=== PATIENT | male | born 1980 | race Two or more races ===

== ENCOUNTER 2019-07-25 20:32 | Inpatient (IN) | payer MEDICAID ==
[~2019-07-25] VITALS: Ht 177.8 cm; Wt 78.1 kg
[2019-07-25 20:35] VITALS: BP 104/56
--- NOTE | 2019-07-25 20:35 | NUR ---
ED Nurse Note: pt bekaha CO sz while at friends' house, witnessed by friend but untimed. No known hx of sz or other previous medical conditions. Pt BS in rig 125; BS 126 upon arrival. RA states they gave Versed 2mg and 1L of NS en route; pt vomited once en route. HR elevated 132 but other VSS. Blood and urine sent to lab. Pt placed on monitor. Awaiting ERMD.
--- NOTE | 2019-07-25 20:37 | NUR ---
ED Nurse Note: pt arousable, aao x 1; wakes to name and/or shaking.
--- NOTE | 2019-07-25 20:38 | Emergency Room Report ---
History of Present Illness General Chief Complaint: Seizure Source: EMS Present Illness HPI Disclaimer: Please note that this report is being documented using DRAGON technology. This can lead to erroneous entry secondary to incorrect interpretation by the dictating instrument. HPI: 39-year male presents for evaluation of seizure-like activity. Per EMS, they were called to the house by patient's roommate who found him behaving bizarrely with his right arm twitching. Per EMS they found him somewhat confused though making good eye contact, tracking and following commands. En route he had a generalized tonic-clonic seizure with persistent tremors in his right upper extremity. He was given 5 mg Versed which aborted the seizure. He is somnolent with sonorous respirations on arrival. He cannot provide any history. Per EMS, no seizure history is known but he is reportedly a heavy drinker according to the roommates. Supposedly he did not drink today. Unknown history of DT or withdrawal seizures. No prior visits at our facility PMH: Unknown PSH: Unknown Allergies: Unknown Social Hx: Unknown but alcohol abuse reported by EMS Allergies: Coded Allergies: No Known Allergies (Unverified , 07/25/19) Review of Systems All Other Systems: limited - Unable to obtain from patient Physical Exam General: Sleeping, sonorous respirations, no acute distress HEENT: NC/AT. EOMI. pupils are 2 mm and reactive bilaterally. Anicteric sclera. Neck: Supple, trachea midline Chest Wall: No tenderness, no deformity Cardiovascular: RRR. S1 and S2 normal. No murmur appreciated Resp: Sonorous respirations. Normal work of breathing. No cough, wheezing or crackles appreciated Abdomen: Abdomen is soft, nondistended. Nontender Skin: Intact. No abrasions, laceration or rash over the exposed skin MSK: Normal tone and bulk. Moving all extremities. No obvious deformity. Neuro: GCS 7. E1, V2, M4. Some rhythmic motion in the right upper extremity, intermittent. No rigidity Procedures Critical Care Time Critical Care Time Total critical care time: Approximately 45 minutes Due to a high probability of clinically significant, life threatening deterioration, the patient required the highest level of preparedness to intervene emergently and I personally spent this critical care time directly and personally managing the patient. This critical care time included obtaining a history, examining the patient, pulse oximetry, ordering and reviewing studies , ordering treatments, evaluating response to treatment and updating management plan as needed, frequent reassessment and discussion with other providers as well as arranging for ultimate disposition. This critical to care time was performed to assess and manage the high probability of life-threatening deterioration that could result in multiorgan failure. This critical care time is separate from the separately billable procedures and treating other patients. Medical Decision Making Diagnostic Impression: Primary Impression: Seizure Additional Impression: JULIAN (acute kidney injury) ER Course 39-year-old male with a reported history of alcohol abuse presents for evaluation of seizure-like activity and altered mental status. He reportedly had a generalized tonic-clonic seizure en route which was aborted by 5 mg Versed given by EMS just prior to arrival. He is somnolent but withdrawing to pain and GCS is 7. Protecting his airway at present. Differential includes was not limited to seizure disorder, medication noncompliance, alcohol withdrawal seizure, delirium tremens, intercranial mass, new cranial injury, focal seizure, toxicologic, encephalopathy, electrolyte abnormality. Blood sugar per EMS was 180. Start a broad metabolic infectious work-up. Will send patient for CT scan of the head. Will load with Keppra. Additional benzodiazepines as needed. Laboratory Tests Test 07/25/19 20:40 07/25/19 21:00 White Blood Count 10.6 K/UL (4.8-10.8) Red Blood Count 3.95 M/UL (4.70-6.10) L Hemoglobin 13.2 G/DL (14.2-18.0) L Hematocrit 38.2 % (42.0-52.0) L Mean Corpuscular Volume 97 FL (80-99) Mean Corpuscular Hemoglobin 33.5 PG (27.0-31.0) H Mean Corpuscular Hemoglobin Concent 34.6 G/DL (32.0-36.0) Red Cell Distribution Width 11.1 % (11.6-14.8) L Platelet Count 164 K/UL (150-450) Mean Platelet Volume 6.5 FL (6.5-10.1) Neutrophils (%) (Auto) 49.2 % (45.0-75.0) Lymphocytes (%) (Auto) 36.0 % (20.0-45.0) Monocytes (%) (Auto) 10.2 % (1.0-10.0) H Eosinophils (%) (Auto) 3.3 % (0.0-3.0) H Basophils (%) (Auto) 1.4 % (0.0-2.0) Sodium Level 139 MMOL/L (136-145) Potassium Level 3.1 MMOL/L (3.5-5.1) L Chloride Level 101 MMOL/L (98-107) Carbon Dioxide Level 11 MMOL/L (21-32) L Anion Gap 27 mmol/L (5-15) H Blood Urea Nitrogen 15 mg/dL (7-18) Creatinine 1.4 MG/DL (0.55-1.30) H Estimate Glomerular Filtration Rate 56.1 mL/min (>60) Glucose Level 128 MG/DL (74-106) H Calcium Level 8.9 MG/DL (8.5-10.1) Total Bilirubin 0.9 MG/DL (0.2-1.0) Aspartate Amino Transferase (AST) 82 U/L (15-37) H Alanine Aminotransferase (ALT) 81 U/L (12-78) H Alkaline Phosphatase 178 U/L (46-116) H Total Creatine Kinase 171 U/L (26-308) Troponin I 0.000 ng/mL (0.000-0.056) Total Protein 9.4 G/DL (6.4-8.2) H Albumin 3.1 G/DL (3.4-5.0) L Globulin 6.3 g/dL Albumin/Globulin Ratio 0.5 (1.0-2.7) L Salicylates Level < 0.2 ug/mL (2.8-20) L Acetaminophen Level < 2 MCG/ML (10-30) L Serum Alcohol < 3 mg/dL Urine Opiates Screen Negative (NEGATIVE) Urine Barbiturates Screen Negative (NEGATIVE) Phencyclidine (PCP) Screen Negative (NEGATIVE) Urine Amphetamines Screen Negative (NEGATIVE) Urine Benzodiazepines Screen Positive (NEGATIVE) H Urine Cocaine Screen Negative (NEGATIVE) Urine Marijuana (THC) Screen Negative (NEGATIVE) EKG Diagnostic Results EKG Time: 20:03 Rate: tachycardiac Other Impression Sinus tachycardia, normal axis, normal intervals, no obvious ST changes Rhythm Strip Diag. Results Rhythm Strip Time: 20:03 EP Interpretation: yes Rate: 120s Rhythm: no PVC's, no ectopy CT/MRI/US Diagnostic Results CT/MRI/US Diagnostic Results : Impression Preliminary Findings Only See Final Report For Complete Findings CT HEAD Without Contrast: Impression: No acute intracranial pathology is detected. If there is concern for etiology such as early acute lacunar infarct or if there is concern for subtle abnormalities, magnetic resonance imaging of the brain should be performed for follow-up. Incidental findings: The ventricular system is unremarkable. No midline shift or mass-effect. No abnormal extra-axial collection. Physiologic calcis occasions within the basal ganglia are noted. Calvarium is unremarkable. Mastoid air cells are well pneumatized. Mild chronic ethmoid sinusitis. Radiologist: Sukhdeep Up MD Study ready at 20:56 and initial results transmitted at 20:59 Reevaluation Time: 21:14 Reevaluation Impression No mass or bleed identified on CT scan of the head. Labs show a slight elevation in creatinine as well as the LFTs. Patient remains somnolent and tachycardic. Alcohol level undetectable. Patient mentation is improving. He is tremulous and cannot recall today's events. He seems somewhat altered and confused by my questioning but is improved from initial presentation. Concern for acute alcohol withdrawal. He will require admission. We will continue benzodiazepines and IV fluids. Disposition: ADMITTED INPATIENT Condition: Serious Scripts No Active Prescriptions or Reported Meds Roberto Lucio MD Jul 25, 2019 20:38
--- NOTE | 2019-07-25 20:42 | NUR ---
ED Nurse Note: Pt taken to CT
[2019-07-25] MEDS ORDERED: levETIRAcetam 1,000mg/NS100ml 100 ML IVPB ONE (20:45)
--- NOTE | 2019-07-25 20:50 | NUR ---
ED Nurse Note: Pt returned from CT. technical sales manager states pt vomited once during procedure, approximately 100ml. Pt VS elevated, ERMD aware.
--- NOTE | 2019-07-25 20:51 | NUR ---
ED Nurse Note: ERMD at bedside
--- NOTE | 2019-07-25 21:00 | NUR ---
ED Nurse Note: Pt at bedside, states that pt and her are and pt drinks alcohol everyday. Pt states that she does not know where the pt was when he was picked up by ambulance and has not seen him for a few days. ERMD at bedside.
--- NOTE | 2019-07-25 21:00 | Diagnostic Imaging Report ---
Indication: Headache Technique: Contiguous 5 mm thick transaxial imaging of the head obtained in a Siemens Sensation [address] scanner. Soft tissue and bone windows generated. Automatic Exposure Control was utilized. Total Dose length Product (DLP): 1018.8mGycm CT Dose Index Volume (CTDIvol): 53.4 mGy Comparison: none Findings: The size and configuration of the cortical sulci, basal cisterns, and ventricles are within normal limits for age. There is no mass effect, midline shift, or edema identified. There is no evidence of acute hemorrhage or abnormal intra-axial or extra-axial fluid collections. The bones and soft tissues are unremarkable. Impression: No mass effect, edema or acute bleed. [facility] has communicated the preliminary results to the Emergency Department. Their findings are largely concordant with this report. The CT scanner at [facility] is accredited by the [employer] [place] [employer] and the scans are performed using dose optimization techniques as appropriate to a performed exam including Automatic Exposure control.
[2019-07-25 21:01] LABS: ANION GAP 27 mmol/L (5-15); BLOOD UREA NITROGEN 15 mg/dL (7-18); CALCIUM 8.9 MG/DL (8.5-10.1); CARBON DIOXIDE 11 MMOL/L (21-32); CHLORIDE 101 MMOL/L (98-107); CREATININE 1.4 MG/DL (0.55-1.30); POTASSIUM 3.1 MMOL/L (3.5-5.1); SODIUM 139 MMOL/L (136-145)
[2019-07-25 21:02] LABS: BASOPHILS % (AUTO) 1.4 % (0.0-2.0); EOSINOPHILS % (AUTO) 3.3 % (0.0-3.0); HEMATOCRIT 38.2 % (42.0-52.0); HEMOGLOBIN 13.2 G/DL (14.2-18.0); MEAN CORPUSCULAR VOLUME 97 FL (80-99); MONOCYTES % (AUTO) 10.2 % (1.0-10.0); NEUTROPHILS % (AUTO) 49.2 % (45.0-75.0); PLATELET COUNT 164 K/UL (150-450); RED BLOOD COUNT 3.95 M/UL (4.70-6.10); RED CELL DISTRIBUTION WIDTH 11.1 % (11.6-14.8); WHITE BLOOD COUNT 10.6 K/UL (4.8-10.8)
[2019-07-25 21:05] LABS: ALANINE AMINOTRANSFERASE 81 U/L (12-78); ALBUMIN 3.1 G/DL (3.4-5.0); ALBUMIN/GLOBULIN RATIO 0.5 (1.0-2.7); ALKALINE PHOSPHATASE 178 U/L (46-116); ASPARTATE AMINO TRANSFERASE 82 U/L (15-37); BILIRUBIN,TOTAL 0.9 MG/DL (0.2-1.0)
[2019-07-25] MEDS ORDERED: LORazepam Inj 2mg/ml 1ml IV ONE ×3 (21:30→23:15)
[2019-07-25 21:43] LABS: CREATINE KINASE 171 U/L (26-308)
[2019-07-25 22:41] VITALS: BP 150/91
[2019-07-25 23:07] LABS: APPEARANCE,URINE CLEAR; BILIRUBIN, URINE NEGATIVE (NEGATIVE); COLOR,URINE YELLOW; GLUCOSE, URINE (UA) NEGATIVE (NEGATIVE); KETONES,URINE NEGATIVE (NEGATIVE); LEUKOCYTE ESTERASE ,URINE NEGATIVE (NEGATIVE); NITRITE,URINE NEGATIVE (NEGATIVE); PH,URINE 6 (4.5-8.0); PROTEIN,URINE 2+ (NEGATIVE); UROBILINOGEN,URINE 1 MG/DL (0.0-1.0)
[2019-07-25 23:32] VITALS: BP 158/90
[2019-07-26] VITALS (9 sets, daily range): BP systolic 125–160; BP diastolic 80–103
--- NOTE | 2019-07-26 00:45 | NUR ---
ED Nurse Note: pt pulled out IV on left forearm; IV line discontinued. New IV line right forearm 20g
--- NOTE | 2019-07-26 02:10 | NUR ---
ED Nurse Note: Pt resting in bed, no change in condition.
--- NOTE | 2019-07-26 04:22 | NUR ---
ED Nurse Note: Pt resting in bed; no change in condition
[2019-07-26] MEDS ORDERED: chlordiazePOXIDE 25mg Cap ORAL ONE (05:30)
[2019-07-26] MEDS ORDERED: LORazepam Inj 2mg/ml 1ml IV ONE (05:30)
--- NOTE | 2019-07-26 06:29 | NUR ---
ED Nurse Note: belongings list completed, placed in pts cubby.
--- NOTE | 2019-07-26 06:43 | NUR ---
ED Nurse Note: Pt resting in bed, no change in condition
--- NOTE | 2019-07-26 07:03 | NUR ---
ED Nurse Note: Report given to NIDHI Cabral
--- NOTE | 2019-07-26 07:50 | NUR ---
ED Nurse Note:called report to tele-given to RN, pt. taken up stairs
--- NOTE | 2019-07-26 08:56 | NUR ---
NURSE NOTES: Received pt from [facility],all admission assessments and instructions done, Pt is very confused and has tremor, pt is in RA, Pt is on continues heart monitoring, Dr BASS is aware about admission and HR 120. t 101.7, K 3.1, and tremor and other lab results and V/S, all orders noted and carried out. pt has intact iv access RFA 20G SL. Pt is on seizure precaution, pads is around the bed and suction is on bed side. pt's is on bed side and RN asked her about past medical history and others, no past medical history per . all needs attended, bed is locked and is in the lowest position, call light within easy reach. will continue to monitor.
[2019-07-26] MEDS: Acetaminophen 650 MG SUPP RECTAL PRN ×2 (09:49→20:59)
[2019-07-26] MEDS: LORazepam Inj 2mg/ml 1ml IV PRN ×2 (09:51→13:31)
[2019-07-26] MEDS ORDERED: Sodium Chloride for KCL Premix X 4hrs IV SCH (10:00)
[2019-07-26 10:50] LABS: BASOPHILS % (AUTO) 0.9 % (0.0-2.0); EOSINOPHILS % (AUTO) 0.2 % (0.0-3.0); HEMATOCRIT 36.5 % (42.0-52.0); HEMOGLOBIN 13.2 G/DL (14.2-18.0); LYMPHOCYTES % (AUTO) 20.1 % (20.0-45.0); MEAN CORPUSCULAR VOLUME 94 FL (80-99); MONOCYTES % (AUTO) 10.4 % (1.0-10.0); NEUTROPHILS % (AUTO) 68.4 % (45.0-75.0); PLATELET COUNT 159 K/UL (150-450); RED BLOOD COUNT 3.86 M/UL (4.70-6.10); RED CELL DISTRIBUTION WIDTH 10.7 % (11.6-14.8); WHITE BLOOD COUNT 7.4 K/UL (4.8-10.8)
--- NOTE | 2019-07-26 11:00 | NUR ---
NURSE NOTES: Dr QUILES visited pt and he is aware about tachycardia ordered stat echo, noted and carried out. per pt's no home meds for pt.
[2019-07-26 11:12] LABS: ANION GAP 11 mmol/L (5-15); BLOOD UREA NITROGEN 6 mg/dL (7-18); CALCIUM 8.4 MG/DL (8.5-10.1); CARBON DIOXIDE 24 MMOL/L (21-32); CHLORIDE 101 MMOL/L (98-107); CREATININE 0.7 MG/DL (0.55-1.30); POTASSIUM 3.3 MMOL/L (3.5-5.1); SODIUM 136 MMOL/L (136-145)
[2019-07-26 11:34] LABS: ALANINE AMINOTRANSFERASE 69 U/L (12-78); ALBUMIN 3.1 G/DL (3.4-5.0); ALBUMIN/GLOBULIN RATIO 0.5 (1.0-2.7); ALKALINE PHOSPHATASE 101 U/L (46-116); ASPARTATE AMINO TRANSFERASE 94 U/L (15-37); BILIRUBIN,TOTAL 0.9 MG/DL (0.2-1.0); CHOLESTEROL 129 MG/DL (< 200); GAMMA GLUTAMYL TRANSPEPTIDASE 395 U/L (5-85); HDL CHOLESTEROL 39 MG/DL (40-60); PHOSPHORUS 2.4 MG/DL (2.5-4.9); TRIGLYCERIDES 73 MG/DL (30-150)
--- NOTE | 2019-07-26 11:52 | Cardiac Electrophysiology PN ---
Subjective Subjective [id number] Objective Last 24 Hour Vital Signs Date Time Temp Pulse Resp B/P (MAP) Pulse Ox O2 Delivery O2 Flow Rate FiO2 07/26/19 10:35 102 07/26/19 10:19 100.6 07/26/19 09:00 Room Air 07/26/19 08:30 101.7 120 20 125/103 (110) 100 07/26/19 07:40 98.4 97 20 139/98 100 Room Air 105 07/26/19 07:13 105 20 139/98 100 Room Air 07/26/19 05:51 98.4 110 20 154/98 95 Room Air 07/26/19 05:10 98.4 97 20 155/90 92 Room Air 07/26/19 03:12 98.4 97 20 140/85 92 Room Air 07/26/19 01:45 98.4 104 18 160/95 92 Room Air 07/25/19 23:32 98.4 104 18 158/90 92 Room Air 07/25/19 22:41 98.4 100 18 150/91 92 Room Air 07/25/19 20:35 114 18 Room Air 07/25/19 20:35 98.4 126 18 104/56 92 Room Air 07/25/19 20:30 98.4 114 18 104/56 (72) 92 Room Air Intake and Output 07/25/19 07/26/19 19:00 07:00 Intake Total 3000 ml Output Total 1500 ml Balance 1500 ml Intake Oral 3000 ml Output Urine Total 1500 ml # Voids 5 Laboratory Tests Test 07/25/19 20:40 07/25/19 21:00 07/26/19 10:20 White Blood Count 10.6 K/UL (4.8-10.8) 7.4 K/UL (4.8-10.8) Red Blood Count 3.95 M/UL (4.70-6.10) L 3.86 M/UL (4.70-6.10) L Hemoglobin 13.2 G/DL (14.2-18.0) L 13.2 G/DL (14.2-18.0) L Hematocrit 38.2 % (42.0-52.0) L 36.5 % (42.0-52.0) L Mean Corpuscular Volume 97 FL (80-99) 94 FL (80-99) Mean Corpuscular Hemoglobin 33.5 PG (27.0-31.0) H 34.2 PG (27.0-31.0) H Mean Corpuscular Hemoglobin Concent 34.6 G/DL (32.0-36.0) 36.2 G/DL (32.0-36.0) H Red Cell Distribution Width 11.1 % (11.6-14.8) L 10.7 % (11.6-14.8) L Platelet Count 164 K/UL (150-450) 159 K/UL (150-450) Mean Platelet Volume 6.5 FL (6.5-10.1) 7.1 FL (6.5-10.1) Neutrophils (%) (Auto) 49.2 % (45.0-75.0) 68.4 % (45.0-75.0) Lymphocytes (%) (Auto) 36.0 % (20.0-45.0) 20.1 % (20.0-45.0) Monocytes (%) (Auto) 10.2 % (1.0-10.0) H 10.4 % (1.0-10.0) H Eosinophils (%) (Auto) 3.3 % (0.0-3.0) H 0.2 % (0.0-3.0) Basophils (%) (Auto) 1.4 % (0.0-2.0) 0.9 % (0.0-2.0) Sodium Level 139 MMOL/L (136-145) 136 MMOL/L (136-145) Potassium Level 3.1 MMOL/L (3.5-5.1) L 3.3 MMOL/L (3.5-5.1) L Chloride Level 101 MMOL/L (98-107) 101 MMOL/L (98-107) Carbon Dioxide Level 11 MMOL/L (21-32) L 24 MMOL/L (21-32) Anion Gap 27 mmol/L (5-15) H 11 mmol/L (5-15) Blood Urea Nitrogen 15 mg/dL (7-18) 6 mg/dL (7-18) L Creatinine 1.4 MG/DL (0.55-1.30) H 0.7 MG/DL (0.55-1.30) Estimat Glomerular Filtration Rate 56.1 mL/min (>60) > 60 mL/min (>60) Glucose Level 128 MG/DL (74-106) H 95 MG/DL (74-106) Calcium Level 8.9 MG/DL (8.5-10.1) 8.4 MG/DL (8.5-10.1) L Total Bilirubin 0.9 MG/DL (0.2-1.0) 0.9 MG/DL (0.2-1.0) Aspartate Amino Transf (AST/SGOT) 82 U/L (15-37) H 94 U/L (15-37) H Alanine Aminotransferase (ALT/SGPT) 81 U/L (12-78) H 69 U/L (12-78) Alkaline Phosphatase 178 U/L (46-116) H 101 U/L (46-116) Total Creatine Kinase 171 U/L (26-308) Troponin I 0.000 ng/mL (0.000-0.056) Total Protein 9.4 G/DL (6.4-8.2) H 9.0 G/DL (6.4-8.2) H Albumin 3.1 G/DL (3.4-5.0) L 3.1 G/DL (3.4-5.0) L Globulin 6.3 g/dL 5.9 g/dL Albumin/Globulin Ratio 0.5 (1.0-2.7) L 0.5 (1.0-2.7) L Salicylates Level < 0.2 ug/mL (2.8-20) L Acetaminophen Level < 2 MCG/ML (10-30) L Serum Alcohol < 3 mg/dL Urine Color Yellow Urine Appearance Clear Urine pH 6 (4.5-8.0) Urine Specific [place] 1.020 (1.005-1.035) Urine Protein 2+ (NEGATIVE) H Urine Glucose (UA) Negative (NEGATIVE) Urine Ketones Negative (NEGATIVE) Urine Blood Negative (NEGATIVE) Urine Nitrite Negative (NEGATIVE) Urine Bilirubin Negative (NEGATIVE) Urine Urobilinogen 1 MG/DL (0.0-1.0) H Urine Leukocyte Esterase Negative (NEGATIVE) Urine RBC 0-2 /HPF (0 - 0) H Urine WBC 0-2 /HPF (0 - 0) Urine Squamous Epithelial Cells None /LPF (NONE/OCC) Urine Bacteria Few /HPF (NONE) Urine Opiates Screen Negative (NEGATIVE) Urine Barbiturates Screen Negative (NEGATIVE) Phencyclidine (PCP) Screen Negative (NEGATIVE) Urine Amphetamines Screen Negative (NEGATIVE) Urine Benzodiazepines Screen Positive (NEGATIVE) H Urine Cocaine Screen Negative (NEGATIVE) Urine Marijuana (THC) Screen Negative (NEGATIVE) Hemoglobin A1c 5.4 % (4.3-6.0) Uric Acid 4.8 MG/DL (2.6-7.2) Phosphorus Level 2.4 MG/DL (2.5-4.9) L Magnesium Level 1.7 MG/DL (1.8-2.4) L Gamma Glutamyl Transpeptidase 395 U/L (5-85) H C-Reactive Protein, Quantitative 2.9 mg/dL (0.00-0.90) H Pro-B-Type Natriuretic Peptide 482 pg/mL (0-125) H Triglycerides Level 73 MG/DL (30-150) Cholesterol Level 129 MG/DL (< 200) LDL Cholesterol 80 mg/dL (<100) HDL Cholesterol 39 MG/DL (40-60) L Cholesterol/HDL Ratio 3.3 (3.3-4.4) Lipase 172 U/L (73-393) Ric Mckeon MD Jul 26, 2019 11:52
--- NOTE | 2019-07-26 12:43 | NUR ---
NURSE NOTES: Dr CHAUDHARI is aware about the result of echo, no new order to RN. Will continue to monitor.
[2019-07-26] MEDS ORDERED: LORazepam Inj 2mg/ml 1ml IM PRN (14:30)
--- NOTE | 2019-07-26 14:34 | Diagnostic Imaging Report ---
Indication: . Alcohol withdrawal seizure TECHNIQUE: Duplex extracranial carotid and vertebral artery sonography performed with color flow imaging and waveform analysis. COMPARISON: None FINDINGS: Right carotid: Grayscale and color-flow imaging demonstrating no hemodynamically significant stenosis within the common carotid artery, extracranial internal carotid artery. Peak systolic and end-diastolic velocities are within normal limits. ICA/CCA ratios are within normal limits. Mild heterogeneous plaques are demonstrated consistent with atherosclerotic disease. Left carotid: Grayscale and color-flow imaging demonstrating no hemodynamically significant stenosis within the common carotid artery, extracranial internal carotid artery. Peak systolic and end-diastolic velocities are within normal limits. ICA/CCA ratios are within normal limits. Mild heterogeneous plaques are demonstrated consistent with atherosclerotic disease. Vertebral arteries: Antegrade flow demonstrated within both vertebral arteries. IMPRESSION: No hemodynamically significant extracranial carotid artery stenosis identified. Antegrade flow within both vertebral arteries. This report utilizes carotid stenosis grading criteria based on the meeting of Society of radiologists in ultrasound consensus conference, February 2002.
--- NOTE | 2019-07-26 14:37 | NUR ---
CASE MANAGEMENT:REVIEW 39 YR OLD MALE BIBA FROM HOME CC: ALTERED, HAND TWITCHING AND SEIZURE SI: ALCOHOL WITHDRAWAL SEIZURE 98.4 114 18 104/56 92% ON RA H/H-13.2/38.2 K-3.3 CA-8.4 PHOS-2.4 MAG-1.7 IS: 1L NS BOLUS X2 IV KEPPRA IV ATIVAN X2 VALIUM PO CT HEAD : TO TELEMETRY
[2019-07-26] MEDS: cefTRIAXone 2 GM in D5W 55 ML IVPB SCH (15:05)
[2019-07-26] MEDS: chlordiazePOXIDE 25mg Cap ORAL SCH ×2 (15:06→22:11)
--- NOTE | 2019-07-26 15:26 | Diagnostic Imaging Report ---
Indication: Abdominal pain Technique: Grayscale and duplex Doppler imaging of the abdomen performed. Comparison: None Findings: Patient was uncooperative. The study was significantly limited due to patient movement. The liver is unremarkable. Doppler interrogation of the main portal vein shows patency with hepatopedal, monophasic flow. There is no biliary ductal dilatation identified. Gallbladder is unremarkable. The spleen measures 15 cm. There demonstrated part of the pancreas, aorta and IVC show no definite abnormalities. Both kidneys appear unremarkable. There is no hydronephrosis. IMPRESSION: Splenomegaly. Exam is limited
--- NOTE | 2019-07-26 15:44 | Consultation ---
History of Present Illness General Date patient seen: Jul 26, 2019 Chief Complaint: Present Illness Allergies: Coded Allergies: No Known Allergies (Unverified , 07/25/19) Medication History No Active Prescriptions or Reported Meds Patient History Healthcare decision maker Dr BASS Resuscitation status Full Code Advanced Directive on File Physical Exam Last 24 Hour Vital Signs Date Time Temp Pulse Resp B/P (MAP) Pulse Ox O2 Delivery O2 Flow Rate FiO2 07/26/19 12:00 99.9 102 20 139/80 (99) 98 07/26/19 11:44 127 07/26/19 10:35 102 07/26/19 10:19 100.6 07/26/19 09:00 Room Air 07/26/19 08:30 101.7 120 20 125/103 (110) 100 07/26/19 07:40 98.4 97 20 139/98 100 Room Air 105 07/26/19 07:13 105 20 139/98 100 Room Air 07/26/19 05:51 98.4 110 20 154/98 95 Room Air 07/26/19 05:10 98.4 97 20 155/90 92 Room Air 07/26/19 03:12 98.4 97 20 140/85 92 Room Air 07/26/19 01:45 98.4 104 18 160/95 92 Room Air 07/25/19 23:32 98.4 104 18 158/90 92 Room Air 07/25/19 22:41 98.4 100 18 150/91 92 Room Air 07/25/19 20:35 114 18 Room Air 07/25/19 20:35 98.4 126 18 104/56 92 Room Air 07/25/19 20:30 98.4 114 18 104/56 (72) 92 Room Air Intake and Output 07/25/19 07/26/19 19:00 07:00 Intake Total 3000 ml Output Total 1500 ml Balance 1500 ml Intake Oral 3000 ml Output Urine Total 1500 ml # Voids 5 Laboratory Tests Test 07/25/19 20:40 07/25/19 21:00 07/26/19 10:20 White Blood Count 10.6 K/UL (4.8-10.8) 7.4 K/UL (4.8-10.8) Red Blood Count 3.95 M/UL (4.70-6.10) L 3.86 M/UL (4.70-6.10) L Hemoglobin 13.2 G/DL (14.2-18.0) L 13.2 G/DL (14.2-18.0) L Hematocrit 38.2 % (42.0-52.0) L 36.5 % (42.0-52.0) L Mean Corpuscular Volume 97 FL (80-99) 94 FL (80-99) Mean Corpuscular Hemoglobin 33.5 PG (27.0-31.0) H 34.2 PG (27.0-31.0) H Mean Corpuscular Hemoglobin Concent 34.6 G/DL (32.0-36.0) 36.2 G/DL (32.0-36.0) H Red Cell Distribution Width 11.1 % (11.6-14.8) L 10.7 % (11.6-14.8) L Platelet Count 164 K/UL (150-450) 159 K/UL (150-450) Mean Platelet Volume 6.5 FL (6.5-10.1) 7.1 FL (6.5-10.1) Neutrophils (%) (Auto) 49.2 % (45.0-75.0) 68.4 % (45.0-75.0) Lymphocytes (%) (Auto) 36.0 % (20.0-45.0) 20.1 % (20.0-45.0) Monocytes (%) (Auto) 10.2 % (1.0-10.0) H 10.4 % (1.0-10.0) H Eosinophils (%) (Auto) 3.3 % (0.0-3.0) H 0.2 % (0.0-3.0) Basophils (%) (Auto) 1.4 % (0.0-2.0) 0.9 % (0.0-2.0) Sodium Level 139 MMOL/L (136-145) 136 MMOL/L (136-145) Potassium Level 3.1 MMOL/L (3.5-5.1) L 3.3 MMOL/L (3.5-5.1) L Chloride Level 101 MMOL/L (98-107) 101 MMOL/L (98-107) Carbon Dioxide Level 11 MMOL/L (21-32) L 24 MMOL/L (21-32) Anion Gap 27 mmol/L (5-15) H 11 mmol/L (5-15) Blood Urea Nitrogen 15 mg/dL (7-18) 6 mg/dL (7-18) L Creatinine 1.4 MG/DL (0.55-1.30) H 0.7 MG/DL (0.55-1.30) Estimat Glomerular Filtration Rate 56.1 mL/min (>60) > 60 mL/min (>60) Glucose Level 128 MG/DL (74-106) H 95 MG/DL (74-106) Calcium Level 8.9 MG/DL (8.5-10.1) 8.4 MG/DL (8.5-10.1) L Total Bilirubin 0.9 MG/DL (0.2-1.0) 0.9 MG/DL (0.2-1.0) Aspartate Amino Transf (AST/SGOT) 82 U/L (15-37) H 94 U/L (15-37) H Alanine Aminotransferase (ALT/SGPT) 81 U/L (12-78) H 69 U/L (12-78) Alkaline Phosphatase 178 U/L (46-116) H 101 U/L (46-116) Total Creatine Kinase 171 U/L (26-308) Troponin I 0.000 ng/mL (0.000-0.056) Total Protein 9.4 G/DL (6.4-8.2) H 9.0 G/DL (6.4-8.2) H Albumin 3.1 G/DL (3.4-5.0) L 3.1 G/DL (3.4-5.0) L Globulin 6.3 g/dL 5.9 g/dL Albumin/Globulin Ratio 0.5 (1.0-2.7) L 0.5 (1.0-2.7) L Salicylates Level < 0.2 ug/mL (2.8-20) L Acetaminophen Level < 2 MCG/ML (10-30) L Serum Alcohol < 3 mg/dL Urine Color Yellow Urine Appearance Clear Urine pH 6 (4.5-8.0) Urine Specific [place] 1.020 (1.005-1.035) Urine Protein 2+ (NEGATIVE) H Urine Glucose (UA) Negative (NEGATIVE) Urine Ketones Negative (NEGATIVE) Urine Blood Negative (NEGATIVE) Urine Nitrite Negative (NEGATIVE) Urine Bilirubin Negative (NEGATIVE) Urine Urobilinogen 1 MG/DL (0.0-1.0) H Urine Leukocyte Esterase Negative (NEGATIVE) Urine RBC 0-2 /HPF (0 - 0) H Urine WBC 0-2 /HPF (0 - 0) Urine Squamous Epithelial Cells None /LPF (NONE/OCC) Urine Bacteria Few /HPF (NONE) Urine Opiates Screen Negative (NEGATIVE) Urine Barbiturates Screen Negative (NEGATIVE) Phencyclidine (PCP) Screen Negative (NEGATIVE) Urine Amphetamines Screen Negative (NEGATIVE) Urine Benzodiazepines Screen Positive (NEGATIVE) H Urine Cocaine Screen Negative (NEGATIVE) Urine Marijuana (THC) Screen Negative (NEGATIVE) Hemoglobin A1c 5.4 % (4.3-6.0) Uric Acid 4.8 MG/DL (2.6-7.2) Phosphorus Level 2.4 MG/DL (2.5-4.9) L Magnesium Level 1.7 MG/DL (1.8-2.4) L Gamma Glutamyl Transpeptidase 395 U/L (5-85) H C-Reactive Protein, Quantitative 2.9 mg/dL (0.00-0.90) H Pro-B-Type Natriuretic Peptide 482 pg/mL (0-125) H Triglycerides Level 73 MG/DL (30-150) Cholesterol Level 129 MG/DL (< 200) LDL Cholesterol 80 mg/dL (<100) HDL Cholesterol 39 MG/DL (40-60) L Cholesterol/HDL Ratio 3.3 (3.3-4.4) Lipase 172 U/L (73-393) Height (Feet): 5 Height (Inches): 10.00 Weight (Pounds): 200 Medications Current Medications Medications (Trade) Dose Ordered Sig/Gabrielle Route PRN Reason Start Time Stop Time Status Last Admin Dose Admin Acetaminophen (Tylenol) 650 mg Q6H PRN RECTAL fever 07/26/19 08:45 08/25/19 08:44 07/26/19 09:49 Ceftriaxone Sodium 2 gm/ Dextrose 55 ml @ 110 mls/hr Q24H IVPB 07/26/19 15:00 08/02/19 14:59 07/26/19 15:05 Chlordiazepoxide (Librium) 50 mg EVERY 8 HOURS ORAL 07/26/19 14:30 08/02/19 14:29 07/26/19 15:06 Lorazepam (Ativan 2mg/ml 1ml) 2 mg Q2H PRN IM For Anxiety 07/26/19 14:30 08/02/19 14:29 Assessment/Plan Assessment/Plan: (1) Alcohol abuse (2) Alcohol withdrawals (3) R/O Delirium Tremens seen dictated Archie Magaña Jul 26, 2019 15:44
--- NOTE | 2019-07-26 15:52 | Diagnostic Imaging Report ---
Indication: Dyspnea Comparison: None A single view chest radiograph was obtained. Findings: Cardiomediastinal appearance is within normal limits for age. The lungs are clear. Pulmonary vascularity is appropriate. The diaphragmatic contour is smooth and costophrenic angles are sharp. No pleural effusions are identified. The bones are unremarkable. Impression: No acute findings
--- NOTE | 2019-07-26 16:00 | History and Physical Report ---
DATE OF ADMISSION: 07/25/2019 HISTORY OF PRESENT ILLNESS: The patient comes here for acute alcohol withdrawal, rule out seizure, rule out delirium tremens. The patient does have some tremors, altered, confused. Cannot get a reliable history. The patient also does not speak [place]. Apparently, EMS saw him having seizures on route to the hospital. Versed was given. The patient was also tachycardic. Admitted for delirium tremens/AMS and tachycardia. Again, the patient is confused, cannot get any history from the patient. Has tremors. PAST MEDICAL HISTORY: Significant for alcohol dependence and history of seizure, most likely related to alcohol withdrawal. PAST SURGICAL HISTORY: Apparently none. ALLERGIES: No known allergies. MEDICATIONS: Apparently none. FAMILY HISTORY: Unable to obtain. SOCIAL HISTORY: The patient has history of smoking. Apparently has no history of drinking. REVIEW OF SYSTEMS: Unable to obtain. The patient is confused and lethargic. PHYSICAL EXAMINATION: VITAL SIGNS: Temperature 98.4, pulse is 97, blood pressure 140/85. HEENT: PERRLA. NECK: Supple. CHEST: Clear to auscultation. CARDIOVASCULAR: Tachycardic. GASTROINTESTINAL: Soft. Positive bowel sounds. No organomegaly. Abdomen is soft. EXTREMITIES: No edema. Reflexes equal on both sides. He is able to move all extremities. The patient is agitated, lethargic, does respond to noxious stimuli, non oriented, and does have upper extremity tremors. LABORATORY DATA: WBC of 10.6, hemoglobin of 13.2, platelets 164. Sodium 139, potassium 3.1, BUN of 15, creatinine 1.4, glucose of 128. AST of 82, ALT of 81, alkaline phosphatase of 178. ASSESSMENT AND PLAN: Rule out delirium tremens, rule out alcohol withdrawal seizures, hypokalemia, elevated LFTs, most likely due to alcohol. The patient also had a fever, so I have consulted Dr. Po Bryant and Dr. Wilson for pain management, Dr. Hickey and Dr. Razo for DT and seizure prophylaxis as well as Dr. Canales for the tachycardia. Tachycardia is most likely due to fever as well as delirium tremens. We will monitor the patient closely in the monitored bed. Isa Blanchard M.D. DR: WALTER JOB#: [id number] CC:
--- NOTE | 2019-07-26 17:39 | Consultation ---
Consult Note Consult Note I am asked to evaluate the patient at the request of Dr. lBanchard for fluid and electrolyte management Patient non-historian confused HPI: 39-year male presents for evaluation of seizure-like activity. Per EMS, they were called to the house by patient's roommate who found him behaving bizarrely with his right arm twitching. Per EMS they found him somewhat confused though making good eye contact, tracking and following commands. En route he had a generalized tonic-clonic seizure with persistent tremors in his right upper extremity. He was given 5 mg Versed which aborted the seizure. He is somnolent with sonorous respirations on arrival. He cannot provide any history. Per EMS, no seizure history is known but he is reportedly a heavy drinker according to the roommates. Supposedly he did not drink today. Unknown history of DT or withdrawal seizures. No prior visits at our facility No Known Allergies (Unverified , 07/25/19) Patient examined Data reviewed Patient confused, even used button spindler Agitated at times Swinging blood pressure Tachycardic Restless Assessment/Plan Electrolyte imbalance Hypokalemia and hypomagnesemia Elevated creatinine to 1.4 on admission Seizure disorder Hydrate IV magnesium IV potassium phosphate IV thiamine IV Protonix Continue management per other consultants Monitor electrolytes Per orders Brian Alexandra MD Jul 26, 2019 17:39
[2019-07-26] MEDS ORDERED: Thiamine 100mg in D5W 55ml IVPB SCH (18:00)
[2019-07-26] MEDS ORDERED: Folic Acid 1 MG, Magnesium Sulfate 2,000 MG, Multivitamin - 12 Injection 10 ML in Sodiu... IV SCH (18:00)
--- NOTE | 2019-07-26 18:00 | Consultation ---
DATE OF CONSULTATION: 07/26/2019 INFECTIOUS DISEASE CONSULTATION CONSULTING PHYSICIAN: Po Bryant M.D. PRIMARY ATTENDING PHYSICIAN: Isa Blanchard M.D. REASON FOR CONSULT: Sepsis. HISTORY OF PRESENT ILLNESS: This is a 39-year-old male admitted yesterday for seizure-like activity seen by the roommate. He was behaving bizarre with his right arm twitching. The patient is totally confused and not a source of history. He developed fever in the hospital with temperature of 101.7 this morning. Also, he is tachycardic with heart rate up to 127. The patient has history of alcohol abuse and has history of heavy drinking, but he did not drink on the day of admission. PAST MEDICAL HISTORY: Unknown. ALLERGIES: No known drug allergies. MEDICATIONS: Getting potassium chloride, sodium chloride, lorazepam. SOCIAL HISTORY: According to the chart, he is . No other history obtainable. PHYSICAL EXAMINATION: VITAL SIGNS: Temperature 99.9, pulse 102, and blood pressure 139/80. GENERAL APPEARANCE: Seems to have normal body weight. Disoriented, agitated. HEAD AND NECK: Slight conjunctival erythema bilaterally. He has dry mouth. HEART: Tachycardic. LUNGS: Clear. ABDOMEN: Soft. EXTREMITIES: No edema. LABORATORY AND DIAGNOSTIC DATA: WBC 7.4, hemoglobin 13.2, hematocrit 36.5, and platelets 159,000. Sodium 136, potassium , chloride 101, bicarb 24, BUN 6, and creatinine 0.7. Creatinine at the time of admission was 1.4. AST 94, ALT 69, and alkaline phosphatase is 109. Albumin is 3.1. Urine toxicology was positive for benzodiazepines. UA was negative. CT scan of the head was negative. IMPRESSION: Sepsis with fever and tachycardia. He has new-onset seizure disorder, likely alcohol withdrawal and acute renal failure, encephalopathy. RECOMMENDATION: We will ask for blood culture x2. We will obtain a chest x-ray. We will start the patient empirically on Rocephin. We will order abdominal ultrasound to rule out infection and cirrhosis. We will try to obtain more information about past medical history from the patient's family. At the end of my exam, I thank Dr. Blanchard for involving me in the care of this patient. Po Bryant M.D. DR: DEV JOB#: [id number] CC:
--- NOTE | 2019-07-26 19:12 | NUR ---
HAND-OFF: Report given to KYA TERRELL. Pt is sleeping .
--- NOTE | 2019-07-26 19:13 | NUR ---
NURSE NOTES: Received pt from NIDHI Vigil. Pt is sleeping in bed in no acute distress. Iv site intact. Bed locked in lowest position, bed alarm on, call light within reach. Will continue with plan of care.
[2019-07-26] MEDS: Pantoprazole Inj IVP SCH (21:00)
[2019-07-26] MEDS: Potassium Phosphate 15mm/250ml 250 ML IVPB SCH (21:16)
[2019-07-27] VITALS: BP 120/73
[2019-07-27] MEDS: Potassium Phosphate 15mm/250ml 250 ML IVPB SCH (00:30)
[2019-07-27 04:00] VITALS: BP 133/90
[2019-07-27] MEDS: Acetaminophen 650 MG SUPP RECTAL PRN ×2 (04:57→16:42)
[2019-07-27] MEDS: chlordiazePOXIDE 25mg Cap ORAL SCH ×3 (06:00→21:54)
--- NOTE | 2019-07-27 06:45 | Consultation ---
DATE OF CONSULTATION: 07/25/2019 CONSULTING PHYSICIAN: Lelo Hickey M.D. HISTORY OF PRESENT ILLNESS: This is a 39-year-old male with a history of alcohol dependence, who has been admitted to the hospital due to poor medical condition. The patient was lethargic when I saw him. He has been given Ativan IV. He was difficult to arouse per nurse. The patient has episodes of agitation and tachycardic. He was calm and he woke up after half an hour. He is confused and unable to provide any history. PAST PSYCHIATRIC HISTORY: Unknown. PAST MEDICAL HISTORY: Nonsignificant. ALLERGIES: No known drug allergies. SUBSTANCE ABUSE HISTORY: Alcohol. MENTAL STATUS EXAMINATION: The patient is having waxing and waning consciousness and confusion. Mood is neutral. Affect is flat. Thought process is disorganized. Thought content, no suicidal or homicidal ideation. Cognition is impaired. Insight and judgment is impaired. ASSESSMENT: [place] I Alcohol dependence, alcohol withdrawal. [place] II Deferred. [place] III As above. [place] IV Low. PLAN: 1. The patient will be started on p.o. Ativan. 2. Librium. 3. Folate and thiamine. 4. Discussed with the nurse. Lelo Hickey M.D. DR: MUMTAZ JOB#: [id number] CC:
[2019-07-27 07:20] LABS: BASOPHILS % (AUTO) 1.2 % (0.0-2.0); EOSINOPHILS % (AUTO) 0.5 % (0.0-3.0); HEMATOCRIT 35.6 % (42.0-52.0); HEMOGLOBIN 12.7 G/DL (14.2-18.0); LYMPHOCYTES % (AUTO) 11.8 % (20.0-45.0); MEAN CORPUSCULAR VOLUME 94 FL (80-99); MONOCYTES % (AUTO) 12.9 % (1.0-10.0); NEUTROPHILS % (AUTO) 73.6 % (45.0-75.0); PLATELET COUNT 131 K/UL (150-450); RED BLOOD COUNT 3.78 M/UL (4.70-6.10); RED CELL DISTRIBUTION WIDTH 10.8 % (11.6-14.8); WHITE BLOOD COUNT 5.1 K/UL (4.8-10.8)
--- NOTE | 2019-07-27 07:30 | Consultation ---
DATE OF CONSULTATION: 07/26/2019 CARDIOLOGY CONSULTATION CONSULTING PHYSICIAN: Ric Mckeon M.D. REFERRING PHYSICIAN: Isa Blanchard M.D. REASON FOR CONSULTATION: Tachycardia. HISTORY OF PRESENT ILLNESS: The patient is a 39-year-old gentleman who presented to the emergency room for seizure-like activity. Paramedics were called 00:24 the patient's roommate found him having twitching of the right arm. He also was confused even though he has some good eye contact. The patient had general tonic-clonic seizure en route, 5 mg of IV Versed aborted the seizure. The patient also has been heavy drinker according to the roommate. Reportedly, he has not drank yesterday. The patient was also tachycardic and a Cardiology consultation was requested for further evaluation. REVIEW OF SYSTEMS: Cannot be obtained as he is still very confused. PAST MEDICAL HISTORY: Not clear. FAMILY HISTORY: Noncontributory. SOCIAL HISTORY: As mentioned above. Apparently, he is a heavy drinker. PHYSICAL EXAMINATION: VITAL SIGNS: Show blood pressure 125/103, pulse is 120, respiratory rate 18, afebrile. HEAD AND NECK: Shows no JVD. LUNGS: Clear. CARDIOVASCULAR: Tachycardic. S1 and S2 with no gallop. ABDOMEN: Soft. EXTREMITIES: A 1+ pitting edema. LABORATORY DATA: Labs show white count of 7.5, hemoglobin 13.2, hematocrit 36.5, platelet count of 159. Sodium 136, potassium 3.3, BUN of 6, creatinine 0.7, and glucose of 95. First troponin is negative. Urine toxicology is positive for benzodiazepine. His alcohol was low. ASSESSMENT AND PLAN: 1. Tachycardia likely due to seizure, etiology is not clear, could be due to alcohol withdrawal. Further evaluation by Neurology. In the meantime, we will get an echocardiogram to evaluate for ejection fraction and wall motion abnormality. Of note, EKG shows sinus tachycardia with no acute ST-T wave abnormality. 2. Status post seizure, etiology is not clear. 3. History of heavy alcohol use, possible alcohol withdrawal. Thank you very much for allowing me to participate in the care of this patient. Please do not hesitate to contact me for any questions regarding my evaluation. Ric Mckeon M.D. DR: Pebbles JOB#: [id number] CC:
--- NOTE | 2019-07-27 07:30 | Consultation ---
DATE OF CONSULTATION: 07/26/2019 PAIN MANAGEMENT CONSULTATION CONSULTING PHYSICIAN: Paolo Wilson M.D. REFERRING PHYSICIAN: Isa Blanchard M.D. PHYSICIAN [employer]ACHUTE MANUFACTURING SUPERVISOR: MARYAM Tinoco CHIEF COMPLAINT: Seizure disorder. HISTORY OF PRESENT ILLNESS: This is a 39-year-old male, who is being seen on the telemetry floor of [facility] [place] for initial pain management consultation. The patient was admitted under the care of Dr. Blanchard due to seizures possibly due to alcohol withdrawals. As per the ER note, the patient was found to have seizure like activity. EMS found the patient in his home by a roommate. He is confused and had generalized tonic-clonic seizures, was given 5 mg of Versed and is in the bed at this time. Friends had told the EMS that he was a heavy drinker, however, he did not drink today and may be going through withdrawals at this time. Urine alcohol was less than 3. He has been seen by a inside sales director as well as a psychiatrist who started the patient on Librium 50 mg every 8 hours around the clock as well as Ativan 2 mg IM every two hours as needed for agitation and anxiety. The patient will be seen by neurologist as well. We were consulted at this time. The patient has no signs of pain. PAST MEDICAL HISTORY: Unknown. PAST SURGICAL HISTORY: Unknown. ALLERGIES: Unknown. SOCIAL HISTORY: As per EMS, alcohol abuse. MEDICATIONS: None noted at this time. REVIEW OF SYSTEMS: Unable to obtain due to the patient's mental status. PHYSICAL EXAMINATION: VITAL SIGNS: Blood pressure 139/80, heart rate 100, oxygen saturation 98%, respiratory rate 17, temperature 99.9 degrees Fahrenheit. LUNGS: Decreased breath sounds bilaterally. HEART: S1 and S2 regular. ABDOMEN: Benign. EXTREMITIES: No cyanosis, no clubbing, no edema. ASSESSMENT AND PLAN: This is a 39-year-old male with alcohol abuse, alcohol withdrawals, rule out DT. The patient will be continued on Ativan and Librium as per psychiatrist. The patient was discussed with Dr. Wilson and he concurred. We will follow the patient. Thank you very much for the courtesy of this consultation. Paolo Wilson M.D. MARYAM Tinoco DR: Ailin JOB#: [id number] CC: NADER
--- NOTE | 2019-07-27 07:45 | NUR ---
HAND-OFF: Report given to NIDHI Roca. Endorsed plan of care.
--- NOTE | 2019-07-27 07:46 | NUR ---
NURSE NOTES: Received report from Sergio/RN, Patient is asleep, Lying semi-holcomb's, resting comfortably. On room air, No acute distress/SOB noted. Breathing unlabored and even. Able to make needs known. IV on right FA G-20, no bleeding or infiltration noted. Seizure precaution in place. Bed in low position and locked, bed alarm engaged, Side rails up x3. call light within reach. Will continue plan of care.
[2019-07-27 07:58] LABS: ALANINE AMINOTRANSFERASE 90 U/L (12-78); ALBUMIN 2.9 G/DL (3.4-5.0); ALBUMIN/GLOBULIN RATIO 0.5 (1.0-2.7); ALKALINE PHOSPHATASE 82 U/L (46-116); ANION GAP 11 mmol/L (5-15); ASPARTATE AMINO TRANSFERASE 144 U/L (15-37); BLOOD UREA NITROGEN 11 mg/dL (7-18); CALCIUM 7.9 MG/DL (8.5-10.1); CARBON DIOXIDE 22 MMOL/L (21-32); CHLORIDE 98 MMOL/L (98-107); CREATININE 0.7 MG/DL (0.55-1.30); POTASSIUM 4.2 MMOL/L (3.5-5.1); SODIUM 131 MMOL/L (136-145)
[2019-07-27 08:00] VITALS: BP 124/66
[2019-07-27 08:08] LABS: PHOSPHORUS 3.5 MG/DL (2.5-4.9)
[2019-07-27] MEDS: Pantoprazole Inj IVP SCH ×2 (09:45→21:55)
--- NOTE | 2019-07-27 11:00 | Cardiac Electrophysiology PN ---
Assessment/Plan Assessment/Plan 1. Tachycardia likely due to seizure, etiology is not clear, could be due to alcohol withdrawal. Further evaluation by Neurology. Echocardiogram EF 60%. EKG shows sinus tachycardia with no acute ST-T wave abnormality. 2. Status post seizure, etiology is not clear. 3. History of heavy alcohol use, possible alcohol withdrawal. Subjective Subjective Still poorly responsive. RN at bedside. In SR Objective Last 24 Hour Vital Signs Date Time Temp Pulse Resp B/P (MAP) Pulse Ox O2 Delivery O2 Flow Rate FiO2 07/27/19 09:00 Room Air 07/27/19 08:00 86 07/27/19 08:00 101.8 82 20 124/66 (85) 93 07/27/19 05:27 98.1 07/27/19 04:40 94 07/27/19 04:00 102.0 94 16 133/90 (104) 97 07/27/19 00:00 100.1 102 24 120/73 (89) 97 07/27/19 00:00 102 07/26/19 22:00 100.5 07/26/19 21:00 Room Air 07/26/19 20:00 112 07/26/19 20:00 101.4 112 24 141/98 (112) 97 07/26/19 15:54 97.7 96 20 151/97 (115) 96 07/26/19 15:15 105 07/26/19 12:00 99.9 102 20 139/80 (99) 98 07/26/19 11:44 127 Intake and Output 07/26/19 07/27/19 19:00 07:00 Intake Total 1036 ml 100 ml Output Total 300 ml Balance 736 ml 100 ml IV Total 1036 ml 100 ml Output Urine Total 300 ml # Voids 3 2 Laboratory Tests Test 07/27/19 05:50 White Blood Count 5.1 K/UL (4.8-10.8) Red Blood Count 3.78 M/UL (4.70-6.10) L Hemoglobin 12.7 G/DL (14.2-18.0) L Hematocrit 35.6 % (42.0-52.0) L Mean Corpuscular Volume 94 FL (80-99) Mean Corpuscular Hemoglobin 33.5 PG (27.0-31.0) H Mean Corpuscular Hemoglobin Concent 35.5 G/DL (32.0-36.0) Red Cell Distribution Width 10.8 % (11.6-14.8) L Platelet Count 131 K/UL (150-450) L Mean Platelet Volume 6.8 FL (6.5-10.1) Neutrophils (%) (Auto) 73.6 % (45.0-75.0) Lymphocytes (%) (Auto) 11.8 % (20.0-45.0) L Monocytes (%) (Auto) 12.9 % (1.0-10.0) H Eosinophils (%) (Auto) 0.5 % (0.0-3.0) Basophils (%) (Auto) 1.2 % (0.0-2.0) Sodium Level 131 MMOL/L (136-145) L Potassium Level 4.2 MMOL/L (3.5-5.1) Chloride Level 98 MMOL/L (98-107) Carbon Dioxide Level 22 MMOL/L (21-32) Anion Gap 11 mmol/L (5-15) Blood Urea Nitrogen 11 mg/dL (7-18) Creatinine 0.7 MG/DL (0.55-1.30) Estimat Glomerular Filtration Rate > 60 mL/min (>60) Glucose Level 80 MG/DL (74-106) Uric Acid 3.0 MG/DL (2.6-7.2) Calcium Level 7.9 MG/DL (8.5-10.1) L Phosphorus Level 3.5 MG/DL (2.5-4.9) Magnesium Level 2.4 MG/DL (1.8-2.4) Total Bilirubin 1.0 MG/DL (0.2-1.0) Gamma Glutamyl Transpeptidase 370 U/L (5-85) H Aspartate Amino Transf (AST/SGOT) 144 U/L (15-37) H Alanine Aminotransferase (ALT/SGPT) 90 U/L (12-78) H Alkaline Phosphatase 82 U/L (46-116) Ammonia 73 umol/L (11-32) H Troponin I 0.003 ng/mL (0.000-0.056) C-Reactive Protein, Quantitative 4.5 mg/dL (0.00-0.90) H Pro-B-Type Natriuretic Peptide 379 pg/mL (0-125) H Total Protein 8.5 G/DL (6.4-8.2) H Albumin 2.9 G/DL (3.4-5.0) L Globulin 5.6 g/dL Albumin/Globulin Ratio 0.5 (1.0-2.7) L Thyroid Stimulating Hormone (TSH) 0.493 uiU/mL (0.358-3.740) Free Thyroxine 1.02 NG/DL (0.76-1.46) Objective HEAD AND NECK: No JVD. LUNGS: Clear. CARDIOVASCULAR: Tachycardic. S1 and S2 with no gallop. ABDOMEN: Soft. EXTREMITIES: A 1+ pitting edema. Ric Mckeon MD Jul 27, 2019 11:00
[2019-07-27 12:00] VITALS: BP 138/80
[2019-07-27] MEDS ORDERED: NaCl 3% 500ml 250 ML IV ONE (12:00)
--- NOTE | 2019-07-27 13:07 | Nephrology Progress Note ---
Assessment/Plan Problem List: (1) JULIAN (acute kidney injury) (2) Seizure (3) ALCOHOL DEPENDENCE WITH WITHDRAWAL, UNSPECIFIED (4) Tachycardia (5) Hypokalemia Assessment Electrolyte imbalance Hypokalemia and hypomagnesemia Elevated creatinine to 1.4 on admission now corrected Seizure disorder Plan Hydrate Following as needed while n.p.o.: IV magnesium IV potassium phosphate IV thiamine IV Protonix Continue management per other consultants Monitor electrolytes Per orders Subjective ROS Limited/Unobtainable: No Constitutional: Reports: malaise, weakness Objective Objective Last 24 Hour Vital Signs Date Time Temp Pulse Resp B/P (MAP) Pulse Ox O2 Delivery O2 Flow Rate FiO2 07/27/19 12:00 99.7 87 20 138/80 (99) 98 07/27/19 09:00 Room Air 07/27/19 08:00 86 07/27/19 08:00 101.8 82 20 124/66 (85) 93 07/27/19 05:27 98.1 07/27/19 04:40 94 07/27/19 04:00 102.0 94 16 133/90 (104) 97 07/27/19 00:00 100.1 102 24 120/73 (89) 97 07/27/19 00:00 102 07/26/19 22:00 100.5 07/26/19 21:00 Room Air 07/26/19 20:00 112 07/26/19 20:00 101.4 112 24 141/98 (112) 97 07/26/19 15:54 97.7 96 20 151/97 (115) 96 07/26/19 15:15 105 Intake and Output 07/26/19 07/27/19 19:00 07:00 Intake Total 1036 ml 100 ml Output Total 300 ml Balance 736 ml 100 ml IV Total 1036 ml 100 ml Output Urine Total 300 ml # Voids 3 2 Laboratory Tests 07/27/19 05:50: White Blood Count 5.1, Red Blood Count 3.78L, Hemoglobin 12.7L, Hematocrit 35.6L , Mean Corpuscular Volume 94, Mean Corpuscular Hemoglobin 33.5H, Mean Corpuscular Hemoglobin Concent 35.5, Red Cell Distribution Width 10.8L, Platelet Count 131L, Mean Platelet Volume 6.8, Neutrophils (%) (Auto) 73.6, Lymphocytes (%) (Auto) 11.8L, Monocytes (%) (Auto) 12.9H, Eosinophils (%) (Auto ) 0.5, Basophils (%) (Auto) 1.2, Sodium Level 131L, Potassium Level 4.2, Chloride Level 98, Carbon Dioxide Level 22, Anion Gap 11, Blood Urea Nitrogen 11 , Creatinine 0.7, Estimat Glomerular Filtration Rate > 60, Glucose Level 80, Uric Acid 3.0, Calcium Level 7.9L, Phosphorus Level 3.5, Magnesium Level 2.4, Total Bilirubin 1.0, Gamma Glutamyl Transpeptidase 370H, Aspartate Amino Transf (AST/SGOT) 144H, Alanine Aminotransferase (ALT/SGPT) 90H, Alkaline Phosphatase 82, Ammonia 73H, Troponin I 0.003, C-Reactive Protein, Quantitative 4.5H, Pro-B- Type Natriuretic Peptide 379H, Total Protein 8.5H, Albumin 2.9L, Globulin 5.6, Albumin/Globulin Ratio 0.5L, Thyroid Stimulating Hormone (TSH) 0.493, Free Thyroxine 1.02 Height (Feet): 5 Height (Inches): 10.00 Weight (Pounds): 200 General Appearance: no apparent distress, lethargic, confused Cardiovascular: tachycardia Respiratory/Chest: decreased breath sounds Abdomen: distended Brian Alexandra MD Jul 27, 2019 13:07
[2019-07-27] MEDS: cefTRIAXone 2 GM in D5W 55 ML IVPB SCH (14:20)
[2019-07-27 16:00] VITALS: BP 136/89
--- NOTE | 2019-07-27 16:05 | NUR ---
CASE MANAGEMENT:REVIEW 07/27/19 SI: ALCOHOL WITHDRAWAL. SEIZURE 101.8 82 20 124/66 93% ON RA NA-131 GGT+370 AMMONIA+73 IS: IV BANANA BAG @ 125/HR IV ROCEPHIN Q24 IV LASIX X1 IV PROTONIX Q12 LIBRIUM PO Q8HRS ATIVAN IM Q2HRS PRN ANXIETY : TELEMETRY STATUS
--- NOTE | 2019-07-27 16:11 | Infectious Diseases Prog Note ---
Assessment/Plan Assessment/Plan IMPRESSION: Sepsis with fever Tachycardia resolved. New-onset seizure Alcohol withdrawal Acute renal failure, Encephalopathy. RECOMMENDATION: We will follow blood cultures Continue Rocephin. HIV test Subjective ROS Limited/Unobtainable: Yes Constitutional: Reports: fever HEENT: Reports: other - headache Respiratory: Reports: no symptoms Gastrointestinal/Abdominal: Reports: no symptoms Genitourinary: Reports: no symptoms Neurologic: Reports: other - more alert Allergies: Coded Allergies: No Known Allergies (Unverified , 07/25/19) Objective Vital Signs Last 24 Hour Vital Signs Date Time Temp Pulse Resp B/P (MAP) Pulse Ox O2 Delivery O2 Flow Rate FiO2 07/27/19 12:00 99.7 87 20 138/80 (99) 98 07/27/19 12:00 86 07/27/19 09:00 Room Air 07/27/19 08:00 86 07/27/19 08:00 101.8 82 20 124/66 (85) 93 07/27/19 05:27 98.1 07/27/19 04:40 94 07/27/19 04:00 102.0 94 16 133/90 (104) 97 07/27/19 00:00 100.1 102 24 120/73 (89) 97 07/27/19 00:00 102 07/26/19 22:00 100.5 07/26/19 21:00 Room Air 07/26/19 20:00 112 07/26/19 20:00 101.4 112 24 141/98 (112) 97 Height (Feet): 5 Height (Inches): 10.00 Weight (Pounds): 200 HEENT: mucous membranes moist Respiratory/Chest: lungs clear Cardiovascular: normal rate Abdomen: soft, non tender Extremities: no edema Neurologic/Psychiatric: alert, responsive, other - tremor Laboratory Tests Test 07/27/19 05:50 White Blood Count 5.1 K/UL (4.8-10.8) Red Blood Count 3.78 M/UL (4.70-6.10) L Hemoglobin 12.7 G/DL (14.2-18.0) L Hematocrit 35.6 % (42.0-52.0) L Mean Corpuscular Volume 94 FL (80-99) Mean Corpuscular Hemoglobin 33.5 PG (27.0-31.0) H Mean Corpuscular Hemoglobin Concent 35.5 G/DL (32.0-36.0) Red Cell Distribution Width 10.8 % (11.6-14.8) L Platelet Count 131 K/UL (150-450) L Mean Platelet Volume 6.8 FL (6.5-10.1) Neutrophils (%) (Auto) 73.6 % (45.0-75.0) Lymphocytes (%) (Auto) 11.8 % (20.0-45.0) L Monocytes (%) (Auto) 12.9 % (1.0-10.0) H Eosinophils (%) (Auto) 0.5 % (0.0-3.0) Basophils (%) (Auto) 1.2 % (0.0-2.0) Sodium Level 131 MMOL/L (136-145) L Potassium Level 4.2 MMOL/L (3.5-5.1) Chloride Level 98 MMOL/L (98-107) Carbon Dioxide Level 22 MMOL/L (21-32) Anion Gap 11 mmol/L (5-15) Blood Urea Nitrogen 11 mg/dL (7-18) Creatinine 0.7 MG/DL (0.55-1.30) Estimat Glomerular Filtration Rate > 60 mL/min (>60) Glucose Level 80 MG/DL (74-106) Uric Acid 3.0 MG/DL (2.6-7.2) Calcium Level 7.9 MG/DL (8.5-10.1) L Phosphorus Level 3.5 MG/DL (2.5-4.9) Magnesium Level 2.4 MG/DL (1.8-2.4) Total Bilirubin 1.0 MG/DL (0.2-1.0) Gamma Glutamyl Transpeptidase 370 U/L (5-85) H Aspartate Amino Transf (AST/SGOT) 144 U/L (15-37) H Alanine Aminotransferase (ALT/SGPT) 90 U/L (12-78) H Alkaline Phosphatase 82 U/L (46-116) Ammonia 73 umol/L (11-32) H Troponin I 0.003 ng/mL (0.000-0.056) C-Reactive Protein, Quantitative 4.5 mg/dL (0.00-0.90) H Pro-B-Type Natriuretic Peptide 379 pg/mL (0-125) H Total Protein 8.5 G/DL (6.4-8.2) H Albumin 2.9 G/DL (3.4-5.0) L Globulin 5.6 g/dL Albumin/Globulin Ratio 0.5 (1.0-2.7) L Thyroid Stimulating Hormone (TSH) 0.493 uiU/mL (0.358-3.740) Free Thyroxine 1.02 NG/DL (0.76-1.46) Current Medications Medications (Trade) Dose Ordered Sig/Gabrielle Route PRN Reason Start Time Stop Time Status Last Admin Dose Admin Acetaminophen (Tylenol) 650 mg Q6H PRN RECTAL fever 07/26/19 08:45 08/25/19 08:44 07/27/19 04:57 Ceftriaxone Sodium 2 gm/ Dextrose 55 ml @ 110 mls/hr Q24H IVPB 07/26/19 15:00 08/02/19 14:59 07/27/19 14:20 Chlordiazepoxide (Librium) 50 mg EVERY 8 HOURS ORAL 07/26/19 14:30 08/02/19 14:29 07/27/19 13:41 Dextrose/Sodium Chloride 1,000 ml @ 75 mls/hr [id number] IV 07/27/19 20:00 08/26/19 19:59 Folic Acid (Folate) 1 mg DAILY ORAL 07/28/19 09:00 08/27/19 08:59 Lorazepam (Ativan 2mg/ml 1ml) 2 mg Q2H PRN IM For Anxiety 07/26/19 14:30 08/02/19 14:29 Pantoprazole (Protonix) 40 mg EVERY 12 HOURS IVP 07/26/19 21:00 08/25/19 20:59 07/27/19 09:45 Sodium Chloride 250 ml @ 30 mls/hr ONCE ONCE IV 07/27/19 12:00 07/27/19 20:19 07/27/19 12:22 Po Bryant MD Jul 27, 2019 16:11
--- NOTE | 2019-07-27 19:05 | NUR ---
NURSE NOTES: Received report form NIDHI Roca. Initial rounding completed w/ Chanelle. Pt resting in bed, sleeping but easily arousable. Pt is confused but appears calm at this time, responds to voices stimuli. IVF infusing well to RFA intact, patent. side rails padded, bed alarm on. continue to monitor.
--- NOTE | 2019-07-27 19:06 | NUR ---
HAND-OFF: Report given to Moises/RN, Patient lying semi-fowlers, resting comfortably. Endorsed plan of care.
[2019-07-27 20:00] VITALS: BP 125/76
--- NOTE | 2019-07-27 20:33 | Psych Consult Progress Note ---
Psychiatry Progress Note Psychiatry Progress Note Medications Current Medications Medications (Trade) Dose Ordered Sig/Gabrielle Route PRN Reason Start Time Stop Time Status Last Admin Dose Admin Acetaminophen (Tylenol) 650 mg Q6H PRN RECTAL fever 07/26/19 08:45 08/25/19 08:44 07/27/19 16:42 Ceftriaxone Sodium 2 gm/ Dextrose 55 ml @ 110 mls/hr Q24H IVPB 07/26/19 15:00 08/02/19 14:59 07/27/19 14:20 Chlordiazepoxide (Librium) 50 mg EVERY 8 HOURS ORAL 07/26/19 14:30 08/02/19 14:29 07/27/19 13:41 Dextrose/Sodium Chloride 1,000 ml @ 75 mls/hr [id number] IV 07/27/19 20:00 08/26/19 19:59 Folic Acid (Folate) 1 mg DAILY ORAL 07/28/19 09:00 08/27/19 08:59 Lorazepam (Ativan 2mg/ml 1ml) 2 mg Q2H PRN IM For Anxiety 07/26/19 14:30 08/02/19 14:29 Pantoprazole (Protonix) 40 mg EVERY 12 HOURS IVP 07/26/19 21:00 08/25/19 20:59 07/27/19 09:45 Neurological/Psychiatric: Reports: anxiety, depressed, emotional problems, weakness Allergies: Coded Allergies: No Known Allergies (Unverified , 07/25/19) Objective Data Height (Feet): 5 Height (Inches): 10.00 Weight (Pounds): 200 General Appearance: alert, confused, moderate distress, agitated, thin Behavior Mannerisms: poor eye contact Additional Comments: waxing and waning consciousness and confusion. Mood is neutral. Affect is flat. Thought process is disorganized. Thought content, no suicidal or homicidal ideation. Cognition is impaired. Insight and judgment is impaired. ASSESSMENT: Amelia I Alcohol dependence, alcohol withdrawal. Amelia II Deferred. Amelia III As above. Amelia IV Low. PLAN: 1. The patient will be started on p.o. Ativan. 2. Librium. 3. Folate and thiamine. 4. Discussed with the nurse. Lelo Hickey MD Jul 27, 2019 20:33
--- NOTE | 2019-07-27 20:40 | Consultation ---
History of Present Illness General Chief Complaint: Seizure Present Illness Allergies: Coded Allergies: No Known Allergies (Unverified , 07/25/19) Medication History No Active Prescriptions or Reported Meds Patient History Healthcare decision maker Dr BSAS Resuscitation status Full Code Advanced Directive on File Physical Exam Last 24 Hour Vital Signs Date Time Temp Pulse Resp B/P (MAP) Pulse Ox O2 Delivery O2 Flow Rate FiO2 07/27/19 17:12 99.9 07/27/19 16:00 100.9 89 20 136/89 (105) 97 07/27/19 16:00 104 07/27/19 12:00 99.7 87 20 138/80 (99) 98 07/27/19 12:00 86 07/27/19 09:00 Room Air 07/27/19 08:00 86 07/27/19 08:00 101.8 82 20 124/66 (85) 93 07/27/19 04:40 94 07/27/19 04:00 102.0 94 16 133/90 (104) 97 07/27/19 00:00 100.1 102 24 120/73 (89) 97 07/27/19 00:00 102 07/26/19 22:00 100.5 07/26/19 21:00 Room Air Intake and Output 07/26/19 07/27/19 19:00 07:00 Intake Total 1036 ml 100 ml Output Total 300 ml Balance 736 ml 100 ml IV Total 1036 ml 100 ml Output Urine Total 300 ml # Voids 3 2 Laboratory Tests Test 07/27/19 05:50 White Blood Count 5.1 K/UL (4.8-10.8) Red Blood Count 3.78 M/UL (4.70-6.10) L Hemoglobin 12.7 G/DL (14.2-18.0) L Hematocrit 35.6 % (42.0-52.0) L Mean Corpuscular Volume 94 FL (80-99) Mean Corpuscular Hemoglobin 33.5 PG (27.0-31.0) H Mean Corpuscular Hemoglobin Concent 35.5 G/DL (32.0-36.0) Red Cell Distribution Width 10.8 % (11.6-14.8) L Platelet Count 131 K/UL (150-450) L Mean Platelet Volume 6.8 FL (6.5-10.1) Neutrophils (%) (Auto) 73.6 % (45.0-75.0) Lymphocytes (%) (Auto) 11.8 % (20.0-45.0) L Monocytes (%) (Auto) 12.9 % (1.0-10.0) H Eosinophils (%) (Auto) 0.5 % (0.0-3.0) Basophils (%) (Auto) 1.2 % (0.0-2.0) Sodium Level 131 MMOL/L (136-145) L Potassium Level 4.2 MMOL/L (3.5-5.1) Chloride Level 98 MMOL/L (98-107) Carbon Dioxide Level 22 MMOL/L (21-32) Anion Gap 11 mmol/L (5-15) Blood Urea Nitrogen 11 mg/dL (7-18) Creatinine 0.7 MG/DL (0.55-1.30) Estimat Glomerular Filtration Rate > 60 mL/min (>60) Glucose Level 80 MG/DL (74-106) Uric Acid 3.0 MG/DL (2.6-7.2) Calcium Level 7.9 MG/DL (8.5-10.1) L Phosphorus Level 3.5 MG/DL (2.5-4.9) Magnesium Level 2.4 MG/DL (1.8-2.4) Total Bilirubin 1.0 MG/DL (0.2-1.0) Gamma Glutamyl Transpeptidase 370 U/L (5-85) H Aspartate Amino Transf (AST/SGOT) 144 U/L (15-37) H Alanine Aminotransferase (ALT/SGPT) 90 U/L (12-78) H Alkaline Phosphatase 82 U/L (46-116) Ammonia 73 umol/L (11-32) H Troponin I 0.003 ng/mL (0.000-0.056) C-Reactive Protein, Quantitative 4.5 mg/dL (0.00-0.90) H Pro-B-Type Natriuretic Peptide 379 pg/mL (0-125) H Total Protein 8.5 G/DL (6.4-8.2) H Albumin 2.9 G/DL (3.4-5.0) L Globulin 5.6 g/dL Albumin/Globulin Ratio 0.5 (1.0-2.7) L Thyroid Stimulating Hormone (TSH) 0.493 uiU/mL (0.358-3.740) Free Thyroxine 1.02 NG/DL (0.76-1.46) Height (Feet): 5 Height (Inches): 10.00 Weight (Pounds): 200 Medications Current Medications Medications (Trade) Dose Ordered Sig/Gabrielle Route PRN Reason Start Time Stop Time Status Last Admin Dose Admin Acetaminophen (Tylenol) 650 mg Q6H PRN RECTAL fever 07/26/19 08:45 08/25/19 08:44 07/27/19 16:42 Ceftriaxone Sodium 2 gm/ Dextrose 55 ml @ 110 mls/hr Q24H IVPB 07/26/19 15:00 08/02/19 14:59 07/27/19 14:20 Chlordiazepoxide (Librium) 50 mg EVERY 8 HOURS ORAL 07/26/19 14:30 08/02/19 14:29 07/27/19 13:41 Dextrose/Sodium Chloride 1,000 ml @ 75 mls/hr [id number] IV 07/27/19 20:00 08/26/19 19:59 Folic Acid (Folate) 1 mg DAILY ORAL 07/28/19 09:00 08/27/19 08:59 Lorazepam (Ativan 2mg/ml 1ml) 2 mg Q2H PRN IM For Anxiety 07/26/19 14:30 08/02/19 14:29 Pantoprazole (Protonix) 40 mg EVERY 12 HOURS IVP 07/26/19 21:00 08/25/19 20:59 07/27/19 09:45 Assessment/Plan Assessment/Plan: Hematology Consultation RESylvia MD: Isa Angela RFC: Thrombocytopenia, Ftt DOS: 07/26/28 HPI: 39-year male presents for evaluation of seizure-like activity. Per EMS, they were called to the house by patient's roommate who found him behaving bizarrely with his right arm twitching. Per EMS they found him somewhat confused though making good eye contact, tracking and following commands. En route he had a generalized tonic-clonic seizure with persistent tremors in his right upper extremity. He was given 5 mg Versed which aborted the seizure. He is somnolent with sonorous respirations on arrival. He cannot provide any history. Per EMS, no seizure history is known but he is reportedly a heavy drinker according to the roommates. Supposedly he did not drink today. Unknown history of DT or withdrawal seizures. No prior visits at our facility At this time, remains poorly responsive, most of history obtained from chart, difficult to interview patient. PMH: Unknown PSH: Unknown Allergies: Unknown Social Hx: Unknown but alcohol abuse reported by EMS Allergies: Coded Allergies: No Known Allergies (Unverified , 07/25/19) ROS Constitutional: No fever, no chills, no night sweats, no fatigue Skin: No rashes, lumps, itchiness, dryness HEENT: No ZELAYA, ear ache, visual changes, double vision, nosebleeds Breasts: No lumps, pain, discharge Pulmonary: No cough, sputum, shortness of breath, coughing up blood Cardiovascular: No chest pain, tightness, palpitations, syncope, PND GI: No nausea, vomiting, diarrhea, melena, hematochezia, change in appetite, : No dysuria, frequency, urgency, urinary incontinence, foamy urine Musculoskeletal: No joint swelling or muscle pain, trauma, back pain Neurologic: No dizziness, fainting, seizures, changes in smell or taste Psychiatric: No nervousness, stress, or depression, anxiety, hallucinations Endocrine: No weight change, heat or cold intolerance, tremor, insomnia Physical Exam: Vitals: reviewed General: NAD HEENT: nc, at Neck: supple Chest: clear breath sounds bilaterally Cardiovascular: RRR, no s3, s4 Abdomen: soft, nontender, nd Extremities: no cce, normal range of motion Neuro: alert and oriented labs: noted Imaging: reviewed Assessment and Recs: # Thrombocytopenia - potential causes multifactorial, evaluate liver and viral etiologies to begin, in this case due to ETOH ABUSE/WITHDRAWAL --> Hep panel and HIV ordered --> US abd to evaluate for cirrhosis and hsm ordered --> Peripheral smear ordered to evaluate for blasts /schistocytes --> abx and other meds have been reviewed --> ok for ppx if plt >50k w/ either heparin or lovenox --> Transfuse if Plt < 20k and fever, or if Plt < 10k without fever # ETOH withdrawal --> r/o seizure --> ativan, librium, folate # Seizure --> R/o seizure d/o onset -> meds reviewed --> as per neuro # JULIAN (acute kidney injury) --> per renal recs # Tachycardia --> per Dr. Mckeon The timing of this note does not necessarily reflect the time of the patient was seen. Greatly appreciate consultation. Arya Nelson MD Jul 27, 2019 20:40
--- NOTE | 2019-07-27 20:42 | General Progress Note ---
Assessment/Plan Problem List: (1) Seizure disorder ICD Codes: G40.909 - Epilepsy, unspecified, not intractable, without status epilepticus SNOMED: 708794702 (2) Hypokalemia ICD Codes: E87.6 - Hypokalemia SNOMED: 19983049 (3) Seizure ICD Codes: R56.9 - Unspecified convulsions SNOMED: 01950842 (4) Tachycardia ICD Codes: R00.0 - Tachycardia, unspecified SNOMED: 5014622 (5) ALCOHOL DEPENDENCE WITH WITHDRAWAL, UNSPECIFIED ICD Codes: F10.239 - ALCOHOL DEPENDENCE WITH WITHDRAWAL, UNSPECIFIED Assessment/Plan: r/o dt seiuzure alcohol withdrawal lyte abnormality afebrile Subjective ROS Limited/Unobtainable: Yes Allergies: Coded Allergies: No Known Allergies (Unverified , 07/25/19) Objective Last 24 Hour Vital Signs Date Time Temp Pulse Resp B/P (MAP) Pulse Ox O2 Delivery O2 Flow Rate FiO2 07/27/19 17:12 99.9 07/27/19 16:00 100.9 89 20 136/89 (105) 97 07/27/19 16:00 104 07/27/19 12:00 99.7 87 20 138/80 (99) 98 07/27/19 12:00 86 07/27/19 09:00 Room Air 07/27/19 08:00 86 07/27/19 08:00 101.8 82 20 124/66 (85) 93 07/27/19 04:40 94 07/27/19 04:00 102.0 94 16 133/90 (104) 97 07/27/19 00:00 100.1 102 24 120/73 (89) 97 07/27/19 00:00 102 07/26/19 22:00 100.5 07/26/19 21:00 Room Air Intake and Output 07/26/19 07/27/19 19:00 07:00 Intake Total 1036 ml 100 ml Output Total 300 ml Balance 736 ml 100 ml IV Total 1036 ml 100 ml Output Urine Total 300 ml # Voids 3 2 Laboratory Tests 07/27/19 05:50: White Blood Count 5.1, Red Blood Count 3.78L, Hemoglobin 12.7L, Hematocrit 35.6L , Mean Corpuscular Volume 94, Mean Corpuscular Hemoglobin 33.5H, Mean Corpuscular Hemoglobin Concent 35.5, Red Cell Distribution Width 10.8L, Platelet Count 131L, Mean Platelet Volume 6.8, Neutrophils (%) (Auto) 73.6, Lymphocytes (%) (Auto) 11.8L, Monocytes (%) (Auto) 12.9H, Eosinophils (%) (Auto ) 0.5, Basophils (%) (Auto) 1.2, Sodium Level 131L, Potassium Level 4.2, Chloride Level 98, Carbon Dioxide Level 22, Anion Gap 11, Blood Urea Nitrogen 11 , Creatinine 0.7, Estimat Glomerular Filtration Rate > 60, Glucose Level 80, Uric Acid 3.0, Calcium Level 7.9L, Phosphorus Level 3.5, Magnesium Level 2.4, Total Bilirubin 1.0, Gamma Glutamyl Transpeptidase 370H, Aspartate Amino Transf (AST/SGOT) 144H, Alanine Aminotransferase (ALT/SGPT) 90H, Alkaline Phosphatase 82, Ammonia 73H, Troponin I 0.003, C-Reactive Protein, Quantitative 4.5H, Pro-B- Type Natriuretic Peptide 379H, Total Protein 8.5H, Albumin 2.9L, Globulin 5.6, Albumin/Globulin Ratio 0.5L, Thyroid Stimulating Hormone (TSH) 0.493, Free Thyroxine 1.02 Height (Feet): 5 Height (Inches): 10.00 Weight (Pounds): 200 General Appearance: lethargic, confused Isa Blanchard MD Jul 27, 2019 20:42
[2019-07-27] MEDS: D5NS 1,000 ML IV SCH (20:45)
[2019-07-28] VITALS: BP 121/72
[2019-07-28] MEDS: Acetaminophen 650 MG SUPP RECTAL PRN ×2 (00:50→11:19)
--- NOTE | 2019-07-28 00:50 | NUR ---
NURSE NOTES: Given pt Tylenol suppository for fever, tolerated well. pt repositioned self w/out difficulty. Voided well to urinal. Follow simple commands, responds appropriately.
[2019-07-28 04:00] VITALS: BP 115/65
--- NOTE | 2019-07-28 05:20 | NUR ---
NURSE NOTES: Given report to NIDHI Reagan. Seen pt together and safety check implemented. side rails padding intact. Bed alarm on. IVF infusing well. Pt sleeping at this time, resp even.
[2019-07-28] MEDS: chlordiazePOXIDE 25mg Cap ORAL SCH ×3 (06:00→21:39)
--- NOTE | 2019-07-28 06:20 | Hematology/Onc Progress Note ---
Assessment/Plan Assessment/Plan Assessment and Recs: # Thrombocytopenia - potential causes multifactorial, evaluate liver and viral etiologies to begin, in this case due to ETOH ABUSE/WITHDRAWAL, bone marrow myelosuppression --> Hep panel and HIV ordered --> US abd to evaluate for cirrhosis and hsm ordered --> SHOWS spenomegaly, enlarged spleen --> Peripheral smear ordered to evaluate for blasts /schistocytes --> none noted --> abx and other meds have been reviewed --> ok for ppx if plt >50k w/ either heparin or lovenox --> Transfuse if Plt < 20k and fever, or if Plt < 10k without fever # ETOH withdrawal --> r/o seizure --> ativan, librium, folate # Seizure --> R/o seizure d/o onset -> meds reviewed --> as per neuro # JULIAN (acute kidney injury) --> per renal recs # Tachycardia --> per Dr. Mckeon The timing of this note does not necessarily reflect the time of the patient was seen. Greatly appreciate consultation. Subjective Constitutional: Denies: no symptoms, chills, fever, malaise, weakness, other HEENT: Denies: no symptoms, eye pain, blurred vision, tearing, double vision, ear pain, ear discharge, nose pain, nose congestion, throat pain, throat swelling, mouth pain, mouth swelling, other Cardiovascular: Denies: no symptoms, chest pain, edema, irregular heart rate, lightheadedness, palpitations, syncope, other Respiratory: Denies: no symptoms, cough, shortness of breath, SOB with excertion, SOB at rest, sputum, wheezing, other Genitourinary: Denies: no symptoms, burning, discharge, frequency, flank pain, hematuria, incontinence, pain, urgency, other Neurologic/Psychiatric: Denies: no symptoms, anxiety, depressed, emotional problems, headache, numbness, paresthesia, pre-existing deficit, seizure, tingling, tremors, weakness, other Endocrine: Denies: no symptoms, excessive sweating, flushing, intolerance to cold, intolerance to heat, increased hunger, increased thirst, increased urine, unexplained weight gain, unexplained weight loss, other Hematologic/Lymphatic: Denies: no symptoms, anemia, easy bleeding, easy bruising, adenopathy, other Allergies: Coded Allergies: No Known Allergies (Unverified , 07/25/19) Subjective 07/27: no events, no bleeding, cbc pending, remains altered Objective Objective Current Medications Medications (Trade) Dose Ordered Sig/Gabrielle Route PRN Reason Start Time Stop Time Status Last Admin Dose Admin Acetaminophen (Tylenol) 650 mg Q6H PRN RECTAL fever 07/26/19 08:45 08/25/19 08:44 07/28/19 00:50 Ceftriaxone Sodium 2 gm/ Dextrose 55 ml @ 110 mls/hr Q24H IVPB 07/26/19 15:00 08/02/19 14:59 07/27/19 14:20 Chlordiazepoxide (Librium) 50 mg EVERY 8 HOURS ORAL 07/26/19 14:30 08/02/19 14:29 07/27/19 21:54 Dextrose/Sodium Chloride 1,000 ml @ 75 mls/hr [id number] IV 07/27/19 20:00 08/26/19 19:59 07/27/19 20:45 Folic Acid (Folate) 1 mg DAILY ORAL 07/28/19 09:00 08/27/19 08:59 Lorazepam (Ativan 2mg/ml 1ml) 2 mg Q2H PRN IM For Anxiety 07/26/19 14:30 08/02/19 14:29 Pantoprazole (Protonix) 40 mg EVERY 12 HOURS IVP 07/26/19 21:00 08/25/19 20:59 07/27/19 21:55 Last 24 Hour Vital Signs Date Time Temp Pulse Resp B/P (MAP) Pulse Ox O2 Delivery O2 Flow Rate FiO2 07/28/19 04:00 98.8 78 16 115/65 (82) 98 07/28/19 04:00 74 07/28/19 01:20 99.4 07/28/19 00:00 87 07/28/19 00:00 100.2 91 16 121/72 (88) 98 07/27/19 21:00 Room Air 07/27/19 20:00 99.7 75 20 125/76 (92) 94 07/27/19 20:00 97 07/27/19 16:00 100.9 89 20 136/89 (105) 97 07/27/19 16:00 104 07/27/19 12:00 99.7 87 20 138/80 (99) 98 07/27/19 12:00 86 07/27/19 09:00 Room Air 07/27/19 08:00 86 07/27/19 08:00 101.8 82 20 124/66 (85) 93 07/27/19 04:40 94 07/27/19 04:00 102.0 94 16 133/90 (104) 97 07/27/19 00:00 100.1 102 24 120/73 (89) 97 07/27/19 00:00 102 07/26/19 22:00 100.5 07/26/19 21:00 Room Air 07/26/19 20:00 112 07/26/19 20:00 101.4 112 24 141/98 (112) 97 07/26/19 15:54 97.7 96 20 151/97 (115) 96 07/26/19 15:15 105 07/26/19 12:00 99.9 102 20 139/80 (99) 98 07/26/19 11:44 127 07/26/19 10:35 102 07/26/19 09:00 Room Air 07/26/19 08:30 101.7 120 20 125/103 (110) 100 07/26/19 07:40 98.4 97 20 139/98 100 Room Air 105 07/26/19 07:13 105 20 139/98 100 Room Air Intake and Output 07/27/19 07/28/19 19:00 07:00 Intake Total 600 ml Output Total 1400 ml 550 ml Balance -1400 ml 50 ml IV Total 600 ml Output Urine Total 1400 ml 550 ml Labs Test 07/25/19 20:40 07/25/19 21:00 07/26/19 10:20 07/27/19 05:50 White Blood Count 10.6 K/UL (4.8-10.8) 7.4 K/UL (4.8-10.8) 5.1 K/UL (4.8-10.8) Red Blood Count 3.95 M/UL (4.70-6.10) 3.86 M/UL (4.70-6.10) 3.78 M/UL (4.70-6.10) Hemoglobin 13.2 G/DL (14.2-18.0) 13.2 G/DL (14.2-18.0) 12.7 G/DL (14.2-18.0) Hematocrit 38.2 % (42.0-52.0) 36.5 % (42.0-52.0) 35.6 % (42.0-52.0) Mean Corpuscular Volume 97 FL (80-99) 94 FL (80-99) 94 FL (80-99) Mean Corpuscular Hemoglobin 33.5 PG (27.0-31.0) 34.2 PG (27.0-31.0) 33.5 PG (27.0-31.0) Mean Corpuscular Hemoglobin Concent 34.6 G/DL (32.0-36.0) 36.2 G/DL (32.0-36.0) 35.5 G/DL (32.0-36.0) Red Cell Distribution Width 11.1 % (11.6-14.8) 10.7 % (11.6-14.8) 10.8 % (11.6-14.8) Platelet Count 164 K/UL (150-450) 159 K/UL (150-450) 131 K/UL (150-450) Mean Platelet Volume 6.5 FL (6.5-10.1) 7.1 FL (6.5-10.1) 6.8 FL (6.5-10.1) Neutrophils (%) (Auto) 49.2 % (45.0-75.0) 68.4 % (45.0-75.0) 73.6 % (45.0-75.0) Lymphocytes (%) (Auto) 36.0 % (20.0-45.0) 20.1 % (20.0-45.0) 11.8 % (20.0-45.0) Monocytes (%) (Auto) 10.2 % (1.0-10.0) 10.4 % (1.0-10.0) 12.9 % (1.0-10.0) Eosinophils (%) (Auto) 3.3 % (0.0-3.0) 0.2 % (0.0-3.0) 0.5 % (0.0-3.0) Basophils (%) (Auto) 1.4 % (0.0-2.0) 0.9 % (0.0-2.0) 1.2 % (0.0-2.0) Sodium Level 139 MMOL/L (136-145) 136 MMOL/L (136-145) 131 MMOL/L (136-145) Potassium Level 3.1 MMOL/L (3.5-5.1) 3.3 MMOL/L (3.5-5.1) 4.2 MMOL/L (3.5-5.1) Chloride Level 101 MMOL/L (98-107) 101 MMOL/L (98-107) 98 MMOL/L (98-107) Carbon Dioxide Level 11 MMOL/L (21-32) 24 MMOL/L (21-32) 22 MMOL/L (21-32) Anion Gap 27 mmol/L (5-15) 11 mmol/L (5-15) 11 mmol/L (5-15) Blood Urea Nitrogen 15 mg/dL (7-18) 6 mg/dL (7-18) 11 mg/dL (7-18) Creatinine 1.4 MG/DL (0.55-1.30) 0.7 MG/DL (0.55-1.30) 0.7 MG/DL (0.55-1.30) Estimat Glomerular Filtration Rate 56.1 mL/min (>60) > 60 mL/min (>60) > 60 mL/min (>60) Glucose Level 128 MG/DL (74-106) 95 MG/DL (74-106) 80 MG/DL (74-106) Calcium Level 8.9 MG/DL (8.5-10.1) 8.4 MG/DL (8.5-10.1) 7.9 MG/DL (8.5-10.1) Total Bilirubin 0.9 MG/DL (0.2-1.0) 0.9 MG/DL (0.2-1.0) 1.0 MG/DL (0.2-1.0) Aspartate Amino Transf (AST/SGOT) 82 U/L (15-37) 94 U/L (15-37) 144 U/L (15-37) Alanine Aminotransferase (ALT/SGPT) 81 U/L (12-78) 69 U/L (12-78) 90 U/L (12-78) Alkaline Phosphatase 178 U/L (46-116) 101 U/L (46-116) 82 U/L (46-116) Total Creatine Kinase 171 U/L (26-308) Troponin I 0.000 ng/mL (0.000-0.056) 0.003 ng/mL (0.000-0.056) Total Protein 9.4 G/DL (6.4-8.2) 9.0 G/DL (6.4-8.2) 8.5 G/DL (6.4-8.2) Albumin 3.1 G/DL (3.4-5.0) 3.1 G/DL (3.4-5.0) 2.9 G/DL (3.4-5.0) Globulin 6.3 g/dL 5.9 g/dL 5.6 g/dL Albumin/Globulin Ratio 0.5 (1.0-2.7) 0.5 (1.0-2.7) 0.5 (1.0-2.7) Salicylates Level < 0.2 ug/mL (2.8-20) Acetaminophen Level < 2 MCG/ML (10-30) Serum Alcohol < 3 mg/dL Urine Color Yellow Urine Appearance Clear Urine pH 6 (4.5-8.0) Urine Specific [place] 1.020 (1.005-1.035) Urine Protein 2+ (NEGATIVE) Urine Glucose (UA) Negative (NEGATIVE) Urine Ketones Negative (NEGATIVE) Urine Blood Negative (NEGATIVE) Urine Nitrite Negative (NEGATIVE) Urine Bilirubin Negative (NEGATIVE) Urine Urobilinogen 1 MG/DL (0.0-1.0) Urine Leukocyte Esterase Negative (NEGATIVE) Urine RBC 0-2 /HPF (0 - 0) Urine WBC 0-2 /HPF (0 - 0) Urine Squamous Epithelial Cells None /LPF (NONE/OCC) Urine Bacteria Few /HPF (NONE) Urine Opiates Screen Negative (NEGATIVE) Urine Barbiturates Screen Negative (NEGATIVE) Phencyclidine (PCP) Screen Negative (NEGATIVE) Urine Amphetamines Screen Negative (NEGATIVE) Urine Benzodiazepines Screen Positive (NEGATIVE) Urine Cocaine Screen Negative (NEGATIVE) Urine Marijuana (THC) Screen Negative (NEGATIVE) Hemoglobin A1c 5.4 % (4.3-6.0) Uric Acid 4.8 MG/DL (2.6-7.2) 3.0 MG/DL (2.6-7.2) Phosphorus Level 2.4 MG/DL (2.5-4.9) 3.5 MG/DL (2.5-4.9) Magnesium Level 1.7 MG/DL (1.8-2.4) 2.4 MG/DL (1.8-2.4) Gamma Glutamyl Transpeptidase 395 U/L (5-85) 370 U/L (5-85) C-Reactive Protein, Quantitative 2.9 mg/dL (0.00-0.90) 4.5 mg/dL (0.00-0.90) Pro-B-Type Natriuretic Peptide 482 pg/mL (0-125) 379 pg/mL (0-125) Triglycerides Level 73 MG/DL (30-150) Cholesterol Level 129 MG/DL (< 200) LDL Cholesterol 80 mg/dL (<100) HDL Cholesterol 39 MG/DL (40-60) Cholesterol/HDL Ratio 3.3 (3.3-4.4) Lipase 172 U/L (73-393) Ammonia 73 umol/L (11-32) Thyroid Stimulating Hormone (TSH) 0.493 uiU/mL (0.358-3.740) Free Thyroxine 1.02 NG/DL (0.76-1.46) Height (Feet): 5 Height (Inches): 10.00 Weight (Pounds): 200 Objective Physical Exam: Vitals: reviewed General: Nad, altered mental status HEENT: nc, at Neck: supple Chest: clear breath sounds bilaterally Cardiovascular: RRR, no s3, s4 Abdomen: soft, nontender, nd Extremities: no cce, normal range of motion Neuro: alert and oriented Arya Nelson MD Jul 28, 2019 06:20
--- NOTE | 2019-07-28 07:17 | Cardiac Electrophysiology PN ---
Assessment/Plan Assessment/Plan 1. Tachycardia likely due to seizure, etiology is not clear, could be due to alcohol withdrawal. Further evaluation by Neurology. EF 60%. EKG shows sinus tachycardia with no acute ST-T wave abnormality. 2. Status post seizure, etiology is not clear. 3. History of heavy alcohol use, possible alcohol withdrawal. 4. Fever,on Rocephin 5. Thrombocytopenia FU Dr Omar GASCA RN Subjective Subjective Still confused and had Fever last night 101.8. RN at bedside. In SR Objective Last 24 Hour Vital Signs Date Time Temp Pulse Resp B/P (MAP) Pulse Ox O2 Delivery O2 Flow Rate FiO2 07/28/19 04:00 98.8 78 16 115/65 (82) 98 07/28/19 04:00 74 07/28/19 01:20 99.4 07/28/19 00:00 87 07/28/19 00:00 100.2 91 16 121/72 (88) 98 07/27/19 21:00 Room Air 07/27/19 20:00 99.7 75 20 125/76 (92) 94 07/27/19 20:00 97 07/27/19 16:00 100.9 89 20 136/89 (105) 97 07/27/19 16:00 104 07/27/19 12:00 99.7 87 20 138/80 (99) 98 07/27/19 12:00 86 07/27/19 09:00 Room Air 07/27/19 08:00 86 07/27/19 08:00 101.8 82 20 124/66 (85) 93 Intake and Output 07/27/19 07/28/19 19:00 07:00 Intake Total 600 ml Output Total 1400 ml 850 ml Balance -1400 ml -250 ml IV Total 600 ml Output Urine Total 1400 ml 850 ml Laboratory Tests Test 07/28/19 05:50 White Blood Count Pending Red Blood Count Pending Hemoglobin Pending Hematocrit Pending Mean Corpuscular Volume Pending Mean Corpuscular Hemoglobin Pending Mean Corpuscular Hemoglobin Concent Pending Red Cell Distribution Width Pending Platelet Count Pending Mean Platelet Volume Pending Neutrophils (%) (Auto) Pending Lymphocytes (%) (Auto) Pending Monocytes (%) (Auto) Pending Eosinophils (%) (Auto) Pending Basophils (%) (Auto) Pending Sodium Level Pending Potassium Level Pending Chloride Level Pending Carbon Dioxide Level Pending Blood Urea Nitrogen Pending Creatinine Pending Estimat Glomerular Filtration Rate Pending Glucose Level Pending Osmolality Pending Uric Acid Pending Calcium Level Pending Phosphorus Level Pending Magnesium Level Pending Total Bilirubin Pending Aspartate Amino Transf (AST/SGOT) Pending Alanine Aminotransferase (ALT/SGPT) Pending Alkaline Phosphatase Pending Ammonia Pending C-Reactive Protein, Quantitative Pending Pro-B-Type Natriuretic Peptide Pending Total Protein Pending Albumin Pending Globulin Pending HIV (1&2) Antibody Rapid Pending Microbiology Date/Time Source Procedure Growth Status 07/26/19 16:22 Blood Blood Culture - Preliminary NO GROWTH AFTER 24 HOURS Resulted 07/26/19 16:15 Blood Blood Culture - Preliminary NO GROWTH AFTER 24 HOURS Resulted Objective HEAD AND NECK: No JVD. LUNGS: Clear. CARDIOVASCULAR: Tachycardic S1 and S2 with no gallop. ABDOMEN: Soft. EXTREMITIES: 1+ pitting edema. Ric Mckeon MD Jul 28, 2019 07:17
[2019-07-28 07:21] LABS: HEMATOCRIT 36.7 % (42.0-52.0); MEAN CORPUSCULAR VOLUME 95 FL (80-99); PLATELET COUNT 127 K/UL (150-450); RED BLOOD COUNT 3.85 M/UL (4.70-6.10); RED CELL DISTRIBUTION WIDTH 10.9 % (11.6-14.8)
--- NOTE | 2019-07-28 07:24 | NUR ---
HAND-OFF: Report given to Chanelle TERRELL.
--- NOTE | 2019-07-28 07:25 | NUR ---
NURSE NOTES: Received report from Tavo/RN, Patient is asleep, Lying semi-holcomb's, resting comfortably. On room air, No acute distress/SOB noted. Breathing unlabored and even. IV on right FA G-20, no bleeding or infiltration noted. Seizure precaution in place. Bed in low position and locked, bed alarm engaged, Side rails up x3. call light within reach. Encouraged to use call light when needed. Will continue plan of care.
[2019-07-28 07:40] LABS: AMMONIA 48 umol/L (11-32)
[2019-07-28 07:50] LABS: ALANINE AMINOTRANSFERASE 81 U/L (12-78); ALBUMIN 2.6 G/DL (3.4-5.0); ALBUMIN/GLOBULIN RATIO 0.4 (1.0-2.7); ALKALINE PHOSPHATASE 72 U/L (46-116); ANION GAP 9 mmol/L (5-15); ASPARTATE AMINO TRANSFERASE 151 U/L (15-37); BILIRUBIN,TOTAL 0.7 MG/DL (0.2-1.0); BLOOD UREA NITROGEN 12 mg/dL (7-18); CALCIUM 8.4 MG/DL (8.5-10.1); CARBON DIOXIDE 25 MMOL/L (21-32); CHLORIDE 99 MMOL/L (98-107); CREATININE 0.8 MG/DL (0.55-1.30); PHOSPHORUS 3.7 MG/DL (2.5-4.9); POTASSIUM 3.8 MMOL/L (3.5-5.1); SODIUM 133 MMOL/L (136-145)
[2019-07-28 08:00] VITALS: BP 123/85
[2019-07-28] MEDS: Pantoprazole Inj IVP SCH ×2 (08:39→20:49)
[2019-07-28] MEDS: D5NS 1,000 ML IV SCH ×2 (08:40→22:40)
--- NOTE | 2019-07-28 09:01 | General Progress Note ---
Assessment/Plan Assessment/Plan: (1) Alcohol abuse (2) Alcohol withdrawals (3) R/O Delirium [place]remens Patient to be continued on Ativan and Librium as per psychiatrist D/w Dr. Wilson and he concurred. Subjective Date patient seen: Jul 28, 2019 Time patient seen: 08:45 - am ROS Limited/Unobtainable: Yes Allergies: Coded Allergies: No Known Allergies (Unverified , 07/25/19) Subjective Patient is in bed and showing no signs of pain or distress. Objective Last 24 Hour Vital Signs Date Time Temp Pulse Resp B/P (MAP) Pulse Ox O2 Delivery O2 Flow Rate FiO2 07/28/19 08:00 97.1 78 21 123/85 (98) 97 07/28/19 04:00 98.8 78 16 115/65 (82) 98 07/28/19 04:00 74 07/28/19 01:20 99.4 07/28/19 00:00 87 07/28/19 00:00 100.2 91 16 121/72 (88) 98 07/27/19 21:00 Room Air 07/27/19 20:00 99.7 75 20 125/76 (92) 94 07/27/19 20:00 97 07/27/19 16:00 100.9 89 20 136/89 (105) 97 07/27/19 16:00 104 07/27/19 12:00 99.7 87 20 138/80 (99) 98 07/27/19 12:00 86 07/27/19 09:00 Room Air Intake and Output 07/27/19 07/28/19 19:00 07:00 Intake Total 600 ml Output Total 1400 ml 850 ml Balance -1400 ml -250 ml IV Total 600 ml Output Urine Total 1400 ml 850 ml Laboratory Tests 07/28/19 00:00: HIV-1 Antibody [Pending], HIV-2 Antibody [Pending] 07/28/19 05:50: White Blood Count 3.0L, Red Blood Count 3.85L, Hemoglobin 13.0L, Hematocrit 36.7L, Mean Corpuscular Volume 95, Mean Corpuscular Hemoglobin 33.7H, Mean Corpuscular Hemoglobin Concent 35.4, Red Cell Distribution Width 10.9L, Platelet Count 127L, Mean Platelet Volume 6.6, Neutrophils (%) (Auto) , Lymphocytes (%) (Auto) , Monocytes (%) (Auto) , Eosinophils (%) (Auto) , Basophils (%) (Auto) , Neutrophils % (Manual) [Pending], Lymphocytes % (Manual) [Pending], Platelet Estimate [Pending], Platelet Morphology [Pending], Sodium Level 133L, Potassium Level 3.8, Chloride Level 99, Carbon Dioxide Level 25, Anion Gap 9, Blood Urea Nitrogen 12, Creatinine 0.8, Estimat Glomerular Filtration Rate > 60, Glucose Level 83, Osmolality 277L, Uric Acid 3.9, Calcium Level 8.4L, Phosphorus Level 3.7, Magnesium Level 2.3, Total Bilirubin 0.7, Aspartate Amino Transf (AST/SGOT) 151H, Alanine Aminotransferase (ALT/SGPT) 81H , Alkaline Phosphatase 72, Ammonia 48H, C-Reactive Protein, Quantitative 3.7H, Pro-B-Type Natriuretic Peptide [Pending], Total Protein 8.6H, Albumin 2.6L, Globulin 6.0, Albumin/Globulin Ratio 0.4L, HIV (1&2) Antibody Rapid Preliminary positiveH Height (Feet): 5 Height (Inches): 10.00 Weight (Pounds): 200 General Appearance: no apparent distress EENT: PERRL/EOMI, normal ENT inspection Neck: non-tender, supple Cardiovascular: normal rate, regular rhythm Respiratory/Chest: decreased breath sounds Abdomen: non tender, soft Extremities: non-tender Edema: trace edema Neurologic: alert, oriented x 3 Archie Magaña Jul 28, 2019 09:01
--- NOTE | 2019-07-28 09:07 | General Progress Note ---
Assessment/Plan Problem List: (1) Seizure disorder ICD Codes: G40.909 - Epilepsy, unspecified, not intractable, without status epilepticus SNOMED: 514299422 (2) Hypokalemia ICD Codes: E87.6 - Hypokalemia SNOMED: 50205541 (3) Seizure ICD Codes: R56.9 - Unspecified convulsions SNOMED: 78553732 (4) Tachycardia ICD Codes: R00.0 - Tachycardia, unspecified SNOMED: 9097329 (5) ALCOHOL DEPENDENCE WITH WITHDRAWAL, UNSPECIFIED ICD Codes: F10.239 - ALCOHOL DEPENDENCE WITH WITHDRAWAL, UNSPECIFIED Assessment/Plan: persistent elevated lft so consulted dr adan.due to etoh abuse seiuzure alcohol withdrawal lyte abnormality afebrile Subjective ROS Limited/Unobtainable: Yes Allergies: Coded Allergies: No Known Allergies (Unverified , 07/25/19) Objective Last 24 Hour Vital Signs Date Time Temp Pulse Resp B/P (MAP) Pulse Ox O2 Delivery O2 Flow Rate FiO2 07/28/19 08:00 97.1 78 21 123/85 (98) 97 07/28/19 04:00 98.8 78 16 115/65 (82) 98 07/28/19 04:00 74 07/28/19 01:20 99.4 07/28/19 00:00 87 07/28/19 00:00 100.2 91 16 121/72 (88) 98 07/27/19 21:00 Room Air 07/27/19 20:00 99.7 75 20 125/76 (92) 94 07/27/19 20:00 97 07/27/19 16:00 100.9 89 20 136/89 (105) 97 07/27/19 16:00 104 07/27/19 12:00 99.7 87 20 138/80 (99) 98 07/27/19 12:00 86 Intake and Output 07/27/19 07/28/19 19:00 07:00 Intake Total 600 ml Output Total 1400 ml 850 ml Balance -1400 ml -250 ml IV Total 600 ml Output Urine Total 1400 ml 850 ml Laboratory Tests 07/28/19 00:00: HIV-1 Antibody [Pending], HIV-2 Antibody [Pending] 07/28/19 05:50: White Blood Count 3.0L, Red Blood Count 3.85L, Hemoglobin 13.0L, Hematocrit 36.7L, Mean Corpuscular Volume 95, Mean Corpuscular Hemoglobin 33.7H, Mean Corpuscular Hemoglobin Concent 35.4, Red Cell Distribution Width 10.9L, Platelet Count 127L, Mean Platelet Volume 6.6, Neutrophils (%) (Auto) , Lymphocytes (%) (Auto) , Monocytes (%) (Auto) , Eosinophils (%) (Auto) , Basophils (%) (Auto) , Neutrophils % (Manual) [Pending], Lymphocytes % (Manual) [Pending], Platelet Estimate [Pending], Platelet Morphology [Pending], Sodium Level 133L, Potassium Level 3.8, Chloride Level 99, Carbon Dioxide Level 25, Anion Gap 9, Blood Urea Nitrogen 12, Creatinine 0.8, Estimat Glomerular Filtration Rate > 60, Glucose Level 83, Osmolality 277L, Uric Acid 3.9, Calcium Level 8.4L, Phosphorus Level 3.7, Magnesium Level 2.3, Total Bilirubin 0.7, Aspartate Amino Transf (AST/SGOT) 151H, Alanine Aminotransferase (ALT/SGPT) 81H , Alkaline Phosphatase 72, Ammonia 48H, C-Reactive Protein, Quantitative 3.7H, Pro-B-Type Natriuretic Peptide [Pending], Total Protein 8.6H, Albumin 2.6L, Globulin 6.0, Albumin/Globulin Ratio 0.4L, HIV (1&2) Antibody Rapid Preliminary positiveH Height (Feet): 5 Height (Inches): 10.00 Weight (Pounds): 200 General Appearance: confused Respiratory/Chest: normal breath sounds Abdomen: soft Isa Blanchard MD Jul 28, 2019 09:07
[2019-07-28 12:00] VITALS: BP 129/84
--- NOTE | 2019-07-28 12:25 | Infectious Diseases Prog Note ---
Assessment/Plan Assessment/Plan IMPRESSION: Sepsis with fever Tachycardia resolved. HIV R/O meningitis New-onset seizure Alcohol withdrawal Acute renal failure, Encephalopathy. RECOMMENDATION: Continue Rocephin, Add Vancomycin & high dose Fluconazole LP ,CSF culture, cell count, Glucose & protein Advil for fever Case was D/W RN & primary MD Subjective ROS Limited/Unobtainable: Yes Constitutional: Reports: fever, other - decreased HEENT: Reports: other - headache Allergies: Coded Allergies: No Known Allergies (Unverified , 07/25/19) Objective Vital Signs Last 24 Hour Vital Signs Date Time Temp Pulse Resp B/P (MAP) Pulse Ox O2 Delivery O2 Flow Rate FiO2 07/28/19 09:00 Room Air 07/28/19 08:00 77 07/28/19 08:00 97.1 78 21 123/85 (98) 97 07/28/19 04:00 98.8 78 16 115/65 (82) 98 07/28/19 04:00 74 07/28/19 01:20 99.4 07/28/19 00:00 87 07/28/19 00:00 100.2 91 16 121/72 (88) 98 07/27/19 21:00 Room Air 07/27/19 20:00 99.7 75 20 125/76 (92) 94 07/27/19 20:00 97 07/27/19 16:00 100.9 89 20 136/89 (105) 97 07/27/19 16:00 104 Height (Feet): 5 Height (Inches): 10.00 Weight (Pounds): 200 General Appearance: no acute distress HEENT: mucous membranes moist, thrush Respiratory/Chest: lungs clear Cardiovascular: normal rate Abdomen: soft, non tender Extremities: no edema Neurologic/Psychiatric: other - drowsy Microbiology Date/Time Source Procedure Growth Status 07/26/19 16:22 Blood Blood Culture - Preliminary NO GROWTH AFTER 24 HOURS Resulted 07/26/19 16:15 Blood Blood Culture - Preliminary NO GROWTH AFTER 24 HOURS Resulted Laboratory Tests Test 07/28/19 00:00 07/28/19 05:50 HIV-1 Antibody Pending HIV-2 Antibody Pending White Blood Count 3.0 K/UL (4.8-10.8) L Red Blood Count 3.85 M/UL (4.70-6.10) L Hemoglobin 13.0 G/DL (14.2-18.0) L Hematocrit 36.7 % (42.0-52.0) L Mean Corpuscular Volume 95 FL (80-99) Mean Corpuscular Hemoglobin 33.7 PG (27.0-31.0) H Mean Corpuscular Hemoglobin Concent 35.4 G/DL (32.0-36.0) Red Cell Distribution Width 10.9 % (11.6-14.8) L Platelet Count 127 K/UL (150-450) L Mean Platelet Volume 6.6 FL (6.5-10.1) Neutrophils (%) (Auto) % (45.0-75.0) Lymphocytes (%) (Auto) % (20.0-45.0) Monocytes (%) (Auto) % (1.0-10.0) Eosinophils (%) (Auto) % (0.0-3.0) Basophils (%) (Auto) % (0.0-2.0) Differential Total Cells Counted 100 Neutrophils % (Manual) 55 % (45-75) Lymphocytes % (Manual) 32 % (20-45) Monocytes % (Manual) 12 % (1-10) H Eosinophils % (Manual) 1 % (0-3) Basophils % (Manual) 0 % (0-2) Band Neutrophils 0 % (0-8) Platelet Estimate Decreased L Platelet Morphology Normal Red Blood Cell Morphology Normal Sodium Level 133 MMOL/L (136-145) L Potassium Level 3.8 MMOL/L (3.5-5.1) Chloride Level 99 MMOL/L (98-107) Carbon Dioxide Level 25 MMOL/L (21-32) Anion Gap 9 mmol/L (5-15) Blood Urea Nitrogen 12 mg/dL (7-18) Creatinine 0.8 MG/DL (0.55-1.30) Estimat Glomerular Filtration Rate > 60 mL/min (>60) Glucose Level 83 MG/DL (74-106) Osmolality 277 mOsm/kg (297-317) L Uric Acid 3.9 MG/DL (2.6-7.2) Calcium Level 8.4 MG/DL (8.5-10.1) L Phosphorus Level 3.7 MG/DL (2.5-4.9) Magnesium Level 2.3 MG/DL (1.8-2.4) Total Bilirubin 0.7 MG/DL (0.2-1.0) Aspartate Amino Transf (AST/SGOT) 151 U/L (15-37) H Alanine Aminotransferase (ALT/SGPT) 81 U/L (12-78) H Alkaline Phosphatase 72 U/L (46-116) Ammonia 48 umol/L (11-32) H C-Reactive Protein, Quantitative 3.7 mg/dL (0.00-0.90) H Pro-B-Type Natriuretic Peptide Pending Total Protein 8.6 G/DL (6.4-8.2) H Albumin 2.6 G/DL (3.4-5.0) L Globulin 6.0 g/dL Albumin/Globulin Ratio 0.4 (1.0-2.7) L HIV (1&2) Antibody Rapid Preliminary positive Current Medications Medications (Trade) Dose Ordered Sig/Gabrielle Route PRN Reason Start Time Stop Time Status Last Admin Dose Admin Acetaminophen (Tylenol) 650 mg Q6H PRN RECTAL fever 07/26/19 08:45 08/25/19 08:44 07/28/19 11:19 Ceftriaxone Sodium 2 gm/ Dextrose 55 ml @ 110 mls/hr Q24H IVPB 07/26/19 15:00 08/02/19 14:59 07/27/19 14:20 Chlordiazepoxide (Librium) 50 mg EVERY 8 HOURS ORAL 07/26/19 14:30 08/02/19 14:29 07/28/19 06:00 Dextrose/Sodium Chloride 1,000 ml @ 75 mls/hr [id number] IV 07/27/19 20:00 08/26/19 19:59 07/28/19 08:40 Folic Acid (Folate) 1 mg DAILY ORAL 07/28/19 09:00 08/27/19 08:59 07/28/19 08:39 Ibuprofen (Motrin) 600 mg Q4H PRN ORAL for pain/headache 07/28/19 12:15 08/27/19 12:14 Lorazepam (Ativan 2mg/ml 1ml) 2 mg Q2H PRN IM For Anxiety 07/26/19 14:30 08/02/19 14:29 Pantoprazole (Protonix) 40 mg EVERY 12 HOURS IVP 07/26/19 21:00 08/25/19 20:59 07/28/19 08:39 Po Bryant MD Jul 28, 2019 12:25
[2019-07-28] MEDS: Fluconazole 100mg tab ORAL SCH (12:39)
--- NOTE | 2019-07-28 13:02 | Nephrology Progress Note ---
Assessment/Plan Problem List: (1) JULIAN (acute kidney injury) (2) Seizure (3) ALCOHOL DEPENDENCE WITH WITHDRAWAL, UNSPECIFIED (4) Tachycardia (5) Hypokalemia Assessment Electrolyte imbalance Hypokalemia and hypomagnesemia Elevated creatinine to 1.4 on admission now corrected Seizure disorder Plan Hydrate Following measures as needed while patient n.p.o.: IV magnesium IV potassium phosphate IV thiamine IV Protonix Continue management per other consultants Monitor electrolytes Per orders Subjective ROS Limited/Unobtainable: No Constitutional: Reports: malaise, weakness, other - Slightly more responsive Objective Objective Last 24 Hour Vital Signs Date Time Temp Pulse Resp B/P (MAP) Pulse Ox O2 Delivery O2 Flow Rate FiO2 07/28/19 12:00 99.3 61 20 129/84 (99) 97 07/28/19 12:00 66 07/28/19 11:49 99.3 07/28/19 09:00 Room Air 07/28/19 08:00 77 07/28/19 08:00 97.1 78 21 123/85 (98) 97 07/28/19 04:00 98.8 78 16 115/65 (82) 98 07/28/19 04:00 74 07/28/19 00:00 87 07/28/19 00:00 100.2 91 16 121/72 (88) 98 07/27/19 21:00 Room Air 07/27/19 20:00 99.7 75 20 125/76 (92) 94 07/27/19 20:00 97 07/27/19 16:00 100.9 89 20 136/89 (105) 97 07/27/19 16:00 104 Intake and Output 07/27/19 07/28/19 19:00 07:00 Intake Total 600 ml Output Total 1400 ml 850 ml Balance -1400 ml -250 ml IV Total 600 ml Output Urine Total 1400 ml 850 ml Laboratory Tests 07/28/19 00:00: HIV-1 Antibody [Pending], HIV-2 Antibody [Pending] 07/28/19 05:50: White Blood Count 3.0L, Red Blood Count 3.85L, Hemoglobin 13.0L, Hematocrit 36.7L, Mean Corpuscular Volume 95, Mean Corpuscular Hemoglobin 33.7H, Mean Corpuscular Hemoglobin Concent 35.4, Red Cell Distribution Width 10.9L, Platelet Count 127L, Mean Platelet Volume 6.6, Neutrophils (%) (Auto) , Lymphocytes (%) (Auto) , Monocytes (%) (Auto) , Eosinophils (%) (Auto) , Basophils (%) (Auto) , Differential Total Cells Counted 100, Neutrophils % ( Manual) 55, Lymphocytes % (Manual) 32, Monocytes % (Manual) 12H, Eosinophils % ( Manual) 1, Basophils % (Manual) 0, Band Neutrophils 0, Platelet Estimate DecreasedL, Platelet Morphology Normal, Red Blood Cell Morphology Normal, Sodium Level 133L, Potassium Level 3.8, Chloride Level 99, Carbon Dioxide Level 25, Anion Gap 9, Blood Urea Nitrogen 12, Creatinine 0.8, Estimat Glomerular Filtration Rate > 60, Glucose Level 83, Osmolality 277L, Uric Acid 3.9, Calcium Level 8.4L, Phosphorus Level 3.7, Magnesium Level 2.3, Total Bilirubin 0.7, Aspartate Amino Transf (AST/SGOT) 151H, Alanine Aminotransferase (ALT/SGPT) 81H , Alkaline Phosphatase 72, Ammonia 48H, C-Reactive Protein, Quantitative 3.7H, Pro-B-Type Natriuretic Peptide [Pending], Total Protein 8.6H, Albumin 2.6L, Globulin 6.0, Albumin/Globulin Ratio 0.4L, HIV (1&2) Antibody Rapid Preliminary positiveH Height (Feet): 5 Height (Inches): 10.00 Weight (Pounds): 200 General Appearance: lethargic, confused Neck: limited range of motion Cardiovascular: tachycardia Abdomen: distended Brian Alexandra MD Jul 28, 2019 13:02
[2019-07-28] MEDS: Vancomycin 1gm in Dextrose 275ml IVPB SCH ×2 (13:52→21:07)
[2019-07-28] MEDS ORDERED: D5NS 1000ml IV ONE (15:04)
--- NOTE | 2019-07-28 15:32 | Pre-Procedure Note/Attestation ---
Pre-Procedure Note/Attestation Complete Prior to Procedure Planned Procedure: not applicable Procedure Narrative: lumbar puncture Indications for Procedure Pre-Operative Diagnosis: meningitis Attestation I attest that I discussed the nature of the procedure; its benefits; risks and complications; and alternatives (and the risks and benefits of such alternatives ), prior to the procedure, with the patient (or the patient's legal commissary representative). I attest that, if there was a reasonable possibility of needing a blood transfusion, the patient (or the patient's legal commissary representative) was given the [facility] standardized written summary, pursuant to the Vinod Augustin Blood Safety Act ([place] Health and Safety Code # 1645, as amended). I attest that I re-evaluated the patient just prior to the surgery and that there has been no change in the patient's H&P, except as documented below: Alfonzo Oliveira MD Jul 28, 2019 15:32
[2019-07-28 16:00] VITALS: BP 129/84
[2019-07-28] MEDS: cefTRIAXone 2 GM in D5W 55 ML IVPB SCH (16:13)
--- NOTE | 2019-07-28 16:45 | NUR ---
NURSE NOTES: Called Dr.Rahban Adams office and left message regarding Protein CSF 61.
--- NOTE | 2019-07-28 17:19 | Brief Operative Note ---
Immediate Post Operative Note Operative Note Pre-op Diagnosis: meningitis Procedure: LP Post-op Diagnosis: same as pre-op Findings: consistent w/pre-op dx studies - 18 cm opening pressure Surgeon: Nuris Bowie Anesthesia: local Specimen: yes - 8 ml clear fluid, sent to lab Complications: none Fluids: none Implant(s) used?: No Alfonzo Bowie MD Jul 28, 2019 17:19
--- NOTE | 2019-07-28 17:29 | Diagnostic Imaging Report ---
INDICATION: Pain altered mental status, suspected meningitis TECHNIQUE: Intraoperative imaging Fluoroscopy time: 28.7 seconds Total dose: 0.78438 mGym2 Total number of images: One COMPARISON: None Technique: Informed consent obtained prior to consider the procedure. Prior imaging studies reviewed. Procedural timeout performed. Fluoroscopy used to localize optimal puncture site. Skin sterilely prepped and draped. Local anesthesia with 1% lidocaine. Under real-time fluoroscopy guidance, using a left of midline sublaminar approach, a 22-gauge spinal needle was directed into the spinal canal at the L3-4 level. Spontaneous return of CSF was observed. Opening pressure obtained, found to be 18 cm of H2O. Total 8 mL of clear fluid then obtained, divided into 4 vials. The needle was removed and a bandage applied. The patient tolerated the procedure well, without immediate complication. FINDINGS: Interstitial images document satisfactory needle placement. Opening pressure 18 IMPRESSION: Successful fluoroscopy guided lumbar puncture, as described
--- NOTE | 2019-07-28 18:55 | General Progress Note ---
Assessment/Plan Assessment/Plan: Assessment - HIV (+) per prelim report - elevated and rising LFT - h/o EtOH use x years, although stated he has not consumed for 1 mo - seizure - fever Recommendations - check hepatitis serologies - ID f/u - po as tolerated - thiamine Subjective Allergies: Coded Allergies: No Known Allergies (Unverified , 07/25/19) Objective Last 24 Hour Vital Signs Date Time Temp Pulse Resp B/P (MAP) Pulse Ox O2 Delivery O2 Flow Rate FiO2 07/28/19 16:00 98.4 68 19 129/84 (99) 95 07/28/19 16:00 82 07/28/19 12:00 99.3 61 20 129/84 (99) 97 07/28/19 12:00 66 07/28/19 11:49 99.3 07/28/19 09:00 Room Air 07/28/19 08:00 77 07/28/19 08:00 97.1 78 21 123/85 (98) 97 07/28/19 04:00 98.8 78 16 115/65 (82) 98 07/28/19 04:00 74 07/28/19 00:00 87 07/28/19 00:00 100.2 91 16 121/72 (88) 98 07/27/19 21:00 Room Air 07/27/19 20:00 99.7 75 20 125/76 (92) 94 07/27/19 20:00 97 Intake and Output 07/27/19 07/28/19 19:00 07:00 Intake Total 600 ml Output Total 1400 ml 850 ml Balance -1400 ml -250 ml IV Total 600 ml Output Urine Total 1400 ml 850 ml Laboratory Tests 07/28/19 00:00: HIV-1 Antibody [Pending], HIV-2 Antibody [Pending] 07/28/19 05:50: White Blood Count 3.0L, Red Blood Count 3.85L, Hemoglobin 13.0L, Hematocrit 36.7L, Mean Corpuscular Volume 95, Mean Corpuscular Hemoglobin 33.7H, Mean Corpuscular Hemoglobin Concent 35.4, Red Cell Distribution Width 10.9L, Platelet Count 127L, Mean Platelet Volume 6.6, Neutrophils (%) (Auto) , Lymphocytes (%) (Auto) , Monocytes (%) (Auto) , Eosinophils (%) (Auto) , Basophils (%) (Auto) , Differential Total Cells Counted 100, Neutrophils % ( Manual) 55, Lymphocytes % (Manual) 32, Monocytes % (Manual) 12H, Eosinophils % ( Manual) 1, Basophils % (Manual) 0, Band Neutrophils 0, Platelet Estimate DecreasedL, Platelet Morphology Normal, Red Blood Cell Morphology Normal, Sodium Level 133L, Potassium Level 3.8, Chloride Level 99, Carbon Dioxide Level 25, Anion Gap 9, Blood Urea Nitrogen 12, Creatinine 0.8, Estimat Glomerular Filtration Rate > 60, Glucose Level 83, Osmolality 277L, Uric Acid 3.9, Calcium Level 8.4L, Phosphorus Level 3.7, Magnesium Level 2.3, Total Bilirubin 0.7, Aspartate Amino Transf (AST/SGOT) 151H, Alanine Aminotransferase (ALT/SGPT) 81H , Alkaline Phosphatase 72, Ammonia 48H, C-Reactive Protein, Quantitative 3.7H, Pro-B-Type Natriuretic Peptide [Pending], Total Protein 8.6H, Albumin 2.6L, Globulin 6.0, Albumin/Globulin Ratio 0.4L, HIV (1&2) Antibody Rapid Preliminary positiveH 07/28/19 15:45: CSF Appearance Clear, CSF Color Colorless, CSF WBC 13*H, CSF RBC 7, CSF Neutrophils % 4, CSF Lymphocytes % 90, CSF Monocytes % 6, CSF Crenated Cells 0, CSF Glucose 32L, CSF Total Protein 61H, CSF Coccidioides Antibody [Pending], CSF Herpes Simplex II DNA (PCR) [Pending], Herpes Simplex Virus I DNA (PCR) [ Pending] Height (Feet): 5 Height (Inches): 10.00 Weight (Pounds): 200 Jai Ness MD Jul 28, 2019 18:55
--- NOTE | 2019-07-28 19:32 | NUR ---
HAND-OFF: Report given to Addie/RN, Patient is in stable condition, Endorsed plan of care.
--- NOTE | 2019-07-28 19:32 | NUR ---
NURSE NOTES: Received patient in stable condition, AOx4, denies pain, feeling weak but able to make needs known, IV site on right forearm, asymptomatic, intact, bed low and locked , side rails up x3, will continue to monitor and reassess
[2019-07-28 20:00] VITALS: BP 100/61
[2019-07-28] MEDS: Thiamine 100mg tab ORAL SCH (20:49)
--- NOTE | 2019-07-28 23:58 | Psych Consult Progress Note ---
Psychiatry Progress Note Psychiatry Progress Note Medications Current Medications Medications (Trade) Dose Ordered Sig/Gabrielle Route PRN Reason Start Time Stop Time Status Last Admin Dose Admin Acetaminophen (Tylenol) 650 mg Q6H PRN RECTAL fever 07/26/19 08:45 08/25/19 08:44 07/28/19 11:19 Ceftriaxone Sodium 2 gm/ Dextrose 55 ml @ 110 mls/hr Q24H IVPB 07/26/19 15:00 08/02/19 14:59 07/28/19 16:13 Chlordiazepoxide (Librium) 50 mg EVERY 8 HOURS ORAL 07/26/19 14:30 08/02/19 14:29 07/28/19 21:39 Dextrose/Sodium Chloride 1,000 ml @ 75 mls/hr [id number] IV 07/27/19 20:00 08/26/19 19:59 07/28/19 08:40 Fluconazole (Diflucan) 800 mg DAILY ORAL 07/28/19 12:23 08/04/19 12:22 07/28/19 12:39 Folic Acid (Folate) 1 mg DAILY ORAL 07/28/19 09:00 08/27/19 08:59 07/28/19 08:39 Ibuprofen (Motrin) 600 mg Q6H PRN ORAL pain 07/28/19 12:27 08/27/19 12:26 07/28/19 16:23 Lorazepam (Ativan 2mg/ml 1ml) 2 mg Q2H PRN IM For Anxiety 07/26/19 14:30 08/02/19 14:29 Pantoprazole (Protonix) 40 mg EVERY 12 HOURS IVP 07/26/19 21:00 08/25/19 20:59 07/28/19 20:49 Thiamine HCl (Vitamin B1) 100 mg DAILY ORAL 07/28/19 20:00 08/27/19 19:59 07/28/19 20:49 Vancomycin HCl (Vanco rx to dose) 1 ea DAILY PRN MISC Per rx protocol 07/28/19 12:15 08/27/19 12:14 Vancomycin HCl 1 gm/Dextrose 275 ml @ 183.708 mls/hr Q8HR IVPB 07/28/19 14:00 08/02/19 13:59 07/28/19 21:07 Neurological/Psychiatric: Reports: anxiety, depressed, emotional problems Allergies: Coded Allergies: No Known Allergies (Unverified , 07/25/19) Objective Data Height (Feet): 5 Height (Inches): 10.00 Weight (Pounds): 200 General Appearance: no apparent distress, alert, alert oriented x3 Additional Comments: Mood is neutral. Affect is flat. Thought process is disorganized. Thought content, no suicidal or homicidal ideation. Cognition is impaired. Insight and judgment is impaired. ASSESSMENT: [place] I Alcohol dependence, alcohol withdrawal. [place] II Deferred. [place] III As above. [place] IV Low. PLAN: 1. The patient will be started on p.o. Ativan. 2. Librium. 3. Folate and thiamine. 4. Discussed with the nurse. Lelo Hickey MD Jul 28, 2019 23:58
[2019-07-29] VITALS: BP 112/71
[2019-07-29] MEDS: D5NS 1,000 ML IV SCH (01:32)
[2019-07-29 04:00] VITALS: BP 119/84
[2019-07-29] MEDS: Vancomycin 1gm in Dextrose 275ml IVPB SCH ×2 (06:14→09:16)
[2019-07-29] MEDS: chlordiazePOXIDE 25mg Cap ORAL SCH ×3 (06:14→21:05)
[2019-07-29 06:39] LABS: HEMATOCRIT 37.4 % (42.0-52.0); HEMOGLOBIN 13.2 G/DL (14.2-18.0); MEAN CORPUSCULAR VOLUME 97 FL (80-99); PLATELET COUNT 122 K/UL (150-450); RED BLOOD COUNT 3.87 M/UL (4.70-6.10)
[2019-07-29 07:10] LABS: CREATINE KINASE 3577 U/L (26-308); INR 1.1 (0.9-1.1)
--- NOTE | 2019-07-29 07:46 | NUR ---
HAND-OFF: Report given to NIDHI Diego, patient in stable condition, plan of care endorsed.
[2019-07-29 08:00] VITALS: BP 131/76
--- NOTE | 2019-07-29 09:11 | Hematology/Onc Progress Note ---
Assessment/Plan Assessment/Plan Assessment and Recs: # Pancytopenia - potential causes multifactorial, evaluate liver and viral etiologies to begin, in this case due to ETOH ABUSE/WITHDRAWAL, bone marrow myelosuppression --> Hep panel and HIV +++ --> US abd to evaluate for cirrhosis and hsm ordered --> SHOWS spenomegaly, enlarged spleen --> Peripheral smear ordered to evaluate for blasts /schistocytes --> none noted --> abx and other meds have been reviewed --> ok for ppx if plt >50k w/ either heparin or lovenox --> Transfuse if Plt < 20k and fever, or if Plt < 10k without fever --> plt trend 164-->122k --> wbc trend 5-->3-->2 # ETOH withdrawal --> r/o seizure --> ativan, librium, folate --> imaging reviewed --> smear noted # Seizure --> R/o seizure d/o onset -> meds reviewed --> as per neuro # JULIAN (acute kidney injury) --> per renal recs # HIV --> as per id, consider eval # Tachycardia --> per Dr. Mckeon # AMS --> per psych The timing of this note does not necessarily reflect the time of the patient was seen. Greatly appreciate consultation. Subjective Constitutional: Denies: no symptoms, chills, fever, malaise, weakness, other HEENT: Denies: no symptoms, eye pain, blurred vision, tearing, double vision, ear pain, ear discharge, nose pain, nose congestion, throat pain, throat swelling, mouth pain, mouth swelling, other Cardiovascular: Denies: no symptoms, chest pain, edema, irregular heart rate, lightheadedness, palpitations, syncope, other Respiratory: Denies: no symptoms, cough, shortness of breath, SOB with excertion, SOB at rest, sputum, wheezing, other Gastrointestinal/Abdominal: Denies: no symptoms, abdomen distended, abdominal pain, black stools, tarry stools, blood in stool, constipated, diarrhea, difficulty swallowing, nausea, poor appetite, poor fluid intake, rectal bleeding , vomiting, other Genitourinary: Denies: no symptoms, burning, discharge, frequency, flank pain, hematuria, incontinence, pain, urgency, other Neurologic/Psychiatric: Denies: no symptoms, anxiety, depressed, emotional problems, headache, numbness, paresthesia, pre-existing deficit, seizure, tingling, tremors, weakness, other Endocrine: Denies: no symptoms, excessive sweating, flushing, intolerance to cold, intolerance to heat, increased hunger, increased thirst, increased urine, unexplained weight gain, unexplained weight loss, other Allergies: Coded Allergies: No Known Allergies (Unverified , 07/25/19) Subjective 07/27: no events, no bleeding, cbc pending, remains altered 07/28: no events, labs reviewed, viral studies noted, no bleeding Objective Objective Current Medications Medications (Trade) Dose Ordered Sig/Gabrielle Route PRN Reason Start Time Stop Time Status Last Admin Dose Admin Acetaminophen (Tylenol) 650 mg Q6H PRN RECTAL fever 07/26/19 08:45 08/25/19 08:44 07/28/19 11:19 Ceftriaxone Sodium 2 gm/ Dextrose 55 ml @ 110 mls/hr Q24H IVPB 07/26/19 15:00 08/02/19 14:59 07/28/19 16:13 Chlordiazepoxide (Librium) 50 mg EVERY 8 HOURS ORAL 07/26/19 14:30 08/02/19 14:29 07/29/19 06:14 Dextrose/Sodium Chloride 1,000 ml @ 75 mls/hr [id number] IV 07/27/19 20:00 08/26/19 19:59 07/29/19 01:32 Fluconazole (Diflucan) 800 mg DAILY ORAL 07/28/19 12:23 08/04/19 12:22 07/28/19 12:39 Folic Acid (Folate) 1 mg DAILY ORAL 07/28/19 09:00 08/27/19 08:59 07/28/19 08:39 Ibuprofen (Motrin) 600 mg Q6H PRN ORAL pain 07/28/19 12:27 08/27/19 12:26 07/29/19 06:19 Lorazepam (Ativan 2mg/ml 1ml) 2 mg Q2H PRN IM For Anxiety 07/26/19 14:30 08/02/19 14:29 Pantoprazole (Protonix) 40 mg EVERY 12 HOURS IVP 07/26/19 21:00 08/25/19 20:59 07/28/19 20:49 Thiamine HCl (Vitamin B1) 100 mg DAILY ORAL 07/28/19 20:00 08/27/19 19:59 07/28/19 20:49 Vancomycin HCl (Vanco rx to dose) 1 ea DAILY PRN MISC Per rx protocol 07/28/19 12:15 08/27/19 12:14 Vancomycin HCl 1 gm/Dextrose 275 ml @ 183.708 mls/hr Q8HR IVPB 07/28/19 14:00 08/02/19 13:59 07/29/19 06:14 Last 24 Hour Vital Signs Date Time Temp Pulse Resp B/P (MAP) Pulse Ox O2 Delivery O2 Flow Rate FiO2 07/29/19 08:00 98.2 70 20 131/76 (94) 99 07/29/19 04:00 97.9 68 16 119/84 (96) 100 07/29/19 04:00 61 07/29/19 00:00 97.3 62 16 112/71 (85) 99 07/29/19 00:00 64 07/28/19 21:00 Room Air 07/28/19 20:00 74 07/28/19 20:00 97.9 71 16 100/61 (74) 99 07/28/19 16:00 98.4 68 19 129/84 (99) 95 07/28/19 16:00 82 07/28/19 12:00 99.3 61 20 129/84 (99) 97 07/28/19 12:00 66 07/28/19 11:49 99.3 07/28/19 09:00 Room Air 07/28/19 08:00 77 07/28/19 08:00 97.1 78 21 123/85 (98) 97 07/28/19 04:00 98.8 78 16 115/65 (82) 98 07/28/19 04:00 74 07/28/19 00:00 87 07/28/19 00:00 100.2 91 16 121/72 (88) 98 07/27/19 21:00 Room Air 07/27/19 20:00 99.7 75 20 125/76 (92) 94 07/27/19 20:00 97 07/27/19 16:00 100.9 89 20 136/89 (105) 97 07/27/19 16:00 104 07/27/19 12:00 99.7 87 20 138/80 (99) 98 07/27/19 12:00 86 Intake and Output 07/28/19 07/29/19 19:00 07:00 Intake Total 480 ml 830 ml Output Total 300 ml 500 ml Balance 180 ml 330 ml Intake Oral 480 ml 480 ml Other 350 ml Output Urine Total 300 ml 500 ml # Voids 1 2 # Bowel Movements 1 Labs Test 07/26/19 10:20 07/27/19 05:50 07/28/19 00:00 07/28/19 05:50 White Blood Count 7.4 K/UL (4.8-10.8) 5.1 K/UL (4.8-10.8) 3.0 K/UL (4.8-10.8) Red Blood Count 3.86 M/UL (4.70-6.10) 3.78 M/UL (4.70-6.10) 3.85 M/UL (4.70-6.10) Hemoglobin 13.2 G/DL (14.2-18.0) 12.7 G/DL (14.2-18.0) 13.0 G/DL (14.2-18.0) Hematocrit 36.5 % (42.0-52.0) 35.6 % (42.0-52.0) 36.7 % (42.0-52.0) Mean Corpuscular Volume 94 FL (80-99) 94 FL (80-99) 95 FL (80-99) Mean Corpuscular Hemoglobin 34.2 PG (27.0-31.0) 33.5 PG (27.0-31.0) 33.7 PG (27.0-31.0) Mean Corpuscular Hemoglobin Concent 36.2 G/DL (32.0-36.0) 35.5 G/DL (32.0-36.0) 35.4 G/DL (32.0-36.0) Red Cell Distribution Width 10.7 % (11.6-14.8) 10.8 % (11.6-14.8) 10.9 % (11.6-14.8) Platelet Count 159 K/UL (150-450) 131 K/UL (150-450) 127 K/UL (150-450) Mean Platelet Volume 7.1 FL (6.5-10.1) 6.8 FL (6.5-10.1) 6.6 FL (6.5-10.1) Neutrophils (%) (Auto) 68.4 % (45.0-75.0) 73.6 % (45.0-75.0) % (45.0-75.0) Lymphocytes (%) (Auto) 20.1 % (20.0-45.0) 11.8 % (20.0-45.0) % (20.0-45.0) Monocytes (%) (Auto) 10.4 % (1.0-10.0) 12.9 % (1.0-10.0) % (1.0-10.0) Eosinophils (%) (Auto) 0.2 % (0.0-3.0) 0.5 % (0.0-3.0) % (0.0-3.0) Basophils (%) (Auto) 0.9 % (0.0-2.0) 1.2 % (0.0-2.0) % (0.0-2.0) Sodium Level 136 MMOL/L (136-145) 131 MMOL/L (136-145) 133 MMOL/L (136-145) Potassium Level 3.3 MMOL/L (3.5-5.1) 4.2 MMOL/L (3.5-5.1) 3.8 MMOL/L (3.5-5.1) Chloride Level 101 MMOL/L (98-107) 98 MMOL/L (98-107) 99 MMOL/L (98-107) Carbon Dioxide Level 24 MMOL/L (21-32) 22 MMOL/L (21-32) 25 MMOL/L (21-32) Anion Gap 11 mmol/L (5-15) 11 mmol/L (5-15) 9 mmol/L (5-15) Blood Urea Nitrogen 6 mg/dL (7-18) 11 mg/dL (7-18) 12 mg/dL (7-18) Creatinine 0.7 MG/DL (0.55-1.30) 0.7 MG/DL (0.55-1.30) 0.8 MG/DL (0.55-1.30) Estimat Glomerular Filtration Rate > 60 mL/min (>60) > 60 mL/min (>60) > 60 mL/min (>60) Glucose Level 95 MG/DL (74-106) 80 MG/DL (74-106) 83 MG/DL (74-106) Hemoglobin A1c 5.4 % (4.3-6.0) Uric Acid 4.8 MG/DL (2.6-7.2) 3.0 MG/DL (2.6-7.2) 3.9 MG/DL (2.6-7.2) Calcium Level 8.4 MG/DL (8.5-10.1) 7.9 MG/DL (8.5-10.1) 8.4 MG/DL (8.5-10.1) Phosphorus Level 2.4 MG/DL (2.5-4.9) 3.5 MG/DL (2.5-4.9) 3.7 MG/DL (2.5-4.9) Magnesium Level 1.7 MG/DL (1.8-2.4) 2.4 MG/DL (1.8-2.4) 2.3 MG/DL (1.8-2.4) Total Bilirubin 0.9 MG/DL (0.2-1.0) 1.0 MG/DL (0.2-1.0) 0.7 MG/DL (0.2-1.0) Gamma Glutamyl Transpeptidase 395 U/L (5-85) 370 U/L (5-85) Aspartate Amino Transf (AST/SGOT) 94 U/L (15-37) 144 U/L (15-37) 151 U/L (15-37) Alanine Aminotransferase (ALT/SGPT) 69 U/L (12-78) 90 U/L (12-78) 81 U/L (12-78) Alkaline Phosphatase 101 U/L (46-116) 82 U/L (46-116) 72 U/L (46-116) C-Reactive Protein, Quantitative 2.9 mg/dL (0.00-0.90) 4.5 mg/dL (0.00-0.90) 3.7 mg/dL (0.00-0.90) Pro-B-Type Natriuretic Peptide 482 pg/mL (0-125) 379 pg/mL (0-125) Total Protein 9.0 G/DL (6.4-8.2) 8.5 G/DL (6.4-8.2) 8.6 G/DL (6.4-8.2) Albumin 3.1 G/DL (3.4-5.0) 2.9 G/DL (3.4-5.0) 2.6 G/DL (3.4-5.0) Globulin 5.9 g/dL 5.6 g/dL 6.0 g/dL Albumin/Globulin Ratio 0.5 (1.0-2.7) 0.5 (1.0-2.7) 0.4 (1.0-2.7) Triglycerides Level 73 MG/DL (30-150) Cholesterol Level 129 MG/DL (< 200) LDL Cholesterol 80 mg/dL (<100) HDL Cholesterol 39 MG/DL (40-60) Cholesterol/HDL Ratio 3.3 (3.3-4.4) Lipase 172 U/L (73-393) Ammonia 73 umol/L (11-32) 48 umol/L (11-32) Troponin I 0.003 ng/mL (0.000-0.056) Thyroid Stimulating Hormone (TSH) 0.493 uiU/mL (0.358-3.740) Free Thyroxine 1.02 NG/DL (0.76-1.46) Differential Total Cells Counted 100 Neutrophils % (Manual) 55 % (45-75) Lymphocytes % (Manual) 32 % (20-45) Monocytes % (Manual) 12 % (1-10) Eosinophils % (Manual) 1 % (0-3) Basophils % (Manual) 0 % (0-2) Band Neutrophils 0 % (0-8) Platelet Estimate Decreased Platelet Morphology Normal Red Blood Cell Morphology Normal Osmolality 277 mOsm/kg (297-317) HIV (1&2) Antibody Rapid Preliminary positive Test 07/28/19 15:45 07/29/19 05:38 CSF Appearance Clear (Clear) CSF Color Colorless (Colorless) CSF WBC 13 /CU MM (0-5) CSF RBC 7 /CU MM CSF Neutrophils % 4 % CSF Lymphocytes % 90 % CSF Monocytes % 6 % CSF Crenated Cells 0 % CSF Glucose 32 mg/dL (40-70) CSF Total Protein 61 MG/DL (15-45) White Blood Count 2.0 K/UL (4.8-10.8) Red Blood Count 3.87 M/UL (4.70-6.10) Hemoglobin 13.2 G/DL (14.2-18.0) Hematocrit 37.4 % (42.0-52.0) Mean Corpuscular Volume 97 FL (80-99) Mean Corpuscular Hemoglobin 34.1 PG (27.0-31.0) Mean Corpuscular Hemoglobin Concent 35.3 G/DL (32.0-36.0) Red Cell Distribution Width 11.0 % (11.6-14.8) Platelet Count 122 K/UL (150-450) Mean Platelet Volume 8.3 FL (6.5-10.1) Neutrophils (%) (Auto) % (45.0-75.0) Lymphocytes (%) (Auto) % (20.0-45.0) Monocytes (%) (Auto) % (1.0-10.0) Eosinophils (%) (Auto) % (0.0-3.0) Basophils (%) (Auto) % (0.0-2.0) Prothrombin Time 11.4 SEC (9.30-11.50) Prothromb Time International Ratio 1.1 (0.9-1.1) Total Creatine Kinase 3577 U/L (26-308) Micro Microbiology Date/Time Source Procedure Growth Status 07/28/19 15:45 Cerebral Spinal Fluid Gram Stain - Final Resulted 07/28/19 15:45 Cerebral Spinal Fluid CSF Culture Pending Resulted Height (Feet): 5 Height (Inches): 10.00 Weight (Pounds): 200 Objective Physical Exam: Vitals: reviewed General: Nad, altered mental status HEENT: nc, at Neck: supple Chest: clear breath sounds bilaterally Cardiovascular: RRR, no s3, s4 Abdomen: soft, nontender, nd Extremities: no cce, normal range of motion Neuro: alert and oriented Arya Nelson MD Jul 29, 2019 09:11
[2019-07-29] MEDS: Thiamine 100mg tab ORAL SCH (09:15)
[2019-07-29] MEDS: Fluconazole 100mg tab ORAL SCH (09:15)
[2019-07-29] MEDS: Pantoprazole Inj IVP SCH ×2 (09:15→20:40)
--- NOTE | 2019-07-29 09:22 | General Progress Note ---
Assessment/Plan Assessment/Plan: (1) Alcohol abuse (2) Alcohol withdrawals (3) R/O Delirium Tremens Patient to be continued on Ativan and Librium as per psychiatrist D/w Dr. Wilson and he concurred. Subjective Date patient seen: Jul 29, 2019 Time patient seen: 09:15 - am Constitutional: Reports: weakness HEENT: Reports: no symptoms Cardiovascular: Reports: no symptoms Respiratory: Reports: no symptoms Gastrointestinal/Abdominal: Reports: no symptoms Genitourinary: Reports: no symptoms Neurologic/Psychiatric: Reports: no symptoms Endocrine: Reports: no symptoms Hematologic/Lymphatic: Reports: no symptoms Allergies: Coded Allergies: No Known Allergies (Unverified , 07/25/19) Subjective Patient walking and standing going to bathroom. He has no signs of pain or distress. Objective Last 24 Hour Vital Signs Date Time Temp Pulse Resp B/P (MAP) Pulse Ox O2 Delivery O2 Flow Rate FiO2 07/29/19 08:00 98.2 70 20 131/76 (94) 99 07/29/19 04:00 97.9 68 16 119/84 (96) 100 07/29/19 04:00 61 07/29/19 00:00 97.3 62 16 112/71 (85) 99 07/29/19 00:00 64 07/28/19 21:00 Room Air 07/28/19 20:00 74 07/28/19 20:00 97.9 71 16 100/61 (74) 99 07/28/19 16:00 98.4 68 19 129/84 (99) 95 07/28/19 16:00 82 07/28/19 12:00 99.3 61 20 129/84 (99) 97 07/28/19 12:00 66 07/28/19 11:49 99.3 Intake and Output 07/28/19 07/29/19 19:00 07:00 Intake Total 480 ml 830 ml Output Total 300 ml 500 ml Balance 180 ml 330 ml Intake Oral 480 ml 480 ml Other 350 ml Output Urine Total 300 ml 500 ml # Voids 1 2 # Bowel Movements 1 Laboratory Tests 07/28/19 15:45: CSF Appearance Clear, CSF Color Colorless, CSF WBC 13*H, CSF RBC 7, CSF Neutrophils % 4, CSF Lymphocytes % 90, CSF Monocytes % 6, CSF Crenated Cells 0, CSF Glucose 32L, CSF Total Protein 61H, CSF Coccidioides Antibody [Pending], CSF Herpes Simplex II DNA (PCR) [Pending], Herpes Simplex Virus I DNA (PCR) [ Pending] 07/29/19 05:38: White Blood Count 2.0*L, Red Blood Count 3.87L, Hemoglobin 13.2L, Hematocrit 37.4L, Mean Corpuscular Volume 97, Mean Corpuscular Hemoglobin 34.1H, Mean Corpuscular Hemoglobin Concent 35.3, Red Cell Distribution Width 11.0L, Platelet Count 122L, Mean Platelet Volume 8.3, Neutrophils (%) (Auto) , Lymphocytes (%) (Auto) , Monocytes (%) (Auto) , Eosinophils (%) (Auto) , Basophils (%) (Auto) , Neutrophils % (Manual) [Pending], Lymphocytes % (Manual) [Pending], Platelet Estimate [Pending], Platelet Morphology [Pending], Prothrombin Time 11.4, Prothromb Time International Ratio 1.1, Total Creatine Kinase 3577H, Rapid Plasma Reagin [Pending], Hepatitis A IgM Antibody [Pending] , Hepatitis B Surface Antigen [Pending], Hepatitis B Core IgM Antibody [Pending] , Hepatitis C Antibody [Pending] Height (Feet): 5 Height (Inches): 10.00 Weight (Pounds): 200 General Appearance: no apparent distress, alert EENT: PERRL/EOMI, normal ENT inspection Neck: non-tender, normal alignment Cardiovascular: normal rate, regular rhythm Respiratory/Chest: decreased breath sounds Abdomen: non tender, soft Extremities: non-tender Edema: trace edema Neurologic: alert, responsive Skin: normal pigmentation Archie Magaña Jul 29, 2019 09:22
--- NOTE | 2019-07-29 09:45 | NUR ---
CASE MANAGEMENT:REVIEW 07/29/19 SI: ETOH WITHDRAWAL. SEIZURE SEPSIS. PANCYTOPENIA. HIV 98.2 70 20 131/76 99% ON RA WBC-2.0 PLT-122 ASTALT+151/81 IS: IV VANCOMYCIN Q8HRS IV ROCEPHIN Q24 DIFLUCAN PO QD IVF@75/HR : TELEMETRY STATUS DCP: FROM HOME
--- NOTE | 2019-07-29 10:03 | General Progress Note ---
Assessment/Plan Assessment/Plan: Assessment - HIV (+) per prelim report - pancytopenia - elevated LFT - h/o EtOH use x years, although stated he has not consumed for 1 mo - seizure - fever Recommendations - check hepatitis serologies - ID f/u - po as tolerated - thiamine Subjective Allergies: Coded Allergies: No Known Allergies (Unverified , 07/25/19) Subjective Above noted tolerating PO no abdominal complaints some H/A Objective Last 24 Hour Vital Signs Date Time Temp Pulse Resp B/P (MAP) Pulse Ox O2 Delivery O2 Flow Rate FiO2 07/29/19 09:00 Room Air 07/29/19 08:00 88 07/29/19 08:00 98.2 70 20 131/76 (94) 99 07/29/19 04:00 97.9 68 16 119/84 (96) 100 07/29/19 04:00 61 07/29/19 00:00 97.3 62 16 112/71 (85) 99 07/29/19 00:00 64 07/28/19 21:00 Room Air 07/28/19 20:00 74 07/28/19 20:00 97.9 71 16 100/61 (74) 99 07/28/19 16:00 98.4 68 19 129/84 (99) 95 07/28/19 16:00 82 07/28/19 12:00 99.3 61 20 129/84 (99) 97 07/28/19 12:00 66 07/28/19 11:49 99.3 Intake and Output 07/28/19 07/29/19 19:00 07:00 Intake Total 480 ml 830 ml Output Total 300 ml 500 ml Balance 180 ml 330 ml Intake Oral 480 ml 480 ml Other 350 ml Output Urine Total 300 ml 500 ml # Voids 1 2 # Bowel Movements 1 Laboratory Tests 07/28/19 15:45: CSF Appearance Clear, CSF Color Colorless, CSF WBC 13*H, CSF RBC 7, CSF Neutrophils % 4, CSF Lymphocytes % 90, CSF Monocytes % 6, CSF Crenated Cells 0, CSF Glucose 32L, CSF Total Protein 61H, CSF Coccidioides Antibody [Pending], CSF Herpes Simplex II DNA (PCR) [Pending], Herpes Simplex Virus I DNA (PCR) [ Pending] 07/29/19 05:38: White Blood Count 2.0*L, Red Blood Count 3.87L, Hemoglobin 13.2L, Hematocrit 37.4L, Mean Corpuscular Volume 97, Mean Corpuscular Hemoglobin 34.1H, Mean Corpuscular Hemoglobin Concent 35.3, Red Cell Distribution Width 11.0L, Platelet Count 122L, Mean Platelet Volume 8.3, Neutrophils (%) (Auto) , Lymphocytes (%) (Auto) , Monocytes (%) (Auto) , Eosinophils (%) (Auto) , Basophils (%) (Auto) , Neutrophils % (Manual) [Pending], Lymphocytes % (Manual) [Pending], Platelet Estimate [Pending], Platelet Morphology [Pending], Prothrombin Time 11.4, Prothromb Time International Ratio 1.1, Total Creatine Kinase 3577H, Rapid Plasma Reagin [Pending], Hepatitis A IgM Antibody [Pending] , Hepatitis B Surface Antigen [Pending], Hepatitis B Core IgM Antibody [Pending] , Hepatitis C Antibody [Pending] Height (Feet): 5 Height (Inches): 10.00 Weight (Pounds): 200 Objective WDWN NCAT supple CTA RR abd soft ND no edema Jai Ness MD Jul 29, 2019 10:03
--- NOTE | 2019-07-29 10:21 | Infectious Diseases Prog Note ---
Assessment/Plan Assessment/Plan IMPRESSION: Sepsis with fever Tachycardia resolved. HIV R/O meningitis New-onset seizure Alcohol withdrawal Acute renal failure, Encephalopathy. RECOMMENDATION: Continue Rocephin& Vancomycin Discontinue Fluconazole Case was D/W RN & neurologist Subjective ROS Limited/Unobtainable: Yes Respiratory: Reports: no symptoms Gastrointestinal/Abdominal: Reports: no symptoms Genitourinary: Reports: no symptoms Neurologic: Reports: other - more alert Allergies: Coded Allergies: No Known Allergies (Unverified , 07/25/19) Objective Vital Signs Last 24 Hour Vital Signs Date Time Temp Pulse Resp B/P (MAP) Pulse Ox O2 Delivery O2 Flow Rate FiO2 07/29/19 09:00 Room Air 07/29/19 08:00 88 07/29/19 08:00 98.2 70 20 131/76 (94) 99 07/29/19 04:00 97.9 68 16 119/84 (96) 100 07/29/19 04:00 61 07/29/19 00:00 97.3 62 16 112/71 (85) 99 07/29/19 00:00 64 07/28/19 21:00 Room Air 07/28/19 20:00 74 07/28/19 20:00 97.9 71 16 100/61 (74) 99 07/28/19 16:00 98.4 68 19 129/84 (99) 95 07/28/19 16:00 82 07/28/19 12:00 99.3 61 20 129/84 (99) 97 07/28/19 12:00 66 07/28/19 11:49 99.3 Height (Feet): 5 Height (Inches): 10.00 Weight (Pounds): 200 General Appearance: no acute distress HEENT: mucous membranes moist Respiratory/Chest: lungs clear Cardiovascular: normal rate Abdomen: soft, non tender Extremities: no edema Neurologic/Psychiatric: alert, responsive Microbiology Date/Time Source Procedure Growth Status 07/26/19 16:22 Blood Blood Culture - Preliminary NO GROWTH AFTER 48 HOURS Resulted 07/26/19 16:15 Blood Blood Culture - Preliminary NO GROWTH AFTER 48 HOURS Resulted 07/29/19 09:15 Cerebral Spinal Fluid Lauren Ink - Final Complete 07/28/19 15:45 Cerebral Spinal Fluid Gram Stain - Final Resulted 07/28/19 15:45 Cerebral Spinal Fluid CSF Culture Pending Resulted Laboratory Tests Test 07/28/19 15:45 07/29/19 05:38 CSF Appearance Clear (Clear) CSF Color Colorless (Colorless) CSF WBC 13 /CU MM (0-5) *H CSF RBC 7 /CU MM CSF Neutrophils % 4 % CSF Lymphocytes % 90 % CSF Monocytes % 6 % CSF Crenated Cells 0 % CSF Glucose 32 mg/dL (40-70) L CSF Total Protein 61 MG/DL (15-45) H CSF Coccidioides Antibody Pending CSF Herpes Simplex II DNA (PCR) Pending Herpes Simplex Virus I DNA (PCR) Pending White Blood Count 2.0 K/UL (4.8-10.8) *L Red Blood Count 3.87 M/UL (4.70-6.10) L Hemoglobin 13.2 G/DL (14.2-18.0) L Hematocrit 37.4 % (42.0-52.0) L Mean Corpuscular Volume 97 FL (80-99) Mean Corpuscular Hemoglobin 34.1 PG (27.0-31.0) H Mean Corpuscular Hemoglobin Concent 35.3 G/DL (32.0-36.0) Red Cell Distribution Width 11.0 % (11.6-14.8) L Platelet Count 122 K/UL (150-450) L Mean Platelet Volume 8.3 FL (6.5-10.1) Neutrophils (%) (Auto) % (45.0-75.0) Lymphocytes (%) (Auto) % (20.0-45.0) Monocytes (%) (Auto) % (1.0-10.0) Eosinophils (%) (Auto) % (0.0-3.0) Basophils (%) (Auto) % (0.0-2.0) Differential Total Cells Counted 100 Neutrophils % (Manual) 48 % (45-75) Lymphocytes % (Manual) 28 % (20-45) Monocytes % (Manual) 18 % (1-10) H Eosinophils % (Manual) 5 % (0-3) H Basophils % (Manual) 1 % (0-2) Band Neutrophils 0 % (0-8) Platelet Estimate Decreased L Platelet Morphology Normal Anisocytosis 1+ Prothrombin Time 11.4 SEC (9.30-11.50) Prothromb Time International Ratio 1.1 (0.9-1.1) Total Creatine Kinase 3577 U/L (26-308) H Rapid Plasma Reagin Pending Hepatitis A IgM Antibody Pending Hepatitis B Surface Antigen Pending Hepatitis B Core IgM Antibody Pending Hepatitis C Antibody Pending Current Medications Medications (Trade) Dose Ordered Sig/Gabrielle Route PRN Reason Start Time Stop Time Status Last Admin Dose Admin Acetaminophen (Tylenol) 650 mg Q6H PRN RECTAL fever 07/26/19 08:45 08/25/19 08:44 07/28/19 11:19 Ceftriaxone Sodium 2 gm/ Dextrose 55 ml @ 110 mls/hr Q24H IVPB 07/26/19 15:00 08/02/19 14:59 07/28/19 16:13 Chlordiazepoxide (Librium) 50 mg EVERY 8 HOURS ORAL 07/26/19 14:30 08/02/19 14:29 07/29/19 06:14 Dextrose/Sodium Chloride 1,000 ml @ 75 mls/hr [id number] IV 07/27/19 20:00 08/26/19 19:59 07/29/19 01:32 Fluconazole (Diflucan) 800 mg DAILY ORAL 07/28/19 12:23 08/04/19 12:22 07/29/19 09:15 Folic Acid (Folate) 1 mg DAILY ORAL 07/28/19 09:00 08/27/19 08:59 07/29/19 09:15 Ibuprofen (Motrin) 600 mg Q6H PRN ORAL pain 07/28/19 12:27 08/27/19 12:26 07/29/19 06:19 Lorazepam (Ativan 2mg/ml 1ml) 2 mg Q2H PRN IM For Anxiety 07/26/19 14:30 08/02/19 14:29 Pantoprazole (Protonix) 40 mg EVERY 12 HOURS IVP 07/26/19 21:00 08/25/19 20:59 07/29/19 09:15 Thiamine HCl (Vitamin B1) 100 mg DAILY ORAL 07/28/19 20:00 08/27/19 19:59 07/29/19 09:15 Vancomycin HCl (Vanco rx to dose) 1 ea DAILY PRN MISC Per rx protocol 07/28/19 12:15 08/27/19 12:14 Vancomycin HCl 1 gm/Dextrose 275 ml @ 183.708 mls/hr Q8HR IVPB 07/28/19 14:00 08/02/19 13:59 07/29/19 09:16 Po Bryant MD Jul 29, 2019 10:21
[2019-07-29 11:26] LABS: ANION GAP 8 mmol/L (5-15); BLOOD UREA NITROGEN 9 mg/dL (7-18); CARBON DIOXIDE 24 MMOL/L (21-32); CHLORIDE 105 MMOL/L (98-107); CREATININE 0.8 MG/DL (0.55-1.30); POTASSIUM 3.7 MMOL/L (3.5-5.1); SODIUM 137 MMOL/L (136-145)
[2019-07-29 12:00] VITALS: BP 112/71
[2019-07-29] MEDS: cefTRIAXone 2 GM in D5W 55 ML IVPB SCH (14:48)
--- NOTE | 2019-07-29 15:27 | Cardiac Electrophysiology PN ---
Assessment/Plan Assessment/Plan 1. Tachycardia due to seizure and alcohol withdrawal. Further evaluation by Neurology. EF 60%. EKG shows sinus tachycardia with no acute ST-T wave abnormality. 2. Status post seizure, etiology is not clear. 3. History of heavy alcohol use, possible alcohol withdrawal. 4. Fever,on Rocephin 5. Thrombocytopenia FU Dr Omar GASCA RN Subjective Subjective More alert in NAD RN at bedside. In SR Objective Last 24 Hour Vital Signs Date Time Temp Pulse Resp B/P (MAP) Pulse Ox O2 Delivery O2 Flow Rate FiO2 07/29/19 12:00 66 07/29/19 12:00 97.3 62 20 112/71 (85) 99 07/29/19 09:00 Room Air 07/29/19 08:00 88 07/29/19 08:00 98.2 70 20 131/76 (94) 99 07/29/19 04:00 97.9 68 16 119/84 (96) 100 07/29/19 04:00 61 07/29/19 00:00 97.3 62 16 112/71 (85) 99 07/29/19 00:00 64 07/28/19 21:00 Room Air 07/28/19 20:00 74 07/28/19 20:00 97.9 71 16 100/61 (74) 99 07/28/19 16:00 98.4 68 19 129/84 (99) 95 07/28/19 16:00 82 Intake and Output 07/28/19 07/29/19 19:00 07:00 Intake Total 480 ml 830 ml Output Total 300 ml 500 ml Balance 180 ml 330 ml Intake Oral 480 ml 480 ml Other 350 ml Output Urine Total 300 ml 500 ml # Voids 1 2 # Bowel Movements 1 Laboratory Tests Test 07/28/19 15:45 07/29/19 05:38 07/29/19 10:55 CSF Appearance Clear (Clear) CSF Color Colorless (Colorless) CSF WBC 13 /CU MM (0-5) *H CSF RBC 7 /CU MM CSF Neutrophils % 4 % CSF Lymphocytes % 90 % CSF Monocytes % 6 % CSF Crenated Cells 0 % CSF Glucose 32 mg/dL (40-70) L CSF Total Protein 61 MG/DL (15-45) H CSF Coccidioides Antibody Pending CSF Herpes Simplex II DNA (PCR) Pending Herpes Simplex Virus I DNA (PCR) Pending White Blood Count 2.0 K/UL (4.8-10.8) *L Red Blood Count 3.87 M/UL (4.70-6.10) L Hemoglobin 13.2 G/DL (14.2-18.0) L Hematocrit 37.4 % (42.0-52.0) L Mean Corpuscular Volume 97 FL (80-99) Mean Corpuscular Hemoglobin 34.1 PG (27.0-31.0) H Mean Corpuscular Hemoglobin Concent 35.3 G/DL (32.0-36.0) Red Cell Distribution Width 11.0 % (11.6-14.8) L Platelet Count 122 K/UL (150-450) L Mean Platelet Volume 8.3 FL (6.5-10.1) Neutrophils (%) (Auto) % (45.0-75.0) Lymphocytes (%) (Auto) % (20.0-45.0) Monocytes (%) (Auto) % (1.0-10.0) Eosinophils (%) (Auto) % (0.0-3.0) Basophils (%) (Auto) % (0.0-2.0) Differential Total Cells Counted 100 Neutrophils % (Manual) 48 % (45-75) Lymphocytes % (Manual) 28 % (20-45) Monocytes % (Manual) 18 % (1-10) H Eosinophils % (Manual) 5 % (0-3) H Basophils % (Manual) 1 % (0-2) Band Neutrophils 0 % (0-8) Platelet Estimate Decreased L Platelet Morphology Normal Anisocytosis 1+ Prothrombin Time 11.4 SEC (9.30-11.50) Prothromb Time International Ratio 1.1 (0.9-1.1) Total Creatine Kinase 3577 U/L (26-308) H Rapid Plasma Reagin Pending Hepatitis A IgM Antibody Pending Hepatitis B Surface Antigen Pending Hepatitis B Core IgM Antibody Pending Hepatitis C Antibody Pending Sodium Level 137 MMOL/L (136-145) Potassium Level 3.7 MMOL/L (3.5-5.1) Chloride Level 105 MMOL/L (98-107) Carbon Dioxide Level 24 MMOL/L (21-32) Anion Gap 8 mmol/L (5-15) Blood Urea Nitrogen 9 mg/dL (7-18) Creatinine 0.8 MG/DL (0.55-1.30) Estimat Glomerular Filtration Rate > 60 mL/min (>60) Glucose Level 113 MG/DL (74-106) H Calcium Level 8.0 MG/DL (8.5-10.1) L Microbiology Date/Time Source Procedure Growth Status 07/26/19 16:22 Blood Blood Culture - Preliminary NO GROWTH AFTER 48 HOURS Resulted 07/26/19 16:15 Blood Blood Culture - Preliminary NO GROWTH AFTER 48 HOURS Resulted 07/29/19 09:15 Cerebral Spinal Fluid Lauren Ink - Final Complete 07/28/19 15:45 Cerebral Spinal Fluid Gram Stain - Final Resulted 07/28/19 15:45 Cerebral Spinal Fluid CSF Culture - Preliminary NO GROWTH Resulted Objective HEAD AND NECK: No JVD. LUNGS: Clear. CARDIOVASCULAR: Tachycardic S1 and S2 with no gallop. ABDOMEN: Soft. EXTREMITIES: 1+ pitting edema. Ric Mckeon MD Jul 29, 2019 15:27
--- NOTE | 2019-07-29 15:34 | Nephrology Progress Note ---
Assessment/Plan Problem List: (1) JULIAN (acute kidney injury) (2) Seizure (3) ALCOHOL DEPENDENCE WITH WITHDRAWAL, UNSPECIFIED (4) Tachycardia (5) Hypokalemia Assessment Electrolyte imbalance Hypokalemia and hypomagnesemia Elevated creatinine to 1.4 on admission now corrected Seizure disorder Plan Patient started p.o. and ate his lunch 100% Hydrate Following measures as needed IV magnesium IV potassium phosphate IV thiamine IV Protonix Continue management per other consultants Monitor electrolytes Per orders Subjective ROS Limited/Unobtainable: No Constitutional: Reports: malaise, weakness Objective Objective Last 24 Hour Vital Signs Date Time Temp Pulse Resp B/P (MAP) Pulse Ox O2 Delivery O2 Flow Rate FiO2 07/29/19 12:00 66 07/29/19 12:00 97.3 62 20 112/71 (85) 99 07/29/19 09:00 Room Air 07/29/19 08:00 88 07/29/19 08:00 98.2 70 20 131/76 (94) 99 07/29/19 04:00 97.9 68 16 119/84 (96) 100 07/29/19 04:00 61 07/29/19 00:00 97.3 62 16 112/71 (85) 99 07/29/19 00:00 64 07/28/19 21:00 Room Air 07/28/19 20:00 74 07/28/19 20:00 97.9 71 16 100/61 (74) 99 07/28/19 16:00 98.4 68 19 129/84 (99) 95 07/28/19 16:00 82 Intake and Output 07/28/19 07/29/19 19:00 07:00 Intake Total 480 ml 830 ml Output Total 300 ml 500 ml Balance 180 ml 330 ml Intake Oral 480 ml 480 ml Other 350 ml Output Urine Total 300 ml 500 ml # Voids 1 2 # Bowel Movements 1 Laboratory Tests 07/28/19 15:45: CSF Appearance Clear, CSF Color Colorless, CSF WBC 13*H, CSF RBC 7, CSF Neutrophils % 4, CSF Lymphocytes % 90, CSF Monocytes % 6, CSF Crenated Cells 0, CSF Glucose 32L, CSF Total Protein 61H, CSF Coccidioides Antibody [Pending], CSF Herpes Simplex II DNA (PCR) [Pending], Herpes Simplex Virus I DNA (PCR) [ Pending] 07/29/19 05:38: White Blood Count 2.0*L, Red Blood Count 3.87L, Hemoglobin 13.2L, Hematocrit 37.4L, Mean Corpuscular Volume 97, Mean Corpuscular Hemoglobin 34.1H, Mean Corpuscular Hemoglobin Concent 35.3, Red Cell Distribution Width 11.0L, Platelet Count 122L, Mean Platelet Volume 8.3, Neutrophils (%) (Auto) , Lymphocytes (%) (Auto) , Monocytes (%) (Auto) , Eosinophils (%) (Auto) , Basophils (%) (Auto) , Differential Total Cells Counted 100, Neutrophils % ( Manual) 48, Lymphocytes % (Manual) 28, Monocytes % (Manual) 18H, Eosinophils % ( Manual) 5H, Basophils % (Manual) 1, Band Neutrophils 0, Platelet Estimate DecreasedL, Platelet Morphology Normal, Anisocytosis 1+, Prothrombin Time 11.4, Prothromb Time International Ratio 1.1, Total Creatine Kinase 3577H, Rapid Plasma Reagin [Pending], Hepatitis A IgM Antibody [Pending], Hepatitis B Surface Antigen [Pending], Hepatitis B Core IgM Antibody [Pending], Hepatitis C Antibody [Pending] 07/29/19 10:55: Sodium Level 137, Potassium Level 3.7, Chloride Level 105, Carbon Dioxide Level 24, Anion Gap 8, Blood Urea Nitrogen 9, Creatinine 0.8, Estimat Glomerular Filtration Rate > 60, Glucose Level 113H, Calcium Level 8.0L Height (Feet): 5 Height (Inches): 10.00 Weight (Pounds): 200 Cardiovascular: normal rate Respiratory/Chest: lungs clear, decreased breath sounds Abdomen: soft, distended Brian Alexandra MD Jul 29, 2019 15:34
[2019-07-29 16:00] VITALS: BP 107/71
--- NOTE | 2019-07-29 16:45 | Consultation ---
DATE OF CONSULTATION: 07/29/2019 NEUROLOGICAL CONSULTATION CONSULTING PHYSICIAN: Velasquez Razo M.D. CHIEF COMPLAINT: This is the first [facility] admission for this 39-year-old man who was admitted with seizures and altered mental status. The patient apparently is an alcoholic, admitted with seizures and behaving strangely with twitching of his right arm. The EMS brought him to the hospital. En route, he had a generalized tonic-clonic seizure with persistent tremors in his right upper extremity. He was given 5 mg of Versed, which aborted the seizure. He could not provide a history. The patient had a negative CT scan of the brain and had a negative chest x-ray. Laboratory studies revealed that he was anemic initially with a normal platelet count and some low platelets. His white count is in the normal range, but then dropped and today it is 2000. The patient had a negative toxicology screen except for benzodiazepines. His urinalysis noted some increased protein, otherwise was pretty much normal. The ProTime was normal. The patient had a low sodium of 131. His liver function tests were elevated on admission with an ammonia, which was elevated at 73 on 07/27/2019 and still elevated. His CPK was 3577. His albumin was a little low. TSH was normal with a normal free T4. C-reactive protein was elevated. The calcium initially was normal, but on 07/26/2019 it was 8.4. Magnesium was low at 1.7. Lumbar puncture was done on 07/28/2019, which revealed 13 WBCs per high-power field, 7 RBCs, low glucose of 32, total protein was elevated at 61. Gram stain of the CSF was negative. A blood culture is negative. Other tests are pending. The patient was treated with thiamine given 200 mg, started on Rocephin and vancomycin and given Librium 50 mg orally every 8 hours, 9 doses given. Diflucan was also given 2 doses. I was asked to see the patient in neurologic consultation. The patient's ultrasound of the abdomen revealed unremarkable liver and gallbladder essentially negative. The duplex scan revealed normal flow in the vertebral arteries. There were some mild heterogeneous plaques noted. There is no family history of neurologic disease. PAST MEDICAL HISTORY/PAST MEDICAL ILLNESSES: Essentially none. ALLERGIES: Unknown. REVIEW OF SYSTEMS: Unable to obtain. MEDICATIONS: None. PHYSICAL EXAMINATION: GENERAL: He is a well-developed, overweight man, lying in bed, very lethargic. VITAL SIGNS: Blood pressure is 131/76 with a pulse 70 and regular, temperature is 98.2 degrees, respiration rate is 20. HEENT: Examination is head appears to be normal. NECK: Supple. There is no tenderness. Carotids are +2. No bruits. LUNGS: Clear to auscultation. CARDIOVASCULAR: PMI was not felt. JVP was flat. The patient has normal S1. The S2 is physiologically split. There is no S3, S4, murmurs, or rubs. ABDOMEN: Obese. Bowel sounds are increased. There is no tenderness, masses, or organomegaly. EXTREMITIES: Intact. NEUROLOGIC EXAMINATION: MENTAL STATUS: The patient is lethargic, will open his eyes to pain. Can follow some commands, partially stick out his tongue. He could do [id number]-[id number] testing and move his extremities. He knows his name. Could not answer any other questions. CRANIAL NERVE EXAMINATION: CRANIAL NERVES II: Visual solis could not be determined. CRANIAL NERVES III, IV, AND : He had roving eye movements and saccadic smooth pursuit. Horizontal extraocular motility seemed to be intact. Pupils are approximately 4 mm, round, light reactive. CRANIAL NERVE V: Corneals were probably intact bilaterally. CRANIAL NERVES VII: Face is symmetrical bilaterally. CRANIAL NERVES VIII THROUGH XII: Essentially could not be determined. MUSCLE EXAMINATION: Muscle tone was decreased. Bulk is normal. Strength, he can move all 4 extremities. Reflexes are +2 in the upper extremities, +2 right knee, +2.5 to 4 left knee with occasional what appears to be some myoclonus. Ankle reflexes are +1. Toes are downgoing on testing for Babinski response. COORDINATION: [id number] reveals some mild tremor bilaterally. Kujh-lf-wisk testing could not be done. SENSORY EXAMINATION: There is no strong reaction to deep pain. IMPRESSION: The patient has diffuse encephalopathy, probably multifactorial, now probably related mainly to Librium with hepatic insufficiency. He also has meningitis. He also has hyperammonemic encephalopathy. His sugars that he had were 83 . Cultures are pending. I would worry somewhat about tuberculosis, meningitis although spinal fluid is not that abnormal. Multiple seizures can cause increased WBCs in the spinal fluid, but not a low glucose. He is also apparently HIV positive. Therefore, cryptococcal meningitis is a possibility. The patient will be placed on Keppra 500 mg b.i.d. at least for the time being, although if he has truly alcohol withdrawal seizures, no treatment is usually effective. However, given the abnormalities in the spinal fluid and probably being bowles to do that. I would also cut back on his Librium. PLAN: 1. Decrease his Librium. 2. Keppra 500 mg IV or p.o. b.i.d. 3. EEG. Thank you for this interesting case. Velasquez Razo MD DR: ANTONY JOB#: [id number] CC: NADER
--- NOTE | 2019-07-29 19:30 | NUR ---
NURSE NOTES: Received report from NIDHI Diego, pt. in bed awake- appears to be A/O xs'3- able to make needs known- Bulgarian speaking no signs or symptoms of acute cardiac or respiratory distress noted, call light within easy reach, bed alarm on, side rails up x's3 and safety brakes engaged, pt. appears to be sating well on room air- no distress noted, urinal at bedside and within easy reach, pt. has RFA 20G IV intact and patent, safety measures continued, will continue with plan of care. Addendum: 07/29/19 at 2100 by EDI WHITE RN RN side rails padded for seizure precautions- no seizure activity noted upon assessment. Addendum: 07/29/19 at 2138 by EDI WHITE RN RN [id number] running at 75cc/hr- IV intact and patent RFA 20G.
[2019-07-29 20:00] VITALS: BP 129/85
--- NOTE | 2019-07-29 20:50 | General Progress Note ---
Assessment/Plan Problem List: (1) Seizure disorder ICD Codes: G40.909 - Epilepsy, unspecified, not intractable, without status epilepticus SNOMED: 298609918 (2) Hypokalemia ICD Codes: E87.6 - Hypokalemia SNOMED: 72689646 (3) Seizure ICD Codes: R56.9 - Unspecified convulsions SNOMED: 24533046 (4) Tachycardia ICD Codes: R00.0 - Tachycardia, unspecified SNOMED: 7489371 (5) ALCOHOL DEPENDENCE WITH WITHDRAWAL, UNSPECIFIED ICD Codes: F10.239 - ALCOHOL DEPENDENCE WITH WITHDRAWAL, UNSPECIFIED Assessment/Plan: intermittent fever r/o sepsis abx per id seiuzure alcohol withdrawal lyte abnormality afebrile Subjective ROS Limited/Unobtainable: Yes Allergies: Coded Allergies: No Known Allergies (Unverified , 07/25/19) Objective Last 24 Hour Vital Signs Date Time Temp Pulse Resp B/P (MAP) Pulse Ox O2 Delivery O2 Flow Rate FiO2 07/29/19 16:00 61 07/29/19 16:00 97.8 70 18 107/71 (83) 98 07/29/19 12:00 66 07/29/19 12:00 97.3 62 20 112/71 (85) 99 07/29/19 09:00 Room Air 07/29/19 08:00 88 07/29/19 08:00 98.2 70 20 131/76 (94) 99 07/29/19 04:00 97.9 68 16 119/84 (96) 100 07/29/19 04:00 61 07/29/19 00:00 97.3 62 16 112/71 (85) 99 07/29/19 00:00 64 07/28/19 21:00 Room Air Intake and Output 07/28/19 07/29/19 19:00 07:00 Intake Total 480 ml 830 ml Output Total 300 ml 500 ml Balance 180 ml 330 ml Intake Oral 480 ml 480 ml Other 350 ml Output Urine Total 300 ml 500 ml # Voids 1 2 # Bowel Movements 1 Laboratory Tests 07/29/19 05:38: White Blood Count 2.0*L, Red Blood Count 3.87L, Hemoglobin 13.2L, Hematocrit 37.4L, Mean Corpuscular Volume 97, Mean Corpuscular Hemoglobin 34.1H, Mean Corpuscular Hemoglobin Concent 35.3, Red Cell Distribution Width 11.0L, Platelet Count 122L, Mean Platelet Volume 8.3, Neutrophils (%) (Auto) , Lymphocytes (%) (Auto) , Monocytes (%) (Auto) , Eosinophils (%) (Auto) , Basophils (%) (Auto) , Differential Total Cells Counted 100, Neutrophils % ( Manual) 48, Lymphocytes % (Manual) 28, Monocytes % (Manual) 18H, Eosinophils % ( Manual) 5H, Basophils % (Manual) 1, Band Neutrophils 0, Platelet Estimate DecreasedL, Platelet Morphology Normal, Anisocytosis 1+, Prothrombin Time 11.4, Prothromb Time International Ratio 1.1, Total Creatine Kinase 3577H, Rapid Plasma Reagin [Pending], Hepatitis A IgM Antibody [Pending], Hepatitis B Surface Antigen [Pending], Hepatitis B Core IgM Antibody [Pending], Hepatitis C Antibody [Pending] 07/29/19 10:55: Sodium Level 137, Potassium Level 3.7, Chloride Level 105, Carbon Dioxide Level 24, Anion Gap 8, Blood Urea Nitrogen 9, Creatinine 0.8, Estimat Glomerular Filtration Rate > 60, Glucose Level 113H, Calcium Level 8.0L Height (Feet): 5 Height (Inches): 10.00 Weight (Pounds): 200 General Appearance: confused Isa Blanchard MD Jul 29, 2019 20:50
[2019-07-29] MEDS: Vancomycin 1.25gm/NS Premix 275 ML IVPB SCH (22:18)
[2019-07-30] VITALS: BP 138/81
[2019-07-30] MEDS: D5NS 1,000 ML IV SCH ×2 (00:13→12:56)
--- NOTE | 2019-07-30 00:16 | Psych Consult Progress Note ---
Psychiatry Progress Note Psychiatry Progress Note Medications Current Medications Medications (Trade) Dose Ordered Sig/Gabrielle Route PRN Reason Start Time Stop Time Status Last Admin Dose Admin Acetaminophen (Tylenol) 650 mg Q6H PRN RECTAL fever 07/26/19 08:45 08/25/19 08:44 07/28/19 11:19 Ceftriaxone Sodium 2 gm/ Dextrose 55 ml @ 110 mls/hr Q24H IVPB 07/26/19 15:00 08/02/19 14:59 07/29/19 14:48 Chlordiazepoxide (Librium) 50 mg EVERY 8 HOURS ORAL 07/26/19 14:30 08/02/19 14:29 07/29/19 21:05 Dextrose/Sodium Chloride 1,000 ml @ 75 mls/hr [id number] IV 07/27/19 20:00 08/26/19 19:59 07/30/19 00:13 Folic Acid (Folate) 1 mg DAILY ORAL 07/28/19 09:00 08/27/19 08:59 07/29/19 09:15 Ibuprofen (Motrin) 600 mg Q6H PRN ORAL pain 07/28/19 12:27 08/27/19 12:26 07/29/19 20:45 Lorazepam (Ativan 2mg/ml 1ml) 2 mg Q2H PRN IM For Anxiety 07/26/19 14:30 08/02/19 14:29 Pantoprazole (Protonix) 40 mg EVERY 12 HOURS IVP 07/26/19 21:00 08/25/19 20:59 07/29/19 20:40 Thiamine HCl (Vitamin B1) 100 mg DAILY ORAL 07/28/19 20:00 08/27/19 19:59 07/29/19 09:15 Vancomycin HCl (Vanco rx to dose) 1 ea DAILY PRN MISC Per rx protocol 07/28/19 12:15 08/27/19 12:14 Vancomycin/Sodium Chloride 275 ml @ 183.708 mls/hr Q8H IVPB 07/29/19 23:00 08/03/19 22:59 07/29/19 22:18 Neurological/Psychiatric: Reports: anxiety, depressed Allergies: Coded Allergies: No Known Allergies (Unverified , 07/25/19) Objective Data Height (Feet): 5 Height (Inches): 10.00 Weight (Pounds): 200 General Appearance: no apparent distress, alert, confused, agitated Additional Comments: waxing and waning consciousness and confusion. Mood is neutral. Affect is flat. Thought process is disorganized. Thought content, no suicidal or homicidal ideation. Cognition is impaired. Insight and judgment is impaired. ASSESSMENT: [place] I Alcohol dependence, alcohol withdrawal. [place] II Deferred. [place] III As above. [place] IV Low. PLAN: 1. The patient will be started on p.o. Ativan. 2. Librium. 3. Folate and thiamine. 4. Discussed with the nurse. Lelo Hickey MD Jul 30, 2019 00:16
[2019-07-30 04:00] VITALS: BP 138/86
[2019-07-30] MEDS: chlordiazePOXIDE 25mg Cap ORAL SCH ×3 (05:42→21:13)
[2019-07-30] MEDS: Vancomycin 1.25gm/NS Premix 275 ML IVPB SCH ×2 (06:00→14:25)
--- NOTE | 2019-07-30 06:58 | NUR ---
HAND-OFF: Report given to dorcas Savage, pt. remains stable and no signs of distress noted- nurse aware to f/u on any abnormal am labs.
[2019-07-30 07:24] LABS: BASOPHILS % (AUTO) 0.8 % (0.0-2.0); EOSINOPHILS % (AUTO) 1.9 % (0.0-3.0); HEMATOCRIT 37.6 % (42.0-52.0); HEMOGLOBIN 13.3 G/DL (14.2-18.0); LYMPHOCYTES % (AUTO) 32.4 % (20.0-45.0); MEAN CORPUSCULAR VOLUME 96 FL (80-99); MONOCYTES % (AUTO) 10.9 % (1.0-10.0); PLATELET COUNT 119 K/UL (150-450); RED BLOOD COUNT 3.91 M/UL (4.70-6.10); RED CELL DISTRIBUTION WIDTH 10.9 % (11.6-14.8); WHITE BLOOD COUNT 3.8 K/UL (4.8-10.8)
--- NOTE | 2019-07-30 07:28 | Hematology/Onc Progress Note ---
Assessment/Plan Assessment/Plan Assessment and Recs: # Pancytopenia - potential causes multifactorial, evaluate liver and viral etiologies to begin, in this case due to ETOH ABUSE/WITHDRAWAL, bone marrow myelosuppression --> Hep panel and HIV +++ --> US abd to evaluate for cirrhosis and hsm ordered --> SHOWS spenomegaly, enlarged spleen --> Peripheral smear ordered to evaluate for blasts /schistocytes --> none noted --> abx and other meds have been reviewed --> ok for ppx if plt >50k w/ either heparin or lovenox --> Transfuse if Plt < 20k and fever, or if Plt < 10k without fever --> plt trend 164-->122k --> wbc trend 5-->3-->2 --> abx: vanc/zosyn # ETOH withdrawal --> r/o seizure --> ativan, librium, folate --> imaging reviewed --> smear noted # Seizure --> R/o seizure d/o onset -> meds reviewed --> as per neuro # JULIAN (acute kidney injury) --> per renal recs # HIV --> as per id, consider eval # Tachycardia --> per Dr. Mckeon # AMS --> per psych The timing of this note does not necessarily reflect the time of the patient was seen. Greatly appreciate consultation. Subjective Allergies: Coded Allergies: No Known Allergies (Unverified , 07/25/19) Subjective 07/27: no events, no bleeding, cbc pending, remains altered 07/28: no events, labs reviewed, viral studies noted, no bleeding 07/29: asleep, cbc pending, on vanc/zosym, room air Objective Objective Current Medications Medications (Trade) Dose Ordered Sig/Gabrielle Route PRN Reason Start Time Stop Time Status Last Admin Dose Admin Acetaminophen (Tylenol) 650 mg Q6H PRN RECTAL fever 07/26/19 08:45 08/25/19 08:44 07/28/19 11:19 Ceftriaxone Sodium 2 gm/ Dextrose 55 ml @ 110 mls/hr Q24H IVPB 07/26/19 15:00 08/02/19 14:59 07/29/19 14:48 Chlordiazepoxide (Librium) 50 mg EVERY 8 HOURS ORAL 07/26/19 14:30 08/02/19 14:29 07/30/19 05:42 Dextrose/Sodium Chloride 1,000 ml @ 75 mls/hr [id number] IV 07/27/19 20:00 08/26/19 19:59 07/30/19 00:13 Folic Acid (Folate) 1 mg DAILY ORAL 07/28/19 09:00 08/27/19 08:59 07/29/19 09:15 Ibuprofen (Motrin) 600 mg Q6H PRN ORAL pain 07/28/19 12:27 08/27/19 12:26 07/29/19 20:45 Lorazepam (Ativan 2mg/ml 1ml) 2 mg Q2H PRN IM For Anxiety 07/26/19 14:30 08/02/19 14:29 Pantoprazole (Protonix) 40 mg EVERY 12 HOURS IVP 07/26/19 21:00 08/25/19 20:59 07/29/19 20:40 Thiamine HCl (Vitamin B1) 100 mg DAILY ORAL 07/28/19 20:00 08/27/19 19:59 07/29/19 09:15 Vancomycin HCl (Vanco rx to dose) 1 ea DAILY PRN MISC Per rx protocol 07/28/19 12:15 08/27/19 12:14 Vancomycin/Sodium Chloride 275 ml @ 183.708 mls/hr Q8H IVPB 07/29/19 23:00 08/03/19 22:59 07/30/19 06:00 Last 24 Hour Vital Signs Date Time Temp Pulse Resp B/P (MAP) Pulse Ox O2 Delivery O2 Flow Rate FiO2 07/30/19 04:00 97.5 75 16 138/86 (103) 98 07/30/19 03:45 78 07/30/19 00:00 97.0 75 18 138/81 (100) 98 07/29/19 23:37 84 07/29/19 21:15 97.8 07/29/19 21:00 Room Air 07/29/19 20:00 97.2 84 16 129/85 (100) 96 07/29/19 19:58 83 07/29/19 16:00 61 07/29/19 16:00 97.8 70 18 107/71 (83) 98 07/29/19 12:00 66 07/29/19 12:00 97.3 62 20 112/71 (85) 99 07/29/19 09:00 Room Air 07/29/19 08:00 88 07/29/19 08:00 98.2 70 20 131/76 (94) 99 07/29/19 04:00 97.9 68 16 119/84 (96) 100 07/29/19 04:00 61 07/29/19 00:00 97.3 62 16 112/71 (85) 99 07/29/19 00:00 64 07/28/19 21:00 Room Air 07/28/19 20:00 74 07/28/19 20:00 97.9 71 16 100/61 (74) 99 07/28/19 16:00 98.4 68 19 129/84 (99) 95 07/28/19 16:00 82 07/28/19 12:00 99.3 61 20 129/84 (99) 97 07/28/19 12:00 66 07/28/19 11:49 99.3 07/28/19 09:00 Room Air 07/28/19 08:00 77 07/28/19 08:00 97.1 78 21 123/85 (98) 97 Intake and Output 07/29/19 07/30/19 19:00 07:00 Intake Total 1225 ml 1023.416 ml Output Total 500 ml 350 ml Balance 725 ml 673.416 ml IV Total 825 ml 1023.416 ml Other 400 ml Output Urine Total 500 ml 350 ml Labs Test 07/28/19 00:00 07/28/19 05:50 07/28/19 15:45 07/29/19 05:38 White Blood Count 3.0 K/UL (4.8-10.8) 2.0 K/UL (4.8-10.8) Red Blood Count 3.85 M/UL (4.70-6.10) 3.87 M/UL (4.70-6.10) Hemoglobin 13.0 G/DL (14.2-18.0) 13.2 G/DL (14.2-18.0) Hematocrit 36.7 % (42.0-52.0) 37.4 % (42.0-52.0) Mean Corpuscular Volume 95 FL (80-99) 97 FL (80-99) Mean Corpuscular Hemoglobin 33.7 PG (27.0-31.0) 34.1 PG (27.0-31.0) Mean Corpuscular Hemoglobin Concent 35.4 G/DL (32.0-36.0) 35.3 G/DL (32.0-36.0) Red Cell Distribution Width 10.9 % (11.6-14.8) 11.0 % (11.6-14.8) Platelet Count 127 K/UL (150-450) 122 K/UL (150-450) Mean Platelet Volume 6.6 FL (6.5-10.1) 8.3 FL (6.5-10.1) Neutrophils (%) (Auto) % (45.0-75.0) % (45.0-75.0) Lymphocytes (%) (Auto) % (20.0-45.0) % (20.0-45.0) Monocytes (%) (Auto) % (1.0-10.0) % (1.0-10.0) Eosinophils (%) (Auto) % (0.0-3.0) % (0.0-3.0) Basophils (%) (Auto) % (0.0-2.0) % (0.0-2.0) Differential Total Cells Counted 100 100 Neutrophils % (Manual) 55 % (45-75) 48 % (45-75) Lymphocytes % (Manual) 32 % (20-45) 28 % (20-45) Monocytes % (Manual) 12 % (1-10) 18 % (1-10) Eosinophils % (Manual) 1 % (0-3) 5 % (0-3) Basophils % (Manual) 0 % (0-2) 1 % (0-2) Band Neutrophils 0 % (0-8) 0 % (0-8) Platelet Estimate Decreased Decreased Platelet Morphology Normal Normal Red Blood Cell Morphology Normal Sodium Level 133 MMOL/L (136-145) Potassium Level 3.8 MMOL/L (3.5-5.1) Chloride Level 99 MMOL/L (98-107) Carbon Dioxide Level 25 MMOL/L (21-32) Anion Gap 9 mmol/L (5-15) Blood Urea Nitrogen 12 mg/dL (7-18) Creatinine 0.8 MG/DL (0.55-1.30) Estimat Glomerular Filtration Rate > 60 mL/min (>60) Glucose Level 83 MG/DL (74-106) Osmolality 277 mOsm/kg (297-317) Uric Acid 3.9 MG/DL (2.6-7.2) Calcium Level 8.4 MG/DL (8.5-10.1) Phosphorus Level 3.7 MG/DL (2.5-4.9) Magnesium Level 2.3 MG/DL (1.8-2.4) Total Bilirubin 0.7 MG/DL (0.2-1.0) Aspartate Amino Transf (AST/SGOT) 151 U/L (15-37) Alanine Aminotransferase (ALT/SGPT) 81 U/L (12-78) Alkaline Phosphatase 72 U/L (46-116) Ammonia 48 umol/L (11-32) C-Reactive Protein, Quantitative 3.7 mg/dL (0.00-0.90) Total Protein 8.6 G/DL (6.4-8.2) Albumin 2.6 G/DL (3.4-5.0) Globulin 6.0 g/dL Albumin/Globulin Ratio 0.4 (1.0-2.7) HIV (1&2) Antibody Rapid Preliminary positive CSF Appearance Clear (Clear) CSF Color Colorless (Colorless) CSF WBC 13 /CU MM (0-5) CSF RBC 7 /CU MM CSF Neutrophils % 4 % CSF Lymphocytes % 90 % CSF Monocytes % 6 % CSF Crenated Cells 0 % CSF Glucose 32 mg/dL (40-70) CSF Total Protein 61 MG/DL (15-45) Anisocytosis 1+ Prothrombin Time 11.4 SEC (9.30-11.50) Prothromb Time International Ratio 1.1 (0.9-1.1) Total Creatine Kinase 3577 U/L (26-308) Rapid Plasma Reagin Non reactive (Non Reactive) Hepatitis A IgM Antibody Negative (Negative) Hepatitis B Surface Antigen Negative (Negative) Hepatitis B Core IgM Antibody Negative (Negative) Hepatitis C Antibody 0.1 s/co ratio (0.0-0.9) Test 07/29/19 10:55 07/29/19 20:45 07/30/19 06:13 Sodium Level 137 MMOL/L (136-145) Potassium Level 3.7 MMOL/L (3.5-5.1) Chloride Level 105 MMOL/L (98-107) Carbon Dioxide Level 24 MMOL/L (21-32) Anion Gap 8 mmol/L (5-15) Blood Urea Nitrogen 9 mg/dL (7-18) Creatinine 0.8 MG/DL (0.55-1.30) Estimat Glomerular Filtration Rate > 60 mL/min (>60) Glucose Level 113 MG/DL (74-106) Calcium Level 8.0 MG/DL (8.5-10.1) Vancomycin Level Trough 6.9 ug/mL (5.0-12.0) Micro Microbiology Date/Time Source Procedure Growth Status 07/29/19 09:15 Cerebral Spinal Fluid Lauren Ink - Final Complete Height (Feet): 5 Height (Inches): 10.00 Weight (Pounds): 200 Objective Physical Exam: Vitals: reviewed General: Nad, altered mental status HEENT: nc, at Neck: supple Chest: clear breath sounds bilaterally Cardiovascular: RRR, no s3, s4 Abdomen: soft, nontender, nd Extremities: no cce, normal range of motion Neuro: alert and oriented Arya Nelson MD Jul 30, 2019 07:28
[2019-07-30 07:52] LABS: ALANINE AMINOTRANSFERASE 89 U/L (12-78); ALBUMIN 2.8 G/DL (3.4-5.0); ALBUMIN/GLOBULIN RATIO 0.5 (1.0-2.7); ALKALINE PHOSPHATASE 85 U/L (46-116); ANION GAP 8 mmol/L (5-15); ASPARTATE AMINO TRANSFERASE 147 U/L (15-37); BILIRUBIN,TOTAL 0.4 MG/DL (0.2-1.0); BLOOD UREA NITROGEN 7 mg/dL (7-18); CALCIUM 8.3 MG/DL (8.5-10.1); CARBON DIOXIDE 26 MMOL/L (21-32); CHLORIDE 101 MMOL/L (98-107); CREATININE 0.9 MG/DL (0.55-1.30); POTASSIUM 3.8 MMOL/L (3.5-5.1); SODIUM 135 MMOL/L (136-145)
[2019-07-30 08:00] VITALS: BP 127/75
[2019-07-30] MEDS: Pantoprazole Inj IVP SCH (08:46)
[2019-07-30] MEDS: Thiamine 100mg tab ORAL SCH (08:47)
--- NOTE | 2019-07-30 09:02 | Nephrology Progress Note ---
Assessment/Plan Problem List: (1) JULIAN (acute kidney injury) (2) Seizure (3) ALCOHOL DEPENDENCE WITH WITHDRAWAL, UNSPECIFIED (4) Tachycardia (5) Hypokalemia Assessment Electrolyte imbalance Hypokalemia and hypomagnesemia Elevated creatinine to 1.4 on admission now corrected Seizure disorder Plan Patient started p.o. and ate his lunch 100% Hydrate Following measures as needed IV magnesium IV potassium phosphate IV thiamine IV Protonix Continue management per other consultants Monitor electrolytes Per orders Subjective ROS Limited/Unobtainable: No Constitutional: Reports: malaise Objective Objective Last 24 Hour Vital Signs Date Time Temp Pulse Resp B/P (MAP) Pulse Ox O2 Delivery O2 Flow Rate FiO2 07/30/19 08:00 98.7 82 20 127/75 (92) 98 07/30/19 04:00 97.5 75 16 138/86 (103) 98 07/30/19 03:45 78 07/30/19 00:00 97.0 75 18 138/81 (100) 98 07/29/19 23:37 84 07/29/19 21:15 97.8 07/29/19 21:00 Room Air 07/29/19 20:00 97.2 84 16 129/85 (100) 96 07/29/19 19:58 83 07/29/19 16:00 61 07/29/19 16:00 97.8 70 18 107/71 (83) 98 07/29/19 12:00 66 07/29/19 12:00 97.3 62 20 112/71 (85) 99 Intake and Output 07/29/19 07/30/19 19:00 07:00 Intake Total 1225 ml 1023.416 ml Output Total 500 ml 350 ml Balance 725 ml 673.416 ml IV Total 825 ml 1023.416 ml Other 400 ml Output Urine Total 500 ml 350 ml Current Medications Medications (Trade) Dose Ordered Sig/Gabrielle Route PRN Reason Start Time Stop Time Status Last Admin Dose Admin Acetaminophen (Tylenol) 650 mg Q6H PRN RECTAL fever 07/26/19 08:45 08/25/19 08:44 07/28/19 11:19 Ceftriaxone Sodium 2 gm/ Dextrose 55 ml @ 110 mls/hr Q24H IVPB 07/26/19 15:00 08/02/19 14:59 07/29/19 14:48 Chlordiazepoxide (Librium) 50 mg EVERY 8 HOURS ORAL 07/26/19 14:30 08/02/19 14:29 07/30/19 05:42 Dextrose/Sodium Chloride 1,000 ml @ 75 mls/hr [id number] IV 07/27/19 20:00 08/26/19 19:59 07/30/19 00:13 Folic Acid (Folate) 1 mg DAILY ORAL 07/28/19 09:00 08/27/19 08:59 07/30/19 08:47 Ibuprofen (Motrin) 600 mg Q6H PRN ORAL pain 07/28/19 12:27 08/27/19 12:26 07/29/19 20:45 Lorazepam (Ativan 2mg/ml 1ml) 2 mg Q2H PRN IM For Anxiety 07/26/19 14:30 08/02/19 14:29 Pantoprazole (Protonix) 40 mg EVERY 12 HOURS IVP 07/26/19 21:00 08/25/19 20:59 07/30/19 08:46 Thiamine HCl (Vitamin B1) 100 mg DAILY ORAL 07/28/19 20:00 08/27/19 19:59 07/30/19 08:47 Vancomycin HCl (Vanco rx to dose) 1 ea DAILY PRN MISC Per rx protocol 07/28/19 12:15 08/27/19 12:14 Vancomycin/Sodium Chloride 275 ml @ 183.708 mls/hr Q8H IVPB 07/29/19 23:00 08/03/19 22:59 07/30/19 06:00 Laboratory Tests 07/29/19 10:55: Sodium Level 137, Potassium Level 3.7, Chloride Level 105, Carbon Dioxide Level 24, Anion Gap 8, Blood Urea Nitrogen 9, Creatinine 0.8, Estimat Glomerular Filtration Rate > 60, Glucose Level 113H, Calcium Level 8.0L 07/29/19 20:45: Vancomycin Level Trough 6.9 07/30/19 06:13: Sodium Level 135L, Potassium Level 3.8, Chloride Level 101, Carbon Dioxide Level 26, Anion Gap 8, Blood Urea Nitrogen 7, Creatinine 0.9, Estimat Glomerular Filtration Rate > 60, Glucose Level 97, Calcium Level 8.3L, White Blood Count 3.8#L, Red Blood Count 3.91L, Hemoglobin 13.3L, Hematocrit 37.6L, Mean Corpuscular Volume 96, Mean Corpuscular Hemoglobin 34.0H, Mean Corpuscular Hemoglobin Concent 35.3, Red Cell Distribution Width 10.9L, Platelet Count 119L , Mean Platelet Volume 7.6, Neutrophils (%) (Auto) 54.0, Lymphocytes (%) (Auto) 32.4, Monocytes (%) (Auto) 10.9H, Eosinophils (%) (Auto) 1.9, Basophils (%) ( Auto) 0.8, Total Bilirubin 0.4, Aspartate Amino Transf (AST/SGOT) 147H, Alanine Aminotransferase (ALT/SGPT) 89H, Alkaline Phosphatase 85, Total Protein 8.6H, Albumin 2.8L, Globulin 5.8, Albumin/Globulin Ratio 0.5L Height (Feet): 5 Height (Inches): 10.00 Weight (Pounds): 200 General Appearance: no apparent distress Cardiovascular: normal rate Abdomen: soft Brian Alexandra MD Jul 30, 2019 09:02
--- NOTE | 2019-07-30 10:28 | Infectious Diseases Prog Note ---
Assessment/Plan Assessment/Plan IMPRESSION: Sepsis with fever Tachycardia resolved. Rapid HIV test positive, waiting for confirmation R/O meningitis , CSF culture: negative New-onset seizure Alcohol withdrawal Acute renal failure, Encephalopathy. RECOMMENDATION: Continue Rocephin & Vancomycin Case was D/W RN Subjective ROS Limited/Unobtainable: Yes Constitutional: Denies: fever Allergies: Coded Allergies: No Known Allergies (Unverified , 07/25/19) Objective Vital Signs Last 24 Hour Vital Signs Date Time Temp Pulse Resp B/P (MAP) Pulse Ox O2 Delivery O2 Flow Rate FiO2 07/30/19 09:00 Room Air 07/30/19 08:00 67 07/30/19 08:00 98.7 82 20 127/75 (92) 98 07/30/19 04:00 97.5 75 16 138/86 (103) 98 07/30/19 03:45 78 07/30/19 00:00 97.0 75 18 138/81 (100) 98 07/29/19 23:37 84 07/29/19 21:15 97.8 07/29/19 21:00 Room Air 07/29/19 20:00 97.2 84 16 129/85 (100) 96 07/29/19 19:58 83 07/29/19 16:00 61 07/29/19 16:00 97.8 70 18 107/71 (83) 98 07/29/19 12:00 66 07/29/19 12:00 97.3 62 20 112/71 (85) 99 Height (Feet): 5 Height (Inches): 10.00 Weight (Pounds): 200 General Appearance: no acute distress HEENT: mucous membranes moist Respiratory/Chest: lungs clear Cardiovascular: normal rate Abdomen: soft, non tender Extremities: no edema Neurologic/Psychiatric: other - sleeping Microbiology Date/Time Source Procedure Growth Status 07/29/19 09:15 Cerebral Spinal Fluid Lauren Ink - Final Complete 07/28/19 15:45 Cerebral Spinal Fluid Gram Stain - Final Resulted 07/28/19 15:45 Cerebral Spinal Fluid CSF Culture - Preliminary NO GROWTH AFTER 24 HOURS Resulted Laboratory Tests Test 07/29/19 10:55 07/29/19 20:45 07/30/19 06:13 Sodium Level 137 MMOL/L (136-145) 135 MMOL/L (136-145) L Potassium Level 3.7 MMOL/L (3.5-5.1) 3.8 MMOL/L (3.5-5.1) Chloride Level 105 MMOL/L (98-107) 101 MMOL/L (98-107) Carbon Dioxide Level 24 MMOL/L (21-32) 26 MMOL/L (21-32) Anion Gap 8 mmol/L (5-15) 8 mmol/L (5-15) Blood Urea Nitrogen 9 mg/dL (7-18) 7 mg/dL (7-18) Creatinine 0.8 MG/DL (0.55-1.30) 0.9 MG/DL (0.55-1.30) Estimat Glomerular Filtration Rate > 60 mL/min (>60) > 60 mL/min (>60) Glucose Level 113 MG/DL (74-106) H 97 MG/DL (74-106) Calcium Level 8.0 MG/DL (8.5-10.1) L 8.3 MG/DL (8.5-10.1) L Vancomycin Level Trough 6.9 ug/mL (5.0-12.0) White Blood Count 3.8 K/UL (4.8-10.8) #L Red Blood Count 3.91 M/UL (4.70-6.10) L Hemoglobin 13.3 G/DL (14.2-18.0) L Hematocrit 37.6 % (42.0-52.0) L Mean Corpuscular Volume 96 FL (80-99) Mean Corpuscular Hemoglobin 34.0 PG (27.0-31.0) H Mean Corpuscular Hemoglobin Concent 35.3 G/DL (32.0-36.0) Red Cell Distribution Width 10.9 % (11.6-14.8) L Platelet Count 119 K/UL (150-450) L Mean Platelet Volume 7.6 FL (6.5-10.1) Neutrophils (%) (Auto) 54.0 % (45.0-75.0) Lymphocytes (%) (Auto) 32.4 % (20.0-45.0) Monocytes (%) (Auto) 10.9 % (1.0-10.0) H Eosinophils (%) (Auto) 1.9 % (0.0-3.0) Basophils (%) (Auto) 0.8 % (0.0-2.0) Total Bilirubin 0.4 MG/DL (0.2-1.0) Aspartate Amino Transf (AST/SGOT) 147 U/L (15-37) H Alanine Aminotransferase (ALT/SGPT) 89 U/L (12-78) H Alkaline Phosphatase 85 U/L (46-116) Total Protein 8.6 G/DL (6.4-8.2) H Albumin 2.8 G/DL (3.4-5.0) L Globulin 5.8 g/dL Albumin/Globulin Ratio 0.5 (1.0-2.7) L Current Medications Medications (Trade) Dose Ordered Sig/Gabrielle Route PRN Reason Start Time Stop Time Status Last Admin Dose Admin Acetaminophen (Tylenol) 650 mg Q6H PRN RECTAL fever 07/26/19 08:45 08/25/19 08:44 07/28/19 11:19 Ceftriaxone Sodium 2 gm/ Dextrose 55 ml @ 110 mls/hr Q24H IVPB 07/26/19 15:00 08/02/19 14:59 07/29/19 14:48 Chlordiazepoxide (Librium) 50 mg EVERY 8 HOURS ORAL 07/26/19 14:30 08/02/19 14:29 07/30/19 05:42 Dextrose/Sodium Chloride 1,000 ml @ 75 mls/hr [id number] IV 07/27/19 20:00 08/26/19 19:59 07/30/19 00:13 Folic Acid (Folate) 1 mg DAILY ORAL 07/28/19 09:00 08/27/19 08:59 07/30/19 08:47 Ibuprofen (Motrin) 600 mg Q6H PRN ORAL pain 07/28/19 12:27 08/27/19 12:26 07/29/19 20:45 Lorazepam (Ativan 2mg/ml 1ml) 2 mg Q2H PRN IM For Anxiety 07/26/19 14:30 08/02/19 14:29 Pantoprazole (Protonix) 40 mg EVERY 12 HOURS ORAL 07/30/19 21:00 08/29/19 20:59 Thiamine HCl (Vitamin B1) 100 mg DAILY ORAL 07/28/19 20:00 08/27/19 19:59 07/30/19 08:47 Vancomycin HCl (Vanco rx to dose) 1 ea DAILY PRN MISC Per rx protocol 07/28/19 12:15 08/27/19 12:14 Vancomycin/Sodium Chloride 275 ml @ 183.708 mls/hr Q8H IVPB 07/29/19 23:00 08/03/19 22:59 07/30/19 06:00 Po Bryant MD Jul 30, 2019 10:28
--- NOTE | 2019-07-30 11:29 | NUR ---
CASE MANAGEMENT:REVIEW 07/30/19 SI: ETOH WITHDRAWAL. SEIZURE SEPSIS. PANCYTOPENIA. HIV 98.7 82 20 127/75 98% ON RA WBC-3.8 IS: IV VANCOMYCIN Q8HRS IV ROCEPHIN Q24 DIFLUCAN PO QD IVF@75/HR : TELEMETRY STATUS DCP: FROM HOME
[2019-07-30 12:00] VITALS: BP 118/70
--- NOTE | 2019-07-30 13:14 | General Progress Note ---
Assessment/Plan Assessment/Plan: (1) Alcohol abuse (2) Alcohol withdrawals (3) R/O Delirium Tremens Patient to be continued on Ativan and Librium as per psychiatrist D/w Dr. Wilson and he concurred. Subjective Date patient seen: Jul 30, 2019 Time patient seen: 12:30 - pm Constitutional: Reports: weakness HEENT: Reports: no symptoms Cardiovascular: Reports: no symptoms Respiratory: Reports: no symptoms Gastrointestinal/Abdominal: Reports: no symptoms Genitourinary: Reports: no symptoms Neurologic/Psychiatric: Reports: no symptoms Endocrine: Reports: no symptoms Hematologic/Lymphatic: Reports: no symptoms Allergies: Coded Allergies: No Known Allergies (Unverified , 07/25/19) Subjective He is awake and showing no signs of pain or distress. Objective Last 24 Hour Vital Signs Date Time Temp Pulse Resp B/P (MAP) Pulse Ox O2 Delivery O2 Flow Rate FiO2 07/30/19 09:00 Room Air 07/30/19 08:00 67 07/30/19 08:00 98.7 82 20 127/75 (92) 98 07/30/19 04:00 97.5 75 16 138/86 (103) 98 07/30/19 03:45 78 07/30/19 00:00 97.0 75 18 138/81 (100) 98 07/29/19 23:37 84 07/29/19 21:15 97.8 07/29/19 21:00 Room Air 07/29/19 20:00 97.2 84 16 129/85 (100) 96 07/29/19 19:58 83 07/29/19 16:00 61 07/29/19 16:00 97.8 70 18 107/71 (83) 98 Intake and Output 07/29/19 07/30/19 19:00 07:00 Intake Total 1225 ml 1023.416 ml Output Total 500 ml 350 ml Balance 725 ml 673.416 ml IV Total 825 ml 1023.416 ml Other 400 ml Output Urine Total 500 ml 350 ml Laboratory Tests 07/29/19 20:45: Vancomycin Level Trough 6.9 07/30/19 06:13: White Blood Count 3.8#L, Red Blood Count 3.91L, Hemoglobin 13.3L, Hematocrit 37.6L, Mean Corpuscular Volume 96, Mean Corpuscular Hemoglobin 34.0H, Mean Corpuscular Hemoglobin Concent 35.3, Red Cell Distribution Width 10.9L, Platelet Count 119L, Mean Platelet Volume 7.6, Neutrophils (%) (Auto) 54.0, Lymphocytes (%) (Auto) 32.4, Monocytes (%) (Auto) 10.9H, Eosinophils (%) (Auto) 1.9, Basophils (%) (Auto) 0.8, Sodium Level 135L, Potassium Level 3.8, Chloride Level 101, Carbon Dioxide Level 26, Anion Gap 8, Blood Urea Nitrogen 7, Creatinine 0.9, Estimat Glomerular Filtration Rate > 60, Glucose Level 97, Calcium Level 8.3L, Total Bilirubin 0.4, Aspartate Amino Transf (AST/SGOT) 147H , Alanine Aminotransferase (ALT/SGPT) 89H, Alkaline Phosphatase 85, Total Protein 8.6H, Albumin 2.8L, Globulin 5.8, Albumin/Globulin Ratio 0.5L Height (Feet): 5 Height (Inches): 10.00 Weight (Pounds): 200 General Appearance: no apparent distress, alert EENT: PERRL/EOMI, normal ENT inspection Neck: non-tender, normal alignment Cardiovascular: normal rate, regular rhythm Respiratory/Chest: lungs clear, normal breath sounds Abdomen: non tender, soft Extremities: non-tender Edema: no edema noted Generalized Neurologic: alert, responsive Skin: warm/dry Archie Magaña Jul 30, 2019 13:14
[2019-07-30] MEDS: cefTRIAXone 2 GM in D5W 55 ML IVPB SCH (15:00)
[2019-07-30 16:00] VITALS: BP 123/70
--- NOTE | 2019-07-30 18:03 | Cardiac Electrophysiology PN ---
Assessment/Plan Assessment/Plan 1. Tachycardia due to seizure and alcohol withdrawal. Fu by Neurology. EF 60%. EKG shows sinus tachycardia with no acute ST-T wave abnormality. 2. Status post seizure, etiology is not clear. 3. History of heavy alcohol use, possible alcohol withdrawal. 4. Fever 5. Thrombocytopenia FU Dr Omar GASCA RN Subjective Subjective More alert in NAD. In SR Objective Last 24 Hour Vital Signs Date Time Temp Pulse Resp B/P (MAP) Pulse Ox O2 Delivery O2 Flow Rate FiO2 07/30/19 16:00 75 07/30/19 16:00 98.5 67 18 123/70 (87) 98 07/30/19 12:00 98.7 87 19 118/70 (86) 98 07/30/19 11:31 77 07/30/19 09:00 Room Air 07/30/19 08:00 67 07/30/19 08:00 98.7 82 20 127/75 (92) 98 07/30/19 04:00 97.5 75 16 138/86 (103) 98 07/30/19 03:45 78 07/30/19 00:00 97.0 75 18 138/81 (100) 98 07/29/19 23:37 84 07/29/19 21:15 97.8 07/29/19 21:00 Room Air 07/29/19 20:00 97.2 84 16 129/85 (100) 96 07/29/19 19:58 83 Intake and Output 07/29/19 07/30/19 19:00 07:00 Intake Total 1225 ml 1023.416 ml Output Total 500 ml 350 ml Balance 725 ml 673.416 ml IV Total 825 ml 1023.416 ml Other 400 ml Output Urine Total 500 ml 350 ml Laboratory Tests Test 07/29/19 20:45 07/30/19 06:13 Vancomycin Level Trough 6.9 ug/mL (5.0-12.0) White Blood Count 3.8 K/UL (4.8-10.8) #L Red Blood Count 3.91 M/UL (4.70-6.10) L Hemoglobin 13.3 G/DL (14.2-18.0) L Hematocrit 37.6 % (42.0-52.0) L Mean Corpuscular Volume 96 FL (80-99) Mean Corpuscular Hemoglobin 34.0 PG (27.0-31.0) H Mean Corpuscular Hemoglobin Concent 35.3 G/DL (32.0-36.0) Red Cell Distribution Width 10.9 % (11.6-14.8) L Platelet Count 119 K/UL (150-450) L Mean Platelet Volume 7.6 FL (6.5-10.1) Neutrophils (%) (Auto) 54.0 % (45.0-75.0) Lymphocytes (%) (Auto) 32.4 % (20.0-45.0) Monocytes (%) (Auto) 10.9 % (1.0-10.0) H Eosinophils (%) (Auto) 1.9 % (0.0-3.0) Basophils (%) (Auto) 0.8 % (0.0-2.0) Sodium Level 135 MMOL/L (136-145) L Potassium Level 3.8 MMOL/L (3.5-5.1) Chloride Level 101 MMOL/L (98-107) Carbon Dioxide Level 26 MMOL/L (21-32) Anion Gap 8 mmol/L (5-15) Blood Urea Nitrogen 7 mg/dL (7-18) Creatinine 0.9 MG/DL (0.55-1.30) Estimat Glomerular Filtration Rate > 60 mL/min (>60) Glucose Level 97 MG/DL (74-106) Calcium Level 8.3 MG/DL (8.5-10.1) L Total Bilirubin 0.4 MG/DL (0.2-1.0) Aspartate Amino Transf (AST/SGOT) 147 U/L (15-37) H Alanine Aminotransferase (ALT/SGPT) 89 U/L (12-78) H Alkaline Phosphatase 85 U/L (46-116) Total Protein 8.6 G/DL (6.4-8.2) H Albumin 2.8 G/DL (3.4-5.0) L Globulin 5.8 g/dL Albumin/Globulin Ratio 0.5 (1.0-2.7) L Microbiology Date/Time Source Procedure Growth Status 07/29/19 09:15 Cerebral Spinal Fluid Lauren Ink - Final Complete 07/28/19 15:45 Cerebral Spinal Fluid Gram Stain - Final Resulted 07/28/19 15:45 Cerebral Spinal Fluid CSF Culture - Preliminary NO GROWTH AFTER 24 HOURS Resulted Objective HEAD AND NECK: No JVD. LUNGS: Clear. CARDIOVASCULAR: Tachycardic S1 and S2 with no gallop. ABDOMEN: Soft. EXTREMITIES: 1+ pitting edema. Ric Mckeon MD Jul 30, 2019 18:03
--- NOTE | 2019-07-30 19:31 | NUR ---
NURSE NOTES: Received patient from NIDHI Diego. Patient is asleep. but easily arousable. Bed in lowest position. Call light placed within reach. Will continue to monitor.
[2019-07-30 20:00] VITALS: BP 152/62
--- NOTE | 2019-07-30 20:33 | General Progress Note ---
Assessment/Plan Problem List: (1) Seizure disorder ICD Codes: G40.909 - Epilepsy, unspecified, not intractable, without status epilepticus SNOMED: 473641108 (2) Hypokalemia ICD Codes: E87.6 - Hypokalemia SNOMED: 53456879 (3) Seizure ICD Codes: R56.9 - Unspecified convulsions SNOMED: 02851379 (4) Tachycardia ICD Codes: R00.0 - Tachycardia, unspecified SNOMED: 8815158 (5) ALCOHOL DEPENDENCE WITH WITHDRAWAL, UNSPECIFIED ICD Codes: F10.239 - ALCOHOL DEPENDENCE WITH WITHDRAWAL, UNSPECIFIED Assessment/Plan: sepsis r/o cirhossis check k elevated lft still confused r/o immune deficiency disease alcohol withdrawal lyte abnormality afebrile Subjective ROS Limited/Unobtainable: Yes Allergies: Coded Allergies: No Known Allergies (Unverified , 07/25/19) Objective Last 24 Hour Vital Signs Date Time Temp Pulse Resp B/P (MAP) Pulse Ox O2 Delivery O2 Flow Rate FiO2 07/30/19 16:00 75 07/30/19 16:00 98.5 67 18 123/70 (87) 98 07/30/19 12:00 98.7 87 19 118/70 (86) 98 07/30/19 11:31 77 07/30/19 09:00 Room Air 07/30/19 08:00 67 07/30/19 08:00 98.7 82 20 127/75 (92) 98 07/30/19 04:00 97.5 75 16 138/86 (103) 98 07/30/19 03:45 78 07/30/19 00:00 97.0 75 18 138/81 (100) 98 07/29/19 23:37 84 07/29/19 21:15 97.8 07/29/19 21:00 Room Air Intake and Output 07/29/19 07/30/19 19:00 07:00 Intake Total 1225 ml 1023.416 ml Output Total 500 ml 350 ml Balance 725 ml 673.416 ml IV Total 825 ml 1023.416 ml Other 400 ml Output Urine Total 500 ml 350 ml Laboratory Tests 07/29/19 20:45: Vancomycin Level Trough 6.9 07/30/19 06:13: White Blood Count 3.8#L, Red Blood Count 3.91L, Hemoglobin 13.3L, Hematocrit 37.6L, Mean Corpuscular Volume 96, Mean Corpuscular Hemoglobin 34.0H, Mean Corpuscular Hemoglobin Concent 35.3, Red Cell Distribution Width 10.9L, Platelet Count 119L, Mean Platelet Volume 7.6, Neutrophils (%) (Auto) 54.0, Lymphocytes (%) (Auto) 32.4, Monocytes (%) (Auto) 10.9H, Eosinophils (%) (Auto) 1.9, Basophils (%) (Auto) 0.8, Sodium Level 135L, Potassium Level 3.8, Chloride Level 101, Carbon Dioxide Level 26, Anion Gap 8, Blood Urea Nitrogen 7, Creatinine 0.9, Estimat Glomerular Filtration Rate > 60, Glucose Level 97, Calcium Level 8.3L, Total Bilirubin 0.4, Aspartate Amino Transf (AST/SGOT) 147H , Alanine Aminotransferase (ALT/SGPT) 89H, Alkaline Phosphatase 85, Total Protein 8.6H, Albumin 2.8L, Globulin 5.8, Albumin/Globulin Ratio 0.5L Height (Feet): 5 Height (Inches): 10.00 Weight (Pounds): 200 General Appearance: confused Isa Blanchard MD Jul 30, 2019 20:33
--- NOTE | 2019-07-30 21:20 | General Progress Note ---
Assessment/Plan Assessment/Plan: Assessment - HIV (+) per prelim report - pancytopenia - elevated LFT - h/o EtOH use x years, although stated he has not consumed for 1 mo - seizure - fever Recommendations - check hepatitis serologies -all negative - ID f/u - po as tolerated - thiamine Subjective Allergies: Coded Allergies: No Known Allergies (Unverified , 07/25/19) Subjective Above noted tolerating PO no abdominal complaints Objective Last 24 Hour Vital Signs Date Time Temp Pulse Resp B/P (MAP) Pulse Ox O2 Delivery O2 Flow Rate FiO2 07/30/19 16:00 75 07/30/19 16:00 98.5 67 18 123/70 (87) 98 07/30/19 12:00 98.7 87 19 118/70 (86) 98 07/30/19 11:31 77 07/30/19 09:00 Room Air 07/30/19 08:00 67 07/30/19 08:00 98.7 82 20 127/75 (92) 98 07/30/19 04:00 97.5 75 16 138/86 (103) 98 07/30/19 03:45 78 07/30/19 00:00 97.0 75 18 138/81 (100) 98 07/29/19 23:37 84 Intake and Output 07/29/19 07/30/19 19:00 07:00 Intake Total 1225 ml 1023.416 ml Output Total 500 ml 350 ml Balance 725 ml 673.416 ml IV Total 825 ml 1023.416 ml Other 400 ml Output Urine Total 500 ml 350 ml Laboratory Tests 07/30/19 06:13: White Blood Count 3.8#L, Red Blood Count 3.91L, Hemoglobin 13.3L, Hematocrit 37.6L, Mean Corpuscular Volume 96, Mean Corpuscular Hemoglobin 34.0H, Mean Corpuscular Hemoglobin Concent 35.3, Red Cell Distribution Width 10.9L, Platelet Count 119L, Mean Platelet Volume 7.6, Neutrophils (%) (Auto) 54.0, Lymphocytes (%) (Auto) 32.4, Monocytes (%) (Auto) 10.9H, Eosinophils (%) (Auto) 1.9, Basophils (%) (Auto) 0.8, Sodium Level 135L, Potassium Level 3.8, Chloride Level 101, Carbon Dioxide Level 26, Anion Gap 8, Blood Urea Nitrogen 7, Creatinine 0.9, Estimat Glomerular Filtration Rate > 60, Glucose Level 97, Calcium Level 8.3L, Total Bilirubin 0.4, Aspartate Amino Transf (AST/SGOT) 147H , Alanine Aminotransferase (ALT/SGPT) 89H, Alkaline Phosphatase 85, Total Protein 8.6H, Albumin 2.8L, Globulin 5.8, Albumin/Globulin Ratio 0.5L Height (Feet): 5 Height (Inches): 10.00 Weight (Pounds): 200 Objective WDWN NCAT supple CTA RR abd soft ND no edema Jai Ness MD Jul 30, 2019 21:20
[2019-07-30] MEDS ORDERED: Vancomycin 1.5gm/NS Premix 275 ML IVPB SCH (23:00)
[2019-07-31] VITALS: BP 121/53
[2019-07-31] MEDS: D5NS 1,000 ML IV SCH (02:09)
--- NOTE | 2019-07-31 03:15 | Progress Note ---
DATE: 07/30/2019 SUBJECTIVE: The patient is doing well. More engaged. No behavior issues noted. Decreased agitation. The patient is awaiting placement. MENTAL STATUS EXAMINATION: Alert and oriented times self, place, and situation. Mood is neutral. Affect is flat. Thought process is concrete. Thought content, no suicidal or homicidal ideation. ASSESSMENT: Alcohol dependence, alcohol withdrawal, improving. PLAN: 1. Continue current psychotropic medications. 2. Provide the patient with reality orientation and supportive therapy. Lelo Hickey M.D. DR: ABEL JOB#: [id number] CC:
[2019-07-31 04:00] VITALS: BP 142/75
[2019-07-31] MEDS: chlordiazePOXIDE 25mg Cap ORAL SCH ×3 (07:08→21:35)
--- NOTE | 2019-07-31 07:39 | NUR ---
HAND-OFF: Report given to NIDHI Medina. Patient stable.
--- NOTE | 2019-07-31 07:39 | NUR ---
NURSE NOTES: Received report from Jes TERRELL. Pt in bed awake and orientedx4 and able to make needs known. IV site in RFA 22G TKO and patent and asymptomatic. Bed in lowest position and locked. Side railsx2 up for safety. Call light within easy reach. On room air and denied SOB. c/o pain in back 12/26, pain med will be given as ordered. Will continue to plan of care.
--- NOTE | 2019-07-31 07:41 | NUR ---
NURSE NOTES: Per sister of the patient, Pt denied pain at this time and he does not need any pain meds. Pt in bed awake and eating breakfast. English speaking and able to understand some lithuanian. IV site in RFA 20G running with D5 NS@75ml/hr patent and asymptomatic.
[2019-07-31 07:59] LABS: HEMATOCRIT 34.7 % (42.0-52.0); MEAN CORPUSCULAR VOLUME 94 FL (80-99); PLATELET COUNT 86 K/UL (150-450); RED CELL DISTRIBUTION WIDTH 10.7 % (11.6-14.8); WHITE BLOOD COUNT 2.2 K/UL (4.8-10.8)
[2019-07-31 08:00] VITALS: BP 154/100
--- NOTE | 2019-07-31 08:48 | Nephrology Progress Note ---
Assessment/Plan Problem List: (1) JULIAN (acute kidney injury) (2) Seizure (3) ALCOHOL DEPENDENCE WITH WITHDRAWAL, UNSPECIFIED (4) Tachycardia (5) Hypokalemia Assessment Electrolyte imbalance Hypokalemia and hypomagnesemia Elevated creatinine to 1.4 on admission now corrected Seizure disorder Plan Patient taking p.o. well Stop hydrate To nonmonitored bed if okay with consultants Previously Following measures as needed IV magnesium IV potassium phosphate IV thiamine IV Protonix Continue management per other consultants Monitor electrolytes Per orders Subjective ROS Limited/Unobtainable: No Objective Objective Last 24 Hour Vital Signs Date Time Temp Pulse Resp B/P (MAP) Pulse Ox O2 Delivery O2 Flow Rate FiO2 07/31/19 04:00 97.7 64 19 142/75 (97) 99 07/31/19 04:00 70 07/31/19 00:00 98.8 77 19 121/53 (75) 94 07/31/19 00:00 82 07/30/19 21:51 98.6 07/30/19 21:00 Room Air 07/30/19 20:00 101.7 89 19 152/62 (92) 97 07/30/19 20:00 85 07/30/19 16:00 75 07/30/19 16:00 98.5 67 18 123/70 (87) 98 07/30/19 12:00 98.7 87 19 118/70 (86) 98 07/30/19 11:31 77 07/30/19 09:00 Room Air Intake and Output 07/30/19 07/31/19 19:00 07:00 Output Total 700 ml 1500 ml Balance -700 ml -1500 ml Output Urine Total 700 ml 1500 ml Laboratory Tests 07/30/19 22:23: Vancomycin Level Trough 8.1 07/31/19 06:20: White Blood Count 2.2L, Red Blood Count 3.70L, Hemoglobin 13.0L, Hematocrit 34.7L, Mean Corpuscular Volume 94, Mean Corpuscular Hemoglobin 35.1H, Mean Corpuscular Hemoglobin Concent 37.4H, Red Cell Distribution Width 10.7L, Platelet Count 86L, Mean Platelet Volume 6.9, Neutrophils (%) (Auto) , Lymphocytes (%) (Auto) , Monocytes (%) (Auto) , Eosinophils (%) (Auto) , Basophils (%) (Auto) , Neutrophils % (Manual) [Pending], Lymphocytes % (Manual) [Pending], Platelet Estimate [Pending], Platelet Morphology [Pending] Height (Feet): 5 Height (Inches): 10.00 Weight (Pounds): 200 General Appearance: no apparent distress, other - More awake and responsive Cardiovascular: normal rate Respiratory/Chest: decreased breath sounds Abdomen: soft Brian Alexandra MD Jul 31, 2019 08:48
--- NOTE | 2019-07-31 09:03 | NUR ---
NURSE NOTES: Made Dr. Garcias aware of K+ : 3.3 today. Awaiting for reply
[2019-07-31] MEDS: Thiamine 100mg tab ORAL SCH (09:47)
--- NOTE | 2019-07-31 09:50 | NUR ---
NURSE NOTES: Dr. Sky called back for K+ 3.[address] Garcias. Keep the KCL 40mEq po BID ordered since the patient refused IV lasix today
[2019-07-31 11:42] VITALS: BP 143/99
--- NOTE | 2019-07-31 13:57 | Cardiac Electrophysiology PN ---
Assessment/Plan Assessment/Plan 1. Tachycardia due to seizure and alcohol withdrawal. Fu by Neurology. EF 60%. EKG shows sinus tachycardia with no acute ST-T wave abnormality. 2. Status post seizure, etiology is not clear. 3. History of heavy alcohol use, possible alcohol withdrawal. 4. Fever 5. Thrombocytopenia FU Dr Omar GASCA RN DC tele Subjective Subjective More alert in NAD. Remained in SR Objective Last 24 Hour Vital Signs Date Time Temp Pulse Resp B/P (MAP) Pulse Ox O2 Delivery O2 Flow Rate FiO2 07/31/19 12:00 80 07/31/19 11:42 98.0 84 20 143/99 (114) 96 07/31/19 09:00 Room Air 07/31/19 08:00 97.9 81 19 154/100 (118) 98 07/31/19 08:00 79 07/31/19 04:00 97.7 64 19 142/75 (97) 99 07/31/19 04:00 70 07/31/19 00:00 98.8 77 19 121/53 (75) 94 07/31/19 00:00 82 07/30/19 21:51 98.6 07/30/19 21:00 Room Air 07/30/19 20:00 101.7 89 19 152/62 (92) 97 07/30/19 20:00 85 07/30/19 16:00 75 07/30/19 16:00 98.5 67 18 123/70 (87) 98 Intake and Output 07/30/19 07/31/19 19:00 07:00 Output Total 700 ml 1500 ml Balance -700 ml -1500 ml Output Urine Total 700 ml 1500 ml Laboratory Tests Test 07/30/19 22:23 07/31/19 06:20 Vancomycin Level Trough 8.1 ug/mL (5.0-12.0) White Blood Count 2.2 K/UL (4.8-10.8) L Red Blood Count 3.70 M/UL (4.70-6.10) L Hemoglobin 13.0 G/DL (14.2-18.0) L Hematocrit 34.7 % (42.0-52.0) L Mean Corpuscular Volume 94 FL (80-99) Mean Corpuscular Hemoglobin 35.1 PG (27.0-31.0) H Mean Corpuscular Hemoglobin Concent 37.4 G/DL (32.0-36.0) H Red Cell Distribution Width 10.7 % (11.6-14.8) L Platelet Count 86 K/UL (150-450) L Mean Platelet Volume 6.9 FL (6.5-10.1) Neutrophils (%) (Auto) % (45.0-75.0) Lymphocytes (%) (Auto) % (20.0-45.0) Monocytes (%) (Auto) % (1.0-10.0) Eosinophils (%) (Auto) % (0.0-3.0) Basophils (%) (Auto) % (0.0-2.0) Differential Total Cells Counted 100 Neutrophils % (Manual) 58 % (45-75) Lymphocytes % (Manual) 28 % (20-45) Monocytes % (Manual) 13 % (1-10) H Eosinophils % (Manual) 1 % (0-3) Basophils % (Manual) 0 % (0-2) Band Neutrophils 0 % (0-8) Platelet Estimate Decreased L Platelet Morphology Normal Red Blood Cell Morphology Normal Microbiology Date/Time Source Procedure Growth Status 07/29/19 09:15 Cerebral Spinal Fluid Lauren Ink - Final Complete 07/28/19 15:45 Cerebral Spinal Fluid Gram Stain - Final Resulted 07/28/19 15:45 Cerebral Spinal Fluid CSF Culture - Preliminary NO GROWTH AFTER 24 HOURS Resulted Objective HEAD AND NECK: No JVD. LUNGS: Clear. CARDIOVASCULAR: Tachycardic S1 and S2 with no gallop. ABDOMEN: Soft. EXTREMITIES: 1+ pitting edema. Ric Mckeon MD Jul 31, 2019 13:57
[2019-07-31] MEDS: cefTRIAXone 2 GM in D5W 55 ML IVPB SCH (15:50)
[2019-07-31 16:00] VITALS: BP 115/50
--- NOTE | 2019-07-31 16:20 | NUR ---
NURSE NOTES: Cooling measures applied for fever
[2019-07-31] MEDS: Acetaminophen 650 MG SUPP RECTAL PRN (17:05)
--- NOTE | 2019-07-31 17:08 | General Progress Note ---
Assessment/Plan Assessment/Plan: Assessment - HIV (+) per prelim report - pancytopenia - elevated LFT - h/o EtOH use x years, although stated he has not consumed for 1 mo - seizure - fever Recommendations - check hepatitis serologies -all negative - ID f/u - po as tolerated - thiamine Subjective Allergies: Coded Allergies: No Known Allergies (Unverified , 07/25/19) Subjective Above noted tolerating PO no abdominal complaints Objective Last 24 Hour Vital Signs Date Time Temp Pulse Resp B/P (MAP) Pulse Ox O2 Delivery O2 Flow Rate FiO2 07/31/19 16:00 102.0 86 20 115/50 (71) 95 07/31/19 12:00 80 07/31/19 11:42 98.0 84 20 143/99 (114) 96 07/31/19 09:00 Room Air 07/31/19 08:00 97.9 81 19 154/100 (118) 98 07/31/19 08:00 79 07/31/19 04:00 97.7 64 19 142/75 (97) 99 07/31/19 04:00 70 07/31/19 00:00 98.8 77 19 121/53 (75) 94 07/31/19 00:00 82 07/30/19 21:51 98.6 07/30/19 21:00 Room Air 07/30/19 20:00 101.7 89 19 152/62 (92) 97 07/30/19 20:00 85 Intake and Output 07/30/19 07/31/19 19:00 07:00 Output Total 700 ml 1500 ml Balance -700 ml -1500 ml Output Urine Total 700 ml 1500 ml Laboratory Tests 07/30/19 22:23: Vancomycin Level Trough 8.1 07/31/19 06:20: White Blood Count 2.2L, Red Blood Count 3.70L, Hemoglobin 13.0L, Hematocrit 34.7L, Mean Corpuscular Volume 94, Mean Corpuscular Hemoglobin 35.1H, Mean Corpuscular Hemoglobin Concent 37.4H, Red Cell Distribution Width 10.7L, Platelet Count 86L, Mean Platelet Volume 6.9, Neutrophils (%) (Auto) , Lymphocytes (%) (Auto) , Monocytes (%) (Auto) , Eosinophils (%) (Auto) , Basophils (%) (Auto) , Differential Total Cells Counted 100, Neutrophils % ( Manual) 58, Lymphocytes % (Manual) 28, Monocytes % (Manual) 13H, Eosinophils % ( Manual) 1, Basophils % (Manual) 0, Band Neutrophils 0, Platelet Estimate DecreasedL, Platelet Morphology Normal, Red Blood Cell Morphology Normal Height (Feet): 5 Height (Inches): 10.00 Weight (Pounds): 200 Objective WDWN NCAT supple CTA RR abd soft ND no edema Jai Ness MD Jul 31, 2019 17:08
--- NOTE | 2019-07-31 18:38 | NUR ---
NURSE NOTES: Made Connie Lau aware of fever 102.9F. D/C ceftriaxone, change to IV Zosyn 3.375g Q8 IV, Blood culture x2 now, abd/pelvic CT w/contrast ordered and orders read back and carried out,
[2019-07-31] MEDS ORDERED: Omnipaque-300 100ml vial INJ PRN (18:45)
--- NOTE | 2019-07-31 19:40 | NUR ---
NURSE NOTES: Patient re Addendum: 07/31/19 at 1943 by Joss Jackman RN Patient received from NIDHI Medina. Kazakh speaking but able to understand a little panamanian. Bed in lowest position. Call light placed within reach. No complaints of pain or SOB. Will continue to monitor.
--- NOTE | 2019-07-31 19:41 | NUR ---
HAND-OFF: Report given to Jes TERRELL. Pt remains stable.
[2019-07-31 20:00] VITALS: BP 147/89
--- NOTE | 2019-07-31 20:39 | General Progress Note ---
Assessment/Plan Problem List: (1) Seizure disorder ICD Codes: G40.909 - Epilepsy, unspecified, not intractable, without status epilepticus SNOMED: 506139440 (2) Hypokalemia ICD Codes: E87.6 - Hypokalemia SNOMED: 45719462 (3) Seizure ICD Codes: R56.9 - Unspecified convulsions SNOMED: 46634374 (4) Tachycardia ICD Codes: R00.0 - Tachycardia, unspecified SNOMED: 8977794 (5) ALCOHOL DEPENDENCE WITH WITHDRAWAL, UNSPECIFIED ICD Codes: F10.239 - ALCOHOL DEPENDENCE WITH WITHDRAWAL, UNSPECIFIED Status: progressing Assessment/Plan: abx per id off and on fever confused r/o immune deficiency disease alcohol withdrawal resolved Subjective ROS Limited/Unobtainable: Yes Allergies: Coded Allergies: No Known Allergies (Unverified , 07/25/19) Objective Last 24 Hour Vital Signs Date Time Temp Pulse Resp B/P (MAP) Pulse Ox O2 Delivery O2 Flow Rate FiO2 07/31/19 18:34 99.9 07/31/19 18:00 102.9 07/31/19 17:35 101.2 07/31/19 16:00 102.0 86 20 115/50 (71) 95 07/31/19 16:00 87 07/31/19 12:00 80 07/31/19 11:42 98.0 84 20 143/99 (114) 96 07/31/19 09:00 Room Air 07/31/19 08:00 97.9 81 19 154/100 (118) 98 07/31/19 08:00 79 07/31/19 04:00 97.7 64 19 142/75 (97) 99 07/31/19 04:00 70 07/31/19 00:00 98.8 77 19 121/53 (75) 94 07/31/19 00:00 82 07/30/19 21:51 98.6 07/30/19 21:00 Room Air Intake and Output 07/30/19 07/31/19 19:00 07:00 Output Total 700 ml 1500 ml Balance -700 ml -1500 ml Output Urine Total 700 ml 1500 ml Laboratory Tests 07/30/19 22:23: Vancomycin Level Trough 8.1 07/31/19 06:20: White Blood Count 2.2L, Red Blood Count 3.70L, Hemoglobin 13.0L, Hematocrit 34.7L, Mean Corpuscular Volume 94, Mean Corpuscular Hemoglobin 35.1H, Mean Corpuscular Hemoglobin Concent 37.4H, Red Cell Distribution Width 10.7L, Platelet Count 86L, Mean Platelet Volume 6.9, Neutrophils (%) (Auto) , Lymphocytes (%) (Auto) , Monocytes (%) (Auto) , Eosinophils (%) (Auto) , Basophils (%) (Auto) , Differential Total Cells Counted 100, Neutrophils % ( Manual) 58, Lymphocytes % (Manual) 28, Monocytes % (Manual) 13H, Eosinophils % ( Manual) 1, Basophils % (Manual) 0, Band Neutrophils 0, Platelet Estimate DecreasedL, Platelet Morphology Normal, Red Blood Cell Morphology Normal Height (Feet): 5 Height (Inches): 10.00 Weight (Pounds): 200 Cardiovascular: normal rate Respiratory/Chest: lungs clear Isa Blanchard MD Jul 31, 2019 20:39
[2019-07-31] MEDS ORDERED: Piperacillin/Tazobactam 3.375 GM in NS 110 ML IVPB SCH (22:00)
--- NOTE | 2019-07-31 22:22 | NUR ---
HAND-OFF: Report given to NIDHI Vidal. Patient alert, awake, and oriented. Belongings transferred with the patient to [address] [place] [address]. Patient stable. Endorsements given regarding labs for tomorrow.
--- NOTE | 2019-07-31 22:27 | NUR ---
NURSE NOTES: Pt came to the unit at 2220 on stable condition. report received from NIDHI Andre. Pt is awake and alert, on room air, no respiratory distress noted. No c/o pain or discomfort at this time. Fall precaution, aspiration precaution and fall precaution in place. Bed alarm is on with high sensitive setting, sign at the door, bed in low and locked position. Call light within reach. Oriented pt to the room and call light with return demonstration. Side rails two up and padded for seizure precaution. HOB elevated. Will continue to monitor and do frequent rounds for safety.
[2019-07-31] MEDS ORDERED: Acetaminophen 650 MG SUPP RECTAL PRN (22:43)
[2019-07-31] MEDS ORDERED: LORazepam Inj 2mg/ml 1ml IM PRN (22:48)
--- NOTE | 2019-07-31 23:18 | Hematology/Onc Progress Note ---
Assessment/Plan Assessment/Plan Assessment and Recs: # Pancytopenia - potential causes multifactorial, evaluate liver and viral etiologies to begin, in this case due to ETOH ABUSE/WITHDRAWAL, bone marrow myelosuppression --> Hep panel and HIV +++ --> US abd to evaluate for cirrhosis and hsm ordered --> SHOWS spenomegaly, enlarged spleen --> Peripheral smear ordered to evaluate for blasts /schistocytes --> none noted --> abx and other meds have been reviewed --> ok for ppx if plt >50k w/ either heparin or lovenox --> Transfuse if Plt < 20k and fever, or if Plt < 10k without fever --> plt trend 164-->122k-->86k --> wbc trend 5-->3-->2->2.2 --> abx: vanc/zosyn # ETOH withdrawal --> r/o seizure --> ativan, librium, folate --> imaging reviewed --> smear noted # Seizure --> R/o seizure d/o onset -> meds reviewed --> as per neuro # JULIAN (acute kidney injury) --> per renal recs # HIV --> as per id, consider eval # Tachycardia --> per Dr. Mckeon # AMS --> per psych The timing of this note does not necessarily reflect the time of the patient was seen. Greatly appreciate consultation. Subjective Constitutional: Denies: no symptoms, chills, fever, malaise, weakness, other HEENT: Denies: no symptoms, eye pain, blurred vision, tearing, double vision, ear pain, ear discharge, nose pain, nose congestion, throat pain, throat swelling, mouth pain, mouth swelling, other Respiratory: Denies: no symptoms, cough, shortness of breath, SOB with excertion, SOB at rest, sputum, wheezing, other Gastrointestinal/Abdominal: Denies: no symptoms, abdomen distended, abdominal pain, black stools, tarry stools, blood in stool, constipated, diarrhea, difficulty swallowing, nausea, poor appetite, poor fluid intake, rectal bleeding , vomiting, other Genitourinary: Denies: no symptoms, burning, discharge, frequency, flank pain, hematuria, incontinence, pain, urgency, other Neurologic/Psychiatric: Denies: no symptoms, anxiety, depressed, emotional problems, headache, numbness, paresthesia, pre-existing deficit, seizure, tingling, tremors, weakness, other Endocrine: Denies: no symptoms, excessive sweating, flushing, intolerance to cold, intolerance to heat, increased hunger, increased thirst, increased urine, unexplained weight gain, unexplained weight loss, other Hematologic/Lymphatic: Denies: no symptoms, anemia, easy bleeding, easy bruising, adenopathy, other Allergies: Coded Allergies: No Known Allergies (Unverified , 07/25/19) Subjective 07/27: no events, no bleeding, cbc pending, remains altered 07/28: no events, labs reviewed, viral studies noted, no bleeding 07/29: asleep, cbc pending, on vanc/zosym, room air 07/30 no major events noted, no bleeding, labs reviewed Objective Objective Current Medications Medications (Trade) Dose Ordered Sig/Gabrielle Route PRN Reason Start Time Stop Time Status Last Admin Dose Admin Acetaminophen (Tylenol) 650 mg Q6H PRN RECTAL fever 07/31/19 22:43 08/30/19 22:42 Barium Sulfate (Readi-Cat 2) 450 ml NOW PRN ORAL Radiology Procedure 08/01/19 18:45 08/02/19 18:40 UNV Chlordiazepoxide (Librium) 50 mg EVERY 8 HOURS ORAL 08/01/19 06:00 08/02/19 14:29 Folic Acid (Folate) 1 mg DAILY ORAL 08/01/19 09:00 08/27/19 08:59 Ibuprofen (Motrin) 600 mg Q6H PRN ORAL Mild Pain/Temp > 100.5 07/31/19 22:44 08/30/19 22:43 Iohexol (OMNIPAQUE-300 100ml) 100 ml NOW PRN INJ Radiology Procedure 08/01/19 18:45 08/02/19 18:40 UNV Lorazepam (Ativan 2mg/ml 1ml) 2 mg Q2H PRN IM For Anxiety 07/31/19 22:48 08/07/19 22:47 Pantoprazole (Protonix) 40 mg EVERY 12 HOURS ORAL 08/01/19 09:00 08/29/19 20:59 Piperacillin Sod/ Tazobactam Sod 3.375 gm/Sodium Chloride 110 ml @ 27.5 mls/hr EVERY 8 HOURS IVPB 08/01/19 06:00 08/06/19 05:59 Thiamine HCl (Vitamin B1) 100 mg DAILY ORAL 08/01/19 09:00 08/27/19 19:59 Last 24 Hour Vital Signs Date Time Temp Pulse Resp B/P (MAP) Pulse Ox O2 Delivery O2 Flow Rate FiO2 07/31/19 21:00 Room Air 07/31/19 20:00 98.8 85 20 147/89 (108) 98 07/31/19 18:34 99.9 07/31/19 18:00 102.9 07/31/19 17:35 101.2 07/31/19 16:00 102.0 86 20 115/50 (71) 95 07/31/19 16:00 87 07/31/19 12:00 80 07/31/19 11:42 98.0 84 20 143/99 (114) 96 07/31/19 09:00 Room Air 07/31/19 08:00 97.9 81 19 154/100 (118) 98 07/31/19 08:00 79 07/31/19 04:00 97.7 64 19 142/75 (97) 99 07/31/19 04:00 70 07/31/19 00:00 98.8 77 19 121/53 (75) 94 07/31/19 00:00 82 07/30/19 21:51 98.6 07/30/19 21:00 Room Air 07/30/19 20:00 101.7 89 19 152/62 (92) 97 07/30/19 20:00 85 07/30/19 16:00 75 07/30/19 16:00 98.5 67 18 123/70 (87) 98 07/30/19 12:00 98.7 87 19 118/70 (86) 98 07/30/19 11:31 77 07/30/19 09:00 Room Air 07/30/19 08:00 67 07/30/19 08:00 98.7 82 20 127/75 (92) 98 07/30/19 04:00 97.5 75 16 138/86 (103) 98 07/30/19 03:45 78 07/30/19 00:00 97.0 75 18 138/81 (100) 98 07/29/19 23:37 84 Intake and Output 07/30/19 07/31/19 19:00 07:00 Output Total 700 ml 1500 ml Balance -700 ml -1500 ml Output Urine Total 700 ml 1500 ml Labs Test 07/29/19 05:38 07/29/19 10:55 07/29/19 20:45 07/30/19 06:13 White Blood Count 2.0 K/UL (4.8-10.8) 3.8 K/UL (4.8-10.8) Red Blood Count 3.87 M/UL (4.70-6.10) 3.91 M/UL (4.70-6.10) Hemoglobin 13.2 G/DL (14.2-18.0) 13.3 G/DL (14.2-18.0) Hematocrit 37.4 % (42.0-52.0) 37.6 % (42.0-52.0) Mean Corpuscular Volume 97 FL (80-99) 96 FL (80-99) Mean Corpuscular Hemoglobin 34.1 PG (27.0-31.0) 34.0 PG (27.0-31.0) Mean Corpuscular Hemoglobin Concent 35.3 G/DL (32.0-36.0) 35.3 G/DL (32.0-36.0) Red Cell Distribution Width 11.0 % (11.6-14.8) 10.9 % (11.6-14.8) Platelet Count 122 K/UL (150-450) 119 K/UL (150-450) Mean Platelet Volume 8.3 FL (6.5-10.1) 7.6 FL (6.5-10.1) Neutrophils (%) (Auto) % (45.0-75.0) 54.0 % (45.0-75.0) Lymphocytes (%) (Auto) % (20.0-45.0) 32.4 % (20.0-45.0) Monocytes (%) (Auto) % (1.0-10.0) 10.9 % (1.0-10.0) Eosinophils (%) (Auto) % (0.0-3.0) 1.9 % (0.0-3.0) Basophils (%) (Auto) % (0.0-2.0) 0.8 % (0.0-2.0) Differential Total Cells Counted 100 Neutrophils % (Manual) 48 % (45-75) Lymphocytes % (Manual) 28 % (20-45) Monocytes % (Manual) 18 % (1-10) Eosinophils % (Manual) 5 % (0-3) Basophils % (Manual) 1 % (0-2) Band Neutrophils 0 % (0-8) Platelet Estimate Decreased Platelet Morphology Normal Anisocytosis 1+ Prothrombin Time 11.4 SEC (9.30-11.50) Prothromb Time International Ratio 1.1 (0.9-1.1) Total Creatine Kinase 3577 U/L (26-308) Rapid Plasma Reagin Non reactive (Non Reactive) Hepatitis A IgM Antibody Negative (Negative) Hepatitis B Surface Antigen Negative (Negative) Hepatitis B Core IgM Antibody Negative (Negative) Hepatitis C Antibody 0.1 s/co ratio (0.0-0.9) Sodium Level 137 MMOL/L (136-145) 135 MMOL/L (136-145) Potassium Level 3.7 MMOL/L (3.5-5.1) 3.8 MMOL/L (3.5-5.1) Chloride Level 105 MMOL/L (98-107) 101 MMOL/L (98-107) Carbon Dioxide Level 24 MMOL/L (21-32) 26 MMOL/L (21-32) Anion Gap 8 mmol/L (5-15) 8 mmol/L (5-15) Blood Urea Nitrogen 9 mg/dL (7-18) 7 mg/dL (7-18) Creatinine 0.8 MG/DL (0.55-1.30) 0.9 MG/DL (0.55-1.30) Estimat Glomerular Filtration Rate > 60 mL/min (>60) > 60 mL/min (>60) Glucose Level 113 MG/DL (74-106) 97 MG/DL (74-106) Calcium Level 8.0 MG/DL (8.5-10.1) 8.3 MG/DL (8.5-10.1) Vancomycin Level Trough 6.9 ug/mL (5.0-12.0) Total Bilirubin 0.4 MG/DL (0.2-1.0) Aspartate Amino Transf (AST/SGOT) 147 U/L (15-37) Alanine Aminotransferase (ALT/SGPT) 89 U/L (12-78) Alkaline Phosphatase 85 U/L (46-116) Total Protein 8.6 G/DL (6.4-8.2) Albumin 2.8 G/DL (3.4-5.0) Globulin 5.8 g/dL Albumin/Globulin Ratio 0.5 (1.0-2.7) Test 07/30/19 22:23 07/31/19 06:20 Vancomycin Level Trough 8.1 ug/mL (5.0-12.0) White Blood Count 2.2 K/UL (4.8-10.8) Red Blood Count 3.70 M/UL (4.70-6.10) Hemoglobin 13.0 G/DL (14.2-18.0) Hematocrit 34.7 % (42.0-52.0) Mean Corpuscular Volume 94 FL (80-99) Mean Corpuscular Hemoglobin 35.1 PG (27.0-31.0) Mean Corpuscular Hemoglobin Concent 37.4 G/DL (32.0-36.0) Red Cell Distribution Width 10.7 % (11.6-14.8) Platelet Count 86 K/UL (150-450) Mean Platelet Volume 6.9 FL (6.5-10.1) Neutrophils (%) (Auto) % (45.0-75.0) Lymphocytes (%) (Auto) % (20.0-45.0) Monocytes (%) (Auto) % (1.0-10.0) Eosinophils (%) (Auto) % (0.0-3.0) Basophils (%) (Auto) % (0.0-2.0) Differential Total Cells Counted 100 Neutrophils % (Manual) 58 % (45-75) Lymphocytes % (Manual) 28 % (20-45) Monocytes % (Manual) 13 % (1-10) Eosinophils % (Manual) 1 % (0-3) Basophils % (Manual) 0 % (0-2) Band Neutrophils 0 % (0-8) Platelet Estimate Decreased Platelet Morphology Normal Red Blood Cell Morphology Normal Height (Feet): 5 Height (Inches): 10.00 Weight (Pounds): 200 Objective Physical Exam: Vitals: reviewed General: Nad, altered mental status HEENT: nc, at Neck: supple Chest: clear breath sounds bilaterally Cardiovascular: RRR, no s3, s4 Abdomen: soft, nontender, nd Extremities: no cce, normal range of motion Neuro: alert and oriented Arya Nelson MD Jul 31, 2019 23:18
[2019-08-01] VITALS: BP 118/82
[2019-08-01 04:00] VITALS: BP 128/84
[2019-08-01] MEDS: chlordiazePOXIDE 25mg Cap ORAL SCH ×3 (05:22→21:23)
[2019-08-01] MEDS ORDERED: Piperacillin/Tazobactam 3.375 GM in NS 110 ML IVPB SCH (06:00)
--- NOTE | 2019-08-01 07:32 | NUR ---
HAND-OFF: Report given to NIDHI Palma.Endorsed high fall risk status to oncoming shift. Seizure precaution and fall precaution is in place. Sign on the door, bed alarm is on, side rails two up and padded, call light within reach and bed in low and locked position.
[2019-08-01 08:00] VITALS: BP 131/81
--- NOTE | 2019-08-01 08:00 | NUR ---
NURSE NOTES: Received pt is asleep, on room air, no respiratory distress noted. Patient on fall precaution, aspiration precaution and seizure precaution with padded side rails. Bed alarm is on with high sensitive setting, sign at the door, bed in low and locked position. Call light within reach. On HOB elevated. RFA IV access, no sign of infiltration or leakage. Will continue to frequently monitor patient and follow up with the plan of care.
[2019-08-01] MEDS ORDERED: D5W IVPB SCH (09:30)
[2019-08-01] MEDS ORDERED: [UNRECOGNIZED DRUG - OTHER] IVPB SCH (09:30)
[2019-08-01] MEDS: Thiamine 100mg tab ORAL SCH (09:32)
--- NOTE | 2019-08-01 10:18 | Nephrology Progress Note ---
Assessment/Plan Problem List: (1) JULIAN (acute kidney injury) (2) Seizure (3) ALCOHOL DEPENDENCE WITH WITHDRAWAL, UNSPECIFIED (4) Tachycardia (5) Hypokalemia Assessment Electrolyte imbalance Hypokalemia and hypomagnesemia Elevated creatinine to 1.4 on admission now corrected Seizure disorder Plan Patient taking p.o. well Stop hydrate To nonmonitored bed if okay with consultants Previously Following measures as needed IV magnesium IV potassium phosphate IV thiamine IV Protonix Continue management per other consultants Monitor electrolytes Per orders Subjective ROS Limited/Unobtainable: No Constitutional: Reports: malaise, weakness Objective Objective Last 24 Hour Vital Signs Date Time Temp Pulse Resp B/P (MAP) Pulse Ox O2 Delivery O2 Flow Rate FiO2 08/01/19 08:00 98.8 82 18 131/81 (98) 99 08/01/19 04:00 98.7 78 18 128/84 (99) 98 08/01/19 00:00 99.4 81 18 118/82 (94) 98 07/31/19 21:00 Room Air 07/31/19 20:00 98.8 85 20 147/89 (108) 98 07/31/19 18:34 99.9 07/31/19 18:00 102.9 07/31/19 17:35 101.2 07/31/19 16:00 102.0 86 20 115/50 (71) 95 07/31/19 16:00 87 07/31/19 12:00 80 07/31/19 11:42 98.0 84 20 143/99 (114) 96 Intake and Output 07/31/19 08/01/19 19:00 07:00 Intake Total 610 ml Output Total 700 ml Balance -90 ml Intake Oral 610 ml Output Urine Total 700 ml # Voids 2 # Bowel Movements 2 Current Medications Medications (Trade) Dose Ordered Sig/Gabrielle Route PRN Reason Start Time Stop Time Status Last Admin Dose Admin Acetaminophen (Tylenol) 650 mg Q6H PRN RECTAL fever 07/31/19 22:43 08/30/19 22:42 Amphotericin B Liposome 360 mg/ Dextrose 250 ml @ 125 mls/hr Q24H IV 08/01/19 12:00 08/06/19 11:59 Barium Sulfate (Readi-Cat 2) 450 ml ONCE PRN ORAL Radiology Procedure 08/01/19 07:00 08/03/19 06:59 Chlordiazepoxide (Librium) 50 mg EVERY 8 HOURS ORAL 08/01/19 06:00 08/02/19 14:29 08/01/19 05:22 Fluconazole (Diflucan) 800 mg Q24H ORAL 08/01/19 12:00 08/08/19 11:59 Folic Acid (Folate) 1 mg DAILY ORAL 08/01/19 09:00 08/27/19 08:59 08/01/19 09:32 Ibuprofen (Motrin) 600 mg Q6H PRN ORAL Mild Pain/Temp > 100.5 07/31/19 22:44 08/30/19 22:43 Iohexol (OMNIPAQUE-300 100ml) 100 ml ONCE PRN INJ Radiology procedure 08/01/19 18:45 08/03/19 23:59 Lorazepam (Ativan 2mg/ml 1ml) 2 mg Q2H PRN IM For Anxiety 07/31/19 22:48 08/07/19 22:47 Pantoprazole (Protonix) 40 mg EVERY 12 HOURS ORAL 08/01/19 09:00 08/29/19 20:59 08/01/19 09:32 Piperacillin Sod/ Tazobactam Sod 3.375 gm/Sodium Chloride 110 ml @ 27.5 mls/hr EVERY 8 HOURS IVPB 08/01/19 06:00 08/06/19 05:59 08/01/19 05:21 Thiamine HCl (Vitamin B1) 100 mg DAILY ORAL 08/01/19 09:00 08/27/19 19:59 08/01/19 09:32 Height (Feet): 5 Height (Inches): 10.00 Weight (Pounds): 200 General Appearance: no apparent distress Cardiovascular: normal rate Respiratory/Chest: decreased breath sounds Abdomen: soft Brian Alexandra MD Aug 01, 2019 10:18
[2019-08-01] MEDS ORDERED: D5W IV SCH ×2 (11:00→12:00)
[2019-08-01] MEDS ORDERED: AMPHOTERICIN B LIPOSOME IV SCH ×2 (11:00→12:00)
--- NOTE | 2019-08-01 11:57 | Hematology/Onc Progress Note ---
Assessment/Plan Assessment/Plan Assessment and Recs: # Pancytopenia - potential causes multifactorial, evaluate liver and viral etiologies to begin, in this case due to ETOH ABUSE/WITHDRAWAL, bone marrow myelosuppression --> Hep panel and HIV +++ --> US abd to evaluate for cirrhosis and hsm ordered --> SHOWS spenomegaly, enlarged spleen --> Peripheral smear ordered to evaluate for blasts /schistocytes --> none noted --> abx and other meds have been reviewed --> ok for ppx if plt >50k w/ either heparin or lovenox --> Transfuse if Plt < 20k and fever, or if Plt < 10k without fever --> plt trend 164-->122k-->86k --> wbc trend 5-->3-->2->2.2 --> abx: vanc/zosyn # ETOH withdrawal --> r/o seizure --> ativan, librium, folate --> imaging reviewed --> smear noted # Seizure --> R/o seizure d/o onset -> meds reviewed --> as per neuro # JULIAN (acute kidney injury) --> per renal recs # HIV --> as per id, consider eval # Tachycardia --> per Dr. Mckeon # AMS --> per psych The timing of this note does not necessarily reflect the time of the patient was seen. Greatly appreciate consultation. Subjective Allergies: Coded Allergies: No Known Allergies (Unverified , 07/25/19) Subjective 07/27: no events, no bleeding, cbc pending, remains altered 07/28: no events, labs reviewed, viral studies noted, no bleeding 07/29: asleep, cbc pending, on vanc/zosym, room air 07/30 no major events noted, no bleeding, labs reviewed 07/31 no events, tolerating po, labs pending Objective Objective Current Medications Medications (Trade) Dose Ordered Sig/Gabrielle Route PRN Reason Start Time Stop Time Status Last Admin Dose Admin Acetaminophen (Tylenol) 650 mg Q6H PRN RECTAL fever 07/31/19 22:43 08/30/19 22:42 Amphotericin B Liposome 360 mg/ Dextrose 250 ml @ 125 mls/hr Q24H IV 08/01/19 12:00 08/06/19 11:59 Barium Sulfate (Readi-Cat 2) 450 ml ONCE PRN ORAL Radiology Procedure 08/01/19 07:00 08/03/19 06:59 Chlordiazepoxide (Librium) 50 mg EVERY 8 HOURS ORAL 08/01/19 06:00 08/02/19 14:29 08/01/19 05:22 Fluconazole/ Sodium Chloride 200 ml @ 100 mls/hr Q24H IV 08/01/19 14:00 08/08/19 13:59 Fluconazole/ Sodium Chloride 200 ml @ 100 mls/hr Q24H IV 08/01/19 16:00 08/08/19 15:59 Folic Acid (Folate) 1 mg DAILY ORAL 08/01/19 09:00 08/27/19 08:59 08/01/19 09:32 Ibuprofen (Motrin) 600 mg Q6H PRN ORAL Mild Pain/Temp > 100.5 07/31/19 22:44 08/30/19 22:43 Iohexol (OMNIPAQUE-300 100ml) 100 ml ONCE PRN INJ Radiology procedure 08/01/19 18:45 08/03/19 23:59 Lorazepam (Ativan 2mg/ml 1ml) 2 mg Q2H PRN IM For Anxiety 07/31/19 22:48 08/07/19 22:47 Pantoprazole (Protonix) 40 mg EVERY 12 HOURS ORAL 08/01/19 09:00 08/29/19 20:59 08/01/19 09:32 Piperacillin Sod/ Tazobactam Sod 3.375 gm/Sodium Chloride 110 ml @ 27.5 mls/hr EVERY 8 HOURS IVPB 08/01/19 06:00 08/06/19 05:59 08/01/19 05:21 Thiamine HCl (Vitamin B1) 100 mg DAILY ORAL 08/01/19 09:00 08/27/19 19:59 08/01/19 09:32 Last 24 Hour Vital Signs Date Time Temp Pulse Resp B/P (MAP) Pulse Ox O2 Delivery O2 Flow Rate FiO2 08/01/19 08:00 98.8 82 18 131/81 (98) 99 08/01/19 04:00 98.7 78 18 128/84 (99) 98 08/01/19 00:00 99.4 81 18 118/82 (94) 98 07/31/19 21:00 Room Air 07/31/19 20:00 98.8 85 20 147/89 (108) 98 07/31/19 18:34 99.9 07/31/19 18:00 102.9 07/31/19 17:35 101.2 07/31/19 16:00 102.0 86 20 115/50 (71) 95 07/31/19 16:00 87 07/31/19 12:00 80 07/31/19 11:42 98.0 84 20 143/99 (114) 96 07/31/19 09:00 Room Air 07/31/19 08:00 97.9 81 19 154/100 (118) 98 07/31/19 08:00 79 07/31/19 04:00 97.7 64 19 142/75 (97) 99 07/31/19 04:00 70 07/31/19 00:00 98.8 77 19 121/53 (75) 94 07/31/19 00:00 82 07/30/19 21:51 98.6 07/30/19 21:00 Room Air 07/30/19 20:00 101.7 89 19 152/62 (92) 97 07/30/19 20:00 85 07/30/19 16:00 75 07/30/19 16:00 98.5 67 18 123/70 (87) 98 07/30/19 12:00 98.7 87 19 118/70 (86) 98 Intake and Output 07/31/19 08/01/19 19:00 07:00 Intake Total 610 ml Output Total 700 ml Balance -90 ml Intake Oral 610 ml Output Urine Total 700 ml # Voids 2 # Bowel Movements 2 Labs Test 07/29/19 20:45 07/30/19 06:13 07/30/19 22:23 07/31/19 06:20 Vancomycin Level Trough 6.9 ug/mL (5.0-12.0) 8.1 ug/mL (5.0-12.0) White Blood Count 3.8 K/UL (4.8-10.8) 2.2 K/UL (4.8-10.8) Red Blood Count 3.91 M/UL (4.70-6.10) 3.70 M/UL (4.70-6.10) Hemoglobin 13.3 G/DL (14.2-18.0) 13.0 G/DL (14.2-18.0) Hematocrit 37.6 % (42.0-52.0) 34.7 % (42.0-52.0) Mean Corpuscular Volume 96 FL (80-99) 94 FL (80-99) Mean Corpuscular Hemoglobin 34.0 PG (27.0-31.0) 35.1 PG (27.0-31.0) Mean Corpuscular Hemoglobin Concent 35.3 G/DL (32.0-36.0) 37.4 G/DL (32.0-36.0) Red Cell Distribution Width 10.9 % (11.6-14.8) 10.7 % (11.6-14.8) Platelet Count 119 K/UL (150-450) 86 K/UL (150-450) Mean Platelet Volume 7.6 FL (6.5-10.1) 6.9 FL (6.5-10.1) Neutrophils (%) (Auto) 54.0 % (45.0-75.0) % (45.0-75.0) Lymphocytes (%) (Auto) 32.4 % (20.0-45.0) % (20.0-45.0) Monocytes (%) (Auto) 10.9 % (1.0-10.0) % (1.0-10.0) Eosinophils (%) (Auto) 1.9 % (0.0-3.0) % (0.0-3.0) Basophils (%) (Auto) 0.8 % (0.0-2.0) % (0.0-2.0) Sodium Level 135 MMOL/L (136-145) Potassium Level 3.8 MMOL/L (3.5-5.1) Chloride Level 101 MMOL/L (98-107) Carbon Dioxide Level 26 MMOL/L (21-32) Anion Gap 8 mmol/L (5-15) Blood Urea Nitrogen 7 mg/dL (7-18) Creatinine 0.9 MG/DL (0.55-1.30) Estimat Glomerular Filtration Rate > 60 mL/min (>60) Glucose Level 97 MG/DL (74-106) Calcium Level 8.3 MG/DL (8.5-10.1) Total Bilirubin 0.4 MG/DL (0.2-1.0) Aspartate Amino Transf (AST/SGOT) 147 U/L (15-37) Alanine Aminotransferase (ALT/SGPT) 89 U/L (12-78) Alkaline Phosphatase 85 U/L (46-116) Total Protein 8.6 G/DL (6.4-8.2) Albumin 2.8 G/DL (3.4-5.0) Globulin 5.8 g/dL Albumin/Globulin Ratio 0.5 (1.0-2.7) Differential Total Cells Counted 100 Neutrophils % (Manual) 58 % (45-75) Lymphocytes % (Manual) 28 % (20-45) Monocytes % (Manual) 13 % (1-10) Eosinophils % (Manual) 1 % (0-3) Basophils % (Manual) 0 % (0-2) Band Neutrophils 0 % (0-8) Platelet Estimate Decreased Platelet Morphology Normal Red Blood Cell Morphology Normal Test 08/01/19 10:07 Height (Feet): 5 Height (Inches): 10.00 Weight (Pounds): 200 Objective Physical Exam: Vitals: reviewed General: Nad, altered mental status HEENT: nc, at Neck: supple Chest: clear breath sounds bilaterally Cardiovascular: RRR, no s3, s4 Abdomen: soft, nontender, nd Extremities: no cce, normal range of motion Neuro: alert and oriented Arya Nelson MD Aug 01, 2019 11:57
[2019-08-01] MEDS ORDERED: Fluconazole 100mg tab ORAL SCH (12:00)
--- NOTE | 2019-08-01 12:07 | Diagnostic Imaging Report ---
EXAM: CT Abdomen and Pelvis With Intravenous Contrast CLINICAL HISTORY: INFECT TECHNIQUE: Axial computed tomography images of the abdomen and pelvis with intravenous contrast. CTDI is 5.5 mGy and DLP is 304.1 mGy-cm. One or more of the following dose reduction techniques were used: automated exposure control, adjustment of the mA and/or kV according to patient size, use of iterative reconstruction technique. COMPARISON: Ultrasound abdomen on 07/26/2019 FINDINGS: Lung bases: Dependent atelectasis bilaterally. ABDOMEN: Liver: Unremarkable. No mass. Gallbladder and bile ducts: Unremarkable. No calcified stones. No ductal dilation. Pancreas: Unremarkable. No mass. No ductal dilation. Spleen: Unremarkable. No splenomegaly. Adrenals: Unremarkable. No mass. Kidneys and ureters: No hydronephrosis or obstructing stone. Stomach and bowel: Large amount of stool in colon. No mucosal thickening. PELVIS: Appendix: Normal appendix. Bladder: Unremarkable. No mass. Reproductive: Unremarkable as visualized. ABDOMEN and PELVIS: Intraperitoneal space: Unremarkable. No free air. No significant fluid collection. Bones/joints: No acute fracture. No dislocation. Soft tissues: Unremarkable. Vasculature: Unremarkable. No abdominal aortic aneurysm. Lymph nodes: Unremarkable. No enlarged lymph nodes. IMPRESSION: No acute findings in the abdomen or pelvis.
--- NOTE | 2019-08-01 13:21 | General Progress Note ---
Assessment/Plan Assessment/Plan: (1) Alcohol abuse (2) Alcohol withdrawals (3) R/O Delirium Tremens Patient to be continued on Ativan and Librium as per psychiatrist D/w Dr. Wilson and he concurred. Subjective Date patient seen: Aug 01, 2019 Time patient seen: 01:00 - pm Constitutional: Reports: no symptoms HEENT: Reports: no symptoms Cardiovascular: Reports: no symptoms Respiratory: Reports: no symptoms Gastrointestinal/Abdominal: Reports: no symptoms Genitourinary: Reports: no symptoms Neurologic/Psychiatric: Reports: no symptoms Endocrine: Reports: no symptoms Hematologic/Lymphatic: Reports: no symptoms Allergies: Coded Allergies: No Known Allergies (Unverified , 07/25/19) Subjective Patient is in bed and denies pain. No new complaints at this time. Objective Last 24 Hour Vital Signs Date Time Temp Pulse Resp B/P (MAP) Pulse Ox O2 Delivery O2 Flow Rate FiO2 08/01/19 08:00 98.8 82 18 131/81 (98) 99 08/01/19 04:00 98.7 78 18 128/84 (99) 98 08/01/19 00:00 99.4 81 18 118/82 (94) 98 07/31/19 21:00 Room Air 07/31/19 20:00 98.8 85 20 147/89 (108) 98 07/31/19 18:34 99.9 07/31/19 18:00 102.9 07/31/19 17:35 101.2 07/31/19 16:00 102.0 86 20 115/50 (71) 95 07/31/19 16:00 87 Intake and Output 07/31/19 08/01/19 19:00 07:00 Intake Total 610 ml Output Total 700 ml Balance -90 ml Intake Oral 610 ml Output Urine Total 700 ml # Voids 2 # Bowel Movements 2 Laboratory Tests 08/01/19 10:07: White Blood Count [Pending], Lymphocytes [Pending], Percent CD3 Cells [Pending] , Absolute CD3 Count [Pending], Percent CD4 Cells [Pending], Absolute CD4 Count [Pending], T-Lymphocyte CD4/CD8 Ratio [Pending], Percent CD8 Cells [Pending], Absolute CD8 Count [Pending], HIV-1 RNA (PCR) log10 Value [Pending], HIV-1 RNA Ultraquantitative (PCR) [Pending] Height (Feet): 5 Height (Inches): 10.00 Weight (Pounds): 200 General Appearance: no apparent distress, alert EENT: PERRL/EOMI, normal ENT inspection Neck: non-tender, normal alignment Cardiovascular: normal rate, regular rhythm Respiratory/Chest: decreased breath sounds Abdomen: non tender, soft Extremities: non-tender Edema: no edema noted Generalized Neurologic: alert, responsive Skin: warm/dry Archie Magaña Aug 01, 2019 13:21
--- NOTE | 2019-08-01 13:39 | Infectious Diseases Prog Note ---
Assessment/Plan Assessment/Plan IMPRESSION: Sepsis with fever Tachycardia resolved. 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 RECOMMENDATION: Discontinue Zosyn Started on Liposomal Amphotericin B & Fluconazole Will f/u HIV viral loud & CD4 Subjective ROS Limited/Unobtainable: Yes Constitutional: Reports: fever, other - last evening HEENT: Reports: other - headache Respiratory: Reports: no symptoms Gastrointestinal/Abdominal: Reports: no symptoms Genitourinary: Reports: no symptoms Allergies: Coded Allergies: No Known Allergies (Unverified , 07/25/19) Objective Vital Signs Last 24 Hour Vital Signs Date Time Temp Pulse Resp B/P (MAP) Pulse Ox O2 Delivery O2 Flow Rate FiO2 08/01/19 08:00 98.8 82 18 131/81 (98) 99 08/01/19 04:00 98.7 78 18 128/84 (99) 98 08/01/19 00:00 99.4 81 18 118/82 (94) 98 07/31/19 21:00 Room Air 07/31/19 20:00 98.8 85 20 147/89 (108) 98 07/31/19 18:34 99.9 07/31/19 18:00 102.9 07/31/19 17:35 101.2 07/31/19 16:00 102.0 86 20 115/50 (71) 95 07/31/19 16:00 87 Height (Feet): 5 Height (Inches): 10.00 Weight (Pounds): 200 HEENT: thrush Respiratory/Chest: lungs clear Cardiovascular: normal rate Abdomen: soft, non tender Extremities: no edema Neurologic/Psychiatric: alert, responsive Laboratory Tests Test 08/01/19 10:07 White Blood Count Pending Lymphocytes Pending Percent CD3 Cells Pending Absolute CD3 Count Pending Percent CD4 Cells Pending Absolute CD4 Count Pending T-Lymphocyte CD4/CD8 Ratio Pending Percent CD8 Cells Pending Absolute CD8 Count Pending HIV-1 RNA (PCR) log10 Value Pending HIV-1 RNA Ultraquantitative (PCR) Pending Current Medications Medications (Trade) Dose Ordered Sig/Gabrielle Route PRN Reason Start Time Stop Time Status Last Admin Dose Admin Acetaminophen (Tylenol) 650 mg Q6H PRN RECTAL fever 07/31/19 22:43 08/30/19 22:42 Amphotericin B Liposome 360 mg/ Dextrose 250 ml @ 125 mls/hr Q24H IV 08/01/19 12:00 08/06/19 11:59 08/01/19 12:50 Barium Sulfate (Readi-Cat 2) 450 ml ONCE PRN ORAL Radiology Procedure 08/01/19 07:00 08/03/19 06:59 Chlordiazepoxide (Librium) 50 mg EVERY 8 HOURS ORAL 08/01/19 06:00 08/02/19 14:29 08/01/19 05:22 Fluconazole/ Sodium Chloride 200 ml @ 100 mls/hr Q24H IV 08/01/19 14:00 08/08/19 13:59 Fluconazole/ Sodium Chloride 200 ml @ 100 mls/hr Q24H IV 08/01/19 16:00 08/08/19 15:59 Folic Acid (Folate) 1 mg DAILY ORAL 08/01/19 09:00 08/27/19 08:59 08/01/19 09:32 Ibuprofen (Motrin) 600 mg Q6H PRN ORAL Mild Pain/Temp > 100.5 07/31/19 22:44 08/30/19 22:43 Iohexol (OMNIPAQUE-300 100ml) 100 ml ONCE PRN INJ Radiology procedure 08/01/19 18:45 08/03/19 23:59 Lorazepam (Ativan 2mg/ml 1ml) 2 mg Q2H PRN IM For Anxiety 07/31/19 22:48 08/07/19 22:47 Pantoprazole (Protonix) 40 mg EVERY 12 HOURS ORAL 08/01/19 09:00 08/29/19 20:59 08/01/19 09:32 Piperacillin Sod/ Tazobactam Sod 3.375 gm/Sodium Chloride 110 ml @ 27.5 mls/hr EVERY 8 HOURS IVPB 08/01/19 06:00 08/06/19 05:59 08/01/19 05:21 Thiamine HCl (Vitamin B1) 100 mg DAILY ORAL 08/01/19 09:00 08/27/19 19:59 08/01/19 09:32 Po Bryant MD Aug 01, 2019 13:39
[2019-08-01] MEDS ORDERED: D5NS 1000ml IV ONE (14:00)
[2019-08-01] MEDS ORDERED: Tubing IV Secondary IV ONE (14:00)
[2019-08-01 16:00] VITALS: BP 113/79
[2019-08-01] MEDS ORDERED: Omnipaque-300 100ml vial INJ PRN (18:45)
--- NOTE | 2019-08-01 18:50 | General Progress Note ---
Assessment/Plan Assessment/Plan: Assessment - HIV (+) - crypto meningitis - pancytopenia - elevated LFT - h/o EtOH use x years, although stated he has not consumed for 1 mo - seizure - fever Recommendations - check hepatitis serologies -all negative - ID f/u - po as tolerated - thiamine Subjective Allergies: Coded Allergies: No Known Allergies (Unverified , 07/25/19) Subjective Above noted tolerating PO no abdominal complaints Objective Last 24 Hour Vital Signs Date Time Temp Pulse Resp B/P (MAP) Pulse Ox O2 Delivery O2 Flow Rate FiO2 08/01/19 16:00 98.4 88 19 113/79 (90) 98 08/01/19 15:23 98.8 08/01/19 09:00 Room Air 08/01/19 08:00 98.8 82 18 131/81 (98) 99 08/01/19 04:00 98.7 78 18 128/84 (99) 98 08/01/19 00:00 99.4 81 18 118/82 (94) 98 07/31/19 21:00 Room Air 07/31/19 20:00 98.8 85 20 147/89 (108) 98 Intake and Output 07/31/19 08/01/19 19:00 07:00 Intake Total 610 ml Output Total 700 ml Balance -90 ml Intake Oral 610 ml Output Urine Total 700 ml # Voids 2 # Bowel Movements 2 Laboratory Tests 08/01/19 10:07: White Blood Count [Pending], Lymphocytes [Pending], Percent CD3 Cells [Pending] , Absolute CD3 Count [Pending], Percent CD4 Cells [Pending], Absolute CD4 Count [Pending], T-Lymphocyte CD4/CD8 Ratio [Pending], Percent CD8 Cells [Pending], Absolute CD8 Count [Pending], HIV-1 RNA (PCR) log10 Value [Pending], HIV-1 RNA Ultraquantitative (PCR) [Pending] Height (Feet): 5 Height (Inches): 10.00 Weight (Pounds): 200 Objective WDWN NCAT supple CTA RR abd soft ND no edema Jai Ness MD Aug 01, 2019 18:50
--- NOTE | 2019-08-01 19:04 | NUR ---
HAND-OFF: Report given to NIDHI Vivar
--- NOTE | 2019-08-01 19:42 | NUR ---
NURSE NOTES: Pt is awake and alert, on room air, no respiratory distress noted. No c/o pain or discomfort at this time. Fall precaution, aspiration precaution and fall precaution in place. Bed alarm is on with high sensitive setting, sign at the door, bed in low and locked position. Call light within reach. Side rails two up and padded for seizure precaution. HOB elevated. Will continue to monitor and do frequent rounds for safety.
[2019-08-01 20:00] VITALS: BP 96/60
--- NOTE | 2019-08-01 21:31 | General Progress Note ---
Assessment/Plan Problem List: (1) Seizure disorder ICD Codes: G40.909 - Epilepsy, unspecified, not intractable, without status epilepticus SNOMED: 586118016 (2) Hypokalemia ICD Codes: E87.6 - Hypokalemia SNOMED: 82822442 (3) Seizure ICD Codes: R56.9 - Unspecified convulsions SNOMED: 25387448 (4) Tachycardia ICD Codes: R00.0 - Tachycardia, unspecified SNOMED: 1392210 (5) ALCOHOL DEPENDENCE WITH WITHDRAWAL, UNSPECIFIED ICD Codes: F10.239 - ALCOHOL DEPENDENCE WITH WITHDRAWAL, UNSPECIFIED Assessment/Plan: crypticocal mingitis unsafe for dc abx per id alcohol withdrawal resolved Subjective ROS Limited/Unobtainable: Yes Allergies: Coded Allergies: No Known Allergies (Unverified , 07/25/19) Objective Last 24 Hour Vital Signs Date Time Temp Pulse Resp B/P (MAP) Pulse Ox O2 Delivery O2 Flow Rate FiO2 08/01/19 20:00 98.1 62 19 96/60 (72) 96 08/01/19 16:00 98.4 88 19 113/79 (90) 98 08/01/19 15:23 98.8 08/01/19 09:00 Room Air 08/01/19 08:00 98.8 82 18 131/81 (98) 99 08/01/19 04:00 98.7 78 18 128/84 (99) 98 08/01/19 00:00 99.4 81 18 118/82 (94) 98 Intake and Output 07/31/19 08/01/19 19:00 07:00 Intake Total 610 ml Output Total 700 ml Balance -90 ml Intake Oral 610 ml Output Urine Total 700 ml # Voids 2 # Bowel Movements 2 Laboratory Tests 08/01/19 10:07: White Blood Count [Pending], Lymphocytes [Pending], Percent CD3 Cells [Pending] , Absolute CD3 Count [Pending], Percent CD4 Cells [Pending], Absolute CD4 Count [Pending], T-Lymphocyte CD4/CD8 Ratio [Pending], Percent CD8 Cells [Pending], Absolute CD8 Count [Pending], HIV-1 RNA (PCR) log10 Value [Pending], HIV-1 RNA Ultraquantitative (PCR) [Pending] Height (Feet): 5 Height (Inches): 10.00 Weight (Pounds): 200 General Appearance: lethargic, confused Cardiovascular: normal rate Respiratory/Chest: lungs clear Isa Blanchard MD Aug 01, 2019 21:31
[2019-08-01 23:48] VITALS: BP 104/66
[2019-08-02 04:00] VITALS: BP 99/66
[2019-08-02] MEDS: chlordiazePOXIDE 25mg Cap ORAL SCH ×2 (05:07→16:21)
[2019-08-02 06:46] LABS: HEMATOCRIT 34.9 % (42.0-52.0); HEMOGLOBIN 12.5 G/DL (14.2-18.0); MEAN CORPUSCULAR VOLUME 94 FL (80-99); PLATELET COUNT 70 K/UL (150-450); RED CELL DISTRIBUTION WIDTH 10.6 % (11.6-14.8); WHITE BLOOD COUNT 2.2 K/UL (4.8-10.8)
[2019-08-02 06:48] LABS: ALANINE AMINOTRANSFERASE 82 U/L (12-78); ALBUMIN 2.5 G/DL (3.4-5.0); ALBUMIN/GLOBULIN RATIO 0.5 (1.0-2.7); ALKALINE PHOSPHATASE 101 U/L (46-116); ANION GAP 11 mmol/L (5-15); ASPARTATE AMINO TRANSFERASE 108 U/L (15-37); BILIRUBIN,TOTAL 0.3 MG/DL (0.2-1.0); BLOOD UREA NITROGEN 14 mg/dL (7-18); CALCIUM 8.3 MG/DL (8.5-10.1); CARBON DIOXIDE 23 MMOL/L (21-32); CHLORIDE 101 MMOL/L (98-107); CREATININE 1.7 MG/DL (0.55-1.30); POTASSIUM 3.3 MMOL/L (3.5-5.1); SODIUM 135 MMOL/L (136-145)
[2019-08-02 07:35] LABS: PHOSPHORUS 5.5 MG/DL (2.5-4.9)
--- NOTE | 2019-08-02 07:40 | NUR ---
HAND-OFF: Report given to NIDHI Palma.Endorsed high fall risk status to oncoming shift. Fall precaution and seizure precaution in place. Sign on the board, bed alarm is on, side rails two up padded, call light in reach and bed in low and locked position.
[2019-08-02 08:00] VITALS: BP 111/76
--- NOTE | 2019-08-02 08:02 | NUR ---
NURSE NOTES: Received pt in bed, asleep, no respiratory distress noted. Patient on Fall and aspiration precaution. Bed alarm is on with high sensitive setting, sign at the door, bed in low and locked position. Call light within reach. Side rails two up and padded for seizure precaution. HOB elevated. Will continue to monitor patient frequently and follow up with the plan of care.
--- NOTE | 2019-08-02 08:41 | General Progress Note ---
Assessment/Plan Assessment/Plan: (1) Alcohol abuse (2) Alcohol withdrawals (3) R/O Delirium Tremens Patient to be continued on Ativan as per psychiatrist D/w Dr. Wilson and he concurred. Subjective Date patient seen: Aug 02, 2019 Time patient seen: 08:15 - am Allergies: Coded Allergies: No Known Allergies (Unverified , 07/25/19) Subjective Constitutional: Reports: no symptoms HEENT: Reports: no symptoms Cardiovascular: Reports: no symptoms Respiratory: Reports: no symptoms Gastrointestinal/Abdominal: Reports: no symptoms Genitourinary: Reports: no symptoms Neurologic/Psychiatric: Reports: no symptoms Endocrine: Reports: no symptoms Hematologic/Lymphatic: Reports: no symptoms Subjective Patient showing no signs of pain or distress. Denies pain at this time. Objective Last 24 Hour Vital Signs Date Time Temp Pulse Resp B/P (MAP) Pulse Ox O2 Delivery O2 Flow Rate FiO2 08/02/19 08:00 97.4 74 20 111/76 (88) 98 08/02/19 04:00 98.2 63 18 99/66 (77) 97 08/01/19 23:48 98.8 74 19 104/66 (79) 96 08/01/19 21:00 Room Air 08/01/19 20:00 98.1 62 19 96/60 (72) 96 08/01/19 16:00 98.4 88 19 113/79 (90) 98 08/01/19 15:23 98.8 08/01/19 09:00 Room Air Intake and Output 08/01/19 08/02/19 19:00 07:00 Intake Total 1630 ml 480 ml Balance 1630 ml 480 ml Intake Oral 1180 ml 480 ml IV Total 450 ml # Voids 6 3 # Bowel Movements 2 1 Laboratory Tests 08/01/19 10:07: White Blood Count [Pending], Lymphocytes [Pending], Percent CD3 Cells [Pending] , Absolute CD3 Count [Pending], Percent CD4 Cells [Pending], Absolute CD4 Count [Pending], T-Lymphocyte CD4/CD8 Ratio [Pending], Percent CD8 Cells [Pending], Absolute CD8 Count [Pending], HIV-1 RNA (PCR) log10 Value [Pending], HIV-1 RNA Ultraquantitative (PCR) [Pending] 08/02/19 05:45: White Blood Count 2.2L, Red Blood Count 3.70L, Hemoglobin 12.5L, Hematocrit 34.9L, Mean Corpuscular Volume 94, Mean Corpuscular Hemoglobin 33.8H, Mean Corpuscular Hemoglobin Concent 35.7, Red Cell Distribution Width 10.6L, Platelet Count 70L, Mean Platelet Volume 8.2, Neutrophils (%) (Auto) , Lymphocytes (%) (Auto) , Monocytes (%) (Auto) , Eosinophils (%) (Auto) , Basophils (%) (Auto) , Differential Total Cells Counted 100, Neutrophils % ( Manual) 60, Lymphocytes % (Manual) 20, Monocytes % (Manual) 11H, Eosinophils % ( Manual) 9H, Basophils % (Manual) 0, Band Neutrophils 0, Platelet Estimate DecreasedL, Platelet Morphology Normal, Sodium Level 135L, Potassium Level 3.3L , Chloride Level 101, Carbon Dioxide Level 23, Anion Gap 11, Blood Urea Nitrogen 14, Creatinine 1.7H, Estimat Glomerular Filtration Rate 44.9, Glucose Level 95, Calcium Level 8.3L, Phosphorus Level 5.5H, Magnesium Level 1.8, Total Bilirubin 0.3, Aspartate Amino Transf (AST/SGOT) 108H, Alanine Aminotransferase (ALT/SGPT) 82H, Alkaline Phosphatase 101, C-Reactive Protein, Quantitative < 0.4 , Pro-B-Type Natriuretic Peptide 17, Total Protein 7.7, Albumin 2.5L, Globulin 5.2, Albumin/Globulin Ratio 0.5L Height (Feet): 5 Height (Inches): 10.00 Weight (Pounds): 200 Objective General Appearance: no apparent distress, alert EENT: PERRL/EOMI, normal ENT inspection Neck: non-tender, normal alignment Cardiovascular: normal rate, regular rhythm Respiratory/Chest: decreased breath sounds Abdomen: non tender, soft Extremities: non-tender Edema: no edema noted Generalized Neurologic: alert, responsive Skin: warm/dry Archie Magaña Aug 02, 2019 08:41
[2019-08-02] MEDS: Thiamine 100mg tab ORAL SCH (08:55)
--- NOTE | 2019-08-02 10:45 | NUR ---
RD ASSESSMENT & RECOMMENDATIONS SEE CARE ACTIVITY FOR COMPLETE ASSESSMENT DAILY ESTIMATED NEEDS: Needs based on HIV, liver dysfunction/ 77kg 25-30 kcals/kg 2397-0884 total kcals 1-1.5 g protein/kg 77-115 g total protein 25-30 mL/kg 2823-1574 total fluid mLs NUTRITION DIAGNOSIS: * Increased kcal/prot needs R/T catabolic dx, infection as evidenced by HIV+, dx of crypto meningitis. * Altered nutrition related lab values R/T liver dysfunction, h/o ETOH abuse as evidenced by elev LFTs CURRENT DIET:LOW FAT PO DIET RECOMMENDATIONS: LOW NA/ texture as tolerated ADDITIONAL RECOMMENDATIONS: * Calibrated bedscale wt * Snacks BID in b/w meals * Monitor lytes, replete as needed (low K) * MVI x 1 * Monitor PO tolerance, need to downgrade texture -> admitted w/ AMS dx, mental status improving
--- NOTE | 2019-08-02 10:58 | Cardiac Electrophysiology PN ---
Assessment/Plan Assessment/Plan 1. Tachycardia due to seizure and alcohol withdrawal. Fu by Neurology. EF 60%. EKG shows sinus tachycardia with no acute ST-T wave abnormality. 2. Status post seizure, due to meningitis. 3. Cryptococcal meningitis, S/ LP. on iv antifungal per Dr Bryant 4. History of heavy alcohol use 5. HIOV 6. Thrombocytopenia FU Dr Omar GASCA RN and Dr. Bryant Subjective Subjective More alert in NAD. LP was suggestive of Cryptococcal meningitis and now on IV Antifungal. HIV test also positive Objective Last 24 Hour Vital Signs Date Time Temp Pulse Resp B/P (MAP) Pulse Ox O2 Delivery O2 Flow Rate FiO2 08/02/19 08:00 97.4 74 20 111/76 (88) 98 08/02/19 04:00 98.2 63 18 99/66 (77) 97 08/01/19 23:48 98.8 74 19 104/66 (79) 96 08/01/19 21:00 Room Air 08/01/19 20:00 98.1 62 19 96/60 (72) 96 08/01/19 16:00 98.4 88 19 113/79 (90) 98 08/01/19 15:23 98.8 Intake and Output 08/01/19 08/02/19 19:00 07:00 Intake Total 1630 ml 480 ml Balance 1630 ml 480 ml Intake Oral 1180 ml 480 ml IV Total 450 ml # Voids 6 3 # Bowel Movements 2 1 Laboratory Tests Test 08/02/19 05:45 White Blood Count 2.2 K/UL (4.8-10.8) L Red Blood Count 3.70 M/UL (4.70-6.10) L Hemoglobin 12.5 G/DL (14.2-18.0) L Hematocrit 34.9 % (42.0-52.0) L Mean Corpuscular Volume 94 FL (80-99) Mean Corpuscular Hemoglobin 33.8 PG (27.0-31.0) H Mean Corpuscular Hemoglobin Concent 35.7 G/DL (32.0-36.0) Red Cell Distribution Width 10.6 % (11.6-14.8) L Platelet Count 70 K/UL (150-450) L Mean Platelet Volume 8.2 FL (6.5-10.1) Neutrophils (%) (Auto) % (45.0-75.0) Lymphocytes (%) (Auto) % (20.0-45.0) Monocytes (%) (Auto) % (1.0-10.0) Eosinophils (%) (Auto) % (0.0-3.0) Basophils (%) (Auto) % (0.0-2.0) Differential Total Cells Counted 100 Neutrophils % (Manual) 60 % (45-75) Lymphocytes % (Manual) 20 % (20-45) Monocytes % (Manual) 11 % (1-10) H Eosinophils % (Manual) 9 % (0-3) H Basophils % (Manual) 0 % (0-2) Band Neutrophils 0 % (0-8) Platelet Estimate Decreased L Platelet Morphology Normal Sodium Level 135 MMOL/L (136-145) L Potassium Level 3.3 MMOL/L (3.5-5.1) L Chloride Level 101 MMOL/L (98-107) Carbon Dioxide Level 23 MMOL/L (21-32) Anion Gap 11 mmol/L (5-15) Blood Urea Nitrogen 14 mg/dL (7-18) Creatinine 1.7 MG/DL (0.55-1.30) H Estimat Glomerular Filtration Rate 44.9 mL/min (>60) Glucose Level 95 MG/DL (74-106) Calcium Level 8.3 MG/DL (8.5-10.1) L Phosphorus Level 5.5 MG/DL (2.5-4.9) H Magnesium Level 1.8 MG/DL (1.8-2.4) Total Bilirubin 0.3 MG/DL (0.2-1.0) Aspartate Amino Transf (AST/SGOT) 108 U/L (15-37) H Alanine Aminotransferase (ALT/SGPT) 82 U/L (12-78) H Alkaline Phosphatase 101 U/L (46-116) C-Reactive Protein, Quantitative < 0.4 mg/dL (0.00-0.90) Pro-B-Type Natriuretic Peptide 17 pg/mL (0-125) Total Protein 7.7 G/DL (6.4-8.2) Albumin 2.5 G/DL (3.4-5.0) L Globulin 5.2 g/dL Albumin/Globulin Ratio 0.5 (1.0-2.7) L Microbiology Date/Time Source Procedure Growth Status 3/14/20 19:14 Blood Blood Culture - Preliminary NO GROWTH AFTER 24 HOURS Resulted 07/31/19 19:10 Blood Blood Culture - Preliminary NO GROWTH AFTER 24 HOURS Resulted Objective HEAD AND NECK: No JVD. LUNGS: Clear. CARDIOVASCULAR: Nl S1 and S2 with no gallop. ABDOMEN: Soft. EXTREMITIES: 1+ pitting edema. Ric Mckeon MD Aug 02, 2019 10:58
[2019-08-02 12:00] VITALS: BP 115/72
[2019-08-02] MEDS ORDERED: Fluconazole 150mg tab ORAL SCH ×2 (12:00→17:00)
[2019-08-02] MEDS ORDERED: Fluconazole 100mg tab ORAL SCH ×2 (12:00→17:00)
--- NOTE | 2019-08-02 12:35 | Infectious Diseases Prog Note ---
Assessment/Plan Assessment/Plan IMPRESSION: Sepsis with fever Tachycardia resolved. HIV ,AIDS Cryptococcal meningitis New-onset seizure Alcohol withdrawal Acute renal failure, Encephalopathy. RECOMMENDATION: Patient has HIV since 2003 goes to [facility], noncompliant with medication Should be on Dapsone, Zithromax, Descovy & Tivicay Continue Liposomal Amphotericin B & Fluconazole Case was D/W RN, inpatient & outpatient pharmacy Will f/u HIV viral loud & CD4 Subjective ROS Limited/Unobtainable: No Constitutional: Denies: fever HEENT: Reports: other - heache Respiratory: Reports: no symptoms Gastrointestinal/Abdominal: Reports: no symptoms Genitourinary: Reports: no symptoms Allergies: Coded Allergies: No Known Allergies (Unverified , 07/25/19) Objective Vital Signs Last 24 Hour Vital Signs Date Time Temp Pulse Resp B/P (MAP) Pulse Ox O2 Delivery O2 Flow Rate FiO2 08/02/19 09:00 Room Air 08/02/19 08:00 97.4 74 20 111/76 (88) 98 08/02/19 04:00 98.2 63 18 99/66 (77) 97 08/01/19 23:48 98.8 74 19 104/66 (79) 96 08/01/19 21:00 Room Air 08/01/19 20:00 98.1 62 19 96/60 (72) 96 08/01/19 16:00 98.4 88 19 113/79 (90) 98 08/01/19 15:23 98.8 Height (Feet): 5 Height (Inches): 10.00 Weight (Pounds): 200 General Appearance: no acute distress HEENT: mucous membranes moist Respiratory/Chest: lungs clear Cardiovascular: normal rate Abdomen: soft, non tender Extremities: no edema Neurologic/Psychiatric: alert, oriented x 3, responsive Microbiology Date/Time Source Procedure Growth Status 07/31/19 19:14 Blood Blood Culture - Preliminary NO GROWTH AFTER 24 HOURS Resulted 07/31/19 19:10 Blood Blood Culture - Preliminary NO GROWTH AFTER 24 HOURS Resulted Laboratory Tests Test 08/02/19 05:45 White Blood Count 2.2 K/UL (4.8-10.8) L Red Blood Count 3.70 M/UL (4.70-6.10) L Hemoglobin 12.5 G/DL (14.2-18.0) L Hematocrit 34.9 % (42.0-52.0) L Mean Corpuscular Volume 94 FL (80-99) Mean Corpuscular Hemoglobin 33.8 PG (27.0-31.0) H Mean Corpuscular Hemoglobin Concent 35.7 G/DL (32.0-36.0) Red Cell Distribution Width 10.6 % (11.6-14.8) L Platelet Count 70 K/UL (150-450) L Mean Platelet Volume 8.2 FL (6.5-10.1) Neutrophils (%) (Auto) % (45.0-75.0) Lymphocytes (%) (Auto) % (20.0-45.0) Monocytes (%) (Auto) % (1.0-10.0) Eosinophils (%) (Auto) % (0.0-3.0) Basophils (%) (Auto) % (0.0-2.0) Differential Total Cells Counted 100 Neutrophils % (Manual) 60 % (45-75) Lymphocytes % (Manual) 20 % (20-45) Monocytes % (Manual) 11 % (1-10) H Eosinophils % (Manual) 9 % (0-3) H Basophils % (Manual) 0 % (0-2) Band Neutrophils 0 % (0-8) Platelet Estimate Decreased L Platelet Morphology Normal Sodium Level 135 MMOL/L (136-145) L Potassium Level 3.3 MMOL/L (3.5-5.1) L Chloride Level 101 MMOL/L (98-107) Carbon Dioxide Level 23 MMOL/L (21-32) Anion Gap 11 mmol/L (5-15) Blood Urea Nitrogen 14 mg/dL (7-18) Creatinine 1.7 MG/DL (0.55-1.30) H Estimat Glomerular Filtration Rate 44.9 mL/min (>60) Glucose Level 95 MG/DL (74-106) Calcium Level 8.3 MG/DL (8.5-10.1) L Phosphorus Level 5.5 MG/DL (2.5-4.9) H Magnesium Level 1.8 MG/DL (1.8-2.4) Total Bilirubin 0.3 MG/DL (0.2-1.0) Aspartate Amino Transf (AST/SGOT) 108 U/L (15-37) H Alanine Aminotransferase (ALT/SGPT) 82 U/L (12-78) H Alkaline Phosphatase 101 U/L (46-116) C-Reactive Protein, Quantitative < 0.4 mg/dL (0.00-0.90) Pro-B-Type Natriuretic Peptide 17 pg/mL (0-125) Total Protein 7.7 G/DL (6.4-8.2) Albumin 2.5 G/DL (3.4-5.0) L Globulin 5.2 g/dL Albumin/Globulin Ratio 0.5 (1.0-2.7) L Current Medications Medications (Trade) Dose Ordered Sig/Gabrielle Route PRN Reason Start Time Stop Time Status Last Admin Dose Admin Acetaminophen (Tylenol) 650 mg Q6H PRN RECTAL fever 07/31/19 22:43 08/30/19 22:42 Amphotericin B Liposome 350 mg/ Dextrose 250 ml @ 125 mls/hr Q24H IV 08/02/19 14:00 08/07/19 13:59 Azithromycin (Zithromax) 1,200 mg ONCE A WEEK ORAL 08/02/19 12:30 08/09/19 12:29 UNV Barium Sulfate (Readi-Cat 2) 450 ml ONCE PRN ORAL Radiology Procedure 08/01/19 07:00 08/03/19 06:59 Chlordiazepoxide (Librium) 50 mg EVERY 8 HOURS ORAL 08/01/19 06:00 08/02/19 14:29 08/02/19 05:07 Dapsone (Dapsone) 100 mg DAILY ORAL 08/02/19 12:30 08/09/19 12:29 UNV Fluconazole (Diflucan) 200 mg DAILY ORAL 08/02/19 12:00 08/09/19 11:59 Fluconazole (Diflucan) 600 mg DAILY ORAL 08/02/19 12:00 08/09/19 11:59 Folic Acid (Folate) 1 mg DAILY ORAL 08/01/19 09:00 08/27/19 08:59 08/02/19 08:55 Ibuprofen (Motrin) 600 mg Q6H PRN ORAL Mild Pain/Temp > 100.5 07/31/19 22:44 08/30/19 22:43 08/01/19 14:53 Iohexol (OMNIPAQUE-300 100ml) 100 ml ONCE PRN INJ Radiology procedure 08/01/19 18:45 08/03/19 23:59 Lorazepam (Ativan 2mg/ml 1ml) 2 mg Q2H PRN IM For Anxiety 07/31/19 22:48 08/07/19 22:47 Pantoprazole (Protonix) 40 mg EVERY 12 HOURS ORAL 08/01/19 09:00 08/29/19 20:59 08/02/19 08:55 Thiamine HCl (Vitamin B1) 100 mg DAILY ORAL 08/01/19 09:00 08/27/19 19:59 08/02/19 08:55 Po Bryant MD Aug 02, 2019 12:35
--- NOTE | 2019-08-02 13:02 | Nephrology Progress Note ---
Assessment/Plan Problem List: (1) JULIAN (acute kidney injury) (2) Seizure (3) ALCOHOL DEPENDENCE WITH WITHDRAWAL, UNSPECIFIED (4) Tachycardia (5) Hypokalemia Assessment Electrolyte imbalance Hypokalemia and hypomagnesemia Elevated creatinine to 1.4 on admission now corrected Seizure disorder Plan Serum creatinine gilberto to 1.7 Will give a liter of saline Avoid nephrotoxic's as possible Flomax at night Urine studies ordered Patient taking p.o. well Previously Following measures as needed IV magnesium IV potassium phosphate IV thiamine IV Protonix Continue management per other consultants Monitor electrolytes Per orders Subjective ROS Limited/Unobtainable: No Constitutional: Reports: malaise Objective Objective Last 24 Hour Vital Signs Date Time Temp Pulse Resp B/P (MAP) Pulse Ox O2 Delivery O2 Flow Rate FiO2 08/02/19 09:00 Room Air 08/02/19 08:00 97.4 74 20 111/76 (88) 98 08/02/19 04:00 98.2 63 18 99/66 (77) 97 08/01/19 23:48 98.8 74 19 104/66 (79) 96 08/01/19 21:00 Room Air 08/01/19 20:00 98.1 62 19 96/60 (72) 96 08/01/19 16:00 98.4 88 19 113/79 (90) 98 08/01/19 15:23 98.8 Intake and Output 08/01/19 08/02/19 19:00 07:00 Intake Total 1630 ml 480 ml Balance 1630 ml 480 ml Intake Oral 1180 ml 480 ml IV Total 450 ml # Voids 6 3 # Bowel Movements 2 1 Laboratory Tests 08/02/19 05:45: White Blood Count 2.2L, Red Blood Count 3.70L, Hemoglobin 12.5L, Hematocrit 34.9L, Mean Corpuscular Volume 94, Mean Corpuscular Hemoglobin 33.8H, Mean Corpuscular Hemoglobin Concent 35.7, Red Cell Distribution Width 10.6L, Platelet Count 70L, Mean Platelet Volume 8.2, Neutrophils (%) (Auto) , Lymphocytes (%) (Auto) , Monocytes (%) (Auto) , Eosinophils (%) (Auto) , Basophils (%) (Auto) , Differential Total Cells Counted 100, Neutrophils % ( Manual) 60, Lymphocytes % (Manual) 20, Monocytes % (Manual) 11H, Eosinophils % ( Manual) 9H, Basophils % (Manual) 0, Band Neutrophils 0, Platelet Estimate DecreasedL, Platelet Morphology Normal, Sodium Level 135L, Potassium Level 3.3L , Chloride Level 101, Carbon Dioxide Level 23, Anion Gap 11, Blood Urea Nitrogen 14, Creatinine 1.7H, Estimat Glomerular Filtration Rate 44.9, Glucose Level 95, Calcium Level 8.3L, Phosphorus Level 5.5H, Magnesium Level 1.8, Total Bilirubin 0.3, Aspartate Amino Transf (AST/SGOT) 108H, Alanine Aminotransferase (ALT/SGPT) 82H, Alkaline Phosphatase 101, C-Reactive Protein, Quantitative < 0.4 , Pro-B-Type Natriuretic Peptide 17, Total Protein 7.7, Albumin 2.5L, Globulin 5.2, Albumin/Globulin Ratio 0.5L Height (Feet): 5 Height (Inches): 10.00 Weight (Pounds): 200 General Appearance: no apparent distress Cardiovascular: normal rate Respiratory/Chest: lungs clear Abdomen: soft Objective No change Brian Alexanrda MD Aug 02, 2019 13:02
[2019-08-02] MEDS ORDERED: D5W IV SCH ×2 (14:00→18:00)
[2019-08-02] MEDS ORDERED: AMPHOTERICIN B LIPOSOME IV SCH ×2 (14:00→18:00)
[2019-08-02 16:00] VITALS: BP 100/64
--- NOTE | 2019-08-02 16:12 | NUR ---
CASE MANAGEMENT:REVIEW SI;ETOH DEPENDENCE W/WITHDRAWAL. SEIZURE DISORDER. CRYPTOCOCCAL MENINGITIS. PANCYTOPENIA. HIV 98.8 76 20 99/66 96% ON RA WBC 2.2 RBC 3.70 PLT 70 NA 135 K+ 3.3 CR 1.7 AST 108 ALT 82 IS;DIFLUCAN PO Q24 HRS AMPHOTERICIN B LIPOSOME IV Q24 HRS DAPSONE PO QD ZITHROMAX PO QWEEK IVF NS @ 100ML/HR PROTONIX PO Q12 HRS THIAMINE PO QD MED SURG STATUS DCP; FROM HOME
[2019-08-02] MEDS: D5W IV SCH (16:22)
[2019-08-02] MEDS: AMPHOTERICIN B LIPOSOME IV SCH (16:22)
[2019-08-02] MEDS: Azithromycin 600mg Tab ORAL SCH (16:24)
--- NOTE | 2019-08-02 18:50 | NUR ---
NURSE NOTES: Received patient on bed awake. No SOB or acute distress. IV line intact and patent. HOB elevated. Bed locked in lowest position. Call light within reach. Will continue plan of care.
--- NOTE | 2019-08-02 19:10 | NUR ---
NURSE NOTES: Received pt in bed. AAO x 4, belarusian speaking. no respiratory distress noted. Patient on Fall, SZ, and aspiration precaution. IV intact. Bed alarm on, bed in low and locked position. Call light within reach. Side rails two up and padded for seizure precaution. HOB elevated. Will continue to monitor.
--- NOTE | 2019-08-02 19:24 | NUR ---
HAND-OFF: Report given to katherin.
[2019-08-02 20:00] VITALS: BP 120/79
--- NOTE | 2019-08-02 20:00 | NUR ---
HAND-OFF: Report given to katherin.
--- NOTE | 2019-08-02 20:49 | General Progress Note ---
Assessment/Plan Problem List: (1) Seizure disorder ICD Codes: G40.909 - Epilepsy, unspecified, not intractable, without status epilepticus SNOMED: 643971835 (2) Hypokalemia ICD Codes: E87.6 - Hypokalemia SNOMED: 91901952 (3) Seizure ICD Codes: R56.9 - Unspecified convulsions SNOMED: 91887105 (4) Tachycardia ICD Codes: R00.0 - Tachycardia, unspecified SNOMED: 1556617 (5) ALCOHOL DEPENDENCE WITH WITHDRAWAL, UNSPECIFIED ICD Codes: F10.239 - ALCOHOL DEPENDENCE WITH WITHDRAWAL, UNSPECIFIED Status: progressing Assessment/Plan: cryptococal meningitis seizure confused encephalopathy abx per id alcohol withdrawal resolved Subjective ROS Limited/Unobtainable: Yes Allergies: Coded Allergies: No Known Allergies (Unverified , 07/25/19) Objective Last 24 Hour Vital Signs Date Time Temp Pulse Resp B/P (MAP) Pulse Ox O2 Delivery O2 Flow Rate FiO2 08/02/19 16:00 98.4 77 20 100/64 (76) 98 08/02/19 12:00 98.4 76 20 115/72 (86) 98 08/02/19 09:00 Room Air 08/02/19 08:00 97.4 74 20 111/76 (88) 98 08/02/19 04:00 98.2 63 18 99/66 (77) 97 08/01/19 23:48 98.8 74 19 104/66 (79) 96 08/01/19 21:00 Room Air Intake and Output 08/01/19 08/02/19 19:00 07:00 Intake Total 1630 ml 480 ml Balance 1630 ml 480 ml Intake Oral 1180 ml 480 ml IV Total 450 ml # Voids 6 3 # Bowel Movements 2 1 Laboratory Tests 08/02/19 05:45: White Blood Count 2.2L, Red Blood Count 3.70L, Hemoglobin 12.5L, Hematocrit 34.9L, Mean Corpuscular Volume 94, Mean Corpuscular Hemoglobin 33.8H, Mean Corpuscular Hemoglobin Concent 35.7, Red Cell Distribution Width 10.6L, Platelet Count 70L, Mean Platelet Volume 8.2, Neutrophils (%) (Auto) , Lymphocytes (%) (Auto) , Monocytes (%) (Auto) , Eosinophils (%) (Auto) , Basophils (%) (Auto) , Differential Total Cells Counted 100, Neutrophils % ( Manual) 60, Lymphocytes % (Manual) 20, Monocytes % (Manual) 11H, Eosinophils % ( Manual) 9H, Basophils % (Manual) 0, Band Neutrophils 0, Platelet Estimate DecreasedL, Platelet Morphology Normal, Sodium Level 135L, Potassium Level 3.3L , Chloride Level 101, Carbon Dioxide Level 23, Anion Gap 11, Blood Urea Nitrogen 14, Creatinine 1.7H, Estimat Glomerular Filtration Rate 44.9, Glucose Level 95, Calcium Level 8.3L, Phosphorus Level 5.5H, Magnesium Level 1.8, Total Bilirubin 0.3, Aspartate Amino Transf (AST/SGOT) 108H, Alanine Aminotransferase (ALT/SGPT) 82H, Alkaline Phosphatase 101, C-Reactive Protein, Quantitative < 0.4 , Pro-B-Type Natriuretic Peptide 17, Total Protein 7.7, Albumin 2.5L, Globulin 5.2, Albumin/Globulin Ratio 0.5L 08/02/19 12:50: White Blood Count [Pending], Lymphocytes [Pending], Percent CD3 Cells [Pending] , Absolute CD3 Count [Pending], Percent CD4 Cells [Pending], Absolute CD4 Count [Pending], T-Lymphocyte CD4/CD8 Ratio [Pending], Percent CD8 Cells [Pending], Absolute CD8 Count [Pending] Height (Feet): 5 Height (Inches): 10.00 Weight (Pounds): 200 Neck: supple Cardiovascular: normal rate Respiratory/Chest: lungs clear Abdomen: soft Isa Blanchard MD Aug 02, 2019 20:49
--- NOTE | 2019-08-02 22:34 | General Progress Note ---
Assessment/Plan Status: progressing Assessment/Plan: Assessment - HIV (+) - crypto meningitis - pancytopenia - elevated LFT - h/o EtOH use x years, although stated he has not consumed for 1 mo - seizure - fever Recommendations - check hepatitis serologies -all negative - ID f/u - po as tolerated - thiamine Subjective Allergies: Coded Allergies: No Known Allergies (Unverified , 07/25/19) Subjective Above noted tolerating PO no abdominal complaints Objective Last 24 Hour Vital Signs Date Time Temp Pulse Resp B/P (MAP) Pulse Ox O2 Delivery O2 Flow Rate FiO2 08/02/19 16:00 98.4 77 20 100/64 (76) 98 08/02/19 12:00 98.4 76 20 115/72 (86) 98 08/02/19 09:00 Room Air 08/02/19 08:00 97.4 74 20 111/76 (88) 98 08/02/19 04:00 98.2 63 18 99/66 (77) 97 08/01/19 23:48 98.8 74 19 104/66 (79) 96 Intake and Output 08/01/19 08/02/19 19:00 07:00 Intake Total 1630 ml 480 ml Balance 1630 ml 480 ml Intake Oral 1180 ml 480 ml IV Total 450 ml # Voids 6 3 # Bowel Movements 2 1 Laboratory Tests 08/02/19 05:45: White Blood Count 2.2L, Red Blood Count 3.70L, Hemoglobin 12.5L, Hematocrit 34.9L, Mean Corpuscular Volume 94, Mean Corpuscular Hemoglobin 33.8H, Mean Corpuscular Hemoglobin Concent 35.7, Red Cell Distribution Width 10.6L, Platelet Count 70L, Mean Platelet Volume 8.2, Neutrophils (%) (Auto) , Lymphocytes (%) (Auto) , Monocytes (%) (Auto) , Eosinophils (%) (Auto) , Basophils (%) (Auto) , Differential Total Cells Counted 100, Neutrophils % ( Manual) 60, Lymphocytes % (Manual) 20, Monocytes % (Manual) 11H, Eosinophils % ( Manual) 9H, Basophils % (Manual) 0, Band Neutrophils 0, Platelet Estimate DecreasedL, Platelet Morphology Normal, Sodium Level 135L, Potassium Level 3.3L , Chloride Level 101, Carbon Dioxide Level 23, Anion Gap 11, Blood Urea Nitrogen 14, Creatinine 1.7H, Estimat Glomerular Filtration Rate 44.9, Glucose Level 95, Calcium Level 8.3L, Phosphorus Level 5.5H, Magnesium Level 1.8, Total Bilirubin 0.3, Aspartate Amino Transf (AST/SGOT) 108H, Alanine Aminotransferase (ALT/SGPT) 82H, Alkaline Phosphatase 101, C-Reactive Protein, Quantitative < 0.4 , Pro-B-Type Natriuretic Peptide 17, Total Protein 7.7, Albumin 2.5L, Globulin 5.2, Albumin/Globulin Ratio 0.5L 08/02/19 12:50: White Blood Count [Pending], Lymphocytes [Pending], Percent CD3 Cells [Pending] , Absolute CD3 Count [Pending], Percent CD4 Cells [Pending], Absolute CD4 Count [Pending], T-Lymphocyte CD4/CD8 Ratio [Pending], Percent CD8 Cells [Pending], Absolute CD8 Count [Pending] Height (Feet): 5 Height (Inches): 10.00 Weight (Pounds): 200 Objective WDWN NCAT supple CTA RR abd soft ND no edema Jai Ness MD Aug 02, 2019 22:34
[2019-08-02] MEDS: Tamsulosin 0.4mg cap ORAL SCH (22:48)
[2019-08-03] VITALS (7 sets, daily range): BP systolic 84–152; BP diastolic 50–97
--- NOTE | 2019-08-03 03:41 | NUR ---
NURSE NOTES: Urine collected and sent to the lab
--- NOTE | 2019-08-03 06:48 | Hematology/Onc Progress Note ---
Assessment/Plan Assessment/Plan Assessment and Recs: # Pancytopenia - potential causes multifactorial, evaluate liver and viral etiologies to begin, in this case due to ETOH ABUSE/WITHDRAWAL, bone marrow myelosuppression --> Hep panel and HIV +++ --> US abd to evaluate for cirrhosis and hsm ordered --> SHOWS spenomegaly, enlarged spleen --> Peripheral smear ordered to evaluate for blasts /schistocytes --> none noted --> abx and other meds have been reviewed --> ok for ppx if plt >50k w/ either heparin or lovenox --> Transfuse if Plt < 20k and fever, or if Plt < 10k without fever --> plt trend 164-->122k-->86k --> wbc trend 5-->3-->2->2.2 --> abx: vanc/zosyn --> ampho/azithro # ETOH withdrawal --> r/o seizure --> ativan, librium, folate --> imaging reviewed --> smear noted # Seizure --> R/o seizure d/o onset -> meds reviewed --> as per neuro # JULIAN (acute kidney injury) --> per renal recs # HIV --> as per id, consider eval # Tachycardia --> per Dr. Mckeon # AMS --> per psych The timing of this note does not necessarily reflect the time of the patient was seen. Greatly appreciate consultation. Subjective Constitutional: Denies: no symptoms, chills, fever, malaise, weakness, other HEENT: Denies: no symptoms, eye pain, blurred vision, tearing, double vision, ear pain, ear discharge, nose pain, nose congestion, throat pain, throat swelling, mouth pain, mouth swelling, other Cardiovascular: Denies: no symptoms, chest pain, edema, irregular heart rate, lightheadedness, palpitations, syncope, other Respiratory: Denies: no symptoms, cough, shortness of breath, SOB with excertion, SOB at rest, sputum, wheezing, other Gastrointestinal/Abdominal: Denies: no symptoms, abdomen distended, abdominal pain, black stools, tarry stools, blood in stool, constipated, diarrhea, difficulty swallowing, nausea, poor appetite, poor fluid intake, rectal bleeding , vomiting, other Genitourinary: Denies: no symptoms, burning, discharge, frequency, flank pain, hematuria, incontinence, pain, urgency, other Neurologic/Psychiatric: Denies: no symptoms, anxiety, depressed, emotional problems, headache, numbness, paresthesia, pre-existing deficit, seizure, tingling, tremors, weakness, other Endocrine: Denies: no symptoms, excessive sweating, flushing, intolerance to cold, intolerance to heat, increased hunger, increased thirst, increased urine, unexplained weight gain, unexplained weight loss, other Allergies: Coded Allergies: No Known Allergies (Unverified , 07/25/19) Subjective 07/27: no events, no bleeding, cbc pending, remains altered 07/28: no events, labs reviewed, viral studies noted, no bleeding 07/29: asleep, cbc pending, on vanc/zosym, room air 07/30 no major events noted, no bleeding, labs reviewed 07/31 no events, tolerating po, labs pending 08/02 no events, no bleeding, labs lower yesterday, no night sweats Objective Objective Current Medications Medications (Trade) Dose Ordered Sig/Gabrielle Route PRN Reason Start Time Stop Time Status Last Admin Dose Admin Acetaminophen (Tylenol) 650 mg Q6H PRN RECTAL fever 07/31/19 22:43 08/30/19 22:42 Amphotericin B Liposome 350 mg/ Dextrose 250 ml @ 125 mls/hr Q24H IV 08/02/19 15:00 08/07/19 14:59 08/02/19 16:22 Azithromycin (Zithromax) 1,200 mg ONCE A WEEK ORAL 08/02/19 14:00 08/09/19 13:59 08/02/19 16:24 Barium Sulfate (Readi-Cat 2) 450 ml ONCE PRN ORAL Radiology Procedure 08/01/19 07:00 08/03/19 06:59 Dapsone (Dapsone) 100 mg DAILY ORAL 08/02/19 14:00 08/09/19 13:59 08/02/19 16:21 Fluconazole (Diflucan) 200 mg Q24H ORAL 08/02/19 17:00 08/09/19 16:59 08/02/19 16:22 Fluconazole (Diflucan) 600 mg Q24H ORAL 08/02/19 17:00 08/09/19 16:59 08/02/19 16:21 Folic Acid (Folate) 1 mg DAILY ORAL 08/01/19 09:00 08/27/19 08:59 08/02/19 08:55 Iohexol (OMNIPAQUE-300 100ml) 100 ml ONCE PRN INJ Radiology procedure 08/01/19 18:45 08/03/19 23:59 Lorazepam (Ativan 2mg/ml 1ml) 2 mg Q2H PRN IM For Anxiety 07/31/19 22:48 08/07/19 22:47 Pantoprazole (Protonix) 40 mg EVERY 12 HOURS ORAL 08/01/19 09:00 08/29/19 20:59 08/02/19 22:48 Tamsulosin HCl (Flomax) 0.4 mg BEDTIME ORAL 08/02/19 21:00 09/01/19 20:59 08/02/19 22:48 Thiamine HCl (Vitamin B1) 100 mg DAILY ORAL 08/01/19 09:00 08/27/19 19:59 08/02/19 08:55 Last 24 Hour Vital Signs Date Time Temp Pulse Resp B/P (MAP) Pulse Ox O2 Delivery O2 Flow Rate FiO2 08/03/19 04:00 99.0 92 17 110/90 (97) 82 08/03/19 00:00 99.5 99 16 152/97 (115) 95 08/02/19 21:00 Room Air 08/02/19 20:00 98.4 77 18 120/79 (93) 98 08/02/19 16:00 98.4 77 20 100/64 (76) 98 08/02/19 12:00 98.4 76 20 115/72 (86) 98 08/02/19 09:00 Room Air 08/02/19 08:00 97.4 74 20 111/76 (88) 98 08/02/19 04:00 98.2 63 18 99/66 (77) 97 08/01/19 23:48 98.8 74 19 104/66 (79) 96 08/01/19 21:00 Room Air 08/01/19 20:00 98.1 62 19 96/60 (72) 96 08/01/19 16:00 98.4 88 19 113/79 (90) 98 08/01/19 15:23 98.8 08/01/19 09:00 Room Air 08/01/19 08:00 98.8 82 18 131/81 (98) 99 Intake and Output 08/02/19 08/03/19 19:00 07:00 Intake Total 1200 ml Output Total 800 ml 1300 ml Balance 400 ml -1300 ml Intake Oral 1200 ml Output Urine Total 800 ml 1300 ml # Voids 3 Labs Test 08/01/19 10:07 08/02/19 05:45 08/02/19 12:50 08/03/19 03:20 White Blood Count 2.2 K/UL (4.8-10.8) Red Blood Count 3.70 M/UL (4.70-6.10) Hemoglobin 12.5 G/DL (14.2-18.0) Hematocrit 34.9 % (42.0-52.0) Mean Corpuscular Volume 94 FL (80-99) Mean Corpuscular Hemoglobin 33.8 PG (27.0-31.0) Mean Corpuscular Hemoglobin Concent 35.7 G/DL (32.0-36.0) Red Cell Distribution Width 10.6 % (11.6-14.8) Platelet Count 70 K/UL (150-450) Mean Platelet Volume 8.2 FL (6.5-10.1) Neutrophils (%) (Auto) % (45.0-75.0) Lymphocytes (%) (Auto) % (20.0-45.0) Monocytes (%) (Auto) % (1.0-10.0) Eosinophils (%) (Auto) % (0.0-3.0) Basophils (%) (Auto) % (0.0-2.0) Differential Total Cells Counted 100 Neutrophils % (Manual) 60 % (45-75) Lymphocytes % (Manual) 20 % (20-45) Monocytes % (Manual) 11 % (1-10) Eosinophils % (Manual) 9 % (0-3) Basophils % (Manual) 0 % (0-2) Band Neutrophils 0 % (0-8) Platelet Estimate Decreased Platelet Morphology Normal Sodium Level 135 MMOL/L (136-145) Potassium Level 3.3 MMOL/L (3.5-5.1) Chloride Level 101 MMOL/L (98-107) Carbon Dioxide Level 23 MMOL/L (21-32) Anion Gap 11 mmol/L (5-15) Blood Urea Nitrogen 14 mg/dL (7-18) Creatinine 1.7 MG/DL (0.55-1.30) Estimat Glomerular Filtration Rate 44.9 mL/min (>60) Glucose Level 95 MG/DL (74-106) Calcium Level 8.3 MG/DL (8.5-10.1) Phosphorus Level 5.5 MG/DL (2.5-4.9) Magnesium Level 1.8 MG/DL (1.8-2.4) Total Bilirubin 0.3 MG/DL (0.2-1.0) Aspartate Amino Transf (AST/SGOT) 108 U/L (15-37) Alanine Aminotransferase (ALT/SGPT) 82 U/L (12-78) Alkaline Phosphatase 101 U/L (46-116) C-Reactive Protein, Quantitative < 0.4 mg/dL (0.00-0.90) Pro-B-Type Natriuretic Peptide 17 pg/mL (0-125) Total Protein 7.7 G/DL (6.4-8.2) Albumin 2.5 G/DL (3.4-5.0) Globulin 5.2 g/dL Albumin/Globulin Ratio 0.5 (1.0-2.7) Urine Eosinophils None seen (NONE SEEN) Height (Feet): 5 Height (Inches): 10.00 Weight (Pounds): 200 Objective Physical Exam: Vitals: reviewed General: Nad, altered mental status HEENT: nc, at Neck: supple Chest: clear breath sounds bilaterally Cardiovascular: RRR, no s3, s4 Abdomen: soft, nontender, nd Extremities: no cce, normal range of motion Neuro: alert and oriented Arya Nelson MD Aug 03, 2019 06:48
--- NOTE | 2019-08-03 07:07 | NUR ---
HAND-OFF: Report given to NIDHI WILSON.
--- NOTE | 2019-08-03 07:50 | NUR ---
NURSE NOTES: PT RESTING IN BED, DENIES PAIN, IN NO APPARENT DISTRESS AT THIS TIME. BED IN LOWEST POSITION WITH BEDSIDE RAILS X2 RAISED. BED ALARM ON ZONE 1. IN ROOM CLOSE TO NURSE'S STATION. CALL LIGHT WITHIN REACH. WILL CONTINUE TO MONITOR.
[2019-08-03 08:11] LABS: HEMATOCRIT 34.9 % (42.0-52.0); HEMOGLOBIN 12.7 G/DL (14.2-18.0); MEAN CORPUSCULAR VOLUME 93 FL (80-99); PLATELET COUNT 68 K/UL (150-450); RED BLOOD COUNT 3.75 M/UL (4.70-6.10); RED CELL DISTRIBUTION WIDTH 10.4 % (11.6-14.8)
[2019-08-03] MEDS: Thiamine 100mg tab ORAL SCH (08:42)
[2019-08-03 08:44] LABS: ALANINE AMINOTRANSFERASE 74 U/L (12-78); ALBUMIN 2.7 G/DL (3.4-5.0); ALBUMIN/GLOBULIN RATIO 0.5 (1.0-2.7); ALKALINE PHOSPHATASE 99 U/L (46-116); ANION GAP 8 mmol/L (5-15); ASPARTATE AMINO TRANSFERASE 98 U/L (15-37); BILIRUBIN,TOTAL 0.4 MG/DL (0.2-1.0); BLOOD UREA NITROGEN 16 mg/dL (7-18); CALCIUM 8.3 MG/DL (8.5-10.1); CARBON DIOXIDE 23 MMOL/L (21-32); CHLORIDE 99 MMOL/L (98-107); CREATININE 1.9 MG/DL (0.55-1.30); PHOSPHORUS 3.9 MG/DL (2.5-4.9); POTASSIUM 4.2 MMOL/L (3.5-5.1); SODIUM 130 MMOL/L (136-145)
--- NOTE | 2019-08-03 11:02 | Infectious Diseases Prog Note ---
Assessment/Plan Assessment/Plan IMPRESSION: Sepsis with fever Tachycardia resolved. HIV ,AIDS Cryptococcal meningitis New-onset seizure Alcohol withdrawal Acute renal failure, Encephalopathy. RECOMMENDATION: Patient has HIV since 2003 goes to [facility], noncompliant with medication Should be on Dapsone, Zithromax, Hold Descovy & Tivicay Continue Liposomal Amphotericin B Hold Fluconazole Case was D/W RN & pharmacy Will f/u HIV viral loud & CD4 Subjective ROS Limited/Unobtainable: Yes Constitutional: Denies: fever Allergies: Coded Allergies: No Known Allergies (Unverified , 07/25/19) Objective Vital Signs Last 24 Hour Vital Signs Date Time Temp Pulse Resp B/P (MAP) Pulse Ox O2 Delivery O2 Flow Rate FiO2 08/03/19 09:00 Room Air 08/03/19 08:00 98.4 113 19 93/53 (66) 94 08/03/19 04:00 99.0 92 17 110/90 (97) 82 08/03/19 00:00 99.5 99 16 152/97 (115) 95 08/02/19 21:00 Room Air 08/02/19 20:00 98.4 77 18 120/79 (93) 98 08/02/19 16:00 98.4 77 20 100/64 (76) 98 08/02/19 12:00 98.4 76 20 115/72 (86) 98 Height (Feet): 5 Height (Inches): 10.00 Weight (Pounds): 200 General Appearance: no acute distress HEENT: mucous membranes moist Respiratory/Chest: lungs clear Cardiovascular: tachycardia Abdomen: soft, non tender Extremities: no edema Neurologic/Psychiatric: other - sleeping Microbiology Date/Time Source Procedure Growth Status 07/31/19 19:14 Blood Blood Culture - Preliminary NO GROWTH AFTER 48 HOURS Resulted 07/31/19 19:10 Blood Blood Culture - Preliminary NO GROWTH AFTER 48 HOURS Resulted Laboratory Tests Test 08/02/19 12:50 08/03/19 03:20 08/03/19 07:08 White Blood Count Pending 3.0 K/UL (4.8-10.8) L Lymphocytes Pending Percent CD3 Cells Pending Absolute CD3 Count Pending Percent CD4 Cells Pending Absolute CD4 Count Pending T-Lymphocyte CD4/CD8 Ratio Pending Percent CD8 Cells Pending Absolute CD8 Count Pending Urine Eosinophils None seen (NONE SEEN) Red Blood Count 3.75 M/UL (4.70-6.10) L Hemoglobin 12.7 G/DL (14.2-18.0) L Hematocrit 34.9 % (42.0-52.0) L Mean Corpuscular Volume 93 FL (80-99) Mean Corpuscular Hemoglobin 33.8 PG (27.0-31.0) H Mean Corpuscular Hemoglobin Concent 36.3 G/DL (32.0-36.0) H Red Cell Distribution Width 10.4 % (11.6-14.8) L Platelet Count 68 K/UL (150-450) L Mean Platelet Volume 9.8 FL (6.5-10.1) Neutrophils (%) (Auto) % (45.0-75.0) Lymphocytes (%) (Auto) % (20.0-45.0) Monocytes (%) (Auto) % (1.0-10.0) Eosinophils (%) (Auto) % (0.0-3.0) Basophils (%) (Auto) % (0.0-2.0) Differential Total Cells Counted 100 Neutrophils % (Manual) 71 % (45-75) Lymphocytes % (Manual) 18 % (20-45) L Monocytes % (Manual) 7 % (1-10) Eosinophils % (Manual) 3 % (0-3) Basophils % (Manual) 1 % (0-2) Band Neutrophils 0 % (0-8) Platelet Estimate Decreased L Platelet Morphology Normal Sodium Level 130 MMOL/L (136-145) L Potassium Level 4.2 MMOL/L (3.5-5.1) Chloride Level 99 MMOL/L (98-107) Carbon Dioxide Level 23 MMOL/L (21-32) Anion Gap 8 mmol/L (5-15) Blood Urea Nitrogen 16 mg/dL (7-18) Creatinine 1.9 MG/DL (0.55-1.30) H Estimat Glomerular Filtration Rate 39.5 mL/min (>60) Glucose Level 99 MG/DL (74-106) Uric Acid 4.2 MG/DL (2.6-7.2) Calcium Level 8.3 MG/DL (8.5-10.1) L Phosphorus Level 3.9 MG/DL (2.5-4.9) Magnesium Level 1.4 MG/DL (1.8-2.4) L Total Bilirubin 0.4 MG/DL (0.2-1.0) Aspartate Amino Transf (AST/SGOT) 98 U/L (15-37) H Alanine Aminotransferase (ALT/SGPT) 74 U/L (12-78) Alkaline Phosphatase 99 U/L (46-116) C-Reactive Protein, Quantitative 2.8 mg/dL (0.00-0.90) H Pro-B-Type Natriuretic Peptide 190 pg/mL (0-125) H Total Protein 8.1 G/DL (6.4-8.2) Albumin 2.7 G/DL (3.4-5.0) L Globulin 5.4 g/dL Albumin/Globulin Ratio 0.5 (1.0-2.7) L Current Medications Medications (Trade) Dose Ordered Sig/Gabrielle Route PRN Reason Start Time Stop Time Status Last Admin Dose Admin Acetaminophen (Tylenol) 650 mg Q6H PRN RECTAL fever 07/31/19 22:43 08/30/19 22:42 Amphotericin B Liposome 350 mg/ Dextrose 250 ml @ 125 mls/hr Q24H IV 08/02/19 15:00 08/07/19 14:59 08/02/19 16:22 Azithromycin (Zithromax) 1,200 mg ONCE A WEEK ORAL 08/02/19 14:00 08/09/19 13:59 08/02/19 16:24 Dapsone (Dapsone) 100 mg DAILY ORAL 08/02/19 14:00 08/09/19 13:59 08/03/19 08:42 Fluconazole (Diflucan) 200 mg Q24H ORAL 08/02/19 17:00 08/09/19 16:59 08/02/19 16:22 Fluconazole (Diflucan) 600 mg Q24H ORAL 08/02/19 17:00 08/09/19 16:59 08/02/19 16:21 Folic Acid (Folate) 1 mg DAILY ORAL 08/01/19 09:00 08/27/19 08:59 08/03/19 08:42 Iohexol (OMNIPAQUE-300 100ml) 100 ml ONCE PRN INJ Radiology procedure 08/01/19 18:45 08/03/19 23:59 Lorazepam (Ativan 2mg/ml 1ml) 2 mg Q2H PRN IM For Anxiety 07/31/19 22:48 08/07/19 22:47 Magnesium Sulfate 100 ml @ 100 mls/hr Q1H IVPB 08/03/19 10:45 08/03/19 14:44 Pantoprazole (Protonix) 40 mg EVERY 12 HOURS ORAL 08/01/19 09:00 08/29/19 20:59 08/03/19 08:42 Sodium Chloride 250 ml @ 30 mls/hr ONCE ONCE IV 08/03/19 12:00 08/03/19 20:19 Tamsulosin HCl (Flomax) 0.4 mg BEDTIME ORAL 08/02/19 21:00 09/01/19 20:59 08/02/19 22:48 Thiamine HCl (Vitamin B1) 100 mg DAILY ORAL 08/01/19 09:00 08/27/19 19:59 08/03/19 08:42 Po Bryant MD Aug 03, 2019 11:02
--- NOTE | 2019-08-03 11:45 | NUR ---
NURSE NOTES: RN RECEIVED ORDER TO INSERT SANTOS CATHETER FOR ACCURATE INTAKE AND OUTPUT DUE TO INCREASING CREATININE PER DR MORENO. RN USED [employer] #[id number] TO EDUCATE PT ON NEW ORDER. PT VERBALIZED UNDERSTANDING AND HAD NO FURTHER QUESTIONS FOR RN. PT TOLERATED WELL. SANTOS CATH DRAINING YELLOW URINE BY GRAVITY. WILL CONTINUE TO MONITOR.
--- NOTE | 2019-08-03 11:48 | NUR ---
CASE MANAGEMENT:REVIEW SI; PANCYTOPENIA. CRYPTOCOCCAL MENINGITIS. HIV/AIDS. ARF. ENCEPHALOPATHY. 99.5 113 19 96/53 94% ON RA WBC 3.0 RBC 3.75 PLT 68 NA 130 CR 1.9 CA 8.3 CRP 2.8 IS;IVF NS @ 30 ML/HR MAG SULFATE IV ONCE AMPHOTERICIN B LIPOSOMEIV Q24 HRS DAPSONE PO QD PROTONIX PO Q12HRS THIAMINE PO QD MED SURG STATUS DCP;PATIENT IS FROM HOME
[2019-08-03] MEDS ORDERED: NaCl 3% 500ml 250 ML IV ONE (12:00)
--- NOTE | 2019-08-03 12:28 | Nephrology Progress Note ---
Assessment/Plan Problem List: (1) JULIAN (acute kidney injury) (2) Seizure (3) ALCOHOL DEPENDENCE WITH WITHDRAWAL, UNSPECIFIED (4) Tachycardia (5) Hypokalemia Assessment Electrolyte imbalance Hypokalemia and hypomagnesemia Elevated creatinine to 1.4 on admission now corrected Seizure disorder Plan Serum creatinine gilberto to 1.9 Thomas catheter Start midodrine for low blood pressure Intravenous magnesium sulfate Avoid nephrotoxic's as possible Flomax at night Urine studies ordered Patient taking p.o. well Previously Following measures as needed IV magnesium IV potassium phosphate IV thiamine IV Protonix Continue management per other consultants Monitor electrolytes Per orders Subjective ROS Limited/Unobtainable: No Constitutional: Reports: malaise Objective Objective Last 24 Hour Vital Signs Date Time Temp Pulse Resp B/P (MAP) Pulse Ox O2 Delivery O2 Flow Rate FiO2 08/03/19 12:00 102.1 101 19 115/67 (83) 94 08/03/19 09:00 Room Air 08/03/19 08:00 98.4 113 19 93/53 (66) 94 08/03/19 04:00 99.0 92 17 110/90 (97) 82 08/03/19 00:00 99.5 99 16 152/97 (115) 95 08/02/19 21:00 Room Air 08/02/19 20:00 98.4 77 18 120/79 (93) 98 08/02/19 16:00 98.4 77 20 100/64 (76) 98 Intake and Output 08/02/19 08/03/19 19:00 07:00 Intake Total 1200 ml Output Total 800 ml 1300 ml Balance 400 ml -1300 ml Intake Oral 1200 ml Output Urine Total 800 ml 1300 ml # Voids 3 Laboratory Tests 08/02/19 12:50: White Blood Count 2.6L, Lymphocytes 29, Nucleated Red Blood Cells , Absolute Lymphocytes (Cell Immunity 0.8, Percent CD3 Cells 76.7, Absolute CD3 Count 614L , Percent CD4 Cells 5.7L, Absolute CD4 Count 46L, T-Lymphocyte CD4/CD8 Ratio 0.08L, Percent CD8 Cells 71.4H, Absolute CD8 Count 571 08/03/19 03:20: Urine Eosinophils None seen 08/03/19 07:08: White Blood Count 3.0L, Red Blood Count 3.75L, Hemoglobin 12.7L, Hematocrit 34.9L, Mean Corpuscular Volume 93, Mean Corpuscular Hemoglobin 33.8H, Mean Corpuscular Hemoglobin Concent 36.3H, Red Cell Distribution Width 10.4L, Platelet Count 68L, Mean Platelet Volume 9.8, Neutrophils (%) (Auto) , Lymphocytes (%) (Auto) , Monocytes (%) (Auto) , Eosinophils (%) (Auto) , Basophils (%) (Auto) , Differential Total Cells Counted 100, Neutrophils % ( Manual) 71, Lymphocytes % (Manual) 18L, Monocytes % (Manual) 7, Eosinophils % ( Manual) 3, Basophils % (Manual) 1, Band Neutrophils 0, Platelet Estimate DecreasedL, Platelet Morphology Normal, Sodium Level 130L, Potassium Level 4.2, Chloride Level 99, Carbon Dioxide Level 23, Anion Gap 8, Blood Urea Nitrogen 16 , Creatinine 1.9H, Estimat Glomerular Filtration Rate 39.5, Glucose Level 99, Uric Acid 4.2, Calcium Level 8.3L, Phosphorus Level 3.9, Magnesium Level 1.4L, Total Bilirubin 0.4, Aspartate Amino Transf (AST/SGOT) 98H, Alanine Aminotransferase (ALT/SGPT) 74, Alkaline Phosphatase 99, C-Reactive Protein, Quantitative 2.8H, Pro-B-Type Natriuretic Peptide 190H, Total Protein 8.1, Albumin 2.7L, Globulin 5.4, Albumin/Globulin Ratio 0.5L Height (Feet): 5 Height (Inches): 10.00 Weight (Pounds): 200 General Appearance: no apparent distress, lethargic Cardiovascular: other - Arthritis variable Respiratory/Chest: decreased breath sounds Abdomen: distended Objective No change Brian Alexandra MD Aug 03, 2019 12:28
--- NOTE | 2019-08-03 12:58 | Cardiac Electrophysiology PN ---
Assessment/Plan Assessment/Plan 1. Tachycardia due to seizure and alcohol withdrawal and crypt meningitis. EF 60%. EKG shows sinus tachycardia with no acute ST-T wave abnormality. 2. Status post seizure, due to meningitis. 3. Cryptococcal meningitis, S/ LP, on iv antifungal per Dr Bryant 4. History of heavy alcohol use 5. AIDS 6. Thrombocytopenia FU Dr Omar GASCA RN and Dr. Bryant Subjective Subjective On iv abx as LP was suggestive of Cryptococcal meningitis HIV test also positive Objective Last 24 Hour Vital Signs Date Time Temp Pulse Resp B/P (MAP) Pulse Ox O2 Delivery O2 Flow Rate FiO2 08/03/19 12:00 102.1 101 19 115/67 (83) 94 08/03/19 09:00 Room Air 08/03/19 08:00 98.4 113 19 93/53 (66) 94 08/03/19 04:00 99.0 92 17 110/90 (97) 82 08/03/19 00:00 99.5 99 16 152/97 (115) 95 08/02/19 21:00 Room Air 08/02/19 20:00 98.4 77 18 120/79 (93) 98 08/02/19 16:00 98.4 77 20 100/64 (76) 98 Intake and Output 08/02/19 08/03/19 19:00 07:00 Intake Total 1200 ml Output Total 800 ml 1300 ml Balance 400 ml -1300 ml Intake Oral 1200 ml Output Urine Total 800 ml 1300 ml # Voids 3 Laboratory Tests Test 08/03/19 03:20 08/03/19 07:08 Urine Eosinophils None seen (NONE SEEN) White Blood Count 3.0 K/UL (4.8-10.8) L Red Blood Count 3.75 M/UL (4.70-6.10) L Hemoglobin 12.7 G/DL (14.2-18.0) L Hematocrit 34.9 % (42.0-52.0) L Mean Corpuscular Volume 93 FL (80-99) Mean Corpuscular Hemoglobin 33.8 PG (27.0-31.0) H Mean Corpuscular Hemoglobin Concent 36.3 G/DL (32.0-36.0) H Red Cell Distribution Width 10.4 % (11.6-14.8) L Platelet Count 68 K/UL (150-450) L Mean Platelet Volume 9.8 FL (6.5-10.1) Neutrophils (%) (Auto) % (45.0-75.0) Lymphocytes (%) (Auto) % (20.0-45.0) Monocytes (%) (Auto) % (1.0-10.0) Eosinophils (%) (Auto) % (0.0-3.0) Basophils (%) (Auto) % (0.0-2.0) Differential Total Cells Counted 100 Neutrophils % (Manual) 71 % (45-75) Lymphocytes % (Manual) 18 % (20-45) L Monocytes % (Manual) 7 % (1-10) Eosinophils % (Manual) 3 % (0-3) Basophils % (Manual) 1 % (0-2) Band Neutrophils 0 % (0-8) Platelet Estimate Decreased L Platelet Morphology Normal Sodium Level 130 MMOL/L (136-145) L Potassium Level 4.2 MMOL/L (3.5-5.1) Chloride Level 99 MMOL/L (98-107) Carbon Dioxide Level 23 MMOL/L (21-32) Anion Gap 8 mmol/L (5-15) Blood Urea Nitrogen 16 mg/dL (7-18) Creatinine 1.9 MG/DL (0.55-1.30) H Estimat Glomerular Filtration Rate 39.5 mL/min (>60) Glucose Level 99 MG/DL (74-106) Uric Acid 4.2 MG/DL (2.6-7.2) Calcium Level 8.3 MG/DL (8.5-10.1) L Phosphorus Level 3.9 MG/DL (2.5-4.9) Magnesium Level 1.4 MG/DL (1.8-2.4) L Total Bilirubin 0.4 MG/DL (0.2-1.0) Aspartate Amino Transf (AST/SGOT) 98 U/L (15-37) H Alanine Aminotransferase (ALT/SGPT) 74 U/L (12-78) Alkaline Phosphatase 99 U/L (46-116) C-Reactive Protein, Quantitative 2.8 mg/dL (0.00-0.90) H Pro-B-Type Natriuretic Peptide 190 pg/mL (0-125) H Total Protein 8.1 G/DL (6.4-8.2) Albumin 2.7 G/DL (3.4-5.0) L Globulin 5.4 g/dL Albumin/Globulin Ratio 0.5 (1.0-2.7) L Microbiology Date/Time Source Procedure Growth Status 07/31/19 19:14 Blood Blood Culture - Preliminary NO GROWTH AFTER 48 HOURS Resulted 07/31/19 19:10 Blood Blood Culture - Preliminary NO GROWTH AFTER 48 HOURS Resulted Objective HEAD AND NECK: No JVD. LUNGS: Clear. CARDIOVASCULAR: Nl S1 and S2 with no gallop. ABDOMEN: Soft. EXTREMITIES: 1+ pitting edema. Ric Mckeon MD Aug 03, 2019 12:58
--- NOTE | 2019-08-03 13:32 | General Progress Note ---
Assessment/Plan Assessment/Plan: (1) Alcohol abuse (2) Alcohol withdrawals Patient to be continued on Tylenol and Ativan as per psychiatrist D/w Dr. Wilson and he concurred. Subjective Date patient seen: Aug 03, 2019 Time patient seen: 01:00 - pm Allergies: Coded Allergies: No Known Allergies (Unverified , 07/25/19) Subjective Constitutional: Reports: no symptoms HEENT: Reports: no symptoms Cardiovascular: Reports: no symptoms Respiratory: Reports: no symptoms Gastrointestinal/Abdominal: Reports: no symptoms Genitourinary: Reports: no symptoms Neurologic/Psychiatric: Reports: no symptoms Endocrine: Reports: no symptoms Hematologic/Lymphatic: Reports: no symptoms Subjective Patient is in bed no signs of distress or pain. Denies pain at this time. Found to have h/o HIV/AIDS and Cryptococcal meningitis being followed by ID. No new complaints at this time. Objective Last 24 Hour Vital Signs Date Time Temp Pulse Resp B/P (MAP) Pulse Ox O2 Delivery O2 Flow Rate FiO2 08/03/19 12:50 98.4 08/03/19 12:00 102.1 101 19 115/67 (83) 94 08/03/19 09:00 Room Air 08/03/19 08:00 98.4 113 19 93/53 (66) 94 08/03/19 04:00 99.0 92 17 110/90 (97) 82 08/03/19 00:00 99.5 99 16 152/97 (115) 95 08/02/19 21:00 Room Air 08/02/19 20:00 98.4 77 18 120/79 (93) 98 08/02/19 16:00 98.4 77 20 100/64 (76) 98 Intake and Output 08/02/19 08/03/19 19:00 07:00 Intake Total 1200 ml Output Total 800 ml 1300 ml Balance 400 ml -1300 ml Intake Oral 1200 ml Output Urine Total 800 ml 1300 ml # Voids 3 Laboratory Tests 08/03/19 03:20: Urine Eosinophils None seen 08/03/19 07:08: White Blood Count 3.0L, Red Blood Count 3.75L, Hemoglobin 12.7L, Hematocrit 34.9L, Mean Corpuscular Volume 93, Mean Corpuscular Hemoglobin 33.8H, Mean Corpuscular Hemoglobin Concent 36.3H, Red Cell Distribution Width 10.4L, Platelet Count 68L, Mean Platelet Volume 9.8, Neutrophils (%) (Auto) , Lymphocytes (%) (Auto) , Monocytes (%) (Auto) , Eosinophils (%) (Auto) , Basophils (%) (Auto) , Differential Total Cells Counted 100, Neutrophils % ( Manual) 71, Lymphocytes % (Manual) 18L, Monocytes % (Manual) 7, Eosinophils % ( Manual) 3, Basophils % (Manual) 1, Band Neutrophils 0, Platelet Estimate DecreasedL, Platelet Morphology Normal, Sodium Level 130L, Potassium Level 4.2, Chloride Level 99, Carbon Dioxide Level 23, Anion Gap 8, Blood Urea Nitrogen 16 , Creatinine 1.9H, Estimat Glomerular Filtration Rate 39.5, Glucose Level 99, Uric Acid 4.2, Calcium Level 8.3L, Phosphorus Level 3.9, Magnesium Level 1.4L, Total Bilirubin 0.4, Aspartate Amino Transf (AST/SGOT) 98H, Alanine Aminotransferase (ALT/SGPT) 74, Alkaline Phosphatase 99, C-Reactive Protein, Quantitative 2.8H, Pro-B-Type Natriuretic Peptide 190H, Total Protein 8.1, Albumin 2.7L, Globulin 5.4, Albumin/Globulin Ratio 0.5L Height (Feet): 5 Height (Inches): 10.00 Weight (Pounds): 200 Objective General Appearance: no apparent distress, alert EENT: PERRL/EOMI, normal ENT inspection Neck: non-tender, normal alignment Cardiovascular: normal rate, regular rhythm Respiratory/Chest: decreased breath sounds Abdomen: non tender, soft Extremities: non-tender Edema: no edema noted Generalized Neurologic: alert, responsive Skin: warm/dry Archie Magaña Aug 03, 2019 13:32
[2019-08-03] MEDS: AMPHOTERICIN B LIPOSOME IV SCH (14:51)
[2019-08-03] MEDS: D5W IV SCH (14:51)
--- NOTE | 2019-08-03 16:34 | NUR ---
NURSE NOTES: PT WITH BP 84/50, P 79. UPON REASSESSMENT, BP WAS 87/51, P77. PT IS ASYMPTOMATIC AND AT BASELINE MENTATION. RN LEFT MESSAGE FOR DR CHAUDHARI REGARDING CHANGE IN BP. AWAITING NEW ORDERS.
--- NOTE | 2019-08-03 18:18 | NUR ---
NURSE NOTES: NO REPLY FROM DR CHAUDHARI. NOTED ORDER FOR MIDODRINE 5MG PO TID. RN LEFT MESSAGE FOR DR BASS REGARDING NEW ORDERS FOR LOW BP. AWAITING NEW ORDERS. PT CONTINUES TO BE ASYMPTOMATIC.
--- NOTE | 2019-08-03 19:25 | NUR ---
HAND-OFF: Report given to Rigoberto LEIGH RN.
--- NOTE | 2019-08-03 19:30 | NUR ---
NURSE NOTES: Received patient in no apparent distress. A&OX2. IV site patent and intact. Thomas draining well by gravity, walter urine noted. Beds in lowest position. Call light within reach. Will continue to monitor.
[2019-08-03] MEDS: Tamsulosin 0.4mg cap ORAL SCH (20:21)
--- NOTE | 2019-08-03 21:40 | General Progress Note ---
Assessment/Plan Assessment/Plan: Assessment - HIV (+) - crypto meningitis - pancytopenia - elevated LFT - h/o EtOH use x years, although stated he has not consumed for 1 mo - seizure - fever - rising creatinine Recommendations - check hepatitis serologies -all negative - ID f/u - po as tolerated - thiamine - watch Cr - Renal f/u Subjective Allergies: Coded Allergies: No Known Allergies (Unverified , 07/25/19) Subjective Above noted tolerating PO no abdominal complaints Objective Last 24 Hour Vital Signs Date Time Temp Pulse Resp B/P (MAP) Pulse Ox O2 Delivery O2 Flow Rate FiO2 08/03/19 20:00 97.9 78 17 102/59 (73) 94 08/03/19 16:30 77 87/51 (63) 08/03/19 16:00 99.0 79 19 84/50 (61) 94 08/03/19 13:38 Room Air 08/03/19 12:50 98.4 08/03/19 12:00 102.1 101 19 115/67 (83) 94 08/03/19 09:00 Room Air 08/03/19 08:00 98.4 113 19 93/53 (66) 94 08/03/19 04:00 99.0 92 17 110/90 (97) 82 08/03/19 00:00 99.5 99 16 152/97 (115) 95 Intake and Output 08/02/19 08/03/19 19:00 07:00 Intake Total 1200 ml Output Total 800 ml 1300 ml Balance 400 ml -1300 ml Intake Oral 1200 ml Output Urine Total 800 ml 1300 ml # Voids 3 Laboratory Tests 08/03/19 03:20: Urine Eosinophils None seen 08/03/19 07:08: White Blood Count 3.0L, Red Blood Count 3.75L, Hemoglobin 12.7L, Hematocrit 34.9L, Mean Corpuscular Volume 93, Mean Corpuscular Hemoglobin 33.8H, Mean Corpuscular Hemoglobin Concent 36.3H, Red Cell Distribution Width 10.4L, Platelet Count 68L, Mean Platelet Volume 9.8, Neutrophils (%) (Auto) , Lymphocytes (%) (Auto) , Monocytes (%) (Auto) , Eosinophils (%) (Auto) , Basophils (%) (Auto) , Differential Total Cells Counted 100, Neutrophils % ( Manual) 71, Lymphocytes % (Manual) 18L, Monocytes % (Manual) 7, Eosinophils % ( Manual) 3, Basophils % (Manual) 1, Band Neutrophils 0, Platelet Estimate DecreasedL, Platelet Morphology Normal, Sodium Level 130L, Potassium Level 4.2, Chloride Level 99, Carbon Dioxide Level 23, Anion Gap 8, Blood Urea Nitrogen 16 , Creatinine 1.9H, Estimat Glomerular Filtration Rate 39.5, Glucose Level 99, Uric Acid 4.2, Calcium Level 8.3L, Phosphorus Level 3.9, Magnesium Level 1.4L, Total Bilirubin 0.4, Aspartate Amino Transf (AST/SGOT) 98H, Alanine Aminotransferase (ALT/SGPT) 74, Alkaline Phosphatase 99, C-Reactive Protein, Quantitative 2.8H, Pro-B-Type Natriuretic Peptide 190H, Total Protein 8.1, Albumin 2.7L, Globulin 5.4, Albumin/Globulin Ratio 0.5L Height (Feet): 5 Height (Inches): 10.00 Weight (Pounds): 200 Objective WDWN NCAT supple CTA RR abd soft ND no edema Jai Ness MD Aug 03, 2019 21:40
--- NOTE | 2019-08-03 21:45 | General Progress Note ---
Assessment/Plan Problem List: (1) Seizure disorder ICD Codes: G40.909 - Epilepsy, unspecified, not intractable, without status epilepticus SNOMED: 913696442 (2) Hypokalemia ICD Codes: E87.6 - Hypokalemia SNOMED: 74300328 (3) Seizure ICD Codes: R56.9 - Unspecified convulsions SNOMED: 44300346 (4) Tachycardia ICD Codes: R00.0 - Tachycardia, unspecified SNOMED: 4623699 (5) ALCOHOL DEPENDENCE WITH WITHDRAWAL, UNSPECIFIED ICD Codes: F10.239 - ALCOHOL DEPENDENCE WITH WITHDRAWAL, UNSPECIFIED Status: progressing Assessment/Plan: cryptococal meningitis hypotensive dr egan and jb gave orders for low bp encephalopathy abx per id Subjective ROS Limited/Unobtainable: Yes Allergies: Coded Allergies: No Known Allergies (Unverified , 07/25/19) Objective Last 24 Hour Vital Signs Date Time Temp Pulse Resp B/P (MAP) Pulse Ox O2 Delivery O2 Flow Rate FiO2 08/03/19 21:28 Room Air 08/03/19 20:00 97.9 78 17 102/59 (73) 94 08/03/19 16:30 77 87/51 (63) 08/03/19 16:00 99.0 79 19 84/50 (61) 94 08/03/19 13:38 Room Air 08/03/19 12:50 98.4 08/03/19 12:00 102.1 101 19 115/67 (83) 94 08/03/19 09:00 Room Air 08/03/19 08:00 98.4 113 19 93/53 (66) 94 08/03/19 04:00 99.0 92 17 110/90 (97) 82 08/03/19 00:00 99.5 99 16 152/97 (115) 95 Intake and Output 08/02/19 08/03/19 19:00 07:00 Intake Total 1200 ml Output Total 800 ml 1300 ml Balance 400 ml -1300 ml Intake Oral 1200 ml Output Urine Total 800 ml 1300 ml # Voids 3 Laboratory Tests 08/03/19 03:20: Urine Eosinophils None seen 08/03/19 07:08: White Blood Count 3.0L, Red Blood Count 3.75L, Hemoglobin 12.7L, Hematocrit 34.9L, Mean Corpuscular Volume 93, Mean Corpuscular Hemoglobin 33.8H, Mean Corpuscular Hemoglobin Concent 36.3H, Red Cell Distribution Width 10.4L, Platelet Count 68L, Mean Platelet Volume 9.8, Neutrophils (%) (Auto) , Lymphocytes (%) (Auto) , Monocytes (%) (Auto) , Eosinophils (%) (Auto) , Basophils (%) (Auto) , Differential Total Cells Counted 100, Neutrophils % ( Manual) 71, Lymphocytes % (Manual) 18L, Monocytes % (Manual) 7, Eosinophils % ( Manual) 3, Basophils % (Manual) 1, Band Neutrophils 0, Platelet Estimate DecreasedL, Platelet Morphology Normal, Sodium Level 130L, Potassium Level 4.2, Chloride Level 99, Carbon Dioxide Level 23, Anion Gap 8, Blood Urea Nitrogen 16 , Creatinine 1.9H, Estimat Glomerular Filtration Rate 39.5, Glucose Level 99, Uric Acid 4.2, Calcium Level 8.3L, Phosphorus Level 3.9, Magnesium Level 1.4L, Total Bilirubin 0.4, Aspartate Amino Transf (AST/SGOT) 98H, Alanine Aminotransferase (ALT/SGPT) 74, Alkaline Phosphatase 99, C-Reactive Protein, Quantitative 2.8H, Pro-B-Type Natriuretic Peptide 190H, Total Protein 8.1, Albumin 2.7L, Globulin 5.4, Albumin/Globulin Ratio 0.5L Height (Feet): 5 Height (Inches): 10.00 Weight (Pounds): 200 Neck: supple Cardiovascular: normal rate Respiratory/Chest: lungs clear Abdomen: soft Isa Blanchard MD Aug 03, 2019 21:45
[2019-08-04] VITALS: BP 107/73
[2019-08-04 05:51] LABS: HEMATOCRIT 32.2 % (42.0-52.0); HEMOGLOBIN 11.7 G/DL (14.2-18.0); MEAN CORPUSCULAR VOLUME 92 FL (80-99); PLATELET COUNT 52 K/UL (150-450); RED BLOOD COUNT 3.49 M/UL (4.70-6.10); RED CELL DISTRIBUTION WIDTH 10.3 % (11.6-14.8); WHITE BLOOD COUNT 2.9 K/UL (4.8-10.8)
[2019-08-04 06:12] LABS: ALANINE AMINOTRANSFERASE 57 U/L (12-78); ALBUMIN 2.5 G/DL (3.4-5.0); ALBUMIN/GLOBULIN RATIO 0.5 (1.0-2.7); ALKALINE PHOSPHATASE 93 U/L (46-116); ANION GAP 9 mmol/L (5-15); ASPARTATE AMINO TRANSFERASE 78 U/L (15-37); BILIRUBIN,TOTAL 0.4 MG/DL (0.2-1.0); BLOOD UREA NITROGEN 27 mg/dL (7-18); CALCIUM 8.5 MG/DL (8.5-10.1); CARBON DIOXIDE 25 MMOL/L (21-32); CHLORIDE 101 MMOL/L (98-107); CREATININE 2.2 MG/DL (0.55-1.30); POTASSIUM 4.3 MMOL/L (3.5-5.1); SODIUM 135 MMOL/L (136-145)
[2019-08-04 06:21] LABS: PHOSPHORUS 4.5 MG/DL (2.5-4.9)
--- NOTE | 2019-08-04 06:40 | Hematology/Onc Progress Note ---
Assessment/Plan Assessment/Plan Assessment and Recs: # Pancytopenia - potential causes multifactorial, evaluate liver and viral etiologies to begin, in this case due to ETOH ABUSE/WITHDRAWAL, bone marrow myelosuppression --> Hep panel and HIV +++ --> US abd to evaluate for cirrhosis and hsm ordered --> SHOWS spenomegaly, enlarged spleen --> Peripheral smear ordered to evaluate for blasts /schistocytes --> none noted --> abx and other meds have been reviewed --> ok for ppx if plt >50k w/ either heparin or lovenox --> Transfuse if Plt < 20k and fever, or if Plt < 10k without fever --> plt trend 164-->122k-->86k-->52k --> wbc trend 5-->3-->2->2.2 --> abx: vanc/zosyn --> ampho/azithro # ETOH withdrawal --> r/o seizure --> ativan, librium, folate --> imaging reviewed --> smear noted # Leukocytosis likely reactive --> s/p abx --> wbc 11 # Seizure --> R/o seizure d/o onset -> meds reviewed --> as per neuro # JULIAN (acute kidney injury) --> per renal recs # HIV --> as per id, consider eval # Tachycardia --> per Dr. Mckeon # AMS --> per psych The timing of this note does not necessarily reflect the time of the patient was seen. Greatly appreciate consultation. Subjective Constitutional: Denies: no symptoms, chills, fever, malaise, weakness, other HEENT: Denies: no symptoms, eye pain, blurred vision, tearing, double vision, ear pain, ear discharge, nose pain, nose congestion, throat pain, throat swelling, mouth pain, mouth swelling, other Cardiovascular: Denies: no symptoms, chest pain, edema, irregular heart rate, lightheadedness, palpitations, syncope, other Respiratory: Denies: no symptoms, cough, shortness of breath, SOB with excertion, SOB at rest, sputum, wheezing, other Gastrointestinal/Abdominal: Denies: no symptoms, abdomen distended, abdominal pain, black stools, tarry stools, blood in stool, constipated, diarrhea, difficulty swallowing, nausea, poor appetite, poor fluid intake, rectal bleeding , vomiting, other Genitourinary: Denies: no symptoms, burning, discharge, frequency, flank pain, hematuria, incontinence, pain, urgency, other Neurologic/Psychiatric: Denies: no symptoms, anxiety, depressed, emotional problems, headache, numbness, paresthesia, pre-existing deficit, seizure, tingling, tremors, weakness, other Endocrine: Denies: no symptoms, excessive sweating, flushing, intolerance to cold, intolerance to heat, increased hunger, increased thirst, increased urine, unexplained weight gain, unexplained weight loss, other Hematologic/Lymphatic: Denies: no symptoms, anemia, easy bleeding, easy bruising, adenopathy, other Allergies: Coded Allergies: No Known Allergies (Unverified , 07/25/19) Subjective 07/27: no events, no bleeding, cbc pending, remains altered 07/28: no events, labs reviewed, viral studies noted, no bleeding 07/29: asleep, cbc pending, on vanc/zosym, room air 07/30 no major events noted, no bleeding, labs reviewed 07/31 no events, tolerating po, labs pending 08/02 no events, no bleeding, labs lower yesterday, no night sweats 08/03 no bleeding, labs noted, cbc to be reviewed, no major events Objective Objective Current Medications Medications (Trade) Dose Ordered Sig/Gabrielle Route PRN Reason Start Time Stop Time Status Last Admin Dose Admin Acetaminophen (Tylenol) 650 mg Q6H PRN RECTAL fever 07/31/19 22:43 08/30/19 22:42 08/03/19 12:20 Amphotericin B Liposome 350 mg/ Dextrose 250 ml @ 125 mls/hr Q24H IV 08/02/19 15:00 08/07/19 14:59 08/03/19 14:51 Azithromycin (Zithromax) 1,200 mg ONCE A WEEK ORAL 08/02/19 14:00 08/09/19 13:59 08/02/19 16:24 Dapsone (Dapsone) 100 mg DAILY ORAL 08/02/19 14:00 08/09/19 13:59 08/03/19 08:42 Folic Acid (Folate) 1 mg DAILY ORAL 08/01/19 09:00 08/27/19 08:59 08/03/19 08:42 Lorazepam (Ativan 2mg/ml 1ml) 2 mg Q2H PRN IM For Anxiety 07/31/19 22:48 08/07/19 22:47 Midodrine (Pro-Amatine) 5 mg TID ORAL 08/03/19 18:00 11/01/19 17:59 08/03/19 17:57 Pantoprazole (Protonix) 40 mg EVERY 12 HOURS ORAL 08/01/19 09:00 08/29/19 20:59 08/03/19 20:21 Tamsulosin HCl (Flomax) 0.4 mg BEDTIME ORAL 08/02/19 21:00 09/01/19 20:59 08/03/19 20:21 Thiamine HCl (Vitamin B1) 100 mg DAILY ORAL 08/01/19 09:00 08/27/19 19:59 08/03/19 08:42 Last 24 Hour Vital Signs Date Time Temp Pulse Resp B/P (MAP) Pulse Ox O2 Delivery O2 Flow Rate FiO2 08/04/19 04:00 18 08/04/19 00:00 98.2 77 17 107/73 (84) 96 08/03/19 21:28 Room Air 08/03/19 20:00 97.9 78 17 102/59 (73) 94 08/03/19 16:30 77 87/51 (63) 08/03/19 16:00 99.0 79 19 84/50 (61) 94 08/03/19 13:38 Room Air 08/03/19 12:50 98.4 08/03/19 12:00 102.1 101 19 115/67 (83) 94 08/03/19 09:00 Room Air 08/03/19 08:00 98.4 113 19 93/53 (66) 94 08/03/19 04:00 99.0 92 17 110/90 (97) 82 08/03/19 00:00 99.5 99 16 152/97 (115) 95 08/02/19 21:00 Room Air 08/02/19 20:00 98.4 77 18 120/79 (93) 98 08/02/19 16:00 98.4 77 20 100/64 (76) 98 08/02/19 12:00 98.4 76 20 115/72 (86) 98 08/02/19 09:00 Room Air 08/02/19 08:00 97.4 74 20 111/76 (88) 98 Intake and Output 08/03/19 08/04/19 19:00 07:00 Intake Total 910 ml Output Total 250 ml 750 ml Balance 660 ml -750 ml Intake Oral 360 ml IV Total 550 ml Output Urine Total 250 ml 750 ml Labs Test 08/01/19 10:07 08/02/19 05:45 08/02/19 12:50 08/03/19 03:20 White Blood Count 2.2 K/UL (4.8-10.8) 2.6 x10E3/uL (3.4-10.8) Red Blood Count 3.70 M/UL (4.70-6.10) Hemoglobin 12.5 G/DL (14.2-18.0) Hematocrit 34.9 % (42.0-52.0) Mean Corpuscular Volume 94 FL (80-99) Mean Corpuscular Hemoglobin 33.8 PG (27.0-31.0) Mean Corpuscular Hemoglobin Concent 35.7 G/DL (32.0-36.0) Red Cell Distribution Width 10.6 % (11.6-14.8) Platelet Count 70 K/UL (150-450) Mean Platelet Volume 8.2 FL (6.5-10.1) Neutrophils (%) (Auto) % (45.0-75.0) Lymphocytes (%) (Auto) % (20.0-45.0) Monocytes (%) (Auto) % (1.0-10.0) Eosinophils (%) (Auto) % (0.0-3.0) Basophils (%) (Auto) % (0.0-2.0) Differential Total Cells Counted 100 Neutrophils % (Manual) 60 % (45-75) Lymphocytes % (Manual) 20 % (20-45) Monocytes % (Manual) 11 % (1-10) Eosinophils % (Manual) 9 % (0-3) Basophils % (Manual) 0 % (0-2) Band Neutrophils 0 % (0-8) Platelet Estimate Decreased Platelet Morphology Normal Sodium Level 135 MMOL/L (136-145) Potassium Level 3.3 MMOL/L (3.5-5.1) Chloride Level 101 MMOL/L (98-107) Carbon Dioxide Level 23 MMOL/L (21-32) Anion Gap 11 mmol/L (5-15) Blood Urea Nitrogen 14 mg/dL (7-18) Creatinine 1.7 MG/DL (0.55-1.30) Estimat Glomerular Filtration Rate 44.9 mL/min (>60) Glucose Level 95 MG/DL (74-106) Calcium Level 8.3 MG/DL (8.5-10.1) Phosphorus Level 5.5 MG/DL (2.5-4.9) Magnesium Level 1.8 MG/DL (1.8-2.4) Total Bilirubin 0.3 MG/DL (0.2-1.0) Aspartate Amino Transf (AST/SGOT) 108 U/L (15-37) Alanine Aminotransferase (ALT/SGPT) 82 U/L (12-78) Alkaline Phosphatase 101 U/L (46-116) C-Reactive Protein, Quantitative < 0.4 mg/dL (0.00-0.90) Pro-B-Type Natriuretic Peptide 17 pg/mL (0-125) Total Protein 7.7 G/DL (6.4-8.2) Albumin 2.5 G/DL (3.4-5.0) Globulin 5.2 g/dL Albumin/Globulin Ratio 0.5 (1.0-2.7) Lymphocytes 29 % (Not Estab.) Nucleated Red Blood Cells (.) Absolute Lymphocytes (Cell Immunity 0.8 x10E3/uL (0.7-3.1) Percent CD3 Cells 76.7 % (57.5-86.2) Absolute CD3 Count 614 /uL (622-2402) Percent CD4 Cells 5.7 % (30.8-58.5) Absolute CD4 Count 46 /uL (359-1519) T-Lymphocyte CD4/CD8 Ratio 0.08 (0.92-3.72) Percent CD8 Cells 71.4 % (12.0-35.5) Absolute CD8 Count 571 /uL (109-897) Urine Eosinophils None seen (NONE SEEN) Test 08/03/19 07:08 08/04/19 05:00 08/04/19 05:20 White Blood Count 3.0 K/UL (4.8-10.8) 2.9 K/UL (4.8-10.8) Red Blood Count 3.75 M/UL (4.70-6.10) 3.49 M/UL (4.70-6.10) Hemoglobin 12.7 G/DL (14.2-18.0) 11.7 G/DL (14.2-18.0) Hematocrit 34.9 % (42.0-52.0) 32.2 % (42.0-52.0) Mean Corpuscular Volume 93 FL (80-99) 92 FL (80-99) Mean Corpuscular Hemoglobin 33.8 PG (27.0-31.0) 33.6 PG (27.0-31.0) Mean Corpuscular Hemoglobin Concent 36.3 G/DL (32.0-36.0) 36.5 G/DL (32.0-36.0) Red Cell Distribution Width 10.4 % (11.6-14.8) 10.3 % (11.6-14.8) Platelet Count 68 K/UL (150-450) 52 K/UL (150-450) Mean Platelet Volume 9.8 FL (6.5-10.1) 9.0 FL (6.5-10.1) Neutrophils (%) (Auto) % (45.0-75.0) % (45.0-75.0) Lymphocytes (%) (Auto) % (20.0-45.0) % (20.0-45.0) Monocytes (%) (Auto) % (1.0-10.0) % (1.0-10.0) Eosinophils (%) (Auto) % (0.0-3.0) % (0.0-3.0) Basophils (%) (Auto) % (0.0-2.0) % (0.0-2.0) Differential Total Cells Counted 100 Neutrophils % (Manual) 71 % (45-75) Lymphocytes % (Manual) 18 % (20-45) Monocytes % (Manual) 7 % (1-10) Eosinophils % (Manual) 3 % (0-3) Basophils % (Manual) 1 % (0-2) Band Neutrophils 0 % (0-8) Platelet Estimate Decreased Platelet Morphology Normal Sodium Level 130 MMOL/L (136-145) 135 MMOL/L (136-145) Potassium Level 4.2 MMOL/L (3.5-5.1) 4.3 MMOL/L (3.5-5.1) Chloride Level 99 MMOL/L (98-107) 101 MMOL/L (98-107) Carbon Dioxide Level 23 MMOL/L (21-32) 25 MMOL/L (21-32) Anion Gap 8 mmol/L (5-15) 9 mmol/L (5-15) Blood Urea Nitrogen 16 mg/dL (7-18) 27 mg/dL (7-18) Creatinine 1.9 MG/DL (0.55-1.30) 2.2 MG/DL (0.55-1.30) Estimat Glomerular Filtration Rate 39.5 mL/min (>60) 33.3 mL/min (>60) Glucose Level 99 MG/DL (74-106) 97 MG/DL (74-106) Uric Acid 4.2 MG/DL (2.6-7.2) 5.8 MG/DL (2.6-7.2) Calcium Level 8.3 MG/DL (8.5-10.1) 8.5 MG/DL (8.5-10.1) Phosphorus Level 3.9 MG/DL (2.5-4.9) 4.5 MG/DL (2.5-4.9) Magnesium Level 1.4 MG/DL (1.8-2.4) 2.3 MG/DL (1.8-2.4) Total Bilirubin 0.4 MG/DL (0.2-1.0) 0.4 MG/DL (0.2-1.0) Aspartate Amino Transf (AST/SGOT) 98 U/L (15-37) 78 U/L (15-37) Alanine Aminotransferase (ALT/SGPT) 74 U/L (12-78) 57 U/L (12-78) Alkaline Phosphatase 99 U/L (46-116) 93 U/L (46-116) C-Reactive Protein, Quantitative 2.8 mg/dL (0.00-0.90) 5.1 mg/dL (0.00-0.90) Pro-B-Type Natriuretic Peptide 190 pg/mL (0-125) 214 pg/mL (0-125) Total Protein 8.1 G/DL (6.4-8.2) 7.6 G/DL (6.4-8.2) Albumin 2.7 G/DL (3.4-5.0) 2.5 G/DL (3.4-5.0) Globulin 5.4 g/dL 5.1 g/dL Albumin/Globulin Ratio 0.5 (1.0-2.7) 0.5 (1.0-2.7) Height (Feet): 5 Height (Inches): 10.00 Weight (Pounds): 171 Objective Physical Exam: Vitals: reviewed General: Nad, altered mental status HEENT: nc, at Neck: supple Chest: clear breath sounds bilaterally Cardiovascular: RRR, no s3, s4 Abdomen: soft, nontender, nd Extremities: no cce, normal range of motion Neuro: alert and oriented Arya Nelson MD Aug 04, 2019 06:40
--- NOTE | 2019-08-04 07:29 | NUR ---
HAND-OFF: Report given to Missy TERRELL.
[2019-08-04 08:00] VITALS: BP 109/63
--- NOTE | 2019-08-04 08:08 | NUR ---
NURSE NOTES: pt in bed awake and alert X4. Pt is not complaining of pain. Call light within reach, bed in lowest position and locked, bed alarm on, side rails padded. will continue to monitor pt.
--- NOTE | 2019-08-04 09:35 | General Progress Note ---
Assessment/Plan Assessment/Plan: (1) Alcohol abuse (2) Alcohol withdrawals Patient to be continued on Tylenol and Ativan as per psychiatrist Patient has no complaints of pain and due to this we will sign off patients care at this time. If patient c/o pain please due not hesitate to reconsult. D/w Dr. Wilson and he concurred. Subjective Date patient seen: Aug 04, 2019 Time patient seen: 09:00 - am Allergies: Coded Allergies: No Known Allergies (Unverified , 07/25/19) Subjective Constitutional: Reports: no symptoms HEENT: Reports: no symptoms Cardiovascular: Reports: no symptoms Respiratory: Reports: no symptoms Gastrointestinal/Abdominal: Reports: no symptoms Genitourinary: Reports: no symptoms Neurologic/Psychiatric: Reports: no symptoms Endocrine: Reports: no symptoms Hematologic/Lymphatic: Reports: no symptoms Subjective Patient denies pain and is comfortable. No signs of pain or distress. Objective Last 24 Hour Vital Signs Date Time Temp Pulse Resp B/P (MAP) Pulse Ox O2 Delivery O2 Flow Rate FiO2 08/04/19 08:00 98.3 92 18 109/63 (78) 97 08/04/19 04:00 18 08/04/19 00:00 98.2 77 17 107/73 (84) 96 08/03/19 21:28 Room Air 08/03/19 20:00 97.9 78 17 102/59 (73) 94 08/03/19 16:30 77 87/51 (63) 08/03/19 16:00 99.0 79 19 84/50 (61) 94 08/03/19 13:38 Room Air 08/03/19 12:50 98.4 08/03/19 12:00 102.1 101 19 115/67 (83) 94 Intake and Output 08/03/19 08/04/19 19:00 07:00 Intake Total 910 ml Output Total 250 ml 750 ml Balance 660 ml -750 ml Intake Oral 360 ml IV Total 550 ml Output Urine Total 250 ml 750 ml Laboratory Tests 08/04/19 05:00: Urine Eosinophils None seen 08/04/19 05:20: White Blood Count 2.9L, Red Blood Count 3.49L, Hemoglobin 11.7L, Hematocrit 32.2L, Mean Corpuscular Volume 92, Mean Corpuscular Hemoglobin 33.6H, Mean Corpuscular Hemoglobin Concent 36.5H, Red Cell Distribution Width 10.3L, Platelet Count 52L, Mean Platelet Volume 9.0, Neutrophils (%) (Auto) , Lymphocytes (%) (Auto) , Monocytes (%) (Auto) , Eosinophils (%) (Auto) , Basophils (%) (Auto) , Differential Total Cells Counted 100, Neutrophils % ( Manual) 58, Lymphocytes % (Manual) 23, Monocytes % (Manual) 9, Eosinophils % ( Manual) 10H, Basophils % (Manual) 0, Band Neutrophils 0, Platelet Estimate DecreasedL, Platelet Morphology Normal, Red Blood Cell Morphology Normal, Sodium Level 135L, Potassium Level 4.3, Chloride Level 101, Carbon Dioxide Level 25, Anion Gap 9, Blood Urea Nitrogen 27H, Creatinine 2.2H, Estimat Glomerular Filtration Rate 33.3, Glucose Level 97, Uric Acid 5.8, Calcium Level 8.5, Phosphorus Level 4.5, Magnesium Level 2.3, Total Bilirubin 0.4, Aspartate Amino Transf (AST/SGOT) 78H, Alanine Aminotransferase (ALT/SGPT) 57, Alkaline Phosphatase 93, C-Reactive Protein, Quantitative 5.1H, Pro-B-Type Natriuretic Peptide 214H, Total Protein 7.6, Albumin 2.5L, Globulin 5.1, Albumin/Globulin Ratio 0.5L Height (Feet): 5 Height (Inches): 10.00 Weight (Pounds): 171 Objective General Appearance: no apparent distress, alert EENT: PERRL/EOMI, normal ENT inspection Neck: non-tender, normal alignment Cardiovascular: normal rate, regular rhythm Respiratory/Chest: decreased breath sounds Abdomen: non tender, soft Extremities: non-tender Edema: no edema noted Generalized Neurologic: alert, responsive Skin: warm/dry Archie Magaña Aug 04, 2019 09:35
[2019-08-04] MEDS: Thiamine 100mg tab ORAL SCH (10:13)
--- NOTE | 2019-08-04 11:27 | Cardiac Electrophysiology PN ---
Assessment/Plan Assessment/Plan 1. Tachycardia due to seizure and alcohol withdrawal and crypt meningitis. EF 60%. EKG shows sinus tachycardia with no acute ST-T wave abnormality. 2. Status post seizure, due to meningitis. 3. Cryptococcal meningitis, S/ LP, on iv antifungal per Dr. Bryant 4. Heavy alcohol use 5. AIDS 6. Thrombocytopenia FU Dr Omar GASCA RN and Dr. Bryant Subjective Subjective On iv abx for Cryptococcal meningitis HIV test also positive. BP was 90s but better now. Finished his breakfast Objective Last 24 Hour Vital Signs Date Time Temp Pulse Resp B/P (MAP) Pulse Ox O2 Delivery O2 Flow Rate FiO2 08/04/19 08:00 98.3 92 18 109/63 (78) 97 08/04/19 04:00 18 08/04/19 00:00 98.2 77 17 107/73 (84) 96 08/03/19 21:28 Room Air 08/03/19 20:00 97.9 78 17 102/59 (73) 94 08/03/19 16:30 77 87/51 (63) 08/03/19 16:00 99.0 79 19 84/50 (61) 94 08/03/19 13:38 Room Air 08/03/19 12:50 98.4 08/03/19 12:00 102.1 101 19 115/67 (83) 94 Intake and Output 08/03/19 08/04/19 19:00 07:00 Intake Total 910 ml Output Total 250 ml 750 ml Balance 660 ml -750 ml Intake Oral 360 ml IV Total 550 ml Output Urine Total 250 ml 750 ml Laboratory Tests Test 08/04/19 05:00 08/04/19 05:20 Urine Eosinophils None seen (NONE SEEN) White Blood Count 2.9 K/UL (4.8-10.8) L Red Blood Count 3.49 M/UL (4.70-6.10) L Hemoglobin 11.7 G/DL (14.2-18.0) L Hematocrit 32.2 % (42.0-52.0) L Mean Corpuscular Volume 92 FL (80-99) Mean Corpuscular Hemoglobin 33.6 PG (27.0-31.0) H Mean Corpuscular Hemoglobin Concent 36.5 G/DL (32.0-36.0) H Red Cell Distribution Width 10.3 % (11.6-14.8) L Platelet Count 52 K/UL (150-450) L Mean Platelet Volume 9.0 FL (6.5-10.1) Neutrophils (%) (Auto) % (45.0-75.0) Lymphocytes (%) (Auto) % (20.0-45.0) Monocytes (%) (Auto) % (1.0-10.0) Eosinophils (%) (Auto) % (0.0-3.0) Basophils (%) (Auto) % (0.0-2.0) Differential Total Cells Counted 100 Neutrophils % (Manual) 58 % (45-75) Lymphocytes % (Manual) 23 % (20-45) Monocytes % (Manual) 9 % (1-10) Eosinophils % (Manual) 10 % (0-3) H Basophils % (Manual) 0 % (0-2) Band Neutrophils 0 % (0-8) Platelet Estimate Decreased L Platelet Morphology Normal Red Blood Cell Morphology Normal Sodium Level 135 MMOL/L (136-145) L Potassium Level 4.3 MMOL/L (3.5-5.1) Chloride Level 101 MMOL/L (98-107) Carbon Dioxide Level 25 MMOL/L (21-32) Anion Gap 9 mmol/L (5-15) Blood Urea Nitrogen 27 mg/dL (7-18) H Creatinine 2.2 MG/DL (0.55-1.30) H Estimat Glomerular Filtration Rate 33.3 mL/min (>60) Glucose Level 97 MG/DL (74-106) Uric Acid 5.8 MG/DL (2.6-7.2) Calcium Level 8.5 MG/DL (8.5-10.1) Phosphorus Level 4.5 MG/DL (2.5-4.9) Magnesium Level 2.3 MG/DL (1.8-2.4) Total Bilirubin 0.4 MG/DL (0.2-1.0) Aspartate Amino Transf (AST/SGOT) 78 U/L (15-37) H Alanine Aminotransferase (ALT/SGPT) 57 U/L (12-78) Alkaline Phosphatase 93 U/L (46-116) C-Reactive Protein, Quantitative 5.1 mg/dL (0.00-0.90) H Pro-B-Type Natriuretic Peptide 214 pg/mL (0-125) H Total Protein 7.6 G/DL (6.4-8.2) Albumin 2.5 G/DL (3.4-5.0) L Globulin 5.1 g/dL Albumin/Globulin Ratio 0.5 (1.0-2.7) L Objective HEAD AND NECK: No JVD. LUNGS: Clear. CARDIOVASCULAR: Nl S1 and S2 with no gallop. ABDOMEN: Soft. EXTREMITIES: 1+ pitting edema. Ric Mckeon MD Aug 04, 2019 11:26
[2019-08-04 12:00] VITALS: BP 106/58
--- NOTE | 2019-08-04 12:08 | Infectious Diseases Prog Note ---
Assessment/Plan Assessment/Plan IMPRESSION: Sepsis with fever Tachycardia resolved. HIV ,AIDS CD4=46 Cryptococcal meningitis New-onset seizure Alcohol withdrawal Acute renal failure, Encephalopathy. RECOMMENDATION: Patient has HIV since 2003 goes to [facility], noncompliant with medication Should be on Dapsone, Zithromax, Continue Liposomal Amphotericin B Hold Fluconazole Case was D/W RN & pharmacy Will f/u HIV viral loud & CD4 Subjective ROS Limited/Unobtainable: No Constitutional: Reports: no symptoms, other - feels better Respiratory: Reports: no symptoms Cardiovascular: Reports: no symptoms Gastrointestinal/Abdominal: Reports: no symptoms Genitourinary: Reports: no symptoms Allergies: Coded Allergies: No Known Allergies (Unverified , 07/25/19) Objective Vital Signs Last 24 Hour Vital Signs Date Time Temp Pulse Resp B/P (MAP) Pulse Ox O2 Delivery O2 Flow Rate FiO2 08/04/19 09:00 Room Air 08/04/19 08:00 98.3 92 18 109/63 (78) 97 08/04/19 04:00 18 08/04/19 00:00 98.2 77 17 107/73 (84) 96 08/03/19 21:28 Room Air 08/03/19 20:00 97.9 78 17 102/59 (73) 94 08/03/19 16:30 77 87/51 (63) 08/03/19 16:00 99.0 79 19 84/50 (61) 94 08/03/19 13:38 Room Air 08/03/19 12:50 98.4 Height (Feet): 5 Height (Inches): 10.00 Weight (Pounds): 171 General Appearance: no acute distress HEENT: mucous membranes moist Respiratory/Chest: lungs clear Cardiovascular: normal rate Abdomen: soft, non tender Extremities: no edema Neurologic/Psychiatric: alert, oriented x 3, responsive Laboratory Tests Test 08/04/19 05:00 08/04/19 05:20 Urine Eosinophils None seen (NONE SEEN) White Blood Count 2.9 K/UL (4.8-10.8) L Red Blood Count 3.49 M/UL (4.70-6.10) L Hemoglobin 11.7 G/DL (14.2-18.0) L Hematocrit 32.2 % (42.0-52.0) L Mean Corpuscular Volume 92 FL (80-99) Mean Corpuscular Hemoglobin 33.6 PG (27.0-31.0) H Mean Corpuscular Hemoglobin Concent 36.5 G/DL (32.0-36.0) H Red Cell Distribution Width 10.3 % (11.6-14.8) L Platelet Count 52 K/UL (150-450) L Mean Platelet Volume 9.0 FL (6.5-10.1) Neutrophils (%) (Auto) % (45.0-75.0) Lymphocytes (%) (Auto) % (20.0-45.0) Monocytes (%) (Auto) % (1.0-10.0) Eosinophils (%) (Auto) % (0.0-3.0) Basophils (%) (Auto) % (0.0-2.0) Differential Total Cells Counted 100 Neutrophils % (Manual) 58 % (45-75) Lymphocytes % (Manual) 23 % (20-45) Monocytes % (Manual) 9 % (1-10) Eosinophils % (Manual) 10 % (0-3) H Basophils % (Manual) 0 % (0-2) Band Neutrophils 0 % (0-8) Platelet Estimate Decreased L Platelet Morphology Normal Red Blood Cell Morphology Normal Sodium Level 135 MMOL/L (136-145) L Potassium Level 4.3 MMOL/L (3.5-5.1) Chloride Level 101 MMOL/L (98-107) Carbon Dioxide Level 25 MMOL/L (21-32) Anion Gap 9 mmol/L (5-15) Blood Urea Nitrogen 27 mg/dL (7-18) H Creatinine 2.2 MG/DL (0.55-1.30) H Estimat Glomerular Filtration Rate 33.3 mL/min (>60) Glucose Level 97 MG/DL (74-106) Uric Acid 5.8 MG/DL (2.6-7.2) Calcium Level 8.5 MG/DL (8.5-10.1) Phosphorus Level 4.5 MG/DL (2.5-4.9) Magnesium Level 2.3 MG/DL (1.8-2.4) Total Bilirubin 0.4 MG/DL (0.2-1.0) Aspartate Amino Transf (AST/SGOT) 78 U/L (15-37) H Alanine Aminotransferase (ALT/SGPT) 57 U/L (12-78) Alkaline Phosphatase 93 U/L (46-116) C-Reactive Protein, Quantitative 5.1 mg/dL (0.00-0.90) H Pro-B-Type Natriuretic Peptide 214 pg/mL (0-125) H Total Protein 7.6 G/DL (6.4-8.2) Albumin 2.5 G/DL (3.4-5.0) L Globulin 5.1 g/dL Albumin/Globulin Ratio 0.5 (1.0-2.7) L Current Medications Medications (Trade) Dose Ordered Sig/Gabrielle Route PRN Reason Start Time Stop Time Status Last Admin Dose Admin Acetaminophen (Tylenol) 650 mg Q6H PRN RECTAL fever 07/31/19 22:43 08/30/19 22:42 08/03/19 12:20 Amphotericin B Liposome 350 mg/ Dextrose 250 ml @ 125 mls/hr Q24H IV 08/02/19 15:00 08/07/19 14:59 08/03/19 14:51 Azithromycin (Zithromax) 1,200 mg ONCE A WEEK ORAL 08/02/19 14:00 08/09/19 13:59 08/02/19 16:24 Dapsone (Dapsone) 100 mg DAILY ORAL 08/02/19 14:00 08/09/19 13:59 08/04/19 10:13 Folic Acid (Folate) 1 mg DAILY ORAL 08/01/19 09:00 08/27/19 08:59 08/04/19 10:13 Lorazepam (Ativan 2mg/ml 1ml) 2 mg Q2H PRN IM For Anxiety 07/31/19 22:48 08/07/19 22:47 Midodrine (Pro-Amatine) 5 mg TID ORAL 08/03/19 18:00 11/01/19 17:59 08/04/19 10:13 Pantoprazole (Protonix) 40 mg EVERY 12 HOURS ORAL 08/01/19 09:00 08/29/19 20:59 08/04/19 10:13 Tamsulosin HCl (Flomax) 0.4 mg BEDTIME ORAL 08/02/19 21:00 09/01/19 20:59 08/03/19 20:21 Thiamine HCl (Vitamin B1) 100 mg DAILY ORAL 08/01/19 09:00 08/27/19 19:59 08/04/19 10:13 Po Bryant MD Aug 04, 2019 12:08
--- NOTE | 2019-08-04 13:21 | Nephrology Progress Note ---
Assessment/Plan Problem List: (1) JULIAN (acute kidney injury) Assessment: Serum creatinine rising (2) Seizure (3) ALCOHOL DEPENDENCE WITH WITHDRAWAL, UNSPECIFIED (4) Tachycardia (5) Hypokalemia Assessment Electrolyte imbalance Hypokalemia and hypomagnesemia Elevated creatinine to 1.4 on admission now corrected Seizure disorder Plan Serum creatinine gilberto to 2.2 Thomas catheter Increase midodrine for low blood pressure Intravenous magnesium sulfate Avoid nephrotoxic's as possible Flomax at night Urine studies ordered Patient taking p.o. well Previously Following measures as needed IV magnesium IV potassium phosphate IV thiamine IV Protonix Continue management per other consultants Monitor electrolytes Per orders Subjective ROS Limited/Unobtainable: No Constitutional: Reports: malaise Objective Objective Last 24 Hour Vital Signs Date Time Temp Pulse Resp B/P (MAP) Pulse Ox O2 Delivery O2 Flow Rate FiO2 08/04/19 09:00 Room Air 08/04/19 08:00 98.3 92 18 109/63 (78) 97 08/04/19 04:00 18 08/04/19 00:00 98.2 77 17 107/73 (84) 96 08/03/19 21:28 Room Air 08/03/19 20:00 97.9 78 17 102/59 (73) 94 08/03/19 16:30 77 87/51 (63) 08/03/19 16:00 99.0 79 19 84/50 (61) 94 08/03/19 13:38 Room Air Intake and Output 08/03/19 08/04/19 19:00 07:00 Intake Total 910 ml Output Total 250 ml 750 ml Balance 660 ml -750 ml Intake Oral 360 ml IV Total 550 ml Output Urine Total 250 ml 750 ml Laboratory Tests 08/04/19 05:00: Urine Eosinophils None seen 08/04/19 05:20: White Blood Count 2.9L, Red Blood Count 3.49L, Hemoglobin 11.7L, Hematocrit 32.2L, Mean Corpuscular Volume 92, Mean Corpuscular Hemoglobin 33.6H, Mean Corpuscular Hemoglobin Concent 36.5H, Red Cell Distribution Width 10.3L, Platelet Count 52L, Mean Platelet Volume 9.0, Neutrophils (%) (Auto) , Lymphocytes (%) (Auto) , Monocytes (%) (Auto) , Eosinophils (%) (Auto) , Basophils (%) (Auto) , Differential Total Cells Counted 100, Neutrophils % ( Manual) 58, Lymphocytes % (Manual) 23, Monocytes % (Manual) 9, Eosinophils % ( Manual) 10H, Basophils % (Manual) 0, Band Neutrophils 0, Platelet Estimate DecreasedL, Platelet Morphology Normal, Red Blood Cell Morphology Normal, Sodium Level 135L, Potassium Level 4.3, Chloride Level 101, Carbon Dioxide Level 25, Anion Gap 9, Blood Urea Nitrogen 27H, Creatinine 2.2H, Estimat Glomerular Filtration Rate 33.3, Glucose Level 97, Uric Acid 5.8, Calcium Level 8.5, Phosphorus Level 4.5, Magnesium Level 2.3, Total Bilirubin 0.4, Aspartate Amino Transf (AST/SGOT) 78H, Alanine Aminotransferase (ALT/SGPT) 57, Alkaline Phosphatase 93, C-Reactive Protein, Quantitative 5.1H, Pro-B-Type Natriuretic Peptide 214H, Total Protein 7.6, Albumin 2.5L, Globulin 5.1, Albumin/Globulin Ratio 0.5L Height (Feet): 5 Height (Inches): 10.00 Weight (Pounds): 171 General Appearance: no apparent distress Cardiovascular: normal rate Respiratory/Chest: decreased breath sounds Abdomen: distended Genitourinary/Rectal: other - Has Thomas Objective No change Brian Alexandra MD Aug 04, 2019 13:21
--- NOTE | 2019-08-04 14:33 | NUR ---
CASE MANAGEMENT:REVIEW SI; PANCYTOPENIA. CRYPTOCOCCAL MENINGITIS. HIV/AIDS. ARF. ENCEPHALOPATHY. SEIZURE DISORDER. 89.6 92 18 106/58 96% ON RA WBC 2.9 RBC 3.49 PLT 52 NA 135 BUN 27 CR 2.2 AST 78 CRP 5.1 ALB 2.5 IS;MIDODRINE PO TID AMPHOTERICIN B LIPOSOME IV Q24 HRS DAPSONE PO QD PROTONIX PO Q12 HRS THIAMINE PO QD FOLATE PO WD FLOMAX PO HS MED SURG STATUS DCP;FROM HOME
--- NOTE | 2019-08-04 15:10 | NUR ---
NURSE NOTES: pt asked to take a shower. Pt was accompany to shower for safety. After shower pt was returned to bed.
[2019-08-04 16:00] VITALS: BP 106/61
[2019-08-04] MEDS: D5W IV SCH (17:26)
[2019-08-04] MEDS: AMPHOTERICIN B LIPOSOME IV SCH (17:26)
[2019-08-04] MEDS: Midodrine 10mg tab ORAL SCH (17:34)
[2019-08-04] MEDS: Docusate 100mg cap ORAL SCH (17:34)
[2019-08-04] MEDS: FLUCYTOSINE 500 MG ORAL SCH (18:19)
--- NOTE | 2019-08-04 19:00 | Progress Note ---
DATE: 08/04/2019 SUBJECTIVE: The patient is much better. He is eating and took his shower today. His mental status has improved OBJECTIVE: VITAL SIGNS: Blood pressure 106/58, pulse 89 and regular, and temperature 98.6 degrees. MENTAL STATUS: He denies any headaches. He is eating at this time. He is awake. Orientation, time, he knows it is July 2019. Does not know the day. Place, he knows he is at "[employer]". Person, oriented to person. He cannot spell world backwards and forwards in [place]. CRANIAL NERVE EXAMINATION: CRANIAL NERVES III, IV, AND : Extraocular motility is full. CRANIAL NERVE V: Facial and corneal sensations are intact. CRANIAL NERVE VII: Facial strength is 5/5 bilaterally. MUSCLE EXAMINATION: He has a fine tremor in his upper extremities. No pronator drift. IMPRESSION: The patient is found to have cryptococcal meningitis with a negative Lauren ink, which is not unusual with HIV. Therefore, I will continue him on his Keppra. I still think he probably had an alcohol withdrawal seizures, but since he has this meningitis, may probably have to assume that his seizure could have been due to his infection. The patient is getting treatment at this time. He still did not get his EEG. Therefore, I am going to reorder it. PLAN: EEG. Velasquez Razo MD DR: Jeremie JOB#: [id number] CC: NADER
--- NOTE | 2019-08-04 19:06 | NUR ---
HAND-OFF: Report given to Bijan/NIDHI pt in stable condition, will have EEG tomorrow.
--- NOTE | 2019-08-04 19:30 | NUR ---
NURSE NOTES: Received patient in no apparent distress. A&OX3. IV site patent and intact. Thomas draining well by gravity, walter urine noted. Beds in lowest position. Call light within reach. Will continue to monitor.
[2019-08-04 20:00] VITALS: BP 129/78
--- NOTE | 2019-08-04 20:45 | General Progress Note ---
Assessment/Plan Problem List: (1) Seizure disorder ICD Codes: G40.909 - Epilepsy, unspecified, not intractable, without status epilepticus SNOMED: 390089699 (2) Hypokalemia ICD Codes: E87.6 - Hypokalemia SNOMED: 03724955 (3) Seizure ICD Codes: R56.9 - Unspecified convulsions SNOMED: 23938374 (4) Tachycardia ICD Codes: R00.0 - Tachycardia, unspecified SNOMED: 0708377 (5) ALCOHOL DEPENDENCE WITH WITHDRAWAL, UNSPECIFIED ICD Codes: F10.239 - ALCOHOL DEPENDENCE WITH WITHDRAWAL, UNSPECIFIED Status: progressing Assessment/Plan: cryptococal meningitis hypotension resolved w meds immune deficincy meds per ID encephalopathy Subjective ROS Limited/Unobtainable: Yes Allergies: Coded Allergies: No Known Allergies (Unverified , 07/25/19) Objective Last 24 Hour Vital Signs Date Time Temp Pulse Resp B/P (MAP) Pulse Ox O2 Delivery O2 Flow Rate FiO2 08/04/19 16:00 98.4 81 20 106/61 (76) 96 08/04/19 12:00 98.6 89 18 106/58 (74) 98 08/04/19 09:00 Room Air 08/04/19 08:00 98.3 92 18 109/63 (78) 97 08/04/19 04:00 18 08/04/19 00:00 98.2 77 17 107/73 (84) 96 08/03/19 21:28 Room Air Intake and Output 08/03/19 08/04/19 19:00 07:00 Intake Total 910 ml Output Total 250 ml 750 ml Balance 660 ml -750 ml Intake Oral 360 ml IV Total 550 ml Output Urine Total 250 ml 750 ml Laboratory Tests 08/04/19 05:00: Urine Eosinophils None seen 08/04/19 05:20: White Blood Count 2.9L, Red Blood Count 3.49L, Hemoglobin 11.7L, Hematocrit 32.2L, Mean Corpuscular Volume 92, Mean Corpuscular Hemoglobin 33.6H, Mean Corpuscular Hemoglobin Concent 36.5H, Red Cell Distribution Width 10.3L, Platelet Count 52L, Mean Platelet Volume 9.0, Neutrophils (%) (Auto) , Lymphocytes (%) (Auto) , Monocytes (%) (Auto) , Eosinophils (%) (Auto) , Basophils (%) (Auto) , Differential Total Cells Counted 100, Neutrophils % ( Manual) 58, Lymphocytes % (Manual) 23, Monocytes % (Manual) 9, Eosinophils % ( Manual) 10H, Basophils % (Manual) 0, Band Neutrophils 0, Platelet Estimate DecreasedL, Platelet Morphology Normal, Red Blood Cell Morphology Normal, Sodium Level 135L, Potassium Level 4.3, Chloride Level 101, Carbon Dioxide Level 25, Anion Gap 9, Blood Urea Nitrogen 27H, Creatinine 2.2H, Estimat Glomerular Filtration Rate 33.3, Glucose Level 97, Uric Acid 5.8, Calcium Level 8.5, Phosphorus Level 4.5, Magnesium Level 2.3, Total Bilirubin 0.4, Aspartate Amino Transf (AST/SGOT) 78H, Alanine Aminotransferase (ALT/SGPT) 57, Alkaline Phosphatase 93, C-Reactive Protein, Quantitative 5.1H, Pro-B-Type Natriuretic Peptide 214H, Total Protein 7.6, Albumin 2.5L, Globulin 5.1, Albumin/Globulin Ratio 0.5L Height (Feet): 5 Height (Inches): 10.00 Weight (Pounds): 171 Isa Blanchard MD Aug 04, 2019 20:45
--- NOTE | 2019-08-04 20:54 | General Progress Note ---
Assessment/Plan Status: progressing Assessment/Plan: Assessment - HIV (+) - crypto meningitis - pancytopenia - elevated LFT - h/o EtOH use x years, although stated he has not consumed for 1 mo - seizure - fever - rising creatinine Recommendations - check hepatitis serologies -all negative - ID f/u - po as tolerated - thiamine - watch Cr - Renal f/u Subjective Allergies: Coded Allergies: No Known Allergies (Unverified , 07/25/19) Subjective More lethargic today d/w RN no abdominal complaints Objective Last 24 Hour Vital Signs Date Time Temp Pulse Resp B/P (MAP) Pulse Ox O2 Delivery O2 Flow Rate FiO2 08/04/19 16:00 98.4 81 20 106/61 (76) 96 08/04/19 12:00 98.6 89 18 106/58 (74) 98 08/04/19 09:00 Room Air 08/04/19 08:00 98.3 92 18 109/63 (78) 97 08/04/19 04:00 18 08/04/19 00:00 98.2 77 17 107/73 (84) 96 08/03/19 21:28 Room Air Intake and Output 08/03/19 08/04/19 19:00 07:00 Intake Total 910 ml Output Total 250 ml 750 ml Balance 660 ml -750 ml Intake Oral 360 ml IV Total 550 ml Output Urine Total 250 ml 750 ml Laboratory Tests 08/04/19 05:00: Urine Eosinophils None seen 08/04/19 05:20: White Blood Count 2.9L, Red Blood Count 3.49L, Hemoglobin 11.7L, Hematocrit 32.2L, Mean Corpuscular Volume 92, Mean Corpuscular Hemoglobin 33.6H, Mean Corpuscular Hemoglobin Concent 36.5H, Red Cell Distribution Width 10.3L, Platelet Count 52L, Mean Platelet Volume 9.0, Neutrophils (%) (Auto) , Lymphocytes (%) (Auto) , Monocytes (%) (Auto) , Eosinophils (%) (Auto) , Basophils (%) (Auto) , Differential Total Cells Counted 100, Neutrophils % ( Manual) 58, Lymphocytes % (Manual) 23, Monocytes % (Manual) 9, Eosinophils % ( Manual) 10H, Basophils % (Manual) 0, Band Neutrophils 0, Platelet Estimate DecreasedL, Platelet Morphology Normal, Red Blood Cell Morphology Normal, Sodium Level 135L, Potassium Level 4.3, Chloride Level 101, Carbon Dioxide Level 25, Anion Gap 9, Blood Urea Nitrogen 27H, Creatinine 2.2H, Estimat Glomerular Filtration Rate 33.3, Glucose Level 97, Uric Acid 5.8, Calcium Level 8.5, Phosphorus Level 4.5, Magnesium Level 2.3, Total Bilirubin 0.4, Aspartate Amino Transf (AST/SGOT) 78H, Alanine Aminotransferase (ALT/SGPT) 57, Alkaline Phosphatase 93, C-Reactive Protein, Quantitative 5.1H, Pro-B-Type Natriuretic Peptide 214H, Total Protein 7.6, Albumin 2.5L, Globulin 5.1, Albumin/Globulin Ratio 0.5L Height (Feet): 5 Height (Inches): 10.00 Weight (Pounds): 171 Objective WDWN NCAT supple CTA RR abd soft ND no edema Jai Ness MD Aug 04, 2019 20:54
[2019-08-04] MEDS: Tamsulosin 0.4mg cap ORAL SCH (21:21)
[2019-08-05] VITALS: BP 136/79
[2019-08-05] MEDS: FLUCYTOSINE 500 MG ORAL SCH ×4 (00:08→17:24)
[2019-08-05 04:00] VITALS: BP 135/80
[2019-08-05 06:32] LABS: HEMOGLOBIN 11.6 G/DL (14.2-18.0); MEAN CORPUSCULAR VOLUME 93 FL (80-99); PLATELET COUNT 53 K/UL (150-450); RED BLOOD COUNT 3.45 M/UL (4.70-6.10); RED CELL DISTRIBUTION WIDTH 10.4 % (11.6-14.8); WHITE BLOOD COUNT 3.2 K/UL (4.8-10.8)
--- NOTE | 2019-08-05 06:45 | NUR ---
NURSE NOTES: Bladder scan shows 42ml. Thomas cath draining well by gravity.
--- NOTE | 2019-08-05 07:02 | Hematology/Onc Progress Note ---
Assessment/Plan Assessment/Plan Assessment and Recs: # Pancytopenia - potential causes multifactorial, evaluate liver and viral etiologies to begin, in this case due to ETOH ABUSE/WITHDRAWAL, bone marrow myelosuppression, also may be due to meds, ampho --> Hep panel and HIV +++ --> US abd to evaluate for cirrhosis and hsm ordered --> SHOWS spenomegaly, enlarged spleen --> Peripheral smear ordered to evaluate for blasts /schistocytes --> none noted --> abx and other meds have been reviewed --> ok for ppx if plt >50k w/ either heparin or lovenox --> Transfuse if Plt < 20k and fever, or if Plt < 10k without fever --> plt trend 164-->122k-->86k-->52k --> wbc trend 5-->3-->2->2.2 --> abx: vanc/zosyn --> ampho/azithro # ETOH withdrawal --> r/o seizure --> ativan, librium, folate --> imaging reviewed --> smear noted --> rec cessation # Leukocytosis likely reactive --> s/p abx --> wbc 11-->3.2 # Seizure --> R/o seizure d/o onset -> meds reviewed --> as per neuro # JULIAN (acute kidney injury) --> per renal recs # HIV --> as per id, consider eval # Tachycardia --> per Dr. Mckeon # AMS --> per psych The timing of this note does not necessarily reflect the time of the patient was seen. Greatly appreciate consultation. Subjective Constitutional: Denies: no symptoms, chills, fever, malaise, weakness, other Cardiovascular: Denies: no symptoms, chest pain, edema, irregular heart rate, lightheadedness, palpitations, syncope, other Respiratory: Denies: no symptoms, cough, shortness of breath, SOB with excertion, SOB at rest, sputum, wheezing, other Gastrointestinal/Abdominal: Denies: no symptoms, abdomen distended, abdominal pain, black stools, tarry stools, blood in stool, constipated, diarrhea, difficulty swallowing, nausea, poor appetite, poor fluid intake, rectal bleeding , vomiting, other Genitourinary: Denies: no symptoms, burning, discharge, frequency, flank pain, hematuria, incontinence, pain, urgency, other Neurologic/Psychiatric: Denies: no symptoms, anxiety, depressed, emotional problems, headache, numbness, paresthesia, pre-existing deficit, seizure, tingling, tremors, weakness, other Endocrine: Denies: no symptoms, excessive sweating, flushing, intolerance to cold, intolerance to heat, increased hunger, increased thirst, increased urine, unexplained weight gain, unexplained weight loss, other Hematologic/Lymphatic: Denies: no symptoms, anemia, easy bleeding, easy bruising, adenopathy, other Allergies: Coded Allergies: No Known Allergies (Unverified , 07/25/19) Subjective 07/27: no events, no bleeding, cbc pending, remains altered 07/28: no events, labs reviewed, viral studies noted, no bleeding 07/29: asleep, cbc pending, on vanc/zosym, room air 07/30 no major events noted, no bleeding, labs reviewed 07/31 no events, tolerating po, labs pending 08/02 no events, no bleeding, labs lower yesterday, no night sweats 08/03 no bleeding, labs noted, cbc to be reviewed, no major events 08/04 no events, pending labs, specifically bmp, labs noted Objective Objective Current Medications Medications (Trade) Dose Ordered Sig/Gabrielle Route PRN Reason Start Time Stop Time Status Last Admin Dose Admin Acetaminophen (Tylenol) 650 mg Q6H PRN RECTAL fever 07/31/19 22:43 08/30/19 22:42 08/03/19 12:20 Amphotericin B Liposome 350 mg/ Dextrose 250 ml @ 125 mls/hr Q24H IV 08/02/19 15:00 08/07/19 14:59 08/04/19 17:26 Azithromycin (Zithromax) 1,200 mg ONCE A WEEK ORAL 08/02/19 14:00 08/09/19 13:59 08/02/19 16:24 Dapsone (Dapsone) 100 mg DAILY ORAL 08/02/19 14:00 08/09/19 13:59 08/04/19 10:13 Docusate Sodium (Colace) 100 mg THREE TIMES A DAY ORAL 08/04/19 18:00 09/03/19 17:59 08/04/19 17:34 Flucytosine (Ancobon) 2,000 mg Q6H ORAL 08/04/19 18:00 08/11/19 17:59 08/05/19 05:27 Folic Acid (Folate) 1 mg DAILY ORAL 08/01/19 09:00 08/27/19 08:59 08/04/19 10:13 Lorazepam (Ativan 2mg/ml 1ml) 2 mg Q2H PRN IM For Anxiety 07/31/19 22:48 08/07/19 22:47 Midodrine (Pro-Amatine) 10 mg TID ORAL 08/04/19 18:00 11/01/19 17:59 08/04/19 17:34 Pantoprazole (Protonix) 40 mg EVERY 12 HOURS ORAL 08/01/19 09:00 08/29/19 20:59 08/04/19 21:21 Patient Own Medication (Patient's Own Med) 1 ea DAILY ORAL 08/04/19 21:00 09/03/19 20:59 08/04/19 21:21 Patient Own Medication (Patient's Own Med) 1 ea DAILY ORAL 08/04/19 22:00 09/03/19 21:59 08/04/19 21:21 Tamsulosin HCl (Flomax) 0.4 mg BEDTIME ORAL 08/02/19 21:00 09/01/19 20:59 08/04/19 21:21 Thiamine HCl (Vitamin B1) 100 mg DAILY ORAL 08/01/19 09:00 08/27/19 19:59 08/04/19 10:13 Last 24 Hour Vital Signs Date Time Temp Pulse Resp B/P (MAP) Pulse Ox O2 Delivery O2 Flow Rate FiO2 08/05/19 04:00 97.8 66 18 135/80 (98) 96 08/05/19 00:00 97.2 69 18 136/79 (98) 96 08/04/19 21:00 Room Air 08/04/19 20:00 98.0 75 18 129/78 (95) 94 08/04/19 16:00 98.4 81 20 106/61 (76) 96 08/04/19 12:00 98.6 89 18 106/58 (74) 98 08/04/19 09:00 Room Air 08/04/19 08:00 98.3 92 18 109/63 (78) 97 08/04/19 04:00 18 08/04/19 00:00 98.2 77 17 107/73 (84) 96 08/03/19 21:28 Room Air 08/03/19 20:00 97.9 78 17 102/59 (73) 94 08/03/19 16:30 77 87/51 (63) 08/03/19 16:00 99.0 79 19 84/50 (61) 94 08/03/19 13:38 Room Air 08/03/19 12:50 98.4 08/03/19 12:00 102.1 101 19 115/67 (83) 94 08/03/19 09:00 Room Air 08/03/19 08:00 98.4 113 19 93/53 (66) 94 Intake and Output 08/04/19 08/05/19 19:00 07:00 Intake Total 750 ml Output Total 2100 ml 1750 ml Balance -1350 ml -1750 ml Intake Oral 750 ml Output Urine Total 2100 ml 1750 ml # Voids 5 Labs Test 08/02/19 12:50 08/03/19 03:20 08/03/19 07:08 08/04/19 05:00 White Blood Count 2.6 x10E3/uL (3.4-10.8) 3.0 K/UL (4.8-10.8) Lymphocytes 29 % (Not Estab.) Nucleated Red Blood Cells (.) Absolute Lymphocytes (Cell Immunity 0.8 x10E3/uL (0.7-3.1) Percent CD3 Cells 76.7 % (57.5-86.2) Absolute CD3 Count 614 /uL (622-2402) Percent CD4 Cells 5.7 % (30.8-58.5) Absolute CD4 Count 46 /uL (359-1519) T-Lymphocyte CD4/CD8 Ratio 0.08 (0.92-3.72) Percent CD8 Cells 71.4 % (12.0-35.5) Absolute CD8 Count 571 /uL (109-897) Urine Eosinophils None seen (NONE SEEN) None seen (NONE SEEN) Red Blood Count 3.75 M/UL (4.70-6.10) Hemoglobin 12.7 G/DL (14.2-18.0) Hematocrit 34.9 % (42.0-52.0) Mean Corpuscular Volume 93 FL (80-99) Mean Corpuscular Hemoglobin 33.8 PG (27.0-31.0) Mean Corpuscular Hemoglobin Concent 36.3 G/DL (32.0-36.0) Red Cell Distribution Width 10.4 % (11.6-14.8) Platelet Count 68 K/UL (150-450) Mean Platelet Volume 9.8 FL (6.5-10.1) Neutrophils (%) (Auto) % (45.0-75.0) Lymphocytes (%) (Auto) % (20.0-45.0) Monocytes (%) (Auto) % (1.0-10.0) Eosinophils (%) (Auto) % (0.0-3.0) Basophils (%) (Auto) % (0.0-2.0) Differential Total Cells Counted 100 Neutrophils % (Manual) 71 % (45-75) Lymphocytes % (Manual) 18 % (20-45) Monocytes % (Manual) 7 % (1-10) Eosinophils % (Manual) 3 % (0-3) Basophils % (Manual) 1 % (0-2) Band Neutrophils 0 % (0-8) Platelet Estimate Decreased Platelet Morphology Normal Sodium Level 130 MMOL/L (136-145) Potassium Level 4.2 MMOL/L (3.5-5.1) Chloride Level 99 MMOL/L (98-107) Carbon Dioxide Level 23 MMOL/L (21-32) Anion Gap 8 mmol/L (5-15) Blood Urea Nitrogen 16 mg/dL (7-18) Creatinine 1.9 MG/DL (0.55-1.30) Estimat Glomerular Filtration Rate 39.5 mL/min (>60) Glucose Level 99 MG/DL (74-106) Uric Acid 4.2 MG/DL (2.6-7.2) Calcium Level 8.3 MG/DL (8.5-10.1) Phosphorus Level 3.9 MG/DL (2.5-4.9) Magnesium Level 1.4 MG/DL (1.8-2.4) Total Bilirubin 0.4 MG/DL (0.2-1.0) Aspartate Amino Transf (AST/SGOT) 98 U/L (15-37) Alanine Aminotransferase (ALT/SGPT) 74 U/L (12-78) Alkaline Phosphatase 99 U/L (46-116) C-Reactive Protein, Quantitative 2.8 mg/dL (0.00-0.90) Pro-B-Type Natriuretic Peptide 190 pg/mL (0-125) Total Protein 8.1 G/DL (6.4-8.2) Albumin 2.7 G/DL (3.4-5.0) Globulin 5.4 g/dL Albumin/Globulin Ratio 0.5 (1.0-2.7) Test 08/04/19 05:20 08/05/19 05:20 08/05/19 06:08 White Blood Count 2.9 K/UL (4.8-10.8) 3.2 K/UL (4.8-10.8) Red Blood Count 3.49 M/UL (4.70-6.10) 3.45 M/UL (4.70-6.10) Hemoglobin 11.7 G/DL (14.2-18.0) 11.6 G/DL (14.2-18.0) Hematocrit 32.2 % (42.0-52.0) 32.0 % (42.0-52.0) Mean Corpuscular Volume 92 FL (80-99) 93 FL (80-99) Mean Corpuscular Hemoglobin 33.6 PG (27.0-31.0) 33.6 PG (27.0-31.0) Mean Corpuscular Hemoglobin Concent 36.5 G/DL (32.0-36.0) 36.2 G/DL (32.0-36.0) Red Cell Distribution Width 10.3 % (11.6-14.8) 10.4 % (11.6-14.8) Platelet Count 52 K/UL (150-450) 53 K/UL (150-450) Mean Platelet Volume 9.0 FL (6.5-10.1) 8.7 FL (6.5-10.1) Neutrophils (%) (Auto) % (45.0-75.0) % (45.0-75.0) Lymphocytes (%) (Auto) % (20.0-45.0) % (20.0-45.0) Monocytes (%) (Auto) % (1.0-10.0) % (1.0-10.0) Eosinophils (%) (Auto) % (0.0-3.0) % (0.0-3.0) Basophils (%) (Auto) % (0.0-2.0) % (0.0-2.0) Differential Total Cells Counted 100 Neutrophils % (Manual) 58 % (45-75) Lymphocytes % (Manual) 23 % (20-45) Monocytes % (Manual) 9 % (1-10) Eosinophils % (Manual) 10 % (0-3) Basophils % (Manual) 0 % (0-2) Band Neutrophils 0 % (0-8) Platelet Estimate Decreased Platelet Morphology Normal Red Blood Cell Morphology Normal Sodium Level 135 MMOL/L (136-145) Potassium Level 4.3 MMOL/L (3.5-5.1) Chloride Level 101 MMOL/L (98-107) Carbon Dioxide Level 25 MMOL/L (21-32) Anion Gap 9 mmol/L (5-15) Blood Urea Nitrogen 27 mg/dL (7-18) Creatinine 2.2 MG/DL (0.55-1.30) Estimat Glomerular Filtration Rate 33.3 mL/min (>60) Glucose Level 97 MG/DL (74-106) Uric Acid 5.8 MG/DL (2.6-7.2) Calcium Level 8.5 MG/DL (8.5-10.1) Phosphorus Level 4.5 MG/DL (2.5-4.9) Magnesium Level 2.3 MG/DL (1.8-2.4) Total Bilirubin 0.4 MG/DL (0.2-1.0) Aspartate Amino Transf (AST/SGOT) 78 U/L (15-37) Alanine Aminotransferase (ALT/SGPT) 57 U/L (12-78) Alkaline Phosphatase 93 U/L (46-116) C-Reactive Protein, Quantitative 5.1 mg/dL (0.00-0.90) Pro-B-Type Natriuretic Peptide 214 pg/mL (0-125) Total Protein 7.6 G/DL (6.4-8.2) Albumin 2.5 G/DL (3.4-5.0) Globulin 5.1 g/dL Albumin/Globulin Ratio 0.5 (1.0-2.7) Urine Eosinophils None seen (NONE SEEN) Height (Feet): 5 Height (Inches): 10.00 Weight (Pounds): 171 Objective Physical Exam: Vitals: reviewed General: Nad, altered mental status HEENT: nc, at Neck: supple Chest: clear breath sounds bilaterally Cardiovascular: RRR, no s3, s4 Abdomen: soft, nontender, nd Extremities: no cce, normal range of motion Neuro: alert and oriented Arya Nelson MD Aug 05, 2019 07:02
[2019-08-05 07:04] LABS: ALANINE AMINOTRANSFERASE 50 U/L (12-78); ALBUMIN 2.5 G/DL (3.4-5.0); ALBUMIN/GLOBULIN RATIO 0.5 (1.0-2.7); ALKALINE PHOSPHATASE 96 U/L (46-116); ANION GAP 8 mmol/L (5-15); ASPARTATE AMINO TRANSFERASE 70 U/L (15-37); BILIRUBIN,TOTAL 0.4 MG/DL (0.2-1.0); BLOOD UREA NITROGEN 23 mg/dL (7-18); CALCIUM 8.6 MG/DL (8.5-10.1); CARBON DIOXIDE 27 MMOL/L (21-32); CHLORIDE 104 MMOL/L (98-107); CREATININE 1.7 MG/DL (0.55-1.30); PHOSPHORUS 4.1 MG/DL (2.5-4.9); POTASSIUM 4.1 MMOL/L (3.5-5.1); SODIUM 139 MMOL/L (136-145)
--- NOTE | 2019-08-05 07:41 | NUR ---
HAND-OFF: Report given to Tania TERRELL.
[2019-08-05 08:00] VITALS: BP 130/85
--- NOTE | 2019-08-05 08:09 | NUR ---
NURSE NOTES: Patient alert x3; on room air, no sing of distress and shortness of breath; no sing of chest pain; IV Left For-Arm 24G flushes well; Thomas in place, drains yellow urine; IV Left For-Arm 24G flushes well; side rails up x2, breaks engaged, bed at lowest position; call light within reach; will keep monitoring.
[2019-08-05] MEDS: Docusate 100mg cap ORAL SCH ×3 (08:58→17:23)
[2019-08-05] MEDS: Midodrine 10mg tab ORAL SCH (08:58)
[2019-08-05] MEDS: Thiamine 100mg tab ORAL SCH (08:58)
--- NOTE | 2019-08-05 09:04 | General Progress Note ---
Assessment/Plan Status: progressing Assessment/Plan: Assessment/Plan Status: progressing Assessment/Plan: Assessment - HIV (+) - crypto meningitis - pancytopenia - elevated LFT - h/o EtOH use x years, although stated he has not consumed for 1 mo - seizure - fever - rising creatinine Recommendations - check hepatitis serologies -all negative - ID f/u - po as tolerated - thiamine - watch Cr>>> improving -LFTS improving - Renal f/u -fungemia>>> fu ID Subjective ROS Limited/Unobtainable: Yes Allergies: Coded Allergies: No Known Allergies (Unverified , 07/25/19) Objective Last 24 Hour Vital Signs Date Time Temp Pulse Resp B/P (MAP) Pulse Ox O2 Delivery O2 Flow Rate FiO2 08/05/19 08:00 98.1 70 20 130/85 (100) 98 08/05/19 04:00 97.8 66 18 135/80 (98) 96 08/05/19 00:00 97.2 69 18 136/79 (98) 96 08/04/19 21:00 Room Air 08/04/19 20:00 98.0 75 18 129/78 (95) 94 08/04/19 16:00 98.4 81 20 106/61 (76) 96 08/04/19 12:00 98.6 89 18 106/58 (74) 98 Intake and Output 08/04/19 08/05/19 19:00 07:00 Intake Total 750 ml Output Total 2100 ml 1750 ml Balance -1350 ml -1750 ml Intake Oral 750 ml Output Urine Total 2100 ml 1750 ml # Voids 5 Laboratory Tests 08/05/19 05:20: Urine Eosinophils None seen 08/05/19 06:08: White Blood Count 3.2L, Red Blood Count 3.45L, Hemoglobin 11.6L, Hematocrit 32.0L, Mean Corpuscular Volume 93, Mean Corpuscular Hemoglobin 33.6H, Mean Corpuscular Hemoglobin Concent 36.2H, Red Cell Distribution Width 10.4L, Platelet Count 53L, Mean Platelet Volume 8.7, Neutrophils (%) (Auto) , Lymphocytes (%) (Auto) , Monocytes (%) (Auto) , Eosinophils (%) (Auto) , Basophils (%) (Auto) , Neutrophils % (Manual) [Pending], Lymphocytes % (Manual) [Pending], Platelet Estimate [Pending], Platelet Morphology [Pending], Sodium Level 139, Potassium Level 4.1, Chloride Level 104, Carbon Dioxide Level 27, Anion Gap 8, Blood Urea Nitrogen 23H, Creatinine 1.7H, Estimat Glomerular Filtration Rate 44.9, Glucose Level 93, Uric Acid 5.2, Calcium Level 8.6, Phosphorus Level 4.1, Magnesium Level 1.9, Total Bilirubin 0.4, Aspartate Amino Transf (AST/SGOT) 70H, Alanine Aminotransferase (ALT/SGPT) 50, Alkaline Phosphatase 96, C-Reactive Protein, Quantitative 5.1H, Pro-B-Type Natriuretic Peptide 149H, Total Protein 7.5, Albumin 2.5L, Globulin 5.0, Albumin/Globulin Ratio 0.5L Height (Feet): 5 Height (Inches): 10.00 Weight (Pounds): 171 General Appearance: no apparent distress EENT: normal ENT inspection Neck: supple Cardiovascular: normal rate Respiratory/Chest: decreased breath sounds Abdomen: normal bowel sounds, non tender, soft Extremities: non-tender Kenji Selby MD Aug 05, 2019 09:04
--- NOTE | 2019-08-05 09:30 | NUR ---
NURSE NOTES: Patient's blood is positive for blood yeast, MD Connie Bryant is aware.
--- NOTE | 2019-08-05 11:00 | Nephrology Progress Note ---
Assessment/Plan Problem List: (1) JULIAN (acute kidney injury) Assessment: Serum creatinine rising (2) Seizure (3) ALCOHOL DEPENDENCE WITH WITHDRAWAL, UNSPECIFIED (4) Tachycardia (5) Hypokalemia Assessment Electrolyte imbalance Hypokalemia and hypomagnesemia Elevated creatinine to 1.4 on admission now corrected Seizure disorder Plan Serum creatinine gilberto to 2.2 but today is down to 1.7 Will discontinue Thomas catheter Adjust midodrine dose for low blood pressure Intravenous magnesium sulfate as needed Avoid nephrotoxic's as possible Flomax at night Urine studies ordered Patient taking p.o. well Previously Following measures as needed IV magnesium IV potassium phosphate IV thiamine IV Protonix Continue management per other consultants Monitor electrolytes Per orders Subjective ROS Limited/Unobtainable: No Constitutional: Reports: malaise Objective Objective Last 24 Hour Vital Signs Date Time Temp Pulse Resp B/P (MAP) Pulse Ox O2 Delivery O2 Flow Rate FiO2 08/05/19 09:00 Room Air 08/05/19 08:00 98.1 70 20 130/85 (100) 98 08/05/19 04:00 97.8 66 18 135/80 (98) 96 08/05/19 00:00 97.2 69 18 136/79 (98) 96 08/04/19 21:00 Room Air 08/04/19 20:00 98.0 75 18 129/78 (95) 94 08/04/19 16:00 98.4 81 20 106/61 (76) 96 08/04/19 12:00 98.6 89 18 106/58 (74) 98 Intake and Output 08/04/19 08/05/19 19:00 07:00 Intake Total 750 ml Output Total 2100 ml 1750 ml Balance -1350 ml -1750 ml Intake Oral 750 ml Output Urine Total 2100 ml 1750 ml # Voids 5 Laboratory Tests 08/05/19 05:20: Urine Eosinophils None seen 08/05/19 06:08: White Blood Count 3.2L, Red Blood Count 3.45L, Hemoglobin 11.6L, Hematocrit 32.0L, Mean Corpuscular Volume 93, Mean Corpuscular Hemoglobin 33.6H, Mean Corpuscular Hemoglobin Concent 36.2H, Red Cell Distribution Width 10.4L, Platelet Count 53L, Mean Platelet Volume 8.7, Neutrophils (%) (Auto) , Lymphocytes (%) (Auto) , Monocytes (%) (Auto) , Eosinophils (%) (Auto) , Basophils (%) (Auto) , Differential Total Cells Counted 100, Neutrophils % ( Manual) 60, Lymphocytes % (Manual) 30, Monocytes % (Manual) 2, Eosinophils % ( Manual) 7H, Basophils % (Manual) 1, Band Neutrophils 0, Platelet Estimate DecreasedL, Platelet Morphology Normal, Red Blood Cell Morphology Normal, Sodium Level 139, Potassium Level 4.1, Chloride Level 104, Carbon Dioxide Level 27, Anion Gap 8, Blood Urea Nitrogen 23H, Creatinine 1.7H, Estimat Glomerular Filtration Rate 44.9, Glucose Level 93, Uric Acid 5.2, Calcium Level 8.6, Phosphorus Level 4.1, Magnesium Level 1.9, Total Bilirubin 0.4, Aspartate Amino Transf (AST/SGOT) 70H, Alanine Aminotransferase (ALT/SGPT) 50, Alkaline Phosphatase 96, C-Reactive Protein, Quantitative 5.1H, Pro-B-Type Natriuretic Peptide 149H, Total Protein 7.5, Albumin 2.5L, Globulin 5.0, Albumin/Globulin Ratio 0.5L Height (Feet): 5 Height (Inches): 10.00 Weight (Pounds): 171 General Appearance: no apparent distress Cardiovascular: normal rate Respiratory/Chest: lungs clear Abdomen: soft, distended Objective No change Brian Alexandra MD Aug 05, 2019 11:00
--- NOTE | 2019-08-05 11:25 | Cardiac Electrophysiology PN ---
Assessment/Plan Assessment/Plan 1. Sinuys tachycardia due to seizure and alcohol withdrawal and crypt meningitis. EF 60%. EKG shows sinus tach with no acute ST-T wave abnormality. 2. Status post seizure, due to meningitis. 3. Cryptococcal meningitis, S/ LP, on iv antifungal per Dr. Bryant 4. Heavy alcohol use 5. AIDS 6. Thrombocytopenia FU Dr Omar GASCA RN Subjective Subjective On iv abx for Cryptococcal meningitis. On NMB Objective Last 24 Hour Vital Signs Date Time Temp Pulse Resp B/P (MAP) Pulse Ox O2 Delivery O2 Flow Rate FiO2 08/05/19 09:00 Room Air 08/05/19 08:00 98.1 70 20 130/85 (100) 98 08/05/19 04:00 97.8 66 18 135/80 (98) 96 08/05/19 00:00 97.2 69 18 136/79 (98) 96 08/04/19 21:00 Room Air 08/04/19 20:00 98.0 75 18 129/78 (95) 94 08/04/19 16:00 98.4 81 20 106/61 (76) 96 08/04/19 12:00 98.6 89 18 106/58 (74) 98 Intake and Output 08/04/19 08/05/19 19:00 07:00 Intake Total 750 ml Output Total 2100 ml 1750 ml Balance -1350 ml -1750 ml Intake Oral 750 ml Output Urine Total 2100 ml 1750 ml # Voids 5 Laboratory Tests Test 08/05/19 05:20 08/05/19 06:08 Urine Eosinophils None seen (NONE SEEN) White Blood Count 3.2 K/UL (4.8-10.8) L Red Blood Count 3.45 M/UL (4.70-6.10) L Hemoglobin 11.6 G/DL (14.2-18.0) L Hematocrit 32.0 % (42.0-52.0) L Mean Corpuscular Volume 93 FL (80-99) Mean Corpuscular Hemoglobin 33.6 PG (27.0-31.0) H Mean Corpuscular Hemoglobin Concent 36.2 G/DL (32.0-36.0) H Red Cell Distribution Width 10.4 % (11.6-14.8) L Platelet Count 53 K/UL (150-450) L Mean Platelet Volume 8.7 FL (6.5-10.1) Neutrophils (%) (Auto) % (45.0-75.0) Lymphocytes (%) (Auto) % (20.0-45.0) Monocytes (%) (Auto) % (1.0-10.0) Eosinophils (%) (Auto) % (0.0-3.0) Basophils (%) (Auto) % (0.0-2.0) Differential Total Cells Counted 100 Neutrophils % (Manual) 60 % (45-75) Lymphocytes % (Manual) 30 % (20-45) Monocytes % (Manual) 2 % (1-10) Eosinophils % (Manual) 7 % (0-3) H Basophils % (Manual) 1 % (0-2) Band Neutrophils 0 % (0-8) Platelet Estimate Decreased L Platelet Morphology Normal Red Blood Cell Morphology Normal Sodium Level 139 MMOL/L (136-145) Potassium Level 4.1 MMOL/L (3.5-5.1) Chloride Level 104 MMOL/L (98-107) Carbon Dioxide Level 27 MMOL/L (21-32) Anion Gap 8 mmol/L (5-15) Blood Urea Nitrogen 23 mg/dL (7-18) H Creatinine 1.7 MG/DL (0.55-1.30) H Estimat Glomerular Filtration Rate 44.9 mL/min (>60) Glucose Level 93 MG/DL (74-106) Uric Acid 5.2 MG/DL (2.6-7.2) Calcium Level 8.6 MG/DL (8.5-10.1) Phosphorus Level 4.1 MG/DL (2.5-4.9) Magnesium Level 1.9 MG/DL (1.8-2.4) Total Bilirubin 0.4 MG/DL (0.2-1.0) Aspartate Amino Transf (AST/SGOT) 70 U/L (15-37) H Alanine Aminotransferase (ALT/SGPT) 50 U/L (12-78) Alkaline Phosphatase 96 U/L (46-116) C-Reactive Protein, Quantitative 5.1 mg/dL (0.00-0.90) H Pro-B-Type Natriuretic Peptide 149 pg/mL (0-125) H Total Protein 7.5 G/DL (6.4-8.2) Albumin 2.5 G/DL (3.4-5.0) L Globulin 5.0 g/dL Albumin/Globulin Ratio 0.5 (1.0-2.7) L Objective HEAD AND NECK: No JVD. LUNGS: Clear. CARDIOVASCULAR: Nl S1 and S2 with no gallop. ABDOMEN: Soft. EXTREMITIES: 1+ pitting edema. Ric Mckeon MD Aug 05, 2019 11:25
[2019-08-05 12:00] VITALS: BP 123/79
--- NOTE | 2019-08-05 14:09 | NUR ---
NURSE NOTES: Patient is confused, tried a couple of times to come out of the bed; RN assisted patient to the rest room; patient unsteady gait; will keep monitoring; bed at lowest position, side rails up and padded for seizure percussion, breaks engaged; charge nurse is informed that patient is risk for fall; will keep monitoring.
--- NOTE | 2019-08-05 14:13 | NUR ---
NURSE NOTES: Discharge planning requested patient to have PT eval; RN communicated MD Blanchard, waiting for order;
--- NOTE | 2019-08-05 14:22 | NUR ---
P.T Note: P.T evaluation completed. See P.T evaluation for full report. Pt is alert, O to self, place but not to time. Pt follows commands appropriately. No c/o pain. Pt is currently functional baseline independent in all areas of ADL/functional activities and gait/locomotion w/o AD needed. Skilled P.T service not needed at this time. DC P.T services. Thank you for this referral.
--- NOTE | 2019-08-05 14:34 | Infectious Diseases Prog Note ---
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 RECOMMENDATION: Patient has HIV since 2003 goes to [facility], noncompliant with medication Should be on Dapsone, Zithromax, Continue Liposomal Amphotericin B Continue HIV treatment with Tivicay & Descovy Case was D/W RN & pharmacy Will f/u HIV viral loud & CD4 Subjective ROS Limited/Unobtainable: Yes HEENT: Reports: no symptoms Respiratory: Reports: no symptoms Gastrointestinal/Abdominal: Reports: no symptoms Genitourinary: Reports: other - discomfort with Thomas catheter Neurologic: Reports: no symptoms Allergies: Coded Allergies: No Known Allergies (Unverified , 07/25/19) Objective Vital Signs Last 24 Hour Vital Signs Date Time Temp Pulse Resp B/P (MAP) Pulse Ox O2 Delivery O2 Flow Rate FiO2 08/05/19 12:00 97.9 73 18 123/79 (94) 95 08/05/19 09:00 Room Air 08/05/19 08:00 98.1 70 20 130/85 (100) 98 08/05/19 04:00 97.8 66 18 135/80 (98) 96 08/05/19 00:00 97.2 69 18 136/79 (98) 96 08/04/19 21:00 Room Air 08/04/19 20:00 98.0 75 18 129/78 (95) 94 08/04/19 16:00 98.4 81 20 106/61 (76) 96 Height (Feet): 5 Height (Inches): 10.00 Weight (Pounds): 171 General Appearance: no acute distress HEENT: mucous membranes moist Respiratory/Chest: lungs clear Cardiovascular: normal rate Abdomen: soft, non tender Genitourinary: other - Thomas catheter Extremities: no edema Neurologic/Psychiatric: alert, oriented x 3, responsive Laboratory Tests Test 08/05/19 05:20 08/05/19 06:08 Urine Eosinophils None seen (NONE SEEN) White Blood Count 3.2 K/UL (4.8-10.8) L Red Blood Count 3.45 M/UL (4.70-6.10) L Hemoglobin 11.6 G/DL (14.2-18.0) L Hematocrit 32.0 % (42.0-52.0) L Mean Corpuscular Volume 93 FL (80-99) Mean Corpuscular Hemoglobin 33.6 PG (27.0-31.0) H Mean Corpuscular Hemoglobin Concent 36.2 G/DL (32.0-36.0) H Red Cell Distribution Width 10.4 % (11.6-14.8) L Platelet Count 53 K/UL (150-450) L Mean Platelet Volume 8.7 FL (6.5-10.1) Neutrophils (%) (Auto) % (45.0-75.0) Lymphocytes (%) (Auto) % (20.0-45.0) Monocytes (%) (Auto) % (1.0-10.0) Eosinophils (%) (Auto) % (0.0-3.0) Basophils (%) (Auto) % (0.0-2.0) Differential Total Cells Counted 100 Neutrophils % (Manual) 60 % (45-75) Lymphocytes % (Manual) 30 % (20-45) Monocytes % (Manual) 2 % (1-10) Eosinophils % (Manual) 7 % (0-3) H Basophils % (Manual) 1 % (0-2) Band Neutrophils 0 % (0-8) Platelet Estimate Decreased L Platelet Morphology Normal Red Blood Cell Morphology Normal Sodium Level 139 MMOL/L (136-145) Potassium Level 4.1 MMOL/L (3.5-5.1) Chloride Level 104 MMOL/L (98-107) Carbon Dioxide Level 27 MMOL/L (21-32) Anion Gap 8 mmol/L (5-15) Blood Urea Nitrogen 23 mg/dL (7-18) H Creatinine 1.7 MG/DL (0.55-1.30) H Estimat Glomerular Filtration Rate 44.9 mL/min (>60) Glucose Level 93 MG/DL (74-106) Uric Acid 5.2 MG/DL (2.6-7.2) Calcium Level 8.6 MG/DL (8.5-10.1) Phosphorus Level 4.1 MG/DL (2.5-4.9) Magnesium Level 1.9 MG/DL (1.8-2.4) Total Bilirubin 0.4 MG/DL (0.2-1.0) Aspartate Amino Transf (AST/SGOT) 70 U/L (15-37) H Alanine Aminotransferase (ALT/SGPT) 50 U/L (12-78) Alkaline Phosphatase 96 U/L (46-116) C-Reactive Protein, Quantitative 5.1 mg/dL (0.00-0.90) H Pro-B-Type Natriuretic Peptide 149 pg/mL (0-125) H Total Protein 7.5 G/DL (6.4-8.2) Albumin 2.5 G/DL (3.4-5.0) L Globulin 5.0 g/dL Albumin/Globulin Ratio 0.5 (1.0-2.7) L Current Medications Medications (Trade) Dose Ordered Sig/Gabrielle Route PRN Reason Start Time Stop Time Status Last Admin Dose Admin Acetaminophen (Tylenol) 650 mg Q6H PRN RECTAL fever 07/31/19 22:43 08/30/19 22:42 08/03/19 12:20 Amphotericin B Liposome 300 mg/ Dextrose 250 ml @ 125 mls/hr Q24H IV 08/05/19 15:00 08/10/19 14:59 Azithromycin (Zithromax) 1,200 mg ONCE A WEEK ORAL 08/02/19 14:00 08/09/19 13:59 08/02/19 16:24 Dapsone (Dapsone) 100 mg DAILY ORAL 08/02/19 14:00 08/09/19 13:59 08/05/19 08:59 Docusate Sodium (Colace) 100 mg THREE TIMES A DAY ORAL 08/04/19 18:00 09/03/19 17:59 08/05/19 12:40 Flucytosine (Ancobon) 2,000 mg Q6H ORAL 08/04/19 18:00 08/11/19 17:59 08/05/19 12:41 Folic Acid (Folate) 1 mg DAILY ORAL 08/01/19 09:00 08/27/19 08:59 08/05/19 08:59 Lorazepam (Ativan 2mg/ml 1ml) 2 mg Q2H PRN IM For Anxiety 07/31/19 22:48 08/07/19 22:47 Midodrine (Pro-Amatine) 5 mg TID ORAL 08/05/19 13:00 11/01/19 17:59 08/05/19 12:41 Pantoprazole (Protonix) 40 mg EVERY 12 HOURS ORAL 08/01/19 09:00 08/29/19 20:59 08/05/19 08:58 Patient Own Medication (Patient's Own Med) 1 ea DAILY ORAL 08/04/19 21:00 09/03/19 20:59 08/05/19 09:00 Patient Own Medication (Patient's Own Med) 1 ea DAILY ORAL 08/04/19 22:00 09/03/19 21:59 08/05/19 08:59 Tamsulosin HCl (Flomax) 0.4 mg BEDTIME ORAL 08/02/19 21:00 09/01/19 20:59 08/04/19 21:21 Thiamine HCl (Vitamin B1) 100 mg DAILY ORAL 08/01/19 09:00 08/27/19 19:59 08/05/19 08:58 Po Bryant MD Aug 05, 2019 14:34
[2019-08-05] MEDS: D5W IV SCH (15:26)
[2019-08-05] MEDS: AMPHOTERICIN B LIPOSOME IV SCH (15:26)
--- NOTE | 2019-08-05 15:29 | NUR ---
CASE MANAGEMENT:REVIEW SI; PANCYTOPENIA. CRYPTOCOCCAL MENINGITIS. FUNGEMIA. HIV/AIDS. ARF. ENCEPHALOPATHY. NEW ONSET SEIZURE. 97.2 73 20 136/79 95% ON RA WBC 3.2 RBC 3.45 PLT 53 BUN 23 CR 1.7 CRP 5.1 IS;AMPHOTERICIN B LIPOSOME IV QD MIDODRINE PO TID ANCOBAN PO Q6 HRS DAPSONE PO QD FOLATE PO QD THIAMINE PO QD PROTONIX PO BID MED SURG STATUS DCP;FROM HOME
[2019-08-05 16:00] VITALS: BP 127/82
--- NOTE | 2019-08-05 17:23 | General Progress Note ---
Assessment/Plan Problem List: (1) Seizure disorder ICD Codes: G40.909 - Epilepsy, unspecified, not intractable, without status epilepticus SNOMED: 032059560 (2) Hypokalemia ICD Codes: E87.6 - Hypokalemia SNOMED: 96412371 (3) Seizure ICD Codes: R56.9 - Unspecified convulsions SNOMED: 16510509 (4) Tachycardia ICD Codes: R00.0 - Tachycardia, unspecified SNOMED: 2303619 (5) ALCOHOL DEPENDENCE WITH WITHDRAWAL, UNSPECIFIED ICD Codes: F10.239 - ALCOHOL DEPENDENCE WITH WITHDRAWAL, UNSPECIFIED Status: progressing Assessment/Plan: immune deficiency seizure lyte abnormality ams confused reviewed chart and labs Subjective ROS Limited/Unobtainable: Yes Allergies: Coded Allergies: No Known Allergies (Unverified , 07/25/19) Objective Last 24 Hour Vital Signs Date Time Temp Pulse Resp B/P (MAP) Pulse Ox O2 Delivery O2 Flow Rate FiO2 08/05/19 16:00 98.5 78 18 127/82 (97) 96 08/05/19 12:00 97.9 73 18 123/79 (94) 95 08/05/19 09:00 Room Air 08/05/19 08:00 98.1 70 20 130/85 (100) 98 08/05/19 04:00 97.8 66 18 135/80 (98) 96 08/05/19 00:00 97.2 69 18 136/79 (98) 96 08/04/19 21:00 Room Air 08/04/19 20:00 98.0 75 18 129/78 (95) 94 Intake and Output 08/04/19 08/05/19 19:00 07:00 Intake Total 750 ml Output Total 2100 ml 1750 ml Balance -1350 ml -1750 ml Intake Oral 750 ml Output Urine Total 2100 ml 1750 ml # Voids 5 Laboratory Tests 08/05/19 05:20: Urine Eosinophils None seen 08/05/19 06:08: White Blood Count 3.2L, Red Blood Count 3.45L, Hemoglobin 11.6L, Hematocrit 32.0L, Mean Corpuscular Volume 93, Mean Corpuscular Hemoglobin 33.6H, Mean Corpuscular Hemoglobin Concent 36.2H, Red Cell Distribution Width 10.4L, Platelet Count 53L, Mean Platelet Volume 8.7, Neutrophils (%) (Auto) , Lymphocytes (%) (Auto) , Monocytes (%) (Auto) , Eosinophils (%) (Auto) , Basophils (%) (Auto) , Differential Total Cells Counted 100, Neutrophils % ( Manual) 60, Lymphocytes % (Manual) 30, Monocytes % (Manual) 2, Eosinophils % ( Manual) 7H, Basophils % (Manual) 1, Band Neutrophils 0, Platelet Estimate DecreasedL, Platelet Morphology Normal, Red Blood Cell Morphology Normal, Sodium Level 139, Potassium Level 4.1, Chloride Level 104, Carbon Dioxide Level 27, Anion Gap 8, Blood Urea Nitrogen 23H, Creatinine 1.7H, Estimat Glomerular Filtration Rate 44.9, Glucose Level 93, Uric Acid 5.2, Calcium Level 8.6, Phosphorus Level 4.1, Magnesium Level 1.9, Total Bilirubin 0.4, Aspartate Amino Transf (AST/SGOT) 70H, Alanine Aminotransferase (ALT/SGPT) 50, Alkaline Phosphatase 96, C-Reactive Protein, Quantitative 5.1H, Pro-B-Type Natriuretic Peptide 149H, Total Protein 7.5, Albumin 2.5L, Globulin 5.0, Albumin/Globulin Ratio 0.5L Height (Feet): 5 Height (Inches): 10.00 Weight (Pounds): 171 Cardiovascular: normal rate Respiratory/Chest: lungs clear Abdomen: soft Isa Blanchard MD Aug 05, 2019 17:23
--- NOTE | 2019-08-05 17:43 | NUR ---
NURSE NOTES: For the EEG photic awake/sleep order, I called and left a message to John at [phone]; waiting for call;
--- NOTE | 2019-08-05 17:57 | NUR ---
NURSE NOTES: Thomas removed, patient tolerated well; will keep monitoring.
--- NOTE | 2019-08-05 19:43 | NUR ---
HAND-OFF: Report given to NIDHI Bates.
[2019-08-05 20:00] VITALS: BP 121/78
[2019-08-05] MEDS: Tamsulosin 0.4mg cap ORAL SCH (21:50)
[2019-08-06] VITALS: BP 114/71
[2019-08-06] MEDS: FLUCYTOSINE 500 MG ORAL SCH ×4 (00:24→17:23)
[2019-08-06 04:00] VITALS: BP 129/73
[2019-08-06 06:33] LABS: HEMATOCRIT 33.1 % (42.0-52.0); HEMOGLOBIN 11.9 G/DL (14.2-18.0); MEAN CORPUSCULAR VOLUME 94 FL (80-99); PLATELET COUNT 69 K/UL (150-450); RED BLOOD COUNT 3.54 M/UL (4.70-6.10); RED CELL DISTRIBUTION WIDTH 10.6 % (11.6-14.8)
[2019-08-06 06:55] LABS: ALANINE AMINOTRANSFERASE 49 U/L (12-78); ALBUMIN 2.5 G/DL (3.4-5.0); ALBUMIN/GLOBULIN RATIO 0.5 (1.0-2.7); ALKALINE PHOSPHATASE 103 U/L (46-116); ANION GAP 10 mmol/L (5-15); ASPARTATE AMINO TRANSFERASE 67 U/L (15-37); BILIRUBIN,TOTAL 0.4 MG/DL (0.2-1.0); BLOOD UREA NITROGEN 20 mg/dL (7-18); CALCIUM 8.6 MG/DL (8.5-10.1); CARBON DIOXIDE 24 MMOL/L (21-32); CHLORIDE 105 MMOL/L (98-107); CREATININE 1.6 MG/DL (0.55-1.30); POTASSIUM 4.5 MMOL/L (3.5-5.1); SODIUM 139 MMOL/L (136-145)
--- NOTE | 2019-08-06 07:08 | General Progress Note ---
Assessment/Plan Status: progressing Assessment/Plan: Assessment/Plan Status: progressing Assessment/Plan: Assessment - HIV (+) - crypto meningitis - pancytopenia - elevated LFT - h/o EtOH use x years, although stated he has not consumed for 1 mo - seizure - fever - rising creatinine Recommendations - check hepatitis serologies -all negative - ID f/u - po as tolerated - thiamine - watch Cr>>> improving -LFTS improving - Renal f/u -fungemia>>> fu ID Subjective ROS Limited/Unobtainable: Yes Allergies: Coded Allergies: No Known Allergies (Unverified , 07/25/19) Objective Last 24 Hour Vital Signs Date Time Temp Pulse Resp B/P (MAP) Pulse Ox O2 Delivery O2 Flow Rate FiO2 08/06/19 04:00 98.1 71 20 129/73 (91) 98 08/06/19 00:00 97.6 72 18 114/71 (85) 97 08/05/19 21:00 Room Air 08/05/19 20:00 97.7 70 18 121/78 (92) 97 08/05/19 16:00 98.5 78 18 127/82 (97) 96 08/05/19 12:00 97.9 73 18 123/79 (94) 95 08/05/19 09:00 Room Air 08/05/19 08:00 98.1 70 20 130/85 (100) 98 Intake and Output 08/05/19 08/06/19 19:00 07:00 Intake Total 1050 ml 1000 ml Balance 1050 ml 1000 ml Intake Oral 800 ml 1000 ml IV Total 250 ml # Voids 6 Laboratory Tests 08/06/19 05:50: White Blood Count 3.0L, Red Blood Count 3.54L, Hemoglobin 11.9L, Hematocrit 33.1L, Mean Corpuscular Volume 94, Mean Corpuscular Hemoglobin 33.6H, Mean Corpuscular Hemoglobin Concent 35.9, Red Cell Distribution Width 10.6L, Platelet Count 69L, Mean Platelet Volume 8.3, Neutrophils (%) (Auto) , Lymphocytes (%) (Auto) , Monocytes (%) (Auto) , Eosinophils (%) (Auto) , Basophils (%) (Auto) , Neutrophils % (Manual) [Pending], Lymphocytes % (Manual) [Pending], Platelet Estimate [Pending], Platelet Morphology [Pending], Sodium Level [Pending], Potassium Level [Pending], Chloride Level [Pending], Carbon Dioxide Level [Pending], Blood Urea Nitrogen [Pending], Creatinine [Pending], Estimat Glomerular Filtration Rate [Pending], Glucose Level [Pending], Calcium Level [Pending], Total Bilirubin [Pending], Aspartate Amino Transf (AST/SGOT) [ Pending], Alanine Aminotransferase (ALT/SGPT) [Pending], Alkaline Phosphatase [ Pending], Total Protein [Pending], Albumin [Pending], Globulin [Pending] Height (Feet): 5 Height (Inches): 10.00 Weight (Pounds): 171 General Appearance: alert EENT: PERRL/EOMI Neck: supple Cardiovascular: normal rate Respiratory/Chest: decreased breath sounds Abdomen: normal bowel sounds, non tender, soft Extremities: non-tender Kenji Selby MD Aug 06, 2019 07:08
--- NOTE | 2019-08-06 07:27 | NUR ---
HAND-OFF: Report given to NIDHI Marin.
--- NOTE | 2019-08-06 07:48 | NUR ---
NURSE NOTES: Patient awake, alert x3, confused; on room air, no sing of shortness of breath, or sing of distress; no sing of chest pain; IV Left For-Arm 24G flushes well; side rails padded for seizure percussion and up x2; breaks engaged, bed alarm on, bed at lowest position; patient encouraged to use a call light to call for help; urinal and call light within reach; patient risk for fall, sing at the door, evaluation assistant also aware; will keep monitoring.
[2019-08-06 08:00] VITALS: BP 98/65
--- NOTE | 2019-08-06 08:07 | Hematology/Onc Progress Note ---
Assessment/Plan Assessment/Plan Assessment and Recs: # Pancytopenia - potential causes multifactorial, evaluate liver and viral etiologies to begin, in this case due to ETOH ABUSE/WITHDRAWAL, bone marrow myelosuppression, also may be due to meds, ampho --> Hep panel and HIV +++ --> US abd to evaluate for cirrhosis and hsm ordered --> SHOWS spenomegaly, enlarged spleen --> Peripheral smear ordered to evaluate for blasts /schistocytes --> none noted --> abx and other meds have been reviewed --> ok for ppx if plt >50k w/ either heparin or lovenox --> Transfuse if Plt < 20k and fever, or if Plt < 10k without fever --> plt trend 164-->122k-->86k-->52k-->69 --> wbc trend 5-->3-->2->2.2-->3 --> abx: vanc/zosyn --> ampho/azithro--> ampho/flucty # ETOH withdrawal --> r/o seizure --> ativan, librium, folate --> imaging reviewed --> smear noted --> rec cessation # Leukocytosis likely reactive --> s/p abx --> wbc 11-->3.2 # Seizure --> R/o seizure d/o onset -> meds reviewed --> as per neuro # JULIAN (acute kidney injury) --> per renal recs # HIV --> as per id, consider eval # Tachycardia --> per Dr. Mckeon # AMS --> per psych The timing of this note does not necessarily reflect the time of the patient was seen. Greatly appreciate consultation. Subjective Constitutional: Denies: no symptoms, chills, fever, malaise, weakness, other HEENT: Denies: no symptoms, eye pain, blurred vision, tearing, double vision, ear pain, ear discharge, nose pain, nose congestion, throat pain, throat swelling, mouth pain, mouth swelling, other Cardiovascular: Denies: no symptoms, chest pain, edema, irregular heart rate, lightheadedness, palpitations, syncope, other Respiratory: Denies: no symptoms, cough, shortness of breath, SOB with excertion, SOB at rest, sputum, wheezing, other Gastrointestinal/Abdominal: Denies: no symptoms, abdomen distended, abdominal pain, black stools, tarry stools, blood in stool, constipated, diarrhea, difficulty swallowing, nausea, poor appetite, poor fluid intake, rectal bleeding , vomiting, other Genitourinary: Denies: no symptoms, burning, discharge, frequency, flank pain, hematuria, incontinence, pain, urgency, other Neurologic/Psychiatric: Denies: no symptoms, anxiety, depressed, emotional problems, headache, numbness, paresthesia, pre-existing deficit, seizure, tingling, tremors, weakness, other Endocrine: Denies: no symptoms, excessive sweating, flushing, intolerance to cold, intolerance to heat, increased hunger, increased thirst, increased urine, unexplained weight gain, unexplained weight loss, other Allergies: Coded Allergies: No Known Allergies (Unverified , 07/25/19) Subjective 07/27: no events, no bleeding, cbc pending, remains altered 07/28: no events, labs reviewed, viral studies noted, no bleeding 07/29: asleep, cbc pending, on vanc/zosym, room air 07/30 no major events noted, no bleeding, labs reviewed 07/31 no events, tolerating po, labs pending 08/02 no events, no bleeding, labs lower yesterday, no night sweats 08/03 no bleeding, labs noted, cbc to be reviewed, no major events 08/04 no events, pending labs, specifically bmp, labs noted 08/05 no bleeding episodes, no night sweats, meds have been reviewed Objective Objective Current Medications Medications (Trade) Dose Ordered Sig/Gabrielle Route PRN Reason Start Time Stop Time Status Last Admin Dose Admin Acetaminophen (Tylenol) 650 mg Q6H PRN RECTAL fever 07/31/19 22:43 08/30/19 22:42 08/03/19 12:20 Amphotericin B Liposome 300 mg/ Dextrose 250 ml @ 125 mls/hr Q24H IV 08/05/19 15:00 08/10/19 14:59 08/05/19 15:26 Azithromycin (Zithromax) 1,200 mg ONCE A WEEK ORAL 08/02/19 14:00 08/09/19 13:59 08/02/19 16:24 Dapsone (Dapsone) 100 mg DAILY ORAL 08/02/19 14:00 08/09/19 13:59 08/05/19 08:59 Docusate Sodium (Colace) 100 mg THREE TIMES A DAY ORAL 08/04/19 18:00 09/03/19 17:59 08/05/19 17:23 Flucytosine (Ancobon) 2,000 mg Q6H ORAL 08/04/19 18:00 08/11/19 17:59 08/06/19 05:20 Folic Acid (Folate) 1 mg DAILY ORAL 08/01/19 09:00 08/27/19 08:59 08/05/19 08:59 Lorazepam (Ativan 2mg/ml 1ml) 2 mg Q2H PRN IM For Anxiety 07/31/19 22:48 08/07/19 22:47 Midodrine (Pro-Amatine) 5 mg TID ORAL 08/05/19 13:00 11/01/19 17:59 08/05/19 17:23 Pantoprazole (Protonix) 40 mg EVERY 12 HOURS ORAL 08/01/19 09:00 08/29/19 20:59 08/05/19 21:49 Patient Own Medication (Patient's Own Med) 1 ea DAILY ORAL 08/04/19 21:00 09/03/19 20:59 08/05/19 09:00 Patient Own Medication (Patient's Own Med) 1 ea DAILY ORAL 08/04/19 22:00 09/03/19 21:59 08/05/19 08:59 Tamsulosin HCl (Flomax) 0.4 mg BEDTIME ORAL 08/02/19 21:00 09/01/19 20:59 08/05/19 21:50 Thiamine HCl (Vitamin B1) 100 mg DAILY ORAL 08/01/19 09:00 08/27/19 19:59 08/05/19 08:58 Last 24 Hour Vital Signs Date Time Temp Pulse Resp B/P (MAP) Pulse Ox O2 Delivery O2 Flow Rate FiO2 08/06/19 04:00 98.1 71 20 129/73 (91) 98 08/06/19 00:00 97.6 72 18 114/71 (85) 97 08/05/19 21:00 Room Air 08/05/19 20:00 97.7 70 18 121/78 (92) 97 08/05/19 16:00 98.5 78 18 127/82 (97) 96 08/05/19 12:00 97.9 73 18 123/79 (94) 95 08/05/19 09:00 Room Air 08/05/19 08:00 98.1 70 20 130/85 (100) 98 08/05/19 04:00 97.8 66 18 135/80 (98) 96 08/05/19 00:00 97.2 69 18 136/79 (98) 96 08/04/19 21:00 Room Air 08/04/19 20:00 98.0 75 18 129/78 (95) 94 08/04/19 16:00 98.4 81 20 106/61 (76) 96 08/04/19 12:00 98.6 89 18 106/58 (74) 98 08/04/19 09:00 Room Air Intake and Output 08/05/19 08/06/19 19:00 07:00 Intake Total 1050 ml 1000 ml Balance 1050 ml 1000 ml Intake Oral 800 ml 1000 ml IV Total 250 ml # Voids 6 Labs Test 08/04/19 05:00 08/04/19 05:20 08/05/19 05:20 08/05/19 06:08 Urine Eosinophils None seen (NONE SEEN) None seen (NONE SEEN) White Blood Count 2.9 K/UL (4.8-10.8) 3.2 K/UL (4.8-10.8) Red Blood Count 3.49 M/UL (4.70-6.10) 3.45 M/UL (4.70-6.10) Hemoglobin 11.7 G/DL (14.2-18.0) 11.6 G/DL (14.2-18.0) Hematocrit 32.2 % (42.0-52.0) 32.0 % (42.0-52.0) Mean Corpuscular Volume 92 FL (80-99) 93 FL (80-99) Mean Corpuscular Hemoglobin 33.6 PG (27.0-31.0) 33.6 PG (27.0-31.0) Mean Corpuscular Hemoglobin Concent 36.5 G/DL (32.0-36.0) 36.2 G/DL (32.0-36.0) Red Cell Distribution Width 10.3 % (11.6-14.8) 10.4 % (11.6-14.8) Platelet Count 52 K/UL (150-450) 53 K/UL (150-450) Mean Platelet Volume 9.0 FL (6.5-10.1) 8.7 FL (6.5-10.1) Neutrophils (%) (Auto) % (45.0-75.0) % (45.0-75.0) Lymphocytes (%) (Auto) % (20.0-45.0) % (20.0-45.0) Monocytes (%) (Auto) % (1.0-10.0) % (1.0-10.0) Eosinophils (%) (Auto) % (0.0-3.0) % (0.0-3.0) Basophils (%) (Auto) % (0.0-2.0) % (0.0-2.0) Differential Total Cells Counted 100 100 Neutrophils % (Manual) 58 % (45-75) 60 % (45-75) Lymphocytes % (Manual) 23 % (20-45) 30 % (20-45) Monocytes % (Manual) 9 % (1-10) 2 % (1-10) Eosinophils % (Manual) 10 % (0-3) 7 % (0-3) Basophils % (Manual) 0 % (0-2) 1 % (0-2) Band Neutrophils 0 % (0-8) 0 % (0-8) Platelet Estimate Decreased Decreased Platelet Morphology Normal Normal Red Blood Cell Morphology Normal Normal Sodium Level 135 MMOL/L (136-145) 139 MMOL/L (136-145) Potassium Level 4.3 MMOL/L (3.5-5.1) 4.1 MMOL/L (3.5-5.1) Chloride Level 101 MMOL/L (98-107) 104 MMOL/L (98-107) Carbon Dioxide Level 25 MMOL/L (21-32) 27 MMOL/L (21-32) Anion Gap 9 mmol/L (5-15) 8 mmol/L (5-15) Blood Urea Nitrogen 27 mg/dL (7-18) 23 mg/dL (7-18) Creatinine 2.2 MG/DL (0.55-1.30) 1.7 MG/DL (0.55-1.30) Estimat Glomerular Filtration Rate 33.3 mL/min (>60) 44.9 mL/min (>60) Glucose Level 97 MG/DL (74-106) 93 MG/DL (74-106) Uric Acid 5.8 MG/DL (2.6-7.2) 5.2 MG/DL (2.6-7.2) Calcium Level 8.5 MG/DL (8.5-10.1) 8.6 MG/DL (8.5-10.1) Phosphorus Level 4.5 MG/DL (2.5-4.9) 4.1 MG/DL (2.5-4.9) Magnesium Level 2.3 MG/DL (1.8-2.4) 1.9 MG/DL (1.8-2.4) Total Bilirubin 0.4 MG/DL (0.2-1.0) 0.4 MG/DL (0.2-1.0) Aspartate Amino Transf (AST/SGOT) 78 U/L (15-37) 70 U/L (15-37) Alanine Aminotransferase (ALT/SGPT) 57 U/L (12-78) 50 U/L (12-78) Alkaline Phosphatase 93 U/L (46-116) 96 U/L (46-116) C-Reactive Protein, Quantitative 5.1 mg/dL (0.00-0.90) 5.1 mg/dL (0.00-0.90) Pro-B-Type Natriuretic Peptide 214 pg/mL (0-125) 149 pg/mL (0-125) Total Protein 7.6 G/DL (6.4-8.2) 7.5 G/DL (6.4-8.2) Albumin 2.5 G/DL (3.4-5.0) 2.5 G/DL (3.4-5.0) Globulin 5.1 g/dL 5.0 g/dL Albumin/Globulin Ratio 0.5 (1.0-2.7) 0.5 (1.0-2.7) Test 08/06/19 05:50 White Blood Count 3.0 K/UL (4.8-10.8) Red Blood Count 3.54 M/UL (4.70-6.10) Hemoglobin 11.9 G/DL (14.2-18.0) Hematocrit 33.1 % (42.0-52.0) Mean Corpuscular Volume 94 FL (80-99) Mean Corpuscular Hemoglobin 33.6 PG (27.0-31.0) Mean Corpuscular Hemoglobin Concent 35.9 G/DL (32.0-36.0) Red Cell Distribution Width 10.6 % (11.6-14.8) Platelet Count 69 K/UL (150-450) Mean Platelet Volume 8.3 FL (6.5-10.1) Neutrophils (%) (Auto) % (45.0-75.0) Lymphocytes (%) (Auto) % (20.0-45.0) Monocytes (%) (Auto) % (1.0-10.0) Eosinophils (%) (Auto) % (0.0-3.0) Basophils (%) (Auto) % (0.0-2.0) Sodium Level 139 MMOL/L (136-145) Potassium Level 4.5 MMOL/L (3.5-5.1) Chloride Level 105 MMOL/L (98-107) Carbon Dioxide Level 24 MMOL/L (21-32) Anion Gap 10 mmol/L (5-15) Blood Urea Nitrogen 20 mg/dL (7-18) Creatinine 1.6 MG/DL (0.55-1.30) Estimat Glomerular Filtration Rate 48.1 mL/min (>60) Glucose Level 97 MG/DL (74-106) Calcium Level 8.6 MG/DL (8.5-10.1) Total Bilirubin 0.4 MG/DL (0.2-1.0) Aspartate Amino Transf (AST/SGOT) 67 U/L (15-37) Alanine Aminotransferase (ALT/SGPT) 49 U/L (12-78) Alkaline Phosphatase 103 U/L (46-116) Total Protein 7.9 G/DL (6.4-8.2) Albumin 2.5 G/DL (3.4-5.0) Globulin 5.4 g/dL Albumin/Globulin Ratio 0.5 (1.0-2.7) Height (Feet): 5 Height (Inches): 10.00 Weight (Pounds): 171 Objective Physical Exam: Vitals: reviewed General: Nad, altered mental status HEENT: nc, at Neck: supple Chest: clear breath sounds bilaterally Cardiovascular: RRR, no s3, s4 Abdomen: soft, nontender, nd Extremities: no cce, normal range of motion Neuro: alert and oriented Arya Nelson MD Aug 06, 2019 08:07
[2019-08-06] MEDS: Docusate 100mg cap ORAL SCH ×3 (09:05→17:22)
[2019-08-06] MEDS: Thiamine 100mg tab ORAL SCH (09:05)
--- NOTE | 2019-08-06 10:58 | Cardiac Electrophysiology PN ---
Assessment/Plan Assessment/Plan 1. Sinus tachycardia due to seizure, alcohol withdrawal and crypt meningitis. EF 60%. EKG shows sinus tach with no acute ST-T wave abnormality. 2. Hypotension, better on Midodrine 5 tid 3. 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 Bryant 4. Heavy alcohol use 5. AIDS 6. Thrombocytopenia FU Dr Omar GASCA RN Subjective Subjective No events on iv abx for Cryptococcal meningitis. No CP or SOB. Wants to go home Objective Last 24 Hour Vital Signs Date Time Temp Pulse Resp B/P (MAP) Pulse Ox O2 Delivery O2 Flow Rate FiO2 08/06/19 09:00 Room Air 08/06/19 08:00 97.2 89 19 98/65 (76) 95 08/06/19 04:00 98.1 71 20 129/73 (91) 98 08/06/19 00:00 97.6 72 18 114/71 (85) 97 08/05/19 21:00 Room Air 08/05/19 20:00 97.7 70 18 121/78 (92) 97 08/05/19 16:00 98.5 78 18 127/82 (97) 96 08/05/19 12:00 97.9 73 18 123/79 (94) 95 Intake and Output 08/05/19 08/06/19 19:00 07:00 Intake Total 1050 ml 1000 ml Balance 1050 ml 1000 ml Intake Oral 800 ml 1000 ml IV Total 250 ml # Voids 6 Laboratory Tests Test 08/06/19 05:50 White Blood Count 3.0 K/UL (4.8-10.8) L Red Blood Count 3.54 M/UL (4.70-6.10) L Hemoglobin 11.9 G/DL (14.2-18.0) L Hematocrit 33.1 % (42.0-52.0) L Mean Corpuscular Volume 94 FL (80-99) Mean Corpuscular Hemoglobin 33.6 PG (27.0-31.0) H Mean Corpuscular Hemoglobin Concent 35.9 G/DL (32.0-36.0) Red Cell Distribution Width 10.6 % (11.6-14.8) L Platelet Count 69 K/UL (150-450) L Mean Platelet Volume 8.3 FL (6.5-10.1) Neutrophils (%) (Auto) % (45.0-75.0) Lymphocytes (%) (Auto) % (20.0-45.0) Monocytes (%) (Auto) % (1.0-10.0) Eosinophils (%) (Auto) % (0.0-3.0) Basophils (%) (Auto) % (0.0-2.0) Differential Total Cells Counted 100 Neutrophils % (Manual) 59 % (45-75) Lymphocytes % (Manual) 23 % (20-45) Monocytes % (Manual) 9 % (1-10) Eosinophils % (Manual) 9 % (0-3) H Basophils % (Manual) 0 % (0-2) Band Neutrophils 0 % (0-8) Platelet Estimate Decreased L Platelet Morphology Normal Red Blood Cell Morphology Normal Sodium Level 139 MMOL/L (136-145) Potassium Level 4.5 MMOL/L (3.5-5.1) Chloride Level 105 MMOL/L (98-107) Carbon Dioxide Level 24 MMOL/L (21-32) Anion Gap 10 mmol/L (5-15) Blood Urea Nitrogen 20 mg/dL (7-18) H Creatinine 1.6 MG/DL (0.55-1.30) H Estimat Glomerular Filtration Rate 48.1 mL/min (>60) Glucose Level 97 MG/DL (74-106) Calcium Level 8.6 MG/DL (8.5-10.1) Total Bilirubin 0.4 MG/DL (0.2-1.0) Aspartate Amino Transf (AST/SGOT) 67 U/L (15-37) H Alanine Aminotransferase (ALT/SGPT) 49 U/L (12-78) Alkaline Phosphatase 103 U/L (46-116) Total Protein 7.9 G/DL (6.4-8.2) Albumin 2.5 G/DL (3.4-5.0) L Globulin 5.4 g/dL Albumin/Globulin Ratio 0.5 (1.0-2.7) L Objective HEAD AND NECK: No JVD. LUNGS: Clear. CARDIOVASCULAR: Nl S1 and S2 with no gallop. ABDOMEN: Soft. EXTREMITIES: 1+ pitting edema. Ric Mckeon MD Aug 06, 2019 10:58
--- NOTE | 2019-08-06 11:31 | Infectious Diseases Prog Note ---
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 RECOMMENDATION: Patient has HIV since 2003 goes to [facility], noncompliant with medication Should be on Dapsone, Zithromax, Continue Liposomal Amphotericin B Continue HIV treatment with Tivicay & Descovy Case was D/W RN & pharmacy Will f/u HIV viral loud & CD4 Subjective ROS Limited/Unobtainable: Yes Constitutional: Reports: no symptoms Respiratory: Reports: no symptoms Gastrointestinal/Abdominal: Reports: no symptoms Genitourinary: Reports: no symptoms Allergies: Coded Allergies: No Known Allergies (Unverified , 07/25/19) Objective Vital Signs Last 24 Hour Vital Signs Date Time Temp Pulse Resp B/P (MAP) Pulse Ox O2 Delivery O2 Flow Rate FiO2 08/06/19 09:00 Room Air 08/06/19 08:00 97.2 89 19 98/65 (76) 95 08/06/19 04:00 98.1 71 20 129/73 (91) 98 08/06/19 00:00 97.6 72 18 114/71 (85) 97 08/05/19 21:00 Room Air 08/05/19 20:00 97.7 70 18 121/78 (92) 97 08/05/19 16:00 98.5 78 18 127/82 (97) 96 08/05/19 12:00 97.9 73 18 123/79 (94) 95 Height (Feet): 5 Height (Inches): 10.00 Weight (Pounds): 171 HEENT: mucous membranes moist Respiratory/Chest: lungs clear Cardiovascular: normal rate Abdomen: soft, non tender Extremities: no edema Neurologic/Psychiatric: alert, oriented x 3, responsive Laboratory Tests Test 08/06/19 05:50 White Blood Count 3.0 K/UL (4.8-10.8) L Red Blood Count 3.54 M/UL (4.70-6.10) L Hemoglobin 11.9 G/DL (14.2-18.0) L Hematocrit 33.1 % (42.0-52.0) L Mean Corpuscular Volume 94 FL (80-99) Mean Corpuscular Hemoglobin 33.6 PG (27.0-31.0) H Mean Corpuscular Hemoglobin Concent 35.9 G/DL (32.0-36.0) Red Cell Distribution Width 10.6 % (11.6-14.8) L Platelet Count 69 K/UL (150-450) L Mean Platelet Volume 8.3 FL (6.5-10.1) Neutrophils (%) (Auto) % (45.0-75.0) Lymphocytes (%) (Auto) % (20.0-45.0) Monocytes (%) (Auto) % (1.0-10.0) Eosinophils (%) (Auto) % (0.0-3.0) Basophils (%) (Auto) % (0.0-2.0) Differential Total Cells Counted 100 Neutrophils % (Manual) 59 % (45-75) Lymphocytes % (Manual) 23 % (20-45) Monocytes % (Manual) 9 % (1-10) Eosinophils % (Manual) 9 % (0-3) H Basophils % (Manual) 0 % (0-2) Band Neutrophils 0 % (0-8) Platelet Estimate Decreased L Platelet Morphology Normal Red Blood Cell Morphology Normal Sodium Level 139 MMOL/L (136-145) Potassium Level 4.5 MMOL/L (3.5-5.1) Chloride Level 105 MMOL/L (98-107) Carbon Dioxide Level 24 MMOL/L (21-32) Anion Gap 10 mmol/L (5-15) Blood Urea Nitrogen 20 mg/dL (7-18) H Creatinine 1.6 MG/DL (0.55-1.30) H Estimat Glomerular Filtration Rate 48.1 mL/min (>60) Glucose Level 97 MG/DL (74-106) Calcium Level 8.6 MG/DL (8.5-10.1) Total Bilirubin 0.4 MG/DL (0.2-1.0) Aspartate Amino Transf (AST/SGOT) 67 U/L (15-37) H Alanine Aminotransferase (ALT/SGPT) 49 U/L (12-78) Alkaline Phosphatase 103 U/L (46-116) Total Protein 7.9 G/DL (6.4-8.2) Albumin 2.5 G/DL (3.4-5.0) L Globulin 5.4 g/dL Albumin/Globulin Ratio 0.5 (1.0-2.7) L Current Medications Medications (Trade) Dose Ordered Sig/Gabrielle Route PRN Reason Start Time Stop Time Status Last Admin Dose Admin Acetaminophen (Tylenol) 650 mg Q6H PRN RECTAL fever 07/31/19 22:43 08/30/19 22:42 08/03/19 12:20 Amphotericin B Liposome 300 mg/ Dextrose 250 ml @ 125 mls/hr Q24H IV 08/05/19 15:00 08/10/19 14:59 08/05/19 15:26 Azithromycin (Zithromax) 1,200 mg ONCE A WEEK ORAL 08/02/19 14:00 08/09/19 13:59 08/02/19 16:24 Dapsone (Dapsone) 100 mg DAILY ORAL 08/02/19 14:00 08/09/19 13:59 08/06/19 09:05 Docusate Sodium (Colace) 100 mg THREE TIMES A DAY ORAL 08/04/19 18:00 09/03/19 17:59 08/06/19 09:05 Flucytosine (Ancobon) 2,000 mg Q6H ORAL 08/04/19 18:00 08/11/19 17:59 08/06/19 05:20 Folic Acid (Folate) 1 mg DAILY ORAL 08/01/19 09:00 08/27/19 08:59 08/06/19 09:05 Lorazepam (Ativan 2mg/ml 1ml) 2 mg Q2H PRN IM For Anxiety 07/31/19 22:48 08/07/19 22:47 Midodrine (Pro-Amatine) 5 mg TID ORAL 08/05/19 13:00 11/01/19 17:59 08/06/19 09:05 Pantoprazole (Protonix) 40 mg EVERY 12 HOURS ORAL 08/01/19 09:00 08/29/19 20:59 08/06/19 09:05 Patient Own Medication (Patient's Own Med) 1 ea DAILY ORAL 08/04/19 21:00 09/03/19 20:59 08/06/19 09:06 Patient Own Medication (Patient's Own Med) 1 ea DAILY ORAL 08/04/19 22:00 09/03/19 21:59 08/06/19 09:06 Tamsulosin HCl (Flomax) 0.4 mg BEDTIME ORAL 08/02/19 21:00 09/01/19 20:59 08/05/19 21:50 Thiamine HCl (Vitamin B1) 100 mg DAILY ORAL 08/01/19 09:00 08/27/19 19:59 08/06/19 09:05 Po Bryant MD Aug 06, 2019 11:31
[2019-08-06 12:00] VITALS: BP 110/69
--- NOTE | 2019-08-06 12:12 | Nephrology Progress Note ---
Assessment/Plan Problem List: (1) JULIAN (acute kidney injury) Assessment: Serum creatinine rising (2) Seizure (3) ALCOHOL DEPENDENCE WITH WITHDRAWAL, UNSPECIFIED (4) Tachycardia (5) Hypokalemia Assessment Electrolyte imbalance Hypokalemia and hypomagnesemia Elevated creatinine to 1.4 on admission now corrected Seizure disorder Plan Serum creatinine gilberto to 2.2 but today is down to 1.6 Will discontinue Thomas catheter Adjust midodrine dose for low blood pressure Intravenous magnesium sulfate as needed Avoid nephrotoxic's as possible Flomax at night Urine studies ordered Patient taking p.o. well Previously Following measures as needed IV magnesium IV potassium phosphate IV thiamine IV Protonix Continue management per other consultants Monitor electrolytes Per orders Subjective ROS Limited/Unobtainable: No Objective Objective Last 24 Hour Vital Signs Date Time Temp Pulse Resp B/P (MAP) Pulse Ox O2 Delivery O2 Flow Rate FiO2 08/06/19 09:00 Room Air 08/06/19 08:00 97.2 89 19 98/65 (76) 95 08/06/19 04:00 98.1 71 20 129/73 (91) 98 08/06/19 00:00 97.6 72 18 114/71 (85) 97 08/05/19 21:00 Room Air 08/05/19 20:00 97.7 70 18 121/78 (92) 97 08/05/19 16:00 98.5 78 18 127/82 (97) 96 Intake and Output 08/05/19 08/06/19 19:00 07:00 Intake Total 1050 ml 1000 ml Balance 1050 ml 1000 ml Intake Oral 800 ml 1000 ml IV Total 250 ml # Voids 6 Current Medications Medications (Trade) Dose Ordered Sig/Gabrielle Route PRN Reason Start Time Stop Time Status Last Admin Dose Admin Acetaminophen (Tylenol) 650 mg Q6H PRN RECTAL fever 07/31/19 22:43 08/30/19 22:42 08/03/19 12:20 Amphotericin B Liposome 300 mg/ Dextrose 250 ml @ 125 mls/hr Q24H IV 08/05/19 15:00 08/10/19 14:59 08/05/19 15:26 Azithromycin (Zithromax) 1,200 mg ONCE A WEEK ORAL 08/02/19 14:00 08/09/19 13:59 08/02/19 16:24 Dapsone (Dapsone) 100 mg DAILY ORAL 08/02/19 14:00 08/09/19 13:59 08/06/19 09:05 Docusate Sodium (Colace) 100 mg THREE TIMES A DAY ORAL 08/04/19 18:00 09/03/19 17:59 08/06/19 09:05 Flucytosine (Ancobon) 2,000 mg Q6H ORAL 08/04/19 18:00 08/11/19 17:59 08/06/19 05:20 Folic Acid (Folate) 1 mg DAILY ORAL 08/01/19 09:00 08/27/19 08:59 08/06/19 09:05 Lorazepam (Ativan 2mg/ml 1ml) 2 mg Q2H PRN IM For Anxiety 07/31/19 22:48 08/07/19 22:47 Midodrine (Pro-Amatine) 5 mg TID ORAL 08/05/19 13:00 11/01/19 17:59 08/06/19 09:05 Pantoprazole (Protonix) 40 mg EVERY 12 HOURS ORAL 08/01/19 09:00 08/29/19 20:59 08/06/19 09:05 Patient Own Medication (Patient's Own Med) 1 ea DAILY ORAL 08/04/19 21:00 09/03/19 20:59 08/06/19 09:06 Patient Own Medication (Patient's Own Med) 1 ea DAILY ORAL 08/04/19 22:00 09/03/19 21:59 08/06/19 09:06 Tamsulosin HCl (Flomax) 0.4 mg BEDTIME ORAL 08/02/19 21:00 09/01/19 20:59 08/05/19 21:50 Thiamine HCl (Vitamin B1) 100 mg DAILY ORAL 08/01/19 09:00 08/27/19 19:59 08/06/19 09:05 Laboratory Tests 08/06/19 05:50: White Blood Count 3.0L, Red Blood Count 3.54L, Hemoglobin 11.9L, Hematocrit 33.1L, Mean Corpuscular Volume 94, Mean Corpuscular Hemoglobin 33.6H, Mean Corpuscular Hemoglobin Concent 35.9, Red Cell Distribution Width 10.6L, Platelet Count 69L, Mean Platelet Volume 8.3, Neutrophils (%) (Auto) , Lymphocytes (%) (Auto) , Monocytes (%) (Auto) , Eosinophils (%) (Auto) , Basophils (%) (Auto) , Differential Total Cells Counted 100, Neutrophils % ( Manual) 59, Lymphocytes % (Manual) 23, Monocytes % (Manual) 9, Eosinophils % ( Manual) 9H, Basophils % (Manual) 0, Band Neutrophils 0, Platelet Estimate DecreasedL, Platelet Morphology Normal, Red Blood Cell Morphology Normal, Sodium Level 139, Potassium Level 4.5, Chloride Level 105, Carbon Dioxide Level 24, Anion Gap 10, Blood Urea Nitrogen 20H, Creatinine 1.6H, Estimat Glomerular Filtration Rate 48.1, Glucose Level 97, Calcium Level 8.6, Total Bilirubin 0.4, Aspartate Amino Transf (AST/SGOT) 67H, Alanine Aminotransferase (ALT/SGPT) 49, Alkaline Phosphatase 103, Total Protein 7.9, Albumin 2.5L, Globulin 5.4, Albumin /Globulin Ratio 0.5L Height (Feet): 5 Height (Inches): 10.00 Weight (Pounds): 171 General Appearance: no apparent distress Objective No change Brian Alexandra MD Aug 06, 2019 12:12
--- NOTE | 2019-08-06 12:45 | Electroencephalogram ---
DATE OF PROCEDURE: 08/05/2019 REQUESTING PHYSICIAN: Velasquez Razo M.D. READING PHYSICIAN: Minesh Phelps M.D. HISTORY: This EEG was performed on a 39-year-old gentleman with a history of seizures. The purpose of this EEG was to evaluate the patient for the type of seizure disorder. TECHNICAL NOTE: This EEG was performed on a [employer] Unit with electrodes placed on the scalp according to the International 10-20 system. [id number] and [id number] montages were used. The EEG was technically satisfactory and was performed in the awake, drowsy, and sleep states. OBSERVATIONS: In the best awake state, the background activity consisted of 8.5-9.5 Hz posteriorly predominant well-developed alpha waveforms, which attenuated on eye opening. Drowsiness was characterized by dissolution of the alpha rhythm and appearance of slow frequencies in the 5-6 Hz theta range. Stage II sleep was characterized by further slowing of the background in the delta and theta range, the presence of vertex waves, and 14 Hz sleep spindles. Throughout the tracing, a moderate amount of superimposed beta activity was also seen. No focal abnormalities or epileptiform discharges were noted. IMPRESSION: Normal awake, drowsy, and stage II sleep EEG. COMMENT: A normal EEG does not rule out a seizure disorder. Minesh Phelps M.D., M.S.P.H. Clinical Neurophysiologist DR: HEIDY JOB#: [id number] [facility] HOSPITALRita
--- NOTE | 2019-08-06 13:09 | NUR ---
RD ASSESSMENT & RECOMMENDATIONS SEE CARE ACTIVITY FOR COMPLETE ASSESSMENT DAILY ESTIMATED NEEDS: Needs based on HIV, liver dysfunction/ 77kg 25-30 kcals/kg 9470-2558 total kcals 1-1.5 g protein/kg 77-115 g total protein 25-30 mL/kg 4706-3678 total fluid mLs NUTRITION DIAGNOSIS: * Increased kcal/prot needs R/T catabolic dx, infection as evidenced by HIV+, CD4 of 46, dx of crypto meningitis. * Altered nutrition related lab values R/T liver dysfunction, h/o ETOH abuse as evidenced by elev LFTs CURRENT DIET:LOW FAT PO DIET RECOMMENDATIONS: LOW NA/ texture as tolerated ADDITIONAL RECOMMENDATIONS: * Calibrated bedscale wt * Snacks BID in b/w meals * Monitor lytes, replete as needed * MVI x 1 * Monitor PO tolerance, need to downgrade texture admitted w/ AMS dx, mental status improving
--- NOTE | 2019-08-06 14:07 | NUR ---
CASE MANAGEMENT:REVIEW SI; PANCYTOPENIA. CRYPTOCOCCAL MENINGITIS. FUNGEMIA. HIV/AIDS. ARF. NEW ONSET SEIZURE. 98.1 93 20 98/65 95% ON RA WBC 3.0 3.54 PLT 69 BUN 20 CR 1.6 IS;AMPHOTERICIN IV QD MIDODRINE PO TID ANCOBAN PO Q6 HRS DAPSONE PO QD PROTONIX PO BID THIAMINE PO QD MED SURG STATUS DCP;FROM HOME PLAN;CONTINUE THIAMINE MONITOR CREATININE ID FOLLOW UP RENAL FOLLOW UP
--- NOTE | 2019-08-06 15:37 | NUR ---
NURSE NOTES: per dr Blanchard "dc to safe place if cleared by dr Bryan Bryant, if not cleared he can sign ama, resume home meds and dc hosp meds and abx and rx per dr Bryan Bryant" relayed to primary RN
--- NOTE | 2019-08-06 15:55 | NUR ---
NURSE NOTES: I communicated MD Connie Bryant for clearance for discharge; however MD Connie Bryant didn't clear patient for discharge; charge nurse, Douglas jacobson.
[2019-08-06] MEDS: D5W IV SCH (15:57)
[2019-08-06] MEDS: AMPHOTERICIN B LIPOSOME IV SCH (15:57)
[2019-08-06 16:00] VITALS: BP 118/73
--- NOTE | 2019-08-06 16:10 | NUR ---
NURSE NOTES: Patient insisted to leave AMA, RN advised patient that ID MD Connie Bryant didn't clear patient for discharge; I used [employer] phone for [place]ian translation; patient still insisted to leave AMA; after I brought patient's own medication from pharmacy, pharmacy communicated MD Connie Bryant and I was told by pharmacist that hold the patient till MD Connie Bryant calls and talk to me; MD Connie Bryant said its very dangerous if patient leaves AMA with out finishing the meningitis treatment, patient might ; Case management Jocy helped with translating B[place]ian; patient at last convinced to stay and finish the treatment plan.
--- NOTE | 2019-08-06 19:29 | NUR ---
HAND-OFF: Report given to NIDHI Belcher. Endoresed to the incoming nurse that patient is risk for fall;
--- NOTE | 2019-08-06 19:30 | NUR ---
NURSE NOTES: Pt. received from NIDHI Marin. Pt. AAOx3, on room air, no complaints of pain. IV access left forearm 24g asymptomatic, intact, and patent; saline locked at this time. Bed is low and locked, side rails x2, and call light is in reach. Pt. endorsed as fall risk, fall prevention measures in place, will continue to monitor.
[2019-08-06 20:00] VITALS: BP 114/78
[2019-08-06] MEDS: Tamsulosin 0.4mg cap ORAL SCH (20:21)
--- NOTE | 2019-08-06 20:53 | General Progress Note ---
Assessment/Plan Problem List: (1) Seizure disorder ICD Codes: G40.909 - Epilepsy, unspecified, not intractable, without status epilepticus SNOMED: 150907489 (2) Hypokalemia ICD Codes: E87.6 - Hypokalemia SNOMED: 38429808 (3) Seizure ICD Codes: R56.9 - Unspecified convulsions SNOMED: 18656222 (4) Tachycardia ICD Codes: R00.0 - Tachycardia, unspecified SNOMED: 5679948 (5) ALCOHOL DEPENDENCE WITH WITHDRAWAL, UNSPECIFIED ICD Codes: F10.239 - ALCOHOL DEPENDENCE WITH WITHDRAWAL, UNSPECIFIED Status: progressing Assessment/Plan: immune deficiency seizure cryptococcal menigitis hiv afebrile abx per id Subjective ROS Limited/Unobtainable: Yes Allergies: Coded Allergies: No Known Allergies (Unverified , 07/25/19) Objective Last 24 Hour Vital Signs Date Time Temp Pulse Resp B/P (MAP) Pulse Ox O2 Delivery O2 Flow Rate FiO2 08/06/19 16:00 97.6 99 19 118/73 (88) 97 08/06/19 12:00 97.5 93 20 110/69 (83) 96 08/06/19 09:00 Room Air 08/06/19 08:00 97.2 89 19 98/65 (76) 95 08/06/19 04:00 98.1 71 20 129/73 (91) 98 08/06/19 00:00 97.6 72 18 114/71 (85) 97 08/05/19 21:00 Room Air Intake and Output 08/05/19 08/06/19 19:00 07:00 Intake Total 1050 ml 1000 ml Balance 1050 ml 1000 ml Intake Oral 800 ml 1000 ml IV Total 250 ml # Voids 6 Laboratory Tests 08/06/19 05:50: White Blood Count 3.0L, Red Blood Count 3.54L, Hemoglobin 11.9L, Hematocrit 33.1L, Mean Corpuscular Volume 94, Mean Corpuscular Hemoglobin 33.6H, Mean Corpuscular Hemoglobin Concent 35.9, Red Cell Distribution Width 10.6L, Platelet Count 69L, Mean Platelet Volume 8.3, Neutrophils (%) (Auto) , Lymphocytes (%) (Auto) , Monocytes (%) (Auto) , Eosinophils (%) (Auto) , Basophils (%) (Auto) , Differential Total Cells Counted 100, Neutrophils % ( Manual) 59, Lymphocytes % (Manual) 23, Monocytes % (Manual) 9, Eosinophils % ( Manual) 9H, Basophils % (Manual) 0, Band Neutrophils 0, Platelet Estimate DecreasedL, Platelet Morphology Normal, Red Blood Cell Morphology Normal, Sodium Level 139, Potassium Level 4.5, Chloride Level 105, Carbon Dioxide Level 24, Anion Gap 10, Blood Urea Nitrogen 20H, Creatinine 1.6H, Estimat Glomerular Filtration Rate 48.1, Glucose Level 97, Calcium Level 8.6, Total Bilirubin 0.4, Aspartate Amino Transf (AST/SGOT) 67H, Alanine Aminotransferase (ALT/SGPT) 49, Alkaline Phosphatase 103, Total Protein 7.9, Albumin 2.5L, Globulin 5.4, Albumin /Globulin Ratio 0.5L Height (Feet): 5 Height (Inches): 10.00 Weight (Pounds): 171 General Appearance: confused Isa Blanchard MD Aug 06, 2019 20:53
[2019-08-07] VITALS: BP 107/72
[2019-08-07] MEDS: FLUCYTOSINE 500 MG ORAL SCH ×5 (00:05→23:46)
[2019-08-07 04:00] VITALS: BP 110/90
--- NOTE | 2019-08-07 07:42 | NUR ---
HAND-OFF: Report given to NIDHI Lopes.
--- NOTE | 2019-08-07 07:43 | NUR ---
NURSE NOTES: Patient is awake and alert to, name,respirations unlabored.IV saline lock intact.. side rails padded,.bed alarm on.Breakfast at bedside,call light within reach.Update Nurse aide patient is a fall wrist.
[2019-08-07 08:00] VITALS: BP 94/65
[2019-08-07 08:19] LABS: ALANINE AMINOTRANSFERASE 124 U/L (12-78); ALBUMIN 2.7 G/DL (3.4-5.0); ALBUMIN/GLOBULIN RATIO 0.5 (1.0-2.7); ALKALINE PHOSPHATASE 108 U/L (46-116); ANION GAP 9 mmol/L (5-15); ASPARTATE AMINO TRANSFERASE 191 U/L (15-37); BILIRUBIN,TOTAL 0.6 MG/DL (0.2-1.0); BLOOD UREA NITROGEN 23 mg/dL (7-18); CARBON DIOXIDE 25 MMOL/L (21-32); CHLORIDE 104 MMOL/L (98-107); POTASSIUM 4.4 MMOL/L (3.5-5.1); SODIUM 138 MMOL/L (136-145)
[2019-08-07] MEDS: Docusate 100mg cap ORAL SCH ×3 (08:19→18:38)
[2019-08-07] MEDS: Thiamine 100mg tab ORAL SCH (08:22)
[2019-08-07 08:23] LABS: HEMATOCRIT 32.4 % (42.0-52.0); HEMOGLOBIN 11.6 G/DL (14.2-18.0); MEAN CORPUSCULAR VOLUME 93 FL (80-99); PLATELET COUNT 76 K/UL (150-450); RED BLOOD COUNT 3.47 M/UL (4.70-6.10); RED CELL DISTRIBUTION WIDTH 10.4 % (11.6-14.8); WHITE BLOOD COUNT 3.5 K/UL (4.8-10.8)
[2019-08-07] MEDS ORDERED: NS 275ml ONE (09:27)
--- NOTE | 2019-08-07 09:42 | General Progress Note ---
Assessment/Plan Status: progressing Assessment/Plan: Assessment/Plan Status: progressing Assessment/Plan: Assessment - HIV (+) - crypto meningitis - pancytopenia - elevated LFT - h/o EtOH use x years, although stated he has not consumed for 1 mo - seizure - fever - rising creatinine Recommendations - check hepatitis serologies -all negative - ID f/u - po as tolerated - thiamine - watch Cr>>> improving -LFTS >>> now rising again>>> repeat for tomorrow - Renal f/u -fungemia>>> fu ID Subjective Allergies: Coded Allergies: No Known Allergies (Unverified , 07/25/19) Objective Last 24 Hour Vital Signs Date Time Temp Pulse Resp B/P (MAP) Pulse Ox O2 Delivery O2 Flow Rate FiO2 08/07/19 04:00 98.3 83 17 110/90 (97) 96 08/07/19 00:00 97.9 75 17 107/72 (84) 94 08/06/19 21:00 Room Air 08/06/19 20:00 98.3 70 18 114/78 (90) 95 08/06/19 16:00 97.6 99 19 118/73 (88) 97 08/06/19 12:00 97.5 93 20 110/69 (83) 96 Intake and Output 08/06/19 08/07/19 19:00 07:00 Intake Total 1500 ml Balance 1500 ml Intake Oral 1000 ml IV Total 500 ml # Voids 6 2 # Bowel Movements 1 Laboratory Tests 08/07/19 06:17: White Blood Count 3.5L, Red Blood Count 3.47L, Hemoglobin 11.6L, Hematocrit 32.4L, Mean Corpuscular Volume 93, Mean Corpuscular Hemoglobin 33.3H, Mean Corpuscular Hemoglobin Concent 35.6, Red Cell Distribution Width 10.4L, Platelet Count 76L, Mean Platelet Volume 8.6, Neutrophils (%) (Auto) , Lymphocytes (%) (Auto) , Monocytes (%) (Auto) , Eosinophils (%) (Auto) , Basophils (%) (Auto) , Neutrophils % (Manual) [Pending], Lymphocytes % (Manual) [Pending], Platelet Estimate [Pending], Platelet Morphology [Pending], Sodium Level 138, Potassium Level 4.4, Chloride Level 104, Carbon Dioxide Level 25, Anion Gap 9, Blood Urea Nitrogen 23H, Creatinine 2.0H, Estimat Glomerular Filtration Rate 37.2, Glucose Level 90, Calcium Level 9.0, Total Bilirubin 0.6, Aspartate Amino Transf (AST/SGOT) 191H, Alanine Aminotransferase (ALT/SGPT) 124H , Alkaline Phosphatase 108, Total Protein 7.9, Albumin 2.7L, Globulin 5.2, Albumin/Globulin Ratio 0.5L Height (Feet): 5 Height (Inches): 10.00 Weight (Pounds): 171 General Appearance: alert EENT: PERRL/EOMI Neck: supple Cardiovascular: normal rate Respiratory/Chest: decreased breath sounds Abdomen: normal bowel sounds, non tender, soft Extremities: non-tender Kenji Selby MD Aug 07, 2019 09:42
--- NOTE | 2019-08-07 11:18 | Nephrology Progress Note ---
Assessment/Plan Problem List: (1) JULIAN (acute kidney injury) Assessment: Serum creatinine rising (2) Seizure (3) ALCOHOL DEPENDENCE WITH WITHDRAWAL, UNSPECIFIED (4) Tachycardia (5) Hypokalemia (6) Low CD4 cell count determined by flow cytometry Assessment Electrolyte imbalance Hypokalemia and hypomagnesemia Elevated creatinine to 1.4 on admission now corrected Seizure disorder Plan Serum creatinine gilberto to 2. Will discontinue Thomas catheter Adjust midodrine dose for low blood pressure Intravenous magnesium sulfate as needed Avoid nephrotoxic's as possible Flomax at night Urine studies ordered Patient taking p.o. well Previously Following measures as needed IV magnesium IV potassium phosphate IV thiamine IV Protonix Continue management per other consultants Monitor electrolytes Per orders Subjective ROS Limited/Unobtainable: No Constitutional: Reports: malaise, weakness Objective Objective Last 24 Hour Vital Signs Date Time Temp Pulse Resp B/P (MAP) Pulse Ox O2 Delivery O2 Flow Rate FiO2 08/07/19 09:00 Room Air 08/07/19 08:00 97.7 83 20 94/65 (75) 95 08/07/19 04:00 98.3 83 17 110/90 (97) 96 08/07/19 00:00 97.9 75 17 107/72 (84) 94 08/06/19 21:00 Room Air 08/06/19 20:00 98.3 70 18 114/78 (90) 95 08/06/19 16:00 97.6 99 19 118/73 (88) 97 08/06/19 12:00 97.5 93 20 110/69 (83) 96 Intake and Output 08/06/19 08/07/19 19:00 07:00 Intake Total 1500 ml Balance 1500 ml Intake Oral 1000 ml IV Total 500 ml # Voids 6 2 # Bowel Movements 1 Laboratory Tests 08/07/19 06:17: White Blood Count 3.5L, Red Blood Count 3.47L, Hemoglobin 11.6L, Hematocrit 32.4L, Mean Corpuscular Volume 93, Mean Corpuscular Hemoglobin 33.3H, Mean Corpuscular Hemoglobin Concent 35.6, Red Cell Distribution Width 10.4L, Platelet Count 76L, Mean Platelet Volume 8.6, Neutrophils (%) (Auto) , Lymphocytes (%) (Auto) , Monocytes (%) (Auto) , Eosinophils (%) (Auto) , Basophils (%) (Auto) , Neutrophils % (Manual) [Pending], Lymphocytes % (Manual) [Pending], Platelet Estimate [Pending], Platelet Morphology [Pending], Sodium Level 138, Potassium Level 4.4, Chloride Level 104, Carbon Dioxide Level 25, Anion Gap 9, Blood Urea Nitrogen 23H, Creatinine 2.0H, Estimat Glomerular Filtration Rate 37.2, Glucose Level 90, Calcium Level 9.0, Total Bilirubin 0.6, Aspartate Amino Transf (AST/SGOT) 191H, Alanine Aminotransferase (ALT/SGPT) 124H , Alkaline Phosphatase 108, Total Protein 7.9, Albumin 2.7L, Globulin 5.2, Albumin/Globulin Ratio 0.5L Height (Feet): 5 Height (Inches): 10.00 Weight (Pounds): 171 General Appearance: no apparent distress Objective No change Brian Alexandra MD Aug 07, 2019 11:18
[2019-08-07 12:00] VITALS: BP 102/70
[2019-08-07] MEDS: Midodrine 10mg tab ORAL SCH ×2 (12:45→18:38)
--- NOTE | 2019-08-07 14:05 | Cardiac Electrophysiology PN ---
Assessment/Plan Assessment/Plan 1. Sinus tachycardia due to seizure, alcohol withdrawal and crypt meningitis. EF 60%. EKG no acute ST-T wave abnormality. 2. Hypotension, Midodrine increased to 10 tid 3. 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 Bryant 4. Heavy alcohol use 5. AIDS 6. Thrombocytopenia FU Dr Omar GASCA RN Subjective Subjective No CP or SOB. On iv Abx. RN at bedside. BP was low and Midodrine increased Objective Last 24 Hour Vital Signs Date Time Temp Pulse Resp B/P (MAP) Pulse Ox O2 Delivery O2 Flow Rate FiO2 08/07/19 12:00 97.5 69 20 102/70 (81) 95 08/07/19 09:00 Room Air 08/07/19 08:00 97.7 83 20 94/65 (75) 95 08/07/19 04:00 98.3 83 17 110/90 (97) 96 08/07/19 00:00 97.9 75 17 107/72 (84) 94 08/06/19 21:00 Room Air 08/06/19 20:00 98.3 70 18 114/78 (90) 95 08/06/19 16:00 97.6 99 19 118/73 (88) 97 Intake and Output 08/06/19 08/07/19 19:00 07:00 Intake Total 1500 ml Balance 1500 ml Intake Oral 1000 ml IV Total 500 ml # Voids 6 2 # Bowel Movements 1 Laboratory Tests Test 08/07/19 06:17 08/07/19 13:26 White Blood Count 3.5 K/UL (4.8-10.8) L Red Blood Count 3.47 M/UL (4.70-6.10) L Hemoglobin 11.6 G/DL (14.2-18.0) L Hematocrit 32.4 % (42.0-52.0) L Mean Corpuscular Volume 93 FL (80-99) Mean Corpuscular Hemoglobin 33.3 PG (27.0-31.0) H Mean Corpuscular Hemoglobin Concent 35.6 G/DL (32.0-36.0) Red Cell Distribution Width 10.4 % (11.6-14.8) L Platelet Count 76 K/UL (150-450) L Mean Platelet Volume 8.6 FL (6.5-10.1) Neutrophils (%) (Auto) % (45.0-75.0) Lymphocytes (%) (Auto) % (20.0-45.0) Monocytes (%) (Auto) % (1.0-10.0) Eosinophils (%) (Auto) % (0.0-3.0) Basophils (%) (Auto) % (0.0-2.0) Differential Total Cells Counted 100 Neutrophils % (Manual) 54 % (45-75) Lymphocytes % (Manual) 30 % (20-45) Monocytes % (Manual) 6 % (1-10) Eosinophils % (Manual) 10 % (0-3) H Basophils % (Manual) 0 % (0-2) Band Neutrophils 0 % (0-8) Platelet Estimate Decreased L Platelet Morphology Normal Red Blood Cell Morphology Normal Sodium Level 138 MMOL/L (136-145) Potassium Level 4.4 MMOL/L (3.5-5.1) Chloride Level 104 MMOL/L (98-107) Carbon Dioxide Level 25 MMOL/L (21-32) Anion Gap 9 mmol/L (5-15) Blood Urea Nitrogen 23 mg/dL (7-18) H Creatinine 2.0 MG/DL (0.55-1.30) H Estimat Glomerular Filtration Rate 37.2 mL/min (>60) Glucose Level 90 MG/DL (74-106) Calcium Level 9.0 MG/DL (8.5-10.1) Total Bilirubin 0.6 MG/DL (0.2-1.0) Aspartate Amino Transf (AST/SGOT) 191 U/L (15-37) H Alanine Aminotransferase (ALT/SGPT) 124 U/L (12-78) H Alkaline Phosphatase 108 U/L (46-116) Total Protein 7.9 G/DL (6.4-8.2) Albumin 2.7 G/DL (3.4-5.0) L Globulin 5.2 g/dL Albumin/Globulin Ratio 0.5 (1.0-2.7) L Urine Random Sodium 38 mmol/L (20-110) Objective HEAD AND NECK: No JVD. LUNGS: Clear. CARDIOVASCULAR: Nl S1 and S2 with no gallop. ABDOMEN: Soft. EXTREMITIES: 1+ pitting edema. Ric Mckeon MD Aug 07, 2019 14:05
[2019-08-07] MEDS: D5W IV SCH (15:12)
[2019-08-07] MEDS: AMPHOTERICIN B LIPOSOME IV SCH (15:12)
[2019-08-07 16:00] VITALS: BP 99/66
--- NOTE | 2019-08-07 18:30 | NUR ---
NURSE NOTES: Patient resting,Bed alarm on.
--- NOTE | 2019-08-07 19:49 | NUR ---
HAND-OFF: Report given to hTea TERRELL.
[2019-08-07 20:15] VITALS: BP 133/82
--- NOTE | 2019-08-07 20:36 | General Progress Note ---
Assessment/Plan Problem List: (1) Seizure disorder ICD Codes: G40.909 - Epilepsy, unspecified, not intractable, without status epilepticus SNOMED: 289012372 (2) Hypokalemia ICD Codes: E87.6 - Hypokalemia SNOMED: 41115972 (3) Seizure ICD Codes: R56.9 - Unspecified convulsions SNOMED: 49811625 (4) Tachycardia ICD Codes: R00.0 - Tachycardia, unspecified SNOMED: 2840905 (5) ALCOHOL DEPENDENCE WITH WITHDRAWAL, UNSPECIFIED ICD Codes: F10.239 - ALCOHOL DEPENDENCE WITH WITHDRAWAL, UNSPECIFIED Status: progressing Assessment/Plan: etoh abuse still confused encephalopathy afebrile seizure cryptococcal menigitis unsafe dc Subjective ROS Limited/Unobtainable: Yes Allergies: Coded Allergies: No Known Allergies (Unverified , 07/25/19) Objective Last 24 Hour Vital Signs Date Time Temp Pulse Resp B/P (MAP) Pulse Ox O2 Delivery O2 Flow Rate FiO2 08/07/19 20:15 97.2 67 20 133/82 (99) 94 08/07/19 16:00 98.1 75 20 99/66 (77) 96 08/07/19 12:00 97.5 69 20 102/70 (81) 95 08/07/19 09:00 Room Air 08/07/19 08:00 97.7 83 20 94/65 (75) 95 08/07/19 04:00 98.3 83 17 110/90 (97) 96 08/07/19 00:00 97.9 75 17 107/72 (84) 94 08/06/19 21:00 Room Air Intake and Output 08/06/19 08/07/19 19:00 07:00 Intake Total 1500 ml Balance 1500 ml Intake Oral 1000 ml IV Total 500 ml # Voids 6 2 # Bowel Movements 1 Laboratory Tests 08/07/19 06:17: White Blood Count 3.5L, Red Blood Count 3.47L, Hemoglobin 11.6L, Hematocrit 32.4L, Mean Corpuscular Volume 93, Mean Corpuscular Hemoglobin 33.3H, Mean Corpuscular Hemoglobin Concent 35.6, Red Cell Distribution Width 10.4L, Platelet Count 76L, Mean Platelet Volume 8.6, Neutrophils (%) (Auto) , Lymphocytes (%) (Auto) , Monocytes (%) (Auto) , Eosinophils (%) (Auto) , Basophils (%) (Auto) , Differential Total Cells Counted 100, Neutrophils % ( Manual) 54, Lymphocytes % (Manual) 30, Monocytes % (Manual) 6, Eosinophils % ( Manual) 10H, Basophils % (Manual) 0, Band Neutrophils 0, Platelet Estimate DecreasedL, Platelet Morphology Normal, Red Blood Cell Morphology Normal, Sodium Level 138, Potassium Level 4.4, Chloride Level 104, Carbon Dioxide Level 25, Anion Gap 9, Blood Urea Nitrogen 23H, Creatinine 2.0H, Estimat Glomerular Filtration Rate 37.2, Glucose Level 90, Calcium Level 9.0, Total Bilirubin 0.6, Aspartate Amino Transf (AST/SGOT) 191H, Alanine Aminotransferase (ALT/SGPT) 124H , Alkaline Phosphatase 108, Total Protein 7.9, Albumin 2.7L, Globulin 5.2, Albumin/Globulin Ratio 0.5L 08/07/19 13:26: Urine Random Sodium 38 Height (Feet): 5 Height (Inches): 10.00 Weight (Pounds): 171 Isa Blanchard MD Aug 07, 2019 20:36
[2019-08-07] MEDS: Tamsulosin 0.4mg cap ORAL SCH (20:49)
--- NOTE | 2019-08-08 04:10 | NUR ---
NURSE NOTES: Patient alert to name, date, and place. No s/s distress noted. No complaints of pain at this time. Vitals stable, afebrile. No nausea/vomiting. No falls/injury, fall preventative measures maintained. Ambulatory with supervision. Bed in lowest position, call light within reach, bed alarm on, will continue to monitor.
[2019-08-08] MEDS: FLUCYTOSINE 500 MG ORAL SCH ×3 (05:12→18:49)
[2019-08-08 05:16] VITALS: BP 100/66
--- NOTE | 2019-08-08 07:11 | NUR ---
HAND-OFF: Report given to ADRIANO LUND RN. ENDORSED TO AM NURSE REGARDING FALL PREVENTION MEASURES FOR HIGH RISK FOR FALLS.
--- NOTE | 2019-08-08 07:44 | NUR ---
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
[2019-08-08 08:00] VITALS: BP 91/58
--- NOTE | 2019-08-08 08:23 | General Progress Note ---
Assessment/Plan Status: progressing Assessment/Plan: Assessment/Plan Status: progressing Assessment/Plan: Assessment - HIV (+) - crypto meningitis - pancytopenia - elevated LFT - h/o EtOH use x years, although stated he has not consumed for 1 mo - seizure - fever - rising creatinine Recommendations - check hepatitis serologies -all negative - ID f/u - po as tolerated - thiamine - watch Cr>>> improving -LFTS >>> now rising again>>> repeat for tomorrow - Renal f/u -fungemia>>> fu ID Subjective Allergies: Coded Allergies: No Known Allergies (Unverified , 07/25/19) Objective Last 24 Hour Vital Signs Date Time Temp Pulse Resp B/P (MAP) Pulse Ox O2 Delivery O2 Flow Rate FiO2 08/08/19 05:16 97.4 79 20 100/66 (77) 94 08/07/19 22:28 Room Air 08/07/19 20:15 97.2 67 20 133/82 (99) 94 08/07/19 16:00 98.1 75 20 99/66 (77) 96 08/07/19 12:00 97.5 69 20 102/70 (81) 95 08/07/19 09:00 Room Air Intake and Output 08/07/19 08/08/19 19:00 07:00 Intake Total 1080 ml 360 ml Balance 1080 ml 360 ml Intake Oral 1080 ml 360 ml # Voids 2 2 Laboratory Tests 08/07/19 13:26: Urine Random Sodium 38 Height (Feet): 5 Height (Inches): 10.00 Weight (Pounds): 171 General Appearance: no apparent distress EENT: normal ENT inspection Neck: supple Cardiovascular: normal rate Respiratory/Chest: decreased breath sounds Abdomen: normal bowel sounds, non tender, soft Extremities: non-tender Kenji Selby MD Aug 08, 2019 08:23
[2019-08-08 08:41] LABS: HEMATOCRIT 32.4 % (42.0-52.0); HEMOGLOBIN 11.6 G/DL (14.2-18.0); MEAN CORPUSCULAR VOLUME 93 FL (80-99); PLATELET COUNT 89 K/UL (150-450); RED BLOOD COUNT 3.47 M/UL (4.70-6.10); RED CELL DISTRIBUTION WIDTH 10.2 % (11.6-14.8); WHITE BLOOD COUNT 3.7 K/UL (4.8-10.8)
[2019-08-08 09:05] LABS: ALANINE AMINOTRANSFERASE 112 U/L (12-78); ALBUMIN 2.6 G/DL (3.4-5.0); ALBUMIN/GLOBULIN RATIO 0.5 (1.0-2.7); ALKALINE PHOSPHATASE 101 U/L (46-116); ANION GAP 11 mmol/L (5-15); ASPARTATE AMINO TRANSFERASE 138 U/L (15-37); BILIRUBIN,TOTAL 0.6 MG/DL (0.2-1.0); BLOOD UREA NITROGEN 34 mg/dL (7-18); CALCIUM 8.7 MG/DL (8.5-10.1); CARBON DIOXIDE 23 MMOL/L (21-32); CHLORIDE 101 MMOL/L (98-107); CREATININE 2.5 MG/DL (0.55-1.30); POTASSIUM 4.4 MMOL/L (3.5-5.1); SODIUM 135 MMOL/L (136-145)
[2019-08-08] MEDS: Docusate 100mg cap ORAL SCH ×3 (09:24→18:42)
[2019-08-08] MEDS: Midodrine 10mg tab ORAL SCH ×3 (09:26→18:42)
[2019-08-08] MEDS: Thiamine 100mg tab ORAL SCH (09:26)
[2019-08-08] MEDS ORDERED: LORazepam 1mg tab ORAL PRN (10:15)
--- NOTE | 2019-08-08 10:54 | Nephrology Progress Note ---
Assessment/Plan Problem List: (1) JULIAN (acute kidney injury) Assessment: Serum creatinine rising (2) Seizure (3) ALCOHOL DEPENDENCE WITH WITHDRAWAL, UNSPECIFIED (4) Tachycardia (5) Hypokalemia (6) Low CD4 cell count determined by flow cytometry Assessment Electrolyte imbalance Hypokalemia and hypomagnesemia Elevated creatinine to 1.4 on admission now corrected Seizure disorder Plan Serum creatinine gilberto to 2.5 Kidney ultrasound in a.m. Adjust midodrine dose for low blood pressure Intravenous magnesium sulfate as needed Avoid nephrotoxic's as possible Flomax at night Urine studies ordered Patient taking p.o. well Previously Following measures as needed IV magnesium IV potassium phosphate IV thiamine IV Protonix Continue management per other consultants Monitor electrolytes Per orders Subjective ROS Limited/Unobtainable: No Constitutional: Reports: malaise Objective Objective Last 24 Hour Vital Signs Date Time Temp Pulse Resp B/P (MAP) Pulse Ox O2 Delivery O2 Flow Rate FiO2 08/08/19 09:00 Room Air 08/08/19 08:00 97.9 75 17 91/58 (69) 95 08/08/19 05:16 97.4 79 20 100/66 (77) 94 08/07/19 22:28 Room Air 08/07/19 20:15 97.2 67 20 133/82 (99) 94 08/07/19 16:00 98.1 75 20 99/66 (77) 96 08/07/19 12:00 97.5 69 20 102/70 (81) 95 Intake and Output 08/07/19 08/08/19 19:00 07:00 Intake Total 1080 ml 360 ml Balance 1080 ml 360 ml Intake Oral 1080 ml 360 ml # Voids 2 2 Current Medications Medications (Trade) Dose Ordered Sig/Gabrielle Route PRN Reason Start Time Stop Time Status Last Admin Dose Admin Acetaminophen (Tylenol) 650 mg Q6H PRN RECTAL fever 07/31/19 22:43 08/30/19 22:42 08/03/19 12:20 Amphotericin B Liposome 300 mg/ Dextrose 250 ml @ 125 mls/hr Q24H IV 08/05/19 15:00 08/14/19 16:59 08/07/19 15:12 Azithromycin (Zithromax) 1,200 mg ONCE A WEEK ORAL 08/02/19 14:00 08/09/19 13:59 08/02/19 16:24 Dapsone (Dapsone) 100 mg DAILY ORAL 08/02/19 14:00 08/09/19 13:59 08/08/19 09:24 Docusate Sodium (Colace) 100 mg THREE TIMES A DAY ORAL 08/04/19 18:00 09/03/19 17:59 08/08/19 09:24 Flucytosine (Ancobon) 2,000 mg Q6H ORAL 08/04/19 18:00 08/15/19 15:00 08/08/19 05:12 Folic Acid (Folate) 1 mg DAILY ORAL 08/01/19 09:00 08/27/19 08:59 08/08/19 09:24 Lorazepam (Ativan) 2 mg Q6H PRN ORAL For Anxiety 08/08/19 10:15 08/15/19 10:14 Midodrine (Pro-Amatine) 10 mg TID ORAL 08/07/19 13:00 11/01/19 17:59 08/08/19 09:26 Pantoprazole (Protonix) 40 mg EVERY 12 HOURS ORAL 08/01/19 09:00 08/29/19 20:59 08/08/19 09:26 Patient Own Medication (Patient's Own Med) 1 ea DAILY ORAL 08/04/19 21:00 09/03/19 20:59 08/08/19 09:25 Patient Own Medication (Patient's Own Med) 1 ea DAILY ORAL 08/04/19 22:00 09/03/19 21:59 08/08/19 09:25 Tamsulosin HCl (Flomax) 0.4 mg BEDTIME ORAL 08/02/19 21:00 09/01/19 20:59 08/07/19 20:49 Thiamine HCl (Vitamin B1) 100 mg DAILY ORAL 08/01/19 09:00 08/27/19 19:59 08/08/19 09:26 Laboratory Tests 08/07/19 13:26: Urine Random Sodium 38 08/08/19 07:13: White Blood Count 3.7L, Red Blood Count 3.47L, Hemoglobin 11.6L, Hematocrit 32.4L, Mean Corpuscular Volume 93, Mean Corpuscular Hemoglobin 33.5H, Mean Corpuscular Hemoglobin Concent 35.9, Red Cell Distribution Width 10.2L, Platelet Count 89L, Mean Platelet Volume 7.9, Neutrophils (%) (Auto) , Lymphocytes (%) (Auto) , Monocytes (%) (Auto) , Eosinophils (%) (Auto) , Basophils (%) (Auto) , Neutrophils % (Manual) [Pending], Lymphocytes % (Manual) [Pending], Platelet Estimate [Pending], Platelet Morphology [Pending], Sodium Level 135L, Potassium Level 4.4, Chloride Level 101, Carbon Dioxide Level 23, Anion Gap 11, Blood Urea Nitrogen 34H, Creatinine 2.5H, Estimat Glomerular Filtration Rate 28.7, Glucose Level 85, Calcium Level 8.7, Total Bilirubin 0.6, Aspartate Amino Transf (AST/SGOT) 138H, Alanine Aminotransferase (ALT/SGPT) 112H , Alkaline Phosphatase 101, Total Protein 7.7, Albumin 2.6L, Globulin 5.1, Albumin/Globulin Ratio 0.5L Height (Feet): 5 Height (Inches): 10.00 Weight (Pounds): 171 General Appearance: no apparent distress Objective No change Brian Alexandra MD Aug 08, 2019 10:53
[2019-08-08 12:00] VITALS: BP 107/66
--- NOTE | 2019-08-08 13:36 | General Progress Note ---
Assessment/Plan Problem List: (1) Seizure disorder ICD Codes: G40.909 - Epilepsy, unspecified, not intractable, without status epilepticus SNOMED: 977679316 (2) Hypokalemia ICD Codes: E87.6 - Hypokalemia SNOMED: 88189227 (3) Seizure ICD Codes: R56.9 - Unspecified convulsions SNOMED: 06143059 (4) Tachycardia ICD Codes: R00.0 - Tachycardia, unspecified SNOMED: 2597660 (5) ALCOHOL DEPENDENCE WITH WITHDRAWAL, UNSPECIFIED ICD Codes: F10.239 - ALCOHOL DEPENDENCE WITH WITHDRAWAL, UNSPECIFIED Status: progressing Assessment/Plan: etoh abuse abx per id reviewed chart and labs encephalopathy seizure cryptococcal menigitis unsafe dc Subjective ROS Limited/Unobtainable: Yes Allergies: Coded Allergies: No Known Allergies (Unverified , 07/25/19) Objective Last 24 Hour Vital Signs Date Time Temp Pulse Resp B/P (MAP) Pulse Ox O2 Delivery O2 Flow Rate FiO2 08/08/19 12:00 98.6 63 19 107/66 (80) 97 08/08/19 09:00 Room Air 08/08/19 08:00 97.9 75 17 91/58 (69) 95 08/08/19 05:16 97.4 79 20 100/66 (77) 94 08/07/19 22:28 Room Air 08/07/19 20:15 97.2 67 20 133/82 (99) 94 08/07/19 16:00 98.1 75 20 99/66 (77) 96 Intake and Output 08/07/19 08/08/19 19:00 07:00 Intake Total 1080 ml 360 ml Balance 1080 ml 360 ml Intake Oral 1080 ml 360 ml # Voids 2 2 Laboratory Tests 08/08/19 07:13: White Blood Count 3.7L, Red Blood Count 3.47L, Hemoglobin 11.6L, Hematocrit 32.4L, Mean Corpuscular Volume 93, Mean Corpuscular Hemoglobin 33.5H, Mean Corpuscular Hemoglobin Concent 35.9, Red Cell Distribution Width 10.2L, Platelet Count 89L, Mean Platelet Volume 7.9, Neutrophils (%) (Auto) , Lymphocytes (%) (Auto) , Monocytes (%) (Auto) , Eosinophils (%) (Auto) , Basophils (%) (Auto) , Differential Total Cells Counted 100, Neutrophils % ( Manual) 74, Lymphocytes % (Manual) 17L, Monocytes % (Manual) 5, Eosinophils % ( Manual) 4H, Basophils % (Manual) 0, Band Neutrophils 0, Platelet Estimate DecreasedL, Platelet Morphology Normal, Red Blood Cell Morphology Normal, Sodium Level 135L, Potassium Level 4.4, Chloride Level 101, Carbon Dioxide Level 23, Anion Gap 11, Blood Urea Nitrogen 34H, Creatinine 2.5H, Estimat Glomerular Filtration Rate 28.7, Glucose Level 85, Calcium Level 8.7, Total Bilirubin 0.6, Aspartate Amino Transf (AST/SGOT) 138H, Alanine Aminotransferase (ALT/SGPT) 112H, Alkaline Phosphatase 101, Total Protein 7.7, Albumin 2.6L, Globulin 5.1, Albumin/Globulin Ratio 0.5L Height (Feet): 5 Height (Inches): 10.00 Weight (Pounds): 171 Cardiovascular: normal rate Isa Blanchard MD Aug 08, 2019 13:36
--- NOTE | 2019-08-08 14:05 | Infectious Diseases Prog Note ---
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 RECOMMENDATION: Patient has HIV since 2003 goes to [facility], noncompliant with medication Should be on Dapsone, Zithromax, Continue Liposomal Amphotericin B Continue HIV treatment with Tivicay & Descovy Case was D/W RN & pharmacy Will f/u HIV viral loud & CD4 Subjective ROS Limited/Unobtainable: Yes Constitutional: Denies: fever Respiratory: Reports: no symptoms Gastrointestinal/Abdominal: Reports: no symptoms Genitourinary: Reports: no symptoms Allergies: Coded Allergies: No Known Allergies (Unverified , 07/25/19) Objective Vital Signs Last 24 Hour Vital Signs Date Time Temp Pulse Resp B/P (MAP) Pulse Ox O2 Delivery O2 Flow Rate FiO2 08/08/19 12:00 98.6 63 19 107/66 (80) 97 08/08/19 09:00 Room Air 08/08/19 08:00 97.9 75 17 91/58 (69) 95 08/08/19 05:16 97.4 79 20 100/66 (77) 94 08/07/19 22:28 Room Air 08/07/19 20:15 97.2 67 20 133/82 (99) 94 08/07/19 16:00 98.1 75 20 99/66 (77) 96 Height (Feet): 5 Height (Inches): 10.00 Weight (Pounds): 171 General Appearance: no acute distress HEENT: mucous membranes moist Respiratory/Chest: lungs clear Cardiovascular: normal rate Abdomen: soft, non tender Extremities: no edema Neurologic/Psychiatric: alert, responsive Laboratory Tests Test 08/08/19 07:13 White Blood Count 3.7 K/UL (4.8-10.8) L Red Blood Count 3.47 M/UL (4.70-6.10) L Hemoglobin 11.6 G/DL (14.2-18.0) L Hematocrit 32.4 % (42.0-52.0) L Mean Corpuscular Volume 93 FL (80-99) Mean Corpuscular Hemoglobin 33.5 PG (27.0-31.0) H Mean Corpuscular Hemoglobin Concent 35.9 G/DL (32.0-36.0) Red Cell Distribution Width 10.2 % (11.6-14.8) L Platelet Count 89 K/UL (150-450) L Mean Platelet Volume 7.9 FL (6.5-10.1) Neutrophils (%) (Auto) % (45.0-75.0) Lymphocytes (%) (Auto) % (20.0-45.0) Monocytes (%) (Auto) % (1.0-10.0) Eosinophils (%) (Auto) % (0.0-3.0) Basophils (%) (Auto) % (0.0-2.0) Differential Total Cells Counted 100 Neutrophils % (Manual) 74 % (45-75) Lymphocytes % (Manual) 17 % (20-45) L Monocytes % (Manual) 5 % (1-10) Eosinophils % (Manual) 4 % (0-3) H Basophils % (Manual) 0 % (0-2) Band Neutrophils 0 % (0-8) Platelet Estimate Decreased L Platelet Morphology Normal Red Blood Cell Morphology Normal Sodium Level 135 MMOL/L (136-145) L Potassium Level 4.4 MMOL/L (3.5-5.1) Chloride Level 101 MMOL/L (98-107) Carbon Dioxide Level 23 MMOL/L (21-32) Anion Gap 11 mmol/L (5-15) Blood Urea Nitrogen 34 mg/dL (7-18) H Creatinine 2.5 MG/DL (0.55-1.30) H Estimat Glomerular Filtration Rate 28.7 mL/min (>60) Glucose Level 85 MG/DL (74-106) Calcium Level 8.7 MG/DL (8.5-10.1) Total Bilirubin 0.6 MG/DL (0.2-1.0) Aspartate Amino Transf (AST/SGOT) 138 U/L (15-37) H Alanine Aminotransferase (ALT/SGPT) 112 U/L (12-78) H Alkaline Phosphatase 101 U/L (46-116) Total Protein 7.7 G/DL (6.4-8.2) Albumin 2.6 G/DL (3.4-5.0) L Globulin 5.1 g/dL Albumin/Globulin Ratio 0.5 (1.0-2.7) L Current Medications Medications (Trade) Dose Ordered Sig/Gabrielle Route PRN Reason Start Time Stop Time Status Last Admin Dose Admin Acetaminophen (Tylenol) 650 mg Q6H PRN RECTAL fever 07/31/19 22:43 08/30/19 22:42 08/03/19 12:20 Amphotericin B Liposome 300 mg/ Dextrose 250 ml @ 125 mls/hr Q24H IV 08/05/19 15:00 08/14/19 16:59 08/07/19 15:12 Azithromycin (Zithromax) 1,200 mg ONCE A WEEK ORAL 08/02/19 14:00 08/09/19 13:59 08/02/19 16:24 Dapsone (Dapsone) 100 mg DAILY ORAL 08/02/19 14:00 08/09/19 13:59 08/08/19 09:24 Docusate Sodium (Colace) 100 mg THREE TIMES A DAY ORAL 08/04/19 18:00 09/03/19 17:59 08/08/19 13:30 Flucytosine (Ancobon) 2,000 mg Q6H ORAL 08/04/19 18:00 08/15/19 15:00 08/08/19 12:43 Folic Acid (Folate) 1 mg DAILY ORAL 08/01/19 09:00 08/27/19 08:59 08/08/19 09:24 Lorazepam (Ativan) 2 mg Q6H PRN ORAL For Anxiety 08/08/19 10:15 08/15/19 10:14 Midodrine (Pro-Amatine) 10 mg TID ORAL 08/07/19 13:00 11/01/19 17:59 08/08/19 13:30 Pantoprazole (Protonix) 40 mg EVERY 12 HOURS ORAL 08/01/19 09:00 08/29/19 20:59 08/08/19 09:26 Patient Own Medication (Patient's Own Med) 1 ea DAILY ORAL 08/04/19 21:00 09/03/19 20:59 08/08/19 09:25 Patient Own Medication (Patient's Own Med) 1 ea DAILY ORAL 08/04/19 22:00 09/03/19 21:59 08/08/19 09:25 Tamsulosin HCl (Flomax) 0.4 mg BEDTIME ORAL 08/02/19 21:00 09/01/19 20:59 08/07/19 20:49 Thiamine HCl (Vitamin B1) 100 mg DAILY ORAL 08/01/19 09:00 08/27/19 19:59 08/08/19 09:26 Po Bryant MD Aug 08, 2019 14:05
[2019-08-08] MEDS: AMPHOTERICIN B LIPOSOME IV SCH (15:29)
[2019-08-08] MEDS: D5W IV SCH (15:29)
[2019-08-08 16:00] VITALS: BP 141/89
--- NOTE | 2019-08-08 16:55 | Hematology/Onc Progress Note ---
Assessment/Plan Assessment/Plan Assessment and Recs: # Pancytopenia - potential causes multifactorial, evaluate liver and viral etiologies to begin, in this case due to ETOH ABUSE/WITHDRAWAL, bone marrow myelosuppression, also may be due to meds, ampho --> Hep panel negative, HIV +++ --> US abd to evaluate for cirrhosis and hsm ordered --> SHOWS spenomegaly, enlarged spleen --> Peripheral smear ordered to evaluate for blasts /schistocytes --> none noted --> abx and other meds have been reviewed --> ok for ppx if plt >50k w/ either heparin or lovenox --> Transfuse if Plt < 20k and fever, or if Plt < 10k without fever --> plt trend 164-->122k-->86k-->52k-->69-->89 --> wbc trend 5-->3-->2->2.2-->3-->3.7 --> abx: vanc/zosyn --> ampho/azithro--> ampho/flucty # ETOH withdrawal --> r/o seizure --> ativan, librium, folate --> imaging reviewed --> smear noted --> rec cessation # Leukocytosis likely reactive --> currently in leukopenia --> abx: azithro --> wbc 11-->3.2-->3.7 # Seizure --> R/o seizure d/o onset -> meds reviewed --> as per neuro # JULIAN (acute kidney injury) --> per renal recs # HIV --> as per id, consider eval # Tachycardia --> per Dr. Mckeon # AMS --> per psych The timing of this note does not necessarily reflect the time of the patient was seen. Greatly appreciate consultation. Subjective Allergies: Coded Allergies: No Known Allergies (Unverified , 07/25/19) Subjective 07/27: no events, no bleeding, cbc pending, remains altered 07/28: no events, labs reviewed, viral studies noted, no bleeding 07/29: asleep, cbc pending, on vanc/zosym, room air 07/30 no major events noted, no bleeding, labs reviewed 07/31 no events, tolerating po, labs pending 08/02 no events, no bleeding, labs lower yesterday, no night sweats 08/03 no bleeding, labs noted, cbc to be reviewed, no major events 08/04 no events, pending labs, specifically bmp, labs noted 08/05 no bleeding episodes, no night sweats, meds have been reviewed 08/07 no acute events, labs reviewed, on room air Objective Objective Current Medications Medications (Trade) Dose Ordered Sig/Gabrielle Route PRN Reason Start Time Stop Time Status Last Admin Dose Admin Acetaminophen (Tylenol) 650 mg Q6H PRN RECTAL fever 07/31/19 22:43 08/30/19 22:42 08/03/19 12:20 Amphotericin B Liposome 250 mg/ Dextrose 250 ml @ 125 mls/hr Q24H IV 08/09/19 15:00 08/14/19 16:59 Amphotericin B Liposome 300 mg/ Dextrose 250 ml @ 125 mls/hr Q24H IV 08/05/19 15:00 08/08/19 23:59 08/08/19 15:29 Azithromycin (Zithromax) 1,200 mg ONCE A WEEK ORAL 08/02/19 14:00 08/09/19 13:59 08/02/19 16:24 Dapsone (Dapsone) 100 mg DAILY ORAL 08/02/19 14:00 08/09/19 13:59 08/08/19 09:24 Docusate Sodium (Colace) 100 mg THREE TIMES A DAY ORAL 08/04/19 18:00 09/03/19 17:59 08/08/19 13:30 Flucytosine (Ancobon) 2,000 mg Q6H ORAL 08/04/19 18:00 08/15/19 15:00 08/08/19 12:43 Folic Acid (Folate) 1 mg DAILY ORAL 08/01/19 09:00 08/27/19 08:59 08/08/19 09:24 Lorazepam (Ativan) 2 mg Q6H PRN ORAL For Anxiety 08/08/19 10:15 08/15/19 10:14 Midodrine (Pro-Amatine) 10 mg TID ORAL 08/07/19 13:00 11/01/19 17:59 08/08/19 13:30 Pantoprazole (Protonix) 40 mg EVERY 12 HOURS ORAL 08/01/19 09:00 08/29/19 20:59 08/08/19 09:26 Patient Own Medication (Patient's Own Med) 1 ea DAILY ORAL 08/04/19 21:00 09/03/19 20:59 08/08/19 09:25 Patient Own Medication (Patient's Own Med) 1 ea DAILY ORAL 08/04/19 22:00 09/03/19 21:59 08/08/19 09:25 Tamsulosin HCl (Flomax) 0.4 mg BEDTIME ORAL 08/02/19 21:00 09/01/19 20:59 08/07/19 20:49 Thiamine HCl (Vitamin B1) 100 mg DAILY ORAL 08/01/19 09:00 08/27/19 19:59 08/08/19 09:26 Last 24 Hour Vital Signs Date Time Temp Pulse Resp B/P (MAP) Pulse Ox O2 Delivery O2 Flow Rate FiO2 08/08/19 12:00 98.6 63 19 107/66 (80) 97 08/08/19 09:00 Room Air 08/08/19 08:00 97.9 75 17 91/58 (69) 95 08/08/19 05:16 97.4 79 20 100/66 (77) 94 08/07/19 22:28 Room Air 08/07/19 20:15 97.2 67 20 133/82 (99) 94 08/07/19 16:00 98.1 75 20 99/66 (77) 96 08/07/19 12:00 97.5 69 20 102/70 (81) 95 08/07/19 09:00 Room Air 08/07/19 08:00 97.7 83 20 94/65 (75) 95 08/07/19 04:00 98.3 83 17 110/90 (97) 96 08/07/19 00:00 97.9 75 17 107/72 (84) 94 08/06/19 21:00 Room Air 08/06/19 20:00 98.3 70 18 114/78 (90) 95 Intake and Output 08/07/19 08/08/19 19:00 07:00 Intake Total 1080 ml 360 ml Balance 1080 ml 360 ml Intake Oral 1080 ml 360 ml # Voids 2 2 Labs Test 08/06/19 05:50 08/07/19 06:17 08/07/19 13:26 08/08/19 07:13 White Blood Count 3.0 K/UL (4.8-10.8) 3.5 K/UL (4.8-10.8) 3.7 K/UL (4.8-10.8) Red Blood Count 3.54 M/UL (4.70-6.10) 3.47 M/UL (4.70-6.10) 3.47 M/UL (4.70-6.10) Hemoglobin 11.9 G/DL (14.2-18.0) 11.6 G/DL (14.2-18.0) 11.6 G/DL (14.2-18.0) Hematocrit 33.1 % (42.0-52.0) 32.4 % (42.0-52.0) 32.4 % (42.0-52.0) Mean Corpuscular Volume 94 FL (80-99) 93 FL (80-99) 93 FL (80-99) Mean Corpuscular Hemoglobin 33.6 PG (27.0-31.0) 33.3 PG (27.0-31.0) 33.5 PG (27.0-31.0) Mean Corpuscular Hemoglobin Concent 35.9 G/DL (32.0-36.0) 35.6 G/DL (32.0-36.0) 35.9 G/DL (32.0-36.0) Red Cell Distribution Width 10.6 % (11.6-14.8) 10.4 % (11.6-14.8) 10.2 % (11.6-14.8) Platelet Count 69 K/UL (150-450) 76 K/UL (150-450) 89 K/UL (150-450) Mean Platelet Volume 8.3 FL (6.5-10.1) 8.6 FL (6.5-10.1) 7.9 FL (6.5-10.1) Neutrophils (%) (Auto) % (45.0-75.0) % (45.0-75.0) % (45.0-75.0) Lymphocytes (%) (Auto) % (20.0-45.0) % (20.0-45.0) % (20.0-45.0) Monocytes (%) (Auto) % (1.0-10.0) % (1.0-10.0) % (1.0-10.0) Eosinophils (%) (Auto) % (0.0-3.0) % (0.0-3.0) % (0.0-3.0) Basophils (%) (Auto) % (0.0-2.0) % (0.0-2.0) % (0.0-2.0) Differential Total Cells Counted 100 100 100 Neutrophils % (Manual) 59 % (45-75) 54 % (45-75) 74 % (45-75) Lymphocytes % (Manual) 23 % (20-45) 30 % (20-45) 17 % (20-45) Monocytes % (Manual) 9 % (1-10) 6 % (1-10) 5 % (1-10) Eosinophils % (Manual) 9 % (0-3) 10 % (0-3) 4 % (0-3) Basophils % (Manual) 0 % (0-2) 0 % (0-2) 0 % (0-2) Band Neutrophils 0 % (0-8) 0 % (0-8) 0 % (0-8) Platelet Estimate Decreased Decreased Decreased Platelet Morphology Normal Normal Normal Red Blood Cell Morphology Normal Normal Normal Sodium Level 139 MMOL/L (136-145) 138 MMOL/L (136-145) 135 MMOL/L (136-145) Potassium Level 4.5 MMOL/L (3.5-5.1) 4.4 MMOL/L (3.5-5.1) 4.4 MMOL/L (3.5-5.1) Chloride Level 105 MMOL/L (98-107) 104 MMOL/L (98-107) 101 MMOL/L (98-107) Carbon Dioxide Level 24 MMOL/L (21-32) 25 MMOL/L (21-32) 23 MMOL/L (21-32) Anion Gap 10 mmol/L (5-15) 9 mmol/L (5-15) 11 mmol/L (5-15) Blood Urea Nitrogen 20 mg/dL (7-18) 23 mg/dL (7-18) 34 mg/dL (7-18) Creatinine 1.6 MG/DL (0.55-1.30) 2.0 MG/DL (0.55-1.30) 2.5 MG/DL (0.55-1.30) Estimat Glomerular Filtration Rate 48.1 mL/min (>60) 37.2 mL/min (>60) 28.7 mL/min (>60) Glucose Level 97 MG/DL (74-106) 90 MG/DL (74-106) 85 MG/DL (74-106) Calcium Level 8.6 MG/DL (8.5-10.1) 9.0 MG/DL (8.5-10.1) 8.7 MG/DL (8.5-10.1) Total Bilirubin 0.4 MG/DL (0.2-1.0) 0.6 MG/DL (0.2-1.0) 0.6 MG/DL (0.2-1.0) Aspartate Amino Transf (AST/SGOT) 67 U/L (15-37) 191 U/L (15-37) 138 U/L (15-37) Alanine Aminotransferase (ALT/SGPT) 49 U/L (12-78) 124 U/L (12-78) 112 U/L (12-78) Alkaline Phosphatase 103 U/L (46-116) 108 U/L (46-116) 101 U/L (46-116) Total Protein 7.9 G/DL (6.4-8.2) 7.9 G/DL (6.4-8.2) 7.7 G/DL (6.4-8.2) Albumin 2.5 G/DL (3.4-5.0) 2.7 G/DL (3.4-5.0) 2.6 G/DL (3.4-5.0) Globulin 5.4 g/dL 5.2 g/dL 5.1 g/dL Albumin/Globulin Ratio 0.5 (1.0-2.7) 0.5 (1.0-2.7) 0.5 (1.0-2.7) Urine Random Sodium 38 mmol/L (20-110) Height (Feet): 5 Height (Inches): 10.00 Weight (Pounds): 171 Objective Physical Exam: Vitals: reviewed General: Nad, altered mental status HEENT: nc, at Neck: supple Chest: clear breath sounds bilaterally Cardiovascular: RRR, no s3, s4 Abdomen: soft, nontender, nd Extremities: no cce, normal range of motion Neuro: alert and oriented Arya Nelson MD Aug 08, 2019 16:55
--- NOTE | 2019-08-08 18:30 | NUR ---
NURSE NOTES: Patient talking on phone.bed alarm on,call light within reach.
[2019-08-08 18:50] VITALS: BP 109/64
--- NOTE | 2019-08-08 19:30 | NUR ---
NURSE NOTES: Received patient in bed, asleep, no acute distress noted, IV site is clean dry and intact, fall precautions on going, bed alarm is on, frequent rounding are made, staff on the floor are aware that patient is a high fall risk. Call light is within reach, bed is lowered, locked. Will continue to monitor for comfort and safety.
--- NOTE | 2019-08-08 19:34 | NUR ---
HAND-OFF: Report given to Daria TERRELL endorse aware of fall risk .
[2019-08-08 20:00] VITALS: BP 110/74
[2019-08-08] MEDS: Tamsulosin 0.4mg cap ORAL SCH (20:31)
[2019-08-09] VITALS (7 sets, daily range): BP systolic 77–115; BP diastolic 46–78
[2019-08-09] MEDS: FLUCYTOSINE 500 MG ORAL SCH ×2 (00:04→06:05)
--- NOTE | 2019-08-09 07:24 | Hematology/Onc Progress Note ---
Assessment/Plan Assessment/Plan Assessment and Recs: # Pancytopenia - potential causes multifactorial, evaluate liver and viral etiologies to begin, in this case due to ETOH ABUSE/WITHDRAWAL, bone marrow myelosuppression, also may be due to meds, ampho --> Hep panel negative, HIV +++ --> US abd to evaluate for cirrhosis and hsm ordered --> SHOWS spenomegaly, enlarged spleen --> Peripheral smear ordered to evaluate for blasts /schistocytes --> none noted --> abx and other meds have been reviewed --> ok for ppx if plt >50k w/ either heparin or lovenox --> Transfuse if Plt < 20k and fever, or if Plt < 10k without fever --> plt trend 164-->122k-->86k-->52k-->69-->89 --> wbc trend 5-->3-->2->2.2-->3-->3.7 --> abx: vanc/zosyn --> ampho/azithro--> ampho/flucty # ETOH withdrawal --> r/o seizure --> ativan, librium, folate --> imaging reviewed --> smear noted --> rec cessation # Leukocytosis likely reactive --> currently in leukopenia --> abx: azithro --> wbc 11-->3.2-->3.7 # Seizure --> R/o seizure d/o onset -> meds reviewed --> as per neuro # JULIAN (acute kidney injury) --> per renal recs # HIV --> as per id, consider eval # Tachycardia --> per Dr. Mckeon # AMS --> per psych The timing of this note does not necessarily reflect the time of the patient was seen. Greatly appreciate consultation. Subjective Constitutional: Denies: no symptoms, chills, fever, malaise, weakness, other HEENT: Denies: no symptoms, eye pain, blurred vision, tearing, double vision, ear pain, ear discharge, nose pain, nose congestion, throat pain, throat swelling, mouth pain, mouth swelling, other Cardiovascular: Denies: no symptoms, chest pain, edema, irregular heart rate, lightheadedness, palpitations, syncope, other Respiratory: Denies: no symptoms, cough, shortness of breath, SOB with excertion, SOB at rest, sputum, wheezing, other Gastrointestinal/Abdominal: Denies: no symptoms, abdomen distended, abdominal pain, black stools, tarry stools, blood in stool, constipated, diarrhea, difficulty swallowing, nausea, poor appetite, poor fluid intake, rectal bleeding , vomiting, other Genitourinary: Denies: no symptoms, burning, discharge, frequency, flank pain, hematuria, incontinence, pain, urgency, other Neurologic/Psychiatric: Denies: no symptoms, anxiety, depressed, emotional problems, headache, numbness, paresthesia, pre-existing deficit, seizure, tingling, tremors, weakness, other Endocrine: Denies: no symptoms, excessive sweating, flushing, intolerance to cold, intolerance to heat, increased hunger, increased thirst, increased urine, unexplained weight gain, unexplained weight loss, other Hematologic/Lymphatic: Denies: no symptoms, anemia, easy bleeding, easy bruising, adenopathy, other Allergies: Coded Allergies: No Known Allergies (Unverified , 07/25/19) Subjective 07/27: no events, no bleeding, cbc pending, remains altered 07/28: no events, labs reviewed, viral studies noted, no bleeding 07/29: asleep, cbc pending, on vanc/zosym, room air 07/30 no major events noted, no bleeding, labs reviewed 07/31 no events, tolerating po, labs pending 08/02 no events, no bleeding, labs lower yesterday, no night sweats 08/03 no bleeding, labs noted, cbc to be reviewed, no major events 08/04 no events, pending labs, specifically bmp, labs noted 08/05 no bleeding episodes, no night sweats, meds have been reviewed 08/07 no acute events, labs reviewed, on room air, no bleeding Objective Objective Current Medications Medications (Trade) Dose Ordered Sig/Gabrielle Route PRN Reason Start Time Stop Time Status Last Admin Dose Admin Acetaminophen (Tylenol) 650 mg Q6H PRN RECTAL fever 07/31/19 22:43 08/30/19 22:42 08/03/19 12:20 Amphotericin B Liposome 250 mg/ Dextrose 250 ml @ 125 mls/hr Q24H IV 08/09/19 15:00 08/14/19 16:59 Azithromycin (Zithromax) 1,200 mg ONCE A WEEK ORAL 08/02/19 14:00 08/09/19 13:59 08/02/19 16:24 Dapsone (Dapsone) 100 mg DAILY ORAL 08/02/19 14:00 08/09/19 13:59 08/08/19 09:24 Docusate Sodium (Colace) 100 mg THREE TIMES A DAY ORAL 08/04/19 18:00 09/03/19 17:59 08/08/19 18:42 Flucytosine (Ancobon) 2,000 mg Q6H ORAL 08/04/19 18:00 08/15/19 15:00 08/09/19 06:05 Folic Acid (Folate) 1 mg DAILY ORAL 08/01/19 09:00 08/27/19 08:59 08/08/19 09:24 Lorazepam (Ativan) 2 mg Q6H PRN ORAL For Anxiety 08/08/19 10:15 08/15/19 10:14 Midodrine (Pro-Amatine) 10 mg TID ORAL 08/07/19 13:00 11/01/19 17:59 08/08/19 18:42 Pantoprazole (Protonix) 40 mg EVERY 12 HOURS ORAL 08/01/19 09:00 08/29/19 20:59 08/08/19 20:31 Patient Own Medication (Patient's Own Med) 1 ea DAILY ORAL 08/04/19 21:00 09/03/19 20:59 08/08/19 09:25 Patient Own Medication (Patient's Own Med) 1 ea DAILY ORAL 08/04/19 22:00 09/03/19 21:59 08/08/19 09:25 Tamsulosin HCl (Flomax) 0.4 mg BEDTIME ORAL 08/02/19 21:00 09/01/19 20:59 08/08/19 20:31 Thiamine HCl (Vitamin B1) 100 mg DAILY ORAL 08/01/19 09:00 08/27/19 19:59 08/08/19 09:26 Last 24 Hour Vital Signs Date Time Temp Pulse Resp B/P (MAP) Pulse Ox O2 Delivery O2 Flow Rate FiO2 08/09/19 04:00 97.4 79 21 110/74 (86) 98 08/09/19 00:00 98.4 74 21 115/78 (90) 98 08/08/19 21:09 Room Air 08/08/19 20:00 98.4 74 18 110/74 (86) 98 08/08/19 18:50 74 109/64 (79) 08/08/19 16:00 98.0 68 19 141/89 (106) 98 08/08/19 12:00 98.6 63 19 107/66 (80) 97 08/08/19 09:00 Room Air 08/08/19 08:00 97.9 75 17 91/58 (69) 95 08/08/19 05:16 97.4 79 20 100/66 (77) 94 08/07/19 22:28 Room Air 08/07/19 20:15 97.2 67 20 133/82 (99) 94 08/07/19 16:00 98.1 75 20 99/66 (77) 96 08/07/19 12:00 97.5 69 20 102/70 (81) 95 08/07/19 09:00 Room Air 08/07/19 08:00 97.7 83 20 94/65 (75) 95 Intake and Output 08/08/19 08/09/19 19:00 07:00 Intake Total 900 ml Balance 900 ml Other 900 ml Labs Test 08/07/19 06:17 08/07/19 13:26 08/08/19 07:13 White Blood Count 3.5 K/UL (4.8-10.8) 3.7 K/UL (4.8-10.8) Red Blood Count 3.47 M/UL (4.70-6.10) 3.47 M/UL (4.70-6.10) Hemoglobin 11.6 G/DL (14.2-18.0) 11.6 G/DL (14.2-18.0) Hematocrit 32.4 % (42.0-52.0) 32.4 % (42.0-52.0) Mean Corpuscular Volume 93 FL (80-99) 93 FL (80-99) Mean Corpuscular Hemoglobin 33.3 PG (27.0-31.0) 33.5 PG (27.0-31.0) Mean Corpuscular Hemoglobin Concent 35.6 G/DL (32.0-36.0) 35.9 G/DL (32.0-36.0) Red Cell Distribution Width 10.4 % (11.6-14.8) 10.2 % (11.6-14.8) Platelet Count 76 K/UL (150-450) 89 K/UL (150-450) Mean Platelet Volume 8.6 FL (6.5-10.1) 7.9 FL (6.5-10.1) Neutrophils (%) (Auto) % (45.0-75.0) % (45.0-75.0) Lymphocytes (%) (Auto) % (20.0-45.0) % (20.0-45.0) Monocytes (%) (Auto) % (1.0-10.0) % (1.0-10.0) Eosinophils (%) (Auto) % (0.0-3.0) % (0.0-3.0) Basophils (%) (Auto) % (0.0-2.0) % (0.0-2.0) Differential Total Cells Counted 100 100 Neutrophils % (Manual) 54 % (45-75) 74 % (45-75) Lymphocytes % (Manual) 30 % (20-45) 17 % (20-45) Monocytes % (Manual) 6 % (1-10) 5 % (1-10) Eosinophils % (Manual) 10 % (0-3) 4 % (0-3) Basophils % (Manual) 0 % (0-2) 0 % (0-2) Band Neutrophils 0 % (0-8) 0 % (0-8) Platelet Estimate Decreased Decreased Platelet Morphology Normal Normal Red Blood Cell Morphology Normal Normal Sodium Level 138 MMOL/L (136-145) 135 MMOL/L (136-145) Potassium Level 4.4 MMOL/L (3.5-5.1) 4.4 MMOL/L (3.5-5.1) Chloride Level 104 MMOL/L (98-107) 101 MMOL/L (98-107) Carbon Dioxide Level 25 MMOL/L (21-32) 23 MMOL/L (21-32) Anion Gap 9 mmol/L (5-15) 11 mmol/L (5-15) Blood Urea Nitrogen 23 mg/dL (7-18) 34 mg/dL (7-18) Creatinine 2.0 MG/DL (0.55-1.30) 2.5 MG/DL (0.55-1.30) Estimat Glomerular Filtration Rate 37.2 mL/min (>60) 28.7 mL/min (>60) Glucose Level 90 MG/DL (74-106) 85 MG/DL (74-106) Calcium Level 9.0 MG/DL (8.5-10.1) 8.7 MG/DL (8.5-10.1) Total Bilirubin 0.6 MG/DL (0.2-1.0) 0.6 MG/DL (0.2-1.0) Aspartate Amino Transf (AST/SGOT) 191 U/L (15-37) 138 U/L (15-37) Alanine Aminotransferase (ALT/SGPT) 124 U/L (12-78) 112 U/L (12-78) Alkaline Phosphatase 108 U/L (46-116) 101 U/L (46-116) Total Protein 7.9 G/DL (6.4-8.2) 7.7 G/DL (6.4-8.2) Albumin 2.7 G/DL (3.4-5.0) 2.6 G/DL (3.4-5.0) Globulin 5.2 g/dL 5.1 g/dL Albumin/Globulin Ratio 0.5 (1.0-2.7) 0.5 (1.0-2.7) Urine Random Sodium 38 mmol/L (20-110) Height (Feet): 5 Height (Inches): 10.00 Weight (Pounds): 171 Objective Physical Exam: Vitals: reviewed General: Nad, altered mental status HEENT: nc, at Neck: supple Chest: clear breath sounds bilaterally Cardiovascular: RRR, no s3, s4 Abdomen: soft, nontender, nd Extremities: no cce, normal range of motion Neuro: alert and oriented Arya Nelson MD Aug 09, 2019 07:24
--- NOTE | 2019-08-09 07:31 | NUR ---
HAND-OFF: Report given to Regina TERRELL.
--- NOTE | 2019-08-09 07:32 | NUR ---
NURSE NOTES: Received patient in bed asleep. No SOB or acute distress. IV line intact. HOB elevated. Bed locked in lowest position. Call light within reach. For renal ultrasound today. Will continue frequent rounding and plan of care.
[2019-08-09 07:37] LABS: HEMATOCRIT 32.1 % (42.0-52.0); HEMOGLOBIN 11.6 G/DL (14.2-18.0); MEAN CORPUSCULAR VOLUME 93 FL (80-99); PLATELET COUNT 90 K/UL (150-450); RED BLOOD COUNT 3.46 M/UL (4.70-6.10); RED CELL DISTRIBUTION WIDTH 10.5 % (11.6-14.8); WHITE BLOOD COUNT 4.2 K/UL (4.8-10.8)
[2019-08-09 08:17] LABS: ALANINE AMINOTRANSFERASE 100 U/L (12-78); ALBUMIN 2.7 G/DL (3.4-5.0); ALBUMIN/GLOBULIN RATIO 0.5 (1.0-2.7); ALKALINE PHOSPHATASE 111 U/L (46-116); ANION GAP 12 mmol/L (5-15); ASPARTATE AMINO TRANSFERASE 104 U/L (15-37); BILIRUBIN,TOTAL 0.7 MG/DL (0.2-1.0); BLOOD UREA NITROGEN 33 mg/dL (7-18); CALCIUM 8.8 MG/DL (8.5-10.1); CARBON DIOXIDE 21 MMOL/L (21-32); CHLORIDE 101 MMOL/L (98-107); PHOSPHORUS 4.9 MG/DL (2.5-4.9); POTASSIUM 4.7 MMOL/L (3.5-5.1); SODIUM 134 MMOL/L (136-145)
[2019-08-09] MEDS: Midodrine 10mg tab ORAL SCH ×3 (09:13→17:16)
[2019-08-09] MEDS: Thiamine 100mg tab ORAL SCH (09:13)
[2019-08-09] MEDS: Docusate 100mg cap ORAL SCH ×3 (09:13→17:16)
--- NOTE | 2019-08-09 10:02 | NUR ---
NURSE NOTES: Patient awake, alert x3,Stateless speaking; on room air, no sing of distress, no sing of shortness of breath; no sing of chest pain; IV Right-Hand 24G flushes well; side rails up x2 and padded for seizure percussion, bed at lowest position, breaks locked; call light within reach; will keep monitoring.
--- NOTE | 2019-08-09 10:08 | NUR ---
HAND-OFF: Report given to Telly.
--- NOTE | 2019-08-09 12:08 | Nephrology Progress Note ---
Assessment/Plan Problem List: (1) JULIAN (acute kidney injury) Assessment: Serum creatinine rising (2) Seizure (3) ALCOHOL DEPENDENCE WITH WITHDRAWAL, UNSPECIFIED (4) Tachycardia (5) Hypokalemia (6) Low CD4 cell count determined by flow cytometry Assessment Electrolyte imbalance Hypokalemia and hypomagnesemia Elevated creatinine to 1.4 on admission now corrected Seizure disorder Plan Serum creatinine gilberto to 3 patient may progress towards needing dialysis treatment Kidney ultrasound pending Adjust midodrine dose for low blood pressure Intravenous magnesium sulfate as needed Avoid nephrotoxic's as possible discussed with FRANCY Kirkland at night Urine studies ordered Patient taking p.o. well Previously Following measures as needed IV magnesium IV potassium phosphate IV thiamine IV Protonix Continue management per other consultants Monitor electrolytes Per orders Subjective ROS Limited/Unobtainable: No Objective Objective Last 24 Hour Vital Signs Date Time Temp Pulse Resp B/P (MAP) Pulse Ox O2 Delivery O2 Flow Rate FiO2 08/09/19 09:00 Room Air 08/09/19 08:00 97.6 76 16 95/57 (70) 99 08/09/19 04:00 97.4 79 21 110/74 (86) 98 08/09/19 00:00 98.4 74 21 115/78 (90) 98 08/08/19 21:09 Room Air 08/08/19 20:00 98.4 74 18 110/74 (86) 98 08/08/19 18:50 74 109/64 (79) 08/08/19 16:00 98.0 68 19 141/89 (106) 98 Intake and Output 08/08/19 08/09/19 19:00 07:00 Intake Total 900 ml Balance 900 ml Other 900 ml Laboratory Tests 08/09/19 05:30: White Blood Count 4.2L, Red Blood Count 3.46L, Hemoglobin 11.6L, Hematocrit 32.1L, Mean Corpuscular Volume 93, Mean Corpuscular Hemoglobin 33.5H, Mean Corpuscular Hemoglobin Concent 36.1H, Red Cell Distribution Width 10.5L, Platelet Count 90L, Mean Platelet Volume 6.9, Neutrophils (%) (Auto) , Lymphocytes (%) (Auto) , Monocytes (%) (Auto) , Eosinophils (%) (Auto) , Basophils (%) (Auto) , Differential Total Cells Counted 100, Neutrophils % ( Manual) 73, Lymphocytes % (Manual) 16L, Monocytes % (Manual) 6, Eosinophils % ( Manual) 4H, Basophils % (Manual) 1, Band Neutrophils 0, Platelet Estimate DecreasedL, Platelet Morphology Normal, Red Blood Cell Morphology Normal, Sodium Level 134L, Potassium Level 4.7, Chloride Level 101, Carbon Dioxide Level 21, Anion Gap 12, Blood Urea Nitrogen 33H, Creatinine 3.0H, Estimat Glomerular Filtration Rate 23.3, Glucose Level 90, Uric Acid 7.4H, Calcium Level 8.8, Phosphorus Level 4.9, Total Bilirubin 0.7, Aspartate Amino Transf ( AST/SGOT) 104H, Alanine Aminotransferase (ALT/SGPT) 100H, Alkaline Phosphatase 111, C-Reactive Protein, Quantitative 2.2H, Pro-B-Type Natriuretic Peptide 263H , Total Protein 7.8, Albumin 2.7L, Globulin 5.1, Albumin/Globulin Ratio 0.5L Height (Feet): 5 Height (Inches): 10.00 Weight (Pounds): 171 General Appearance: no apparent distress Cardiovascular: normal rate Respiratory/Chest: decreased breath sounds Abdomen: soft Objective No change Brian Alexandra MD Aug 09, 2019 12:08
[2019-08-09] MEDS ORDERED: Fluconazole 100mg tab ORAL SCH (12:13)
--- NOTE | 2019-08-09 12:15 | Infectious Diseases Prog Note ---
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 RECOMMENDATION: Patient has HIV since 2003 goes to [facility], noncompliant with medication Should be on Dapsone, Zithromax, Discontinue Liposomal Amphotericin B & 5FC Start on Fluconazole Case was D/W patient , he wants to sign AMA He dosen't understand the severity of his medical condition Continue HIV treatment with Tivicay & Descovy Case was D/W RN & pharmacy Will f/u HIV viral loud & CD4 Subjective ROS Limited/Unobtainable: No Constitutional: Reports: other - feels Respiratory: Reports: no symptoms Gastrointestinal/Abdominal: Reports: no symptoms Genitourinary: Reports: no symptoms Allergies: Coded Allergies: No Known Allergies (Unverified , 07/25/19) Objective Vital Signs Last 24 Hour Vital Signs Date Time Temp Pulse Resp B/P (MAP) Pulse Ox O2 Delivery O2 Flow Rate FiO2 08/09/19 09:00 Room Air 08/09/19 08:00 97.6 76 16 95/57 (70) 99 08/09/19 04:00 97.4 79 21 110/74 (86) 98 08/09/19 00:00 98.4 74 21 115/78 (90) 98 08/08/19 21:09 Room Air 08/08/19 20:00 98.4 74 18 110/74 (86) 98 08/08/19 18:50 74 109/64 (79) 08/08/19 16:00 98.0 68 19 141/89 (106) 98 Height (Feet): 5 Height (Inches): 10.00 Weight (Pounds): 171 General Appearance: no acute distress HEENT: mucous membranes moist Respiratory/Chest: lungs clear Cardiovascular: normal rate Abdomen: soft, non tender Extremities: no edema Neurologic/Psychiatric: alert, responsive Laboratory Tests Test 08/09/19 05:30 White Blood Count 4.2 K/UL (4.8-10.8) L Red Blood Count 3.46 M/UL (4.70-6.10) L Hemoglobin 11.6 G/DL (14.2-18.0) L Hematocrit 32.1 % (42.0-52.0) L Mean Corpuscular Volume 93 FL (80-99) Mean Corpuscular Hemoglobin 33.5 PG (27.0-31.0) H Mean Corpuscular Hemoglobin Concent 36.1 G/DL (32.0-36.0) H Red Cell Distribution Width 10.5 % (11.6-14.8) L Platelet Count 90 K/UL (150-450) L Mean Platelet Volume 6.9 FL (6.5-10.1) Neutrophils (%) (Auto) % (45.0-75.0) Lymphocytes (%) (Auto) % (20.0-45.0) Monocytes (%) (Auto) % (1.0-10.0) Eosinophils (%) (Auto) % (0.0-3.0) Basophils (%) (Auto) % (0.0-2.0) Differential Total Cells Counted 100 Neutrophils % (Manual) 73 % (45-75) Lymphocytes % (Manual) 16 % (20-45) L Monocytes % (Manual) 6 % (1-10) Eosinophils % (Manual) 4 % (0-3) H Basophils % (Manual) 1 % (0-2) Band Neutrophils 0 % (0-8) Platelet Estimate Decreased L Platelet Morphology Normal Red Blood Cell Morphology Normal Sodium Level 134 MMOL/L (136-145) L Potassium Level 4.7 MMOL/L (3.5-5.1) Chloride Level 101 MMOL/L (98-107) Carbon Dioxide Level 21 MMOL/L (21-32) Anion Gap 12 mmol/L (5-15) Blood Urea Nitrogen 33 mg/dL (7-18) H Creatinine 3.0 MG/DL (0.55-1.30) H Estimat Glomerular Filtration Rate 23.3 mL/min (>60) Glucose Level 90 MG/DL (74-106) Uric Acid 7.4 MG/DL (2.6-7.2) H Calcium Level 8.8 MG/DL (8.5-10.1) Phosphorus Level 4.9 MG/DL (2.5-4.9) Total Bilirubin 0.7 MG/DL (0.2-1.0) Aspartate Amino Transf (AST/SGOT) 104 U/L (15-37) H Alanine Aminotransferase (ALT/SGPT) 100 U/L (12-78) H Alkaline Phosphatase 111 U/L (46-116) C-Reactive Protein, Quantitative 2.2 mg/dL (0.00-0.90) H Pro-B-Type Natriuretic Peptide 263 pg/mL (0-125) H Total Protein 7.8 G/DL (6.4-8.2) Albumin 2.7 G/DL (3.4-5.0) L Globulin 5.1 g/dL Albumin/Globulin Ratio 0.5 (1.0-2.7) L Current Medications Medications (Trade) Dose Ordered Sig/Gabrielle Route PRN Reason Start Time Stop Time Status Last Admin Dose Admin Acetaminophen (Tylenol) 650 mg Q6H PRN RECTAL fever 07/31/19 22:43 08/30/19 22:42 08/03/19 12:20 Amphotericin B Liposome 250 mg/ Dextrose 250 ml @ 125 mls/hr Q24H IV 08/09/19 15:00 08/14/19 16:59 Azithromycin (Zithromax) 1,200 mg ONCE A WEEK ORAL 08/02/19 14:00 08/14/19 13:59 08/02/19 16:24 Dapsone (Dapsone) 100 mg DAILY ORAL 08/02/19 14:00 08/14/19 13:59 08/09/19 09:13 Docusate Sodium (Colace) 100 mg THREE TIMES A DAY ORAL 08/04/19 18:00 09/03/19 17:59 08/09/19 09:13 Flucytosine (Ancobon) 2,000 mg Q12HR@0600,1800 ORAL 08/09/19 18:00 08/16/19 17:59 Folic Acid (Folate) 1 mg DAILY ORAL 08/01/19 09:00 08/27/19 08:59 08/09/19 09:13 Lorazepam (Ativan) 2 mg Q6H PRN ORAL For Anxiety 08/08/19 10:15 08/15/19 10:14 Midodrine (Pro-Amatine) 10 mg TID ORAL 08/07/19 13:00 11/01/19 17:59 08/09/19 09:13 Pantoprazole (Protonix) 40 mg EVERY 12 HOURS ORAL 08/01/19 09:00 08/29/19 20:59 08/09/19 09:13 Patient Own Medication (Patient's Own Med) 1 ea DAILY ORAL 08/04/19 21:00 09/03/19 20:59 08/09/19 09:13 Patient Own Medication (Patient's Own Med) 1 ea DAILY ORAL 08/04/19 22:00 09/03/19 21:59 08/09/19 09:13 Tamsulosin HCl (Flomax) 0.4 mg BEDTIME ORAL 08/02/19 21:00 09/01/19 20:59 08/08/19 20:31 Thiamine HCl (Vitamin B1) 100 mg DAILY ORAL 08/01/19 09:00 08/27/19 19:59 08/09/19 09:13 Po Bryant MD Aug 09, 2019 12:15
--- NOTE | 2019-08-09 12:31 | NUR ---
NURSE NOTES: Patient Blood Pressure is 77/46, Pule 83; I communicated the matter to MD Blanchard, waiting for order;
--- NOTE | 2019-08-09 12:58 | Cardiac Electrophysiology PN ---
Assessment/Plan Assessment/Plan 1. Sinus tachycardia due to seizure, alcohol withdrawal and crypt meningitis. EF 60%. EKG no acute ST-T wave abnormality. 2. Hypotension, despite Midodrine that increased to 10 tid. DC Flomax. NS 250 bolus 3. 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 Bryant 4. Heavy alcohol use 5. AIDS 6. Thrombocytopenia FU Dr Omar GASCA RN Subjective Subjective No CP or SOB. On iv Abx. RN at bedside. BP still as low as 77/46 but asymptomatic despite Midodrine 10 tid Objective Last 24 Hour Vital Signs Date Time Temp Pulse Resp B/P (MAP) Pulse Ox O2 Delivery O2 Flow Rate FiO2 08/09/19 12:00 97.8 83 17 77/46 (56) 96 08/09/19 09:00 Room Air 08/09/19 08:00 97.6 76 16 95/57 (70) 99 08/09/19 04:00 97.4 79 21 110/74 (86) 98 08/09/19 00:00 98.4 74 21 115/78 (90) 98 08/08/19 21:09 Room Air 08/08/19 20:00 98.4 74 18 110/74 (86) 98 08/08/19 18:50 74 109/64 (79) 08/08/19 16:00 98.0 68 19 141/89 (106) 98 Intake and Output 08/08/19 08/09/19 19:00 07:00 Intake Total 900 ml Balance 900 ml Other 900 ml Laboratory Tests Test 08/09/19 05:30 White Blood Count 4.2 K/UL (4.8-10.8) L Red Blood Count 3.46 M/UL (4.70-6.10) L Hemoglobin 11.6 G/DL (14.2-18.0) L Hematocrit 32.1 % (42.0-52.0) L Mean Corpuscular Volume 93 FL (80-99) Mean Corpuscular Hemoglobin 33.5 PG (27.0-31.0) H Mean Corpuscular Hemoglobin Concent 36.1 G/DL (32.0-36.0) H Red Cell Distribution Width 10.5 % (11.6-14.8) L Platelet Count 90 K/UL (150-450) L Mean Platelet Volume 6.9 FL (6.5-10.1) Neutrophils (%) (Auto) % (45.0-75.0) Lymphocytes (%) (Auto) % (20.0-45.0) Monocytes (%) (Auto) % (1.0-10.0) Eosinophils (%) (Auto) % (0.0-3.0) Basophils (%) (Auto) % (0.0-2.0) Differential Total Cells Counted 100 Neutrophils % (Manual) 73 % (45-75) Lymphocytes % (Manual) 16 % (20-45) L Monocytes % (Manual) 6 % (1-10) Eosinophils % (Manual) 4 % (0-3) H Basophils % (Manual) 1 % (0-2) Band Neutrophils 0 % (0-8) Platelet Estimate Decreased L Platelet Morphology Normal Red Blood Cell Morphology Normal Sodium Level 134 MMOL/L (136-145) L Potassium Level 4.7 MMOL/L (3.5-5.1) Chloride Level 101 MMOL/L (98-107) Carbon Dioxide Level 21 MMOL/L (21-32) Anion Gap 12 mmol/L (5-15) Blood Urea Nitrogen 33 mg/dL (7-18) H Creatinine 3.0 MG/DL (0.55-1.30) H Estimat Glomerular Filtration Rate 23.3 mL/min (>60) Glucose Level 90 MG/DL (74-106) Uric Acid 7.4 MG/DL (2.6-7.2) H Calcium Level 8.8 MG/DL (8.5-10.1) Phosphorus Level 4.9 MG/DL (2.5-4.9) Total Bilirubin 0.7 MG/DL (0.2-1.0) Aspartate Amino Transf (AST/SGOT) 104 U/L (15-37) H Alanine Aminotransferase (ALT/SGPT) 100 U/L (12-78) H Alkaline Phosphatase 111 U/L (46-116) C-Reactive Protein, Quantitative 2.2 mg/dL (0.00-0.90) H Pro-B-Type Natriuretic Peptide 263 pg/mL (0-125) H Total Protein 7.8 G/DL (6.4-8.2) Albumin 2.7 G/DL (3.4-5.0) L Globulin 5.1 g/dL Albumin/Globulin Ratio 0.5 (1.0-2.7) L Objective HEAD AND NECK: No JVD. LUNGS: Clear. CARDIOVASCULAR: Nl S1 and S2 with no gallop. ABDOMEN: Soft. EXTREMITIES: 1+ pitting edema. Ric Mckeon MD Aug 09, 2019 12:58
[2019-08-09] MEDS: Azithromycin 600mg Tab ORAL SCH (13:16)
--- NOTE | 2019-08-09 13:34 | NUR ---
CASE MANAGEMENT:REVIEW SI;CRYPTOCOCCAL MENINGITIS. HYPOTENSION. PANCYTOPENIA. HIV/AIDS. 98.4 83 21 77/46 96% ON RA WBC 4.2 RBC 3.46 PLT 90 NA 134 BUN 33 CR 3.0 AST 104 ALT 100 CRP 2.2 UR ACID 7.4 IS;IVF NS @ 250 ML/HR DIFLUCAN PO QD MIDODRINE PO TID DAPSONE PO QD ZITHROMAX PO QWEEK PROTONIX PO Q12 HRS THIAMINE PO QD ANCOBAN PO Q6 HRS TRANSFERRED FROM MED SURG TO TELEMETRY TODAY TELE STATUS DCP;HOMELESS
--- NOTE | 2019-08-09 14:17 | NUR ---
NURSE NOTES: After Bolus NS 250 given, BP 107/65 Pulse 67; Charge nurse Douglas is aware; waiting for bed at Tele;
--- NOTE | 2019-08-09 15:09 | NUR ---
HAND-OFF: Report given to CECIL GOFF W [employer] AT BEDSIDE PT IN STABLE CONDITION
--- NOTE | 2019-08-09 15:10 | NUR ---
NURSE NOTES: Received report from NIDHI Cole. Patient AOx 2, open eyes spontaneously, new IV inserted Right AC 22G, asymptomatic, patent, intact. Endorsed patient was having hypotensive, one time bolus given. Bed in lowest position, side rails upx2, call light within reach, bed alarm on, side rails padded, suction at the bedside. Will continue to monitor.
--- NOTE | 2019-08-09 15:16 | Diagnostic Imaging Report ---
Indication:Elevated Bun and Creatinine. Technique: Grayscale and duplex Doppler imaging of the kidneys performed. Comparison: None Findings: The size, contour, and echogenicity of both kidneys are within normal limits. There is no hydronephrosis.. The right kidney measures 11.8 cm. in length. The left kidney measures 12.8 cm. in length. The IVC is patent. Urinary bladder is unremarkable. IMPRESSION: Negative ultrasound the kidneys.
[2019-08-09] MEDS ORDERED: Acetaminophen 650 MG SUPP RECTAL PRN (16:00)
[2019-08-09] MEDS ORDERED: LORazepam 1mg tab ORAL PRN (16:00)
[2019-08-09] MEDS ORDERED: FLUCYTOSINE 500 MG ORAL SCH (18:00)
--- NOTE | 2019-08-09 19:22 | NUR ---
HAND-OFF: Report given to NIDHI Horton. Endorsed plan of care.
--- NOTE | 2019-08-09 19:34 | NUR ---
NURSE NOTES: Received patient report from NIDHI Brar. Patient AOx 3. Patient shows no signs of distress or pain. IV checked, patent and flushed. There are no signs of infiltration, bleeding, or erythema. Bed in the lowest position, call light within reach, side rails padded and up x 3. Will continue plan of care.
--- NOTE | 2019-08-09 20:45 | General Progress Note ---
Assessment/Plan Problem List: (1) Seizure disorder ICD Codes: G40.909 - Epilepsy, unspecified, not intractable, without status epilepticus SNOMED: 425647578 (2) Hypokalemia ICD Codes: E87.6 - Hypokalemia SNOMED: 67747097 (3) Seizure ICD Codes: R56.9 - Unspecified convulsions SNOMED: 70905267 (4) Tachycardia ICD Codes: R00.0 - Tachycardia, unspecified SNOMED: 2357455 (5) ALCOHOL DEPENDENCE WITH WITHDRAWAL, UNSPECIFIED ICD Codes: F10.239 - ALCOHOL DEPENDENCE WITH WITHDRAWAL, UNSPECIFIED Status: progressing Assessment/Plan: afebrile sepsis too confused and delirious reviewed chart encephalopathy seizure cryptococcal menigitis unsafe dc Subjective ROS Limited/Unobtainable: Yes Allergies: Coded Allergies: No Known Allergies (Unverified , 07/25/19) Objective Last 24 Hour Vital Signs Date Time Temp Pulse Resp B/P (MAP) Pulse Ox O2 Delivery O2 Flow Rate FiO2 08/09/19 16:00 77 08/09/19 16:00 98.0 71 17 102/60 (74) 96 08/09/19 14:16 97.8 67 17 107/65 (79) 92 08/09/19 12:00 97.8 83 17 77/46 (56) 96 08/09/19 09:00 Room Air 08/09/19 08:00 97.6 76 16 95/57 (70) 99 08/09/19 04:00 97.4 79 21 110/74 (86) 98 08/09/19 00:00 98.4 74 21 115/78 (90) 98 08/08/19 21:09 Room Air Intake and Output 08/08/19 08/09/19 19:00 07:00 Intake Total 900 ml Balance 900 ml Other 900 ml Laboratory Tests 08/09/19 05:30: White Blood Count 4.2L, Red Blood Count 3.46L, Hemoglobin 11.6L, Hematocrit 32.1L, Mean Corpuscular Volume 93, Mean Corpuscular Hemoglobin 33.5H, Mean Corpuscular Hemoglobin Concent 36.1H, Red Cell Distribution Width 10.5L, Platelet Count 90L, Mean Platelet Volume 6.9, Neutrophils (%) (Auto) , Lymphocytes (%) (Auto) , Monocytes (%) (Auto) , Eosinophils (%) (Auto) , Basophils (%) (Auto) , Differential Total Cells Counted 100, Neutrophils % ( Manual) 73, Lymphocytes % (Manual) 16L, Monocytes % (Manual) 6, Eosinophils % ( Manual) 4H, Basophils % (Manual) 1, Band Neutrophils 0, Platelet Estimate DecreasedL, Platelet Morphology Normal, Red Blood Cell Morphology Normal, Sodium Level 134L, Potassium Level 4.7, Chloride Level 101, Carbon Dioxide Level 21, Anion Gap 12, Blood Urea Nitrogen 33H, Creatinine 3.0H, Estimat Glomerular Filtration Rate 23.3, Glucose Level 90, Uric Acid 7.4H, Calcium Level 8.8, Phosphorus Level 4.9, Total Bilirubin 0.7, Aspartate Amino Transf ( AST/SGOT) 104H, Alanine Aminotransferase (ALT/SGPT) 100H, Alkaline Phosphatase 111, C-Reactive Protein, Quantitative 2.2H, Pro-B-Type Natriuretic Peptide 263H , Total Protein 7.8, Albumin 2.7L, Globulin 5.1, Albumin/Globulin Ratio 0.5L Height (Feet): 5 Height (Inches): 10.00 Weight (Pounds): 171 General Appearance: confused Cardiovascular: regular rhythm Respiratory/Chest: lungs clear Isa Blanchard MD Aug 09, 2019 20:45
--- NOTE | 2019-08-09 22:37 | General Progress Note ---
Assessment/Plan Status: progressing Assessment/Plan: Assessment - HIV (+) - crypto meningitis - pancytopenia - Rising LFT - ? etiology, ? drug induced (? diflucan) - h/o EtOH use x years, although stated he has not consumed for 1 mo - seizure - fever - rising creatinine Recommendations - Hold diflucan if OK with ID - po as tolerated - thiamine - watch Cr and LFT - Renal and ID f/u Subjective Allergies: Coded Allergies: No Known Allergies (Unverified , 07/25/19) Subjective Seen this am awake but slow to respond low BP noted Objective Last 24 Hour Vital Signs Date Time Temp Pulse Resp B/P (MAP) Pulse Ox O2 Delivery O2 Flow Rate FiO2 08/09/19 16:00 77 08/09/19 16:00 98.0 71 17 102/60 (74) 96 08/09/19 14:16 97.8 67 17 107/65 (79) 92 08/09/19 12:00 97.8 83 17 77/46 (56) 96 08/09/19 09:00 Room Air 08/09/19 08:00 97.6 76 16 95/57 (70) 99 08/09/19 04:00 97.4 79 21 110/74 (86) 98 08/09/19 00:00 98.4 74 21 115/78 (90) 98 Intake and Output 08/08/19 08/09/19 19:00 07:00 Intake Total 900 ml Balance 900 ml Other 900 ml Laboratory Tests 08/09/19 05:30: White Blood Count 4.2L, Red Blood Count 3.46L, Hemoglobin 11.6L, Hematocrit 32.1L, Mean Corpuscular Volume 93, Mean Corpuscular Hemoglobin 33.5H, Mean Corpuscular Hemoglobin Concent 36.1H, Red Cell Distribution Width 10.5L, Platelet Count 90L, Mean Platelet Volume 6.9, Neutrophils (%) (Auto) , Lymphocytes (%) (Auto) , Monocytes (%) (Auto) , Eosinophils (%) (Auto) , Basophils (%) (Auto) , Differential Total Cells Counted 100, Neutrophils % ( Manual) 73, Lymphocytes % (Manual) 16L, Monocytes % (Manual) 6, Eosinophils % ( Manual) 4H, Basophils % (Manual) 1, Band Neutrophils 0, Platelet Estimate DecreasedL, Platelet Morphology Normal, Red Blood Cell Morphology Normal, Sodium Level 134L, Potassium Level 4.7, Chloride Level 101, Carbon Dioxide Level 21, Anion Gap 12, Blood Urea Nitrogen 33H, Creatinine 3.0H, Estimat Glomerular Filtration Rate 23.3, Glucose Level 90, Uric Acid 7.4H, Calcium Level 8.8, Phosphorus Level 4.9, Total Bilirubin 0.7, Aspartate Amino Transf ( AST/SGOT) 104H, Alanine Aminotransferase (ALT/SGPT) 100H, Alkaline Phosphatase 111, C-Reactive Protein, Quantitative 2.2H, Pro-B-Type Natriuretic Peptide 263H , Total Protein 7.8, Albumin 2.7L, Globulin 5.1, Albumin/Globulin Ratio 0.5L Height (Feet): 5 Height (Inches): 10.00 Weight (Pounds): 171 Objective WDWN NCAT supple CTA RR abd soft ND no edema Jai Ness MD Aug 09, 2019 22:37
[2019-08-10] VITALS: BP 98/58
--- NOTE | 2019-08-10 02:33 | NUR ---
NURSE NOTES: Patient sleeping comfortably. No signs of distress or pain noted at this time.
[2019-08-10 04:00] VITALS: BP 92/51
[2019-08-10 07:26] LABS: BASOPHILS % (AUTO) 1.4 % (0.0-2.0); EOSINOPHILS % (AUTO) 3.4 % (0.0-3.0); HEMATOCRIT 31.2 % (42.0-52.0); HEMOGLOBIN 11.3 G/DL (14.2-18.0); LYMPHOCYTES % (AUTO) 14.5 % (20.0-45.0); MEAN CORPUSCULAR VOLUME 92 FL (80-99); MONOCYTES % (AUTO) 8.7 % (1.0-10.0); PLATELET COUNT 114 K/UL (150-450); RED CELL DISTRIBUTION WIDTH 10.2 % (11.6-14.8); WHITE BLOOD COUNT 4.7 K/UL (4.8-10.8)
[2019-08-10 07:27] LABS: ALANINE AMINOTRANSFERASE 82 U/L (12-78); ALBUMIN 2.7 G/DL (3.4-5.0); ALBUMIN/GLOBULIN RATIO 0.5 (1.0-2.7); ALKALINE PHOSPHATASE 109 U/L (46-116); ANION GAP 10 mmol/L (5-15); ASPARTATE AMINO TRANSFERASE 77 U/L (15-37); BILIRUBIN,TOTAL 0.6 MG/DL (0.2-1.0); BLOOD UREA NITROGEN 35 mg/dL (7-18); CALCIUM 8.6 MG/DL (8.5-10.1); CARBON DIOXIDE 21 MMOL/L (21-32); CHLORIDE 102 MMOL/L (98-107); CREATININE 3.1 MG/DL (0.55-1.30); PHOSPHORUS 4.5 MG/DL (2.5-4.9); POTASSIUM 4.5 MMOL/L (3.5-5.1); SODIUM 133 MMOL/L (136-145)
--- NOTE | 2019-08-10 07:27 | NUR ---
HAND-OFF: Report given to NIDHI Wise. Patient in bed resting. No signs of acute distress or pain. Endorsed plan of care.
--- NOTE | 2019-08-10 07:30 | NUR ---
NURSE NOTES: Received patient report from NIDHI Horton. Patient AOx 3 -4 in bed resting, denies any pain at this time. No signs of acute distress noted. IV is intact and patent. Bed is in the lowest position with bedside rails up x3, brakes engaged for safety, call light within reach. Will continue with the plan of care.
[2019-08-10 08:00] VITALS: BP 102/58
[2019-08-10] MEDS: Docusate 100mg cap ORAL SCH ×3 (08:53→17:25)
[2019-08-10] MEDS: Thiamine 100mg tab ORAL SCH (08:53)
[2019-08-10] MEDS: Midodrine 10mg tab ORAL SCH ×3 (08:54→17:25)
[2019-08-10] MEDS ORDERED: Fluconazole 100mg tab ORAL SCH (09:00)
--- NOTE | 2019-08-10 10:53 | Infectious Diseases Prog Note ---
Assessment/Plan Assessment/Plan IMPRESSION: Cryptococcal sepsis HIV ,AIDS CD4=46 Cryptococcal meningitis New-onset seizure Alcohol withdrawal Acute renal failure, worsening Encephalopathy. Elevated transaminase & ammonia RECOMMENDATION: Patient has HIV since 2003 goes to [facility], noncompliant with medication on Dapsone, Zithromax, continue Fluconazole He dosen't understand the severity of his medical condition Continue HIV treatment with Tivicay & Descovy Case was D/W RN & pharmacy Will f/u HIV viral loud & CD4 Subjective ROS Limited/Unobtainable: Yes Cardiovascular: Reports: other - developed hypotension tranferred to telemetry Allergies: Coded Allergies: No Known Allergies (Unverified , 07/25/19) Objective Vital Signs Last 24 Hour Vital Signs Date Time Temp Pulse Resp B/P (MAP) Pulse Ox O2 Delivery O2 Flow Rate FiO2 08/10/19 09:00 Room Air 08/10/19 08:00 100 08/10/19 08:00 98.2 83 20 102/58 (73) 100 08/10/19 04:00 75 08/10/19 04:00 99.1 78 20 92/51 (65) 93 08/10/19 00:00 78 08/10/19 00:00 98.2 86 20 98/58 (71) 97 08/09/19 21:00 Room Air 08/09/19 20:00 97.7 72 20 113/60 (77) 97 08/09/19 20:00 71 08/09/19 16:00 77 08/09/19 16:00 98.0 71 17 102/60 (74) 96 08/09/19 14:16 97.8 67 17 107/65 (79) 92 08/09/19 12:00 97.8 83 17 77/46 (56) 96 Height (Feet): 5 Height (Inches): 10.00 Weight (Pounds): 171 HEENT: mucous membranes moist Respiratory/Chest: lungs clear Cardiovascular: normal rate Abdomen: soft, non tender Extremities: no edema Neurologic/Psychiatric: other - sleeping Laboratory Tests Test 08/10/19 05:42 White Blood Count 4.7 K/UL (4.8-10.8) L Red Blood Count 3.40 M/UL (4.70-6.10) L Hemoglobin 11.3 G/DL (14.2-18.0) L Hematocrit 31.2 % (42.0-52.0) L Mean Corpuscular Volume 92 FL (80-99) Mean Corpuscular Hemoglobin 33.3 PG (27.0-31.0) H Mean Corpuscular Hemoglobin Concent 36.3 G/DL (32.0-36.0) H Red Cell Distribution Width 10.2 % (11.6-14.8) L Platelet Count 114 K/UL (150-450) L Mean Platelet Volume 7.5 FL (6.5-10.1) Neutrophils (%) (Auto) 72.0 % (45.0-75.0) Lymphocytes (%) (Auto) 14.5 % (20.0-45.0) L Monocytes (%) (Auto) 8.7 % (1.0-10.0) Eosinophils (%) (Auto) 3.4 % (0.0-3.0) H Basophils (%) (Auto) 1.4 % (0.0-2.0) Sodium Level 133 MMOL/L (136-145) L Potassium Level 4.5 MMOL/L (3.5-5.1) Chloride Level 102 MMOL/L (98-107) Carbon Dioxide Level 21 MMOL/L (21-32) Anion Gap 10 mmol/L (5-15) Blood Urea Nitrogen 35 mg/dL (7-18) H Creatinine 3.1 MG/DL (0.55-1.30) H Estimat Glomerular Filtration Rate 22.4 mL/min (>60) Glucose Level 90 MG/DL (74-106) Uric Acid 8.0 MG/DL (2.6-7.2) H Calcium Level 8.6 MG/DL (8.5-10.1) Phosphorus Level 4.5 MG/DL (2.5-4.9) Magnesium Level 1.4 MG/DL (1.8-2.4) L Total Bilirubin 0.6 MG/DL (0.2-1.0) Aspartate Amino Transf (AST/SGOT) 77 U/L (15-37) H Alanine Aminotransferase (ALT/SGPT) 82 U/L (12-78) H Alkaline Phosphatase 109 U/L (46-116) Ammonia 70 umol/L (11-32) H Total Protein 7.9 G/DL (6.4-8.2) Albumin 2.7 G/DL (3.4-5.0) L Globulin 5.2 g/dL Albumin/Globulin Ratio 0.5 (1.0-2.7) L Current Medications Medications (Trade) Dose Ordered Sig/Gabrielle Route PRN Reason Start Time Stop Time Status Last Admin Dose Admin Acetaminophen (Tylenol) 650 mg Q6H PRN RECTAL fever 08/09/19 16:00 08/30/19 15:59 Azithromycin (Zithromax) 1,200 mg ONCE A WEEK ORAL 08/16/19 14:00 08/19/19 13:59 Dapsone (Dapsone) 100 mg DAILY ORAL 08/10/19 09:00 08/14/19 13:59 08/10/19 08:54 Docusate Sodium (Colace) 100 mg THREE TIMES A DAY ORAL 08/09/19 18:00 09/03/19 17:59 08/10/19 08:53 Folic Acid (Folate) 1 mg DAILY ORAL 08/10/19 09:00 08/27/19 08:59 08/10/19 08:54 Lorazepam (Ativan) 2 mg Q6H PRN ORAL For Anxiety 08/09/19 16:00 08/15/19 15:59 Midodrine (Pro-Amatine) 10 mg TID ORAL 08/09/19 18:00 11/01/19 17:59 08/10/19 08:54 Pantoprazole (Protonix) 40 mg EVERY 12 HOURS ORAL 08/09/19 21:00 08/29/19 20:59 08/10/19 08:54 Patient Own Medication (Patient's Own Med) 1 ea DAILY ORAL 08/10/19 09:00 09/03/19 20:59 08/10/19 08:54 Patient Own Medication (Patient's Own Med) 1 ea DAILY ORAL 08/10/19 09:00 09/03/19 21:59 08/10/19 08:54 Thiamine HCl (Vitamin B1) 100 mg DAILY ORAL 08/10/19 09:00 08/27/19 19:59 08/10/19 08:53 Po Bryant MD Aug 10, 2019 10:53
--- NOTE | 2019-08-10 11:17 | NUR ---
CASE MANAGEMENT:REVIEW 08/10/19 SI: CRYPTOCOCCAL SEPSIS. HIV/AIDS TRANSFERRED TO TELEMETRY D/T HYPOTENSION 98.2 83 20 102/58 100% ON RA H/H-11.3/31.2 PLT-114 BUN+35 CR+3.1 AST/ALT+77/82 IS: AZITHROMYCIN PO QWEEK DAPSONE PO QD FOLATE PO QD THIAMINE PO QD PROTONIX PO Q12 MIDODRINE PO TID HAART REGIMEN : NOW ON TELEMETRY
--- NOTE | 2019-08-10 11:55 | Cardiac Electrophysiology PN ---
Assessment/Plan Assessment/Plan 1. Sinus tachycardia due to seizure, alcohol withdrawal and crypt meningitis. EF 60%. EKG no acute ST-T wave abnormality. 2. Hypotension, despite Midodrine 10 tid. Better off Flomax and after IVF bolus 3. 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 Bryant 4. Heavy alcohol use 5. AIDS 6. Thrombocytopenia FU Dr Omar GASCA RN Subjective Subjective No CP or SOB. On iv Abx. Transferred to as BP was 77/46 . On Midodrine 10 tid. Objective Last 24 Hour Vital Signs Date Time Temp Pulse Resp B/P (MAP) Pulse Ox O2 Delivery O2 Flow Rate FiO2 08/10/19 09:00 Room Air 08/10/19 08:00 100 08/10/19 08:00 98.2 83 20 102/58 (73) 100 08/10/19 04:00 75 08/10/19 04:00 99.1 78 20 92/51 (65) 93 08/10/19 00:00 78 08/10/19 00:00 98.2 86 20 98/58 (71) 97 08/09/19 21:00 Room Air 08/09/19 20:00 97.7 72 20 113/60 (77) 97 08/09/19 20:00 71 08/09/19 16:00 77 08/09/19 16:00 98.0 71 17 102/60 (74) 96 08/09/19 14:16 97.8 67 17 107/65 (79) 92 08/09/19 12:00 97.8 83 17 77/46 (56) 96 Intake and Output 08/09/19 08/10/19 19:00 07:00 Output Total 300 ml Balance -300 ml Output Urine Total 300 ml # Voids 1 Laboratory Tests Test 08/10/19 05:42 White Blood Count 4.7 K/UL (4.8-10.8) L Red Blood Count 3.40 M/UL (4.70-6.10) L Hemoglobin 11.3 G/DL (14.2-18.0) L Hematocrit 31.2 % (42.0-52.0) L Mean Corpuscular Volume 92 FL (80-99) Mean Corpuscular Hemoglobin 33.3 PG (27.0-31.0) H Mean Corpuscular Hemoglobin Concent 36.3 G/DL (32.0-36.0) H Red Cell Distribution Width 10.2 % (11.6-14.8) L Platelet Count 114 K/UL (150-450) L Mean Platelet Volume 7.5 FL (6.5-10.1) Neutrophils (%) (Auto) 72.0 % (45.0-75.0) Lymphocytes (%) (Auto) 14.5 % (20.0-45.0) L Monocytes (%) (Auto) 8.7 % (1.0-10.0) Eosinophils (%) (Auto) 3.4 % (0.0-3.0) H Basophils (%) (Auto) 1.4 % (0.0-2.0) Sodium Level 133 MMOL/L (136-145) L Potassium Level 4.5 MMOL/L (3.5-5.1) Chloride Level 102 MMOL/L (98-107) Carbon Dioxide Level 21 MMOL/L (21-32) Anion Gap 10 mmol/L (5-15) Blood Urea Nitrogen 35 mg/dL (7-18) H Creatinine 3.1 MG/DL (0.55-1.30) H Estimat Glomerular Filtration Rate 22.4 mL/min (>60) Glucose Level 90 MG/DL (74-106) Uric Acid 8.0 MG/DL (2.6-7.2) H Calcium Level 8.6 MG/DL (8.5-10.1) Phosphorus Level 4.5 MG/DL (2.5-4.9) Magnesium Level 1.4 MG/DL (1.8-2.4) L Total Bilirubin 0.6 MG/DL (0.2-1.0) Aspartate Amino Transf (AST/SGOT) 77 U/L (15-37) H Alanine Aminotransferase (ALT/SGPT) 82 U/L (12-78) H Alkaline Phosphatase 109 U/L (46-116) Ammonia 70 umol/L (11-32) H Total Protein 7.9 G/DL (6.4-8.2) Albumin 2.7 G/DL (3.4-5.0) L Globulin 5.2 g/dL Albumin/Globulin Ratio 0.5 (1.0-2.7) L Objective HEAD AND NECK: No JVD. LUNGS: Clear. CARDIOVASCULAR: Nl S1 and S2 with no gallop. ABDOMEN: Soft. EXTREMITIES: 1+ pitting edema. Ric Mckeon MD Aug 10, 2019 11:55
[2019-08-10 12:00] VITALS: BP 105/60
[2019-08-10] MEDS: Fluconazole 100mg tab ORAL SCH (13:15)
--- NOTE | 2019-08-10 13:45 | Nephrology Progress Note ---
Assessment/Plan Problem List: (1) JULIAN (acute kidney injury) Assessment: Serum creatinine rising (2) Seizure (3) ALCOHOL DEPENDENCE WITH WITHDRAWAL, UNSPECIFIED (4) Tachycardia (5) Hypokalemia (6) Low CD4 cell count determined by flow cytometry Assessment Electrolyte imbalance Hypokalemia and hypomagnesemia Elevated creatinine to 1.4 on admission now corrected Seizure disorder Plan Serum creatinine gilberto to 3.1-most likely due to medications patient may progress towards needing dialysis treatment Kidney ultrasound unremarkable Adjust midodrine dose for low blood pressure Intravenous magnesium sulfate as needed Avoid nephrotoxic's as possible discussed with FRANCY Kirkland at night Urine studies ordered Patient taking p.o. well Previously Following measures as needed IV magnesium IV potassium phosphate IV thiamine IV Protonix Continue management per other consultants Monitor electrolytes Per orders Subjective ROS Limited/Unobtainable: No Objective Objective Last 24 Hour Vital Signs Date Time Temp Pulse Resp B/P (MAP) Pulse Ox O2 Delivery O2 Flow Rate FiO2 08/10/19 12:00 67 08/10/19 12:00 98.3 72 20 105/60 (75) 96 08/10/19 09:00 Room Air 08/10/19 08:00 100 08/10/19 08:00 98.2 83 20 102/58 (73) 100 08/10/19 04:00 75 08/10/19 04:00 99.1 78 20 92/51 (65) 93 08/10/19 00:00 78 08/10/19 00:00 98.2 86 20 98/58 (71) 97 08/09/19 21:00 Room Air 08/09/19 20:00 97.7 72 20 113/60 (77) 97 08/09/19 20:00 71 08/09/19 16:00 77 08/09/19 16:00 98.0 71 17 102/60 (74) 96 08/09/19 14:16 97.8 67 17 107/65 (79) 92 Intake and Output 08/09/19 08/10/19 19:00 07:00 Output Total 300 ml Balance -300 ml Output Urine Total 300 ml # Voids 1 Current Medications Medications (Trade) Dose Ordered Sig/Gabrielle Route PRN Reason Start Time Stop Time Status Last Admin Dose Admin Acetaminophen (Tylenol) 650 mg Q6H PRN RECTAL fever 08/09/19 16:00 08/30/19 15:59 Azithromycin (Zithromax) 1,200 mg ONCE A WEEK ORAL 08/16/19 14:00 08/19/19 13:59 Dapsone (Dapsone) 100 mg DAILY ORAL 08/10/19 09:00 08/14/19 13:59 08/10/19 08:54 Docusate Sodium (Colace) 100 mg THREE TIMES A DAY ORAL 08/09/19 18:00 09/03/19 17:59 08/10/19 13:16 Fluconazole (Diflucan) 400 mg DAILY ORAL 08/10/19 12:00 08/17/19 11:59 08/10/19 13:15 Folic Acid (Folate) 1 mg DAILY ORAL 08/10/19 09:00 08/27/19 08:59 08/10/19 08:54 Lorazepam (Ativan) 2 mg Q6H PRN ORAL For Anxiety 08/09/19 16:00 08/15/19 15:59 Midodrine (Pro-Amatine) 10 mg TID ORAL 08/09/19 18:00 11/01/19 17:59 08/10/19 13:16 Pantoprazole (Protonix) 40 mg EVERY 12 HOURS ORAL 08/09/19 21:00 08/29/19 20:59 08/10/19 08:54 Patient Own Medication (Patient's Own Med) 1 ea DAILY ORAL 08/10/19 09:00 09/03/19 20:59 08/10/19 08:54 Patient Own Medication (Patient's Own Med) 1 ea DAILY ORAL 08/10/19 09:00 09/03/19 21:59 08/10/19 08:54 Thiamine HCl (Vitamin B1) 100 mg DAILY ORAL 08/10/19 09:00 08/27/19 19:59 08/10/19 08:53 Laboratory Tests 08/10/19 05:42: White Blood Count 4.7L, Red Blood Count 3.40L, Hemoglobin 11.3L, Hematocrit 31.2L, Mean Corpuscular Volume 92, Mean Corpuscular Hemoglobin 33.3H, Mean Corpuscular Hemoglobin Concent 36.3H, Red Cell Distribution Width 10.2L, Platelet Count 114L, Mean Platelet Volume 7.5, Neutrophils (%) (Auto) 72.0, Lymphocytes (%) (Auto) 14.5L, Monocytes (%) (Auto) 8.7, Eosinophils (%) (Auto) 3.4H, Basophils (%) (Auto) 1.4, Sodium Level 133L, Potassium Level 4.5, Chloride Level 102, Carbon Dioxide Level 21, Anion Gap 10, Blood Urea Nitrogen 35H, Creatinine 3.1H, Estimat Glomerular Filtration Rate 22.4, Glucose Level 90 , Uric Acid 8.0H, Calcium Level 8.6, Phosphorus Level 4.5, Magnesium Level 1.4L , Total Bilirubin 0.6, Aspartate Amino Transf (AST/SGOT) 77H, Alanine Aminotransferase (ALT/SGPT) 82H, Alkaline Phosphatase 109, Ammonia 70H, Total Protein 7.9, Albumin 2.7L, Globulin 5.2, Albumin/Globulin Ratio 0.5L Height (Feet): 5 Height (Inches): 10.00 Weight (Pounds): 171 General Appearance: no apparent distress Objective No change Brian Alexandra MD Aug 10, 2019 13:45
[2019-08-10 16:00] VITALS: BP 102/57
--- NOTE | 2019-08-10 19:26 | NUR ---
HAND-OFF: Report given to Sol TERRELL. Patient is in stable condition.
--- NOTE | 2019-08-10 19:26 | NUR ---
NURSE NOTES: Received patient report from NIDHI Wise. Patient resting in bed. There are no signs of distress or pain noted at this time. AOx 4. IV checked, patent and flushed. There are no signs of erythema, infiltration, or bleeding. Bed in the lowest position, call light within reach, side rails up x 2, and bed brakes on. Will continue plan of care.
--- NOTE | 2019-08-10 19:28 | Hematology/Onc Progress Note ---
Assessment/Plan Assessment/Plan Assessment and Recs: # Pancytopenia - potential causes multifactorial, evaluate liver and viral etiologies to begin, in this case due to ETOH ABUSE/WITHDRAWAL, bone marrow myelosuppression, also may be due to meds, ampho --> Hep panel negative, HIV +++ --> US abd to evaluate for cirrhosis and hsm ordered --> SHOWS spenomegaly, enlarged spleen --> Peripheral smear ordered to evaluate for blasts /schistocytes --> none noted --> abx and other meds have been reviewed --> ok for ppx if plt >50k w/ either heparin or lovenox --> Transfuse if Plt < 20k and fever, or if Plt < 10k without fever --> plt trend 164-->122k-->86k-->52k-->69-->89 --> wbc trend 5-->3-->2->2.2-->3-->3.7 --> abx: vanc/zosyn --> ampho/azithro--> ampho/flucty # ETOH withdrawal --> r/o seizure --> ativan, librium, folate --> imaging reviewed --> smear noted --> rec cessation # Leukocytosis likely reactive --> currently in leukopenia --> abx: azithro --> wbc 11-->3.2-->3.7 # Seizure --> R/o seizure d/o onset -> meds reviewed --> as per neuro # JULIAN (acute kidney injury) --> per renal recs # HIV --> as per id, consider eval # Tachycardia --> per Dr. Mckeon # AMS --> per psych The timing of this note does not necessarily reflect the time of the patient was seen. Greatly appreciate consultation. Subjective Allergies: Coded Allergies: No Known Allergies (Unverified , 07/25/19) Subjective 07/27: no events, no bleeding, cbc pending, remains altered 07/28: no events, labs reviewed, viral studies noted, no bleeding 07/29: asleep, cbc pending, on vanc/zosym, room air 07/30 no major events noted, no bleeding, labs reviewed 07/31 no events, tolerating po, labs pending 08/02 no events, no bleeding, labs lower yesterday, no night sweats 08/03 no bleeding, labs noted, cbc to be reviewed, no major events 08/04 no events, pending labs, specifically bmp, labs noted 08/05 no bleeding episodes, no night sweats, meds have been reviewed 08/07 no acute events, labs reviewed, on room air, no bleeding 08/09 in bed, no events, labs reviewed, no new orders Objective Objective Current Medications Medications (Trade) Dose Ordered Sig/Gabrielle Route PRN Reason Start Time Stop Time Status Last Admin Dose Admin Acetaminophen (Tylenol) 650 mg Q6H PRN RECTAL fever 08/09/19 16:00 08/30/19 15:59 Azithromycin (Zithromax) 1,200 mg ONCE A WEEK ORAL 08/16/19 14:00 08/19/19 13:59 Dapsone (Dapsone) 100 mg DAILY ORAL 08/10/19 09:00 08/14/19 13:59 08/10/19 08:54 Docusate Sodium (Colace) 100 mg THREE TIMES A DAY ORAL 08/09/19 18:00 09/03/19 17:59 08/10/19 17:25 Fluconazole (Diflucan) 400 mg DAILY ORAL 08/10/19 12:00 08/17/19 11:59 08/10/19 13:15 Folic Acid (Folate) 1 mg DAILY ORAL 08/10/19 09:00 08/27/19 08:59 08/10/19 08:54 Lorazepam (Ativan) 2 mg Q6H PRN ORAL For Anxiety 08/09/19 16:00 08/15/19 15:59 Midodrine (Pro-Amatine) 10 mg TID ORAL 08/09/19 18:00 11/01/19 17:59 08/10/19 17:25 Pantoprazole (Protonix) 40 mg EVERY 12 HOURS ORAL 08/09/19 21:00 08/29/19 20:59 08/10/19 08:54 Patient Own Medication (Patient's Own Med) 1 ea DAILY ORAL 08/10/19 09:00 09/03/19 20:59 08/10/19 08:54 Patient Own Medication (Patient's Own Med) 1 ea DAILY ORAL 3/24/20 09:00 09/03/19 21:59 08/10/19 08:54 Thiamine HCl (Vitamin B1) 100 mg DAILY ORAL 08/10/19 09:00 08/27/19 19:59 08/10/19 08:53 Last 24 Hour Vital Signs Date Time Temp Pulse Resp B/P (MAP) Pulse Ox O2 Delivery O2 Flow Rate FiO2 08/10/19 16:00 98.2 72 20 102/57 (72) 96 08/10/19 16:00 72 08/10/19 12:00 67 08/10/19 12:00 98.3 72 20 105/60 (75) 96 08/10/19 09:00 Room Air 08/10/19 08:00 100 08/10/19 08:00 98.2 83 20 102/58 (73) 100 08/10/19 04:00 75 08/10/19 04:00 99.1 78 20 92/51 (65) 93 08/10/19 00:00 78 08/10/19 00:00 98.2 86 20 98/58 (71) 97 08/09/19 21:00 Room Air 08/09/19 20:00 97.7 72 20 113/60 (77) 97 08/09/19 20:00 71 08/09/19 16:00 77 08/09/19 16:00 98.0 71 17 102/60 (74) 96 08/09/19 14:16 97.8 67 17 107/65 (79) 92 08/09/19 12:00 97.8 83 17 77/46 (56) 96 08/09/19 09:00 Room Air 08/09/19 08:00 97.6 76 16 95/57 (70) 99 08/09/19 04:00 97.4 79 21 110/74 (86) 98 08/09/19 00:00 98.4 74 21 115/78 (90) 98 08/08/19 21:09 Room Air 08/08/19 20:00 98.4 74 18 110/74 (86) 98 Intake and Output 08/09/19 08/10/19 19:00 07:00 Output Total 300 ml Balance -300 ml Output Urine Total 300 ml # Voids 1 Labs Test 08/08/19 07:13 08/09/19 05:30 3/24/20 05:42 White Blood Count 3.7 K/UL (4.8-10.8) 4.2 K/UL (4.8-10.8) 4.7 K/UL (4.8-10.8) Red Blood Count 3.47 M/UL (4.70-6.10) 3.46 M/UL (4.70-6.10) 3.40 M/UL (4.70-6.10) Hemoglobin 11.6 G/DL (14.2-18.0) 11.6 G/DL (14.2-18.0) 11.3 G/DL (14.2-18.0) Hematocrit 32.4 % (42.0-52.0) 32.1 % (42.0-52.0) 31.2 % (42.0-52.0) Mean Corpuscular Volume 93 FL (80-99) 93 FL (80-99) 92 FL (80-99) Mean Corpuscular Hemoglobin 33.5 PG (27.0-31.0) 33.5 PG (27.0-31.0) 33.3 PG (27.0-31.0) Mean Corpuscular Hemoglobin Concent 35.9 G/DL (32.0-36.0) 36.1 G/DL (32.0-36.0) 36.3 G/DL (32.0-36.0) Red Cell Distribution Width 10.2 % (11.6-14.8) 10.5 % (11.6-14.8) 10.2 % (11.6-14.8) Platelet Count 89 K/UL (150-450) 90 K/UL (150-450) 114 K/UL (150-450) Mean Platelet Volume 7.9 FL (6.5-10.1) 6.9 FL (6.5-10.1) 7.5 FL (6.5-10.1) Neutrophils (%) (Auto) % (45.0-75.0) % (45.0-75.0) 72.0 % (45.0-75.0) Lymphocytes (%) (Auto) % (20.0-45.0) % (20.0-45.0) 14.5 % (20.0-45.0) Monocytes (%) (Auto) % (1.0-10.0) % (1.0-10.0) 8.7 % (1.0-10.0) Eosinophils (%) (Auto) % (0.0-3.0) % (0.0-3.0) 3.4 % (0.0-3.0) Basophils (%) (Auto) % (0.0-2.0) % (0.0-2.0) 1.4 % (0.0-2.0) Differential Total Cells Counted 100 100 Neutrophils % (Manual) 74 % (45-75) 73 % (45-75) Lymphocytes % (Manual) 17 % (20-45) 16 % (20-45) Monocytes % (Manual) 5 % (1-10) 6 % (1-10) Eosinophils % (Manual) 4 % (0-3) 4 % (0-3) Basophils % (Manual) 0 % (0-2) 1 % (0-2) Band Neutrophils 0 % (0-8) 0 % (0-8) Platelet Estimate Decreased Decreased Platelet Morphology Normal Normal Red Blood Cell Morphology Normal Normal Sodium Level 135 MMOL/L (136-145) 134 MMOL/L (136-145) 133 MMOL/L (136-145) Potassium Level 4.4 MMOL/L (3.5-5.1) 4.7 MMOL/L (3.5-5.1) 4.5 MMOL/L (3.5-5.1) Chloride Level 101 MMOL/L (98-107) 101 MMOL/L (98-107) 102 MMOL/L (98-107) Carbon Dioxide Level 23 MMOL/L (21-32) 21 MMOL/L (21-32) 21 MMOL/L (21-32) Anion Gap 11 mmol/L (5-15) 12 mmol/L (5-15) 10 mmol/L (5-15) Blood Urea Nitrogen 34 mg/dL (7-18) 33 mg/dL (7-18) 35 mg/dL (7-18) Creatinine 2.5 MG/DL (0.55-1.30) 3.0 MG/DL (0.55-1.30) 3.1 MG/DL (0.55-1.30) Estimat Glomerular Filtration Rate 28.7 mL/min (>60) 23.3 mL/min (>60) 22.4 mL/min (>60) Glucose Level 85 MG/DL (74-106) 90 MG/DL (74-106) 90 MG/DL (74-106) Calcium Level 8.7 MG/DL (8.5-10.1) 8.8 MG/DL (8.5-10.1) 8.6 MG/DL (8.5-10.1) Total Bilirubin 0.6 MG/DL (0.2-1.0) 0.7 MG/DL (0.2-1.0) 0.6 MG/DL (0.2-1.0) Aspartate Amino Transf (AST/SGOT) 138 U/L (15-37) 104 U/L (15-37) 77 U/L (15-37) Alanine Aminotransferase (ALT/SGPT) 112 U/L (12-78) 100 U/L (12-78) 82 U/L (12-78) Alkaline Phosphatase 101 U/L (46-116) 111 U/L (46-116) 109 U/L (46-116) Total Protein 7.7 G/DL (6.4-8.2) 7.8 G/DL (6.4-8.2) 7.9 G/DL (6.4-8.2) Albumin 2.6 G/DL (3.4-5.0) 2.7 G/DL (3.4-5.0) 2.7 G/DL (3.4-5.0) Globulin 5.1 g/dL 5.1 g/dL 5.2 g/dL Albumin/Globulin Ratio 0.5 (1.0-2.7) 0.5 (1.0-2.7) 0.5 (1.0-2.7) Uric Acid 7.4 MG/DL (2.6-7.2) 8.0 MG/DL (2.6-7.2) Phosphorus Level 4.9 MG/DL (2.5-4.9) 4.5 MG/DL (2.5-4.9) C-Reactive Protein, Quantitative 2.2 mg/dL (0.00-0.90) Pro-B-Type Natriuretic Peptide 263 pg/mL (0-125) Magnesium Level 1.4 MG/DL (1.8-2.4) Ammonia 70 umol/L (11-32) Height (Feet): 5 Height (Inches): 10.00 Weight (Pounds): 171 Objective Physical Exam: Vitals: reviewed General: Nad, altered mental status HEENT: nc, at Neck: supple Chest: clear breath sounds bilaterally Cardiovascular: RRR, no s3, s4 Abdomen: soft, nontender, nd Extremities: no cce, normal range of motion Neuro: alert and oriented Arya Nelson MD Aug 10, 2019 19:28
--- NOTE | 2019-08-10 19:47 | General Progress Note ---
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 - pancytopenia - elevated LFT - h/o EtOH use x years, although stated he has not consumed for 1 mo - seizure - fever - Elevated creatinine - poor prognosis Recommendations - Antibiotics per ID - po as tolerated - thiamine - watch Cr and LFT - Renal and ID f/u Subjective Allergies: Coded Allergies: No Known Allergies (Unverified , 07/25/19) Subjective Seen this am awake d/w ID re labs and meds LFT lower today Objective Last 24 Hour Vital Signs Date Time Temp Pulse Resp B/P (MAP) Pulse Ox O2 Delivery O2 Flow Rate FiO2 08/10/19 16:00 98.2 72 20 102/57 (72) 96 08/10/19 16:00 72 08/10/19 12:00 67 08/10/19 12:00 98.3 72 20 105/60 (75) 96 08/10/19 09:00 Room Air 08/10/19 08:00 100 08/10/19 08:00 98.2 83 20 102/58 (73) 100 08/10/19 04:00 75 08/10/19 04:00 99.1 78 20 92/51 (65) 93 08/10/19 00:00 78 08/10/19 00:00 98.2 86 20 98/58 (71) 97 08/09/19 21:00 Room Air 08/09/19 20:00 97.7 72 20 113/60 (77) 97 08/09/19 20:00 71 Intake and Output 08/09/19 08/10/19 19:00 07:00 Output Total 300 ml Balance -300 ml Output Urine Total 300 ml # Voids 1 Laboratory Tests 08/10/19 05:42: White Blood Count 4.7L, Red Blood Count 3.40L, Hemoglobin 11.3L, Hematocrit 31.2L, Mean Corpuscular Volume 92, Mean Corpuscular Hemoglobin 33.3H, Mean Corpuscular Hemoglobin Concent 36.3H, Red Cell Distribution Width 10.2L, Platelet Count 114L, Mean Platelet Volume 7.5, Neutrophils (%) (Auto) 72.0, Lymphocytes (%) (Auto) 14.5L, Monocytes (%) (Auto) 8.7, Eosinophils (%) (Auto) 3.4H, Basophils (%) (Auto) 1.4, Sodium Level 133L, Potassium Level 4.5, Chloride Level 102, Carbon Dioxide Level 21, Anion Gap 10, Blood Urea Nitrogen 35H, Creatinine 3.1H, Estimat Glomerular Filtration Rate 22.4, Glucose Level 90 , Uric Acid 8.0H, Calcium Level 8.6, Phosphorus Level 4.5, Magnesium Level 1.4L , Total Bilirubin 0.6, Aspartate Amino Transf (AST/SGOT) 77H, Alanine Aminotransferase (ALT/SGPT) 82H, Alkaline Phosphatase 109, Ammonia 70H, Total Protein 7.9, Albumin 2.7L, Globulin 5.2, Albumin/Globulin Ratio 0.5L, Rapid Plasma Reagin [Pending], Treponema pallidum Ab (FTA-ABS) [Pending] Height (Feet): 5 Height (Inches): 10.00 Weight (Pounds): 171 Objective WDWN NCAT supple CTA RR abd soft ND no edema Jai Ness MD Aug 10, 2019 19:47
[2019-08-10 20:00] VITALS: BP 111/71
--- NOTE | 2019-08-10 21:03 | General Progress Note ---
Assessment/Plan Problem List: (1) Seizure disorder ICD Codes: G40.909 - Epilepsy, unspecified, not intractable, without status epilepticus SNOMED: 092984219 (2) Hypokalemia ICD Codes: E87.6 - Hypokalemia SNOMED: 41510754 (3) Seizure ICD Codes: R56.9 - Unspecified convulsions SNOMED: 24470189 (4) Tachycardia ICD Codes: R00.0 - Tachycardia, unspecified SNOMED: 7577228 (5) ALCOHOL DEPENDENCE WITH WITHDRAWAL, UNSPECIFIED ICD Codes: F10.239 - ALCOHOL DEPENDENCE WITH WITHDRAWAL, UNSPECIFIED Status: progressing Assessment/Plan: no fever no resp symptoms no changet encephalopathy seizure cryptococcal menigitis unsafe dc Subjective ROS Limited/Unobtainable: Yes Allergies: Coded Allergies: No Known Allergies (Unverified , 07/25/19) Objective Last 24 Hour Vital Signs Date Time Temp Pulse Resp B/P (MAP) Pulse Ox O2 Delivery O2 Flow Rate FiO2 08/10/19 16:00 98.2 72 20 102/57 (72) 96 08/10/19 16:00 72 08/10/19 12:00 67 08/10/19 12:00 98.3 72 20 105/60 (75) 96 08/10/19 09:00 Room Air 08/10/19 08:00 100 08/10/19 08:00 98.2 83 20 102/58 (73) 100 08/10/19 04:00 75 08/10/19 04:00 99.1 78 20 92/51 (65) 93 08/10/19 00:00 78 08/10/19 00:00 98.2 86 20 98/58 (71) 97 Intake and Output 08/09/19 08/10/19 19:00 07:00 Output Total 300 ml Balance -300 ml Output Urine Total 300 ml # Voids 1 Laboratory Tests 08/10/19 05:42: White Blood Count 4.7L, Red Blood Count 3.40L, Hemoglobin 11.3L, Hematocrit 31.2L, Mean Corpuscular Volume 92, Mean Corpuscular Hemoglobin 33.3H, Mean Corpuscular Hemoglobin Concent 36.3H, Red Cell Distribution Width 10.2L, Platelet Count 114L, Mean Platelet Volume 7.5, Neutrophils (%) (Auto) 72.0, Lymphocytes (%) (Auto) 14.5L, Monocytes (%) (Auto) 8.7, Eosinophils (%) (Auto) 3.4H, Basophils (%) (Auto) 1.4, Sodium Level 133L, Potassium Level 4.5, Chloride Level 102, Carbon Dioxide Level 21, Anion Gap 10, Blood Urea Nitrogen 35H, Creatinine 3.1H, Estimat Glomerular Filtration Rate 22.4, Glucose Level 90 , Uric Acid 8.0H, Calcium Level 8.6, Phosphorus Level 4.5, Magnesium Level 1.4L , Total Bilirubin 0.6, Aspartate Amino Transf (AST/SGOT) 77H, Alanine Aminotransferase (ALT/SGPT) 82H, Alkaline Phosphatase 109, Ammonia 70H, Total Protein 7.9, Albumin 2.7L, Globulin 5.2, Albumin/Globulin Ratio 0.5L, Rapid Plasma Reagin [Pending], Treponema pallidum Ab (FTA-ABS) [Pending] Height (Feet): 5 Height (Inches): 10.00 Weight (Pounds): 171 Isa Blanchard MD Aug 10, 2019 21:03
--- NOTE | 2019-08-10 23:15 | Progress Note ---
DATE: 08/10/2019 SUBJECTIVE: The patient is doing well. He has no seizures. His latest serum ammonia today was 70. His BUN is still elevated. His magnesium is still on the low side at 1.4. PHYSICAL EXAMINATION: VITAL SIGNS: Blood pressure 102/57, temperature is 98.3 degrees, pulse is 72 and regular. MENTAL STATUS: He is alert and awake. He is oriented to person. He knows he is at [facility] second floor. He thinks the date is 08/06/2019. CRANIAL NERVE EXAMINATION: CRANIAL NERVES III, IV, AND : Extraocular motility is full. CRANIAL NERVE VII: Strength is 5/5. MUSCLE EXAMINATION: Muscle bulk and tone are normal. Strength 5/5 proximally and distally. There is no asterixis or pronator drift. COORDINATION: [id number], [id number]-[id number] testing are intact. GAIT AND STATION: Not tested. IMPRESSION: The patient has some skin lesions . 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 We will have to continue his keppra for his seizures. The seizure is probably an alcohol withdrawal seizure. Usually, they occur within 7 to 24 hours of stopping alcohol and I think it is due to his cryptococcal meningitis and that is possible. PLAN: 1. RPR and FTA. 2. Continue current therapy of fluconazole and flucytosine. Velasquez Razo MD DR: ANTONY JOB#: [id number] CC: NADER
[2019-08-11] VITALS: BP 116/74
[2019-08-11 04:00] VITALS: BP 102/58
[2019-08-11 07:11] LABS: BASOPHILS % (AUTO) 1.4 % (0.0-2.0); EOSINOPHILS % (AUTO) 3.5 % (0.0-3.0); HEMOGLOBIN 11.6 G/DL (14.2-18.0); LYMPHOCYTES % (AUTO) 17.7 % (20.0-45.0); MEAN CORPUSCULAR VOLUME 92 FL (80-99); MONOCYTES % (AUTO) 12.9 % (1.0-10.0); NEUTROPHILS % (AUTO) 64.6 % (45.0-75.0); PLATELET COUNT 127 K/UL (150-450); RED BLOOD COUNT 3.47 M/UL (4.70-6.10); RED CELL DISTRIBUTION WIDTH 10.5 % (11.6-14.8); WHITE BLOOD COUNT 4.2 K/UL (4.8-10.8)
--- NOTE | 2019-08-11 07:13 | NUR ---
HAND-OFF: Report given to NIDHI Wise. Patient shows no signs of distress or pain. Endorsed plan of care.
--- NOTE | 2019-08-11 07:15 | NUR ---
NURSE NOTES: Received patient from Sol TERRELL in bed resting. Denies any pain at this time, no s/s of respiratory or acute distress noted. IV on RFA intact and patent. Bed is on lowest position with bedside rails up x2 and brakes engaged for safety. Call light is within reach. Will continue with the plan of care.
[2019-08-11 07:41] LABS: ALANINE AMINOTRANSFERASE 72 U/L (12-78); ALBUMIN 2.7 G/DL (3.4-5.0); ALBUMIN/GLOBULIN RATIO 0.5 (1.0-2.7); ALKALINE PHOSPHATASE 142 U/L (46-116); ANION GAP 11 mmol/L (5-15); ASPARTATE AMINO TRANSFERASE 57 U/L (15-37); BILIRUBIN,TOTAL 0.5 MG/DL (0.2-1.0); BLOOD UREA NITROGEN 35 mg/dL (7-18); CALCIUM 8.7 MG/DL (8.5-10.1); CARBON DIOXIDE 20 MMOL/L (21-32); CHLORIDE 102 MMOL/L (98-107); CREATININE 2.7 MG/DL (0.55-1.30); PHOSPHORUS 4.4 MG/DL (2.5-4.9); POTASSIUM 4.2 MMOL/L (3.5-5.1); SODIUM 133 MMOL/L (136-145)
[2019-08-11 08:00] VITALS: BP 103/55
--- NOTE | 2019-08-11 08:05 | Hematology/Onc Progress Note ---
Assessment/Plan Assessment/Plan Assessment and Recs: # Pancytopenia - potential causes multifactorial, evaluate liver and viral etiologies to begin, in this case due to ETOH ABUSE/WITHDRAWAL, bone marrow myelosuppression, also may be due to meds, ampho --> Hep panel negative, HIV +++ --> US abd to evaluate for cirrhosis and hsm ordered --> SHOWS spenomegaly, enlarged spleen --> Peripheral smear ordered to evaluate for blasts /schistocytes --> none noted --> abx and other meds have been reviewed --> ok for ppx if plt >50k w/ either heparin or lovenox --> Transfuse if Plt < 20k and fever, or if Plt < 10k without fever --> plt trend 164-->122k-->86k-->52k-->69-->89 --> wbc trend 5-->3-->2->2.2-->3-->3.7 --> abx: vanc/zosyn --> ampho/azithro--> ampho/flucty-->azithro/fluc # ETOH withdrawal, now improved --> r/o seizure --> ativan, librium, folate --> imaging reviewed --> smear noted --> rec cessation # Leukocytosis likely reactive --> currently in leukopenia, is likely due to hiv+ --> abx: azithro --> wbc 11-->3.2-->3.7-->4 # Seizure --> R/o seizure d/o onset -> meds reviewed --> as per neuro # JULIAN (acute kidney injury) --> per renal recs # HIV --> as per id, consider eval --> viral load is elevated # Tachycardia --> per Dr. Mckeon # AMS --> per psych The timing of this note does not necessarily reflect the time of the patient was seen. Greatly appreciate consultation. Subjective HEENT: Denies: no symptoms, eye pain, blurred vision, tearing, double vision, ear pain, ear discharge, nose pain, nose congestion, throat pain, throat swelling, mouth pain, mouth swelling, other Cardiovascular: Denies: no symptoms, chest pain, edema, irregular heart rate, lightheadedness, palpitations, syncope, other Respiratory: Denies: no symptoms, cough, shortness of breath, SOB with excertion, SOB at rest, sputum, wheezing, other Gastrointestinal/Abdominal: Denies: no symptoms, abdomen distended, abdominal pain, black stools, tarry stools, blood in stool, constipated, diarrhea, difficulty swallowing, nausea, poor appetite, poor fluid intake, rectal bleeding , vomiting, other Genitourinary: Denies: no symptoms, burning, discharge, frequency, flank pain, hematuria, incontinence, pain, urgency, other Endocrine: Denies: no symptoms, excessive sweating, flushing, intolerance to cold, intolerance to heat, increased hunger, increased thirst, increased urine, unexplained weight gain, unexplained weight loss, other Hematologic/Lymphatic: Denies: no symptoms, anemia, easy bleeding, easy bruising, adenopathy, other Allergies: Coded Allergies: No Known Allergies (Unverified , 07/25/19) Subjective 07/27: no events, no bleeding, cbc pending, remains altered 07/28: no events, labs reviewed, viral studies noted, no bleeding 07/29: asleep, cbc pending, on vanc/zosym, room air 07/30 no major events noted, no bleeding, labs reviewed 07/31 no events, tolerating po, labs pending 08/02 no events, no bleeding, labs lower yesterday, no night sweats 08/03 no bleeding, labs noted, cbc to be reviewed, no major events 08/04 no events, pending labs, specifically bmp, labs noted 08/05 no bleeding episodes, no night sweats, meds have been reviewed 08/07 no acute events, labs reviewed, on room air, no bleeding 08/09 in bed, no events, labs reviewed, no new orders 08/10 no major changes, labs noted, no f/c, cbc reviewed Objective Objective Current Medications Medications (Trade) Dose Ordered Sig/Gabrielle Route PRN Reason Start Time Stop Time Status Last Admin Dose Admin Acetaminophen (Tylenol) 650 mg Q6H PRN RECTAL fever 08/09/19 16:00 08/30/19 15:59 Azithromycin (Zithromax) 1,200 mg ONCE A WEEK ORAL 08/16/19 14:00 08/19/19 13:59 Dapsone (Dapsone) 100 mg DAILY ORAL 08/10/19 09:00 08/14/19 13:59 08/10/19 08:54 Docusate Sodium (Colace) 100 mg THREE TIMES A DAY ORAL 08/09/19 18:00 09/03/19 17:59 08/10/19 17:25 Fluconazole (Diflucan) 400 mg DAILY ORAL 08/10/19 12:00 08/17/19 11:59 08/10/19 13:15 Folic Acid (Folate) 1 mg DAILY ORAL 08/10/19 09:00 08/27/19 08:59 08/10/19 08:54 Lorazepam (Ativan) 2 mg Q6H PRN ORAL For Anxiety 08/09/19 16:00 08/15/19 15:59 Midodrine (Pro-Amatine) 10 mg TID ORAL 08/09/19 18:00 11/01/19 17:59 08/10/19 17:25 Pantoprazole (Protonix) 40 mg EVERY 12 HOURS ORAL 08/09/19 21:00 08/29/19 20:59 08/10/19 20:10 Patient Own Medication (Patient's Own Med) 1 ea DAILY ORAL 08/10/19 09:00 09/03/19 20:59 08/10/19 08:54 Patient Own Medication (Patient's Own Med) 1 ea DAILY ORAL 08/10/19 09:00 09/03/19 21:59 08/10/19 08:54 Thiamine HCl (Vitamin B1) 100 mg DAILY ORAL 08/10/19 09:00 08/27/19 19:59 08/10/19 08:53 Last 24 Hour Vital Signs Date Time Temp Pulse Resp B/P (MAP) Pulse Ox O2 Delivery O2 Flow Rate FiO2 08/11/19 04:00 98.1 70 18 102/58 (73) 97 08/11/19 04:00 62 08/11/19 00:00 97.3 70 18 116/74 (88) 97 08/11/19 00:00 62 08/10/19 21:00 Room Air 08/10/19 20:00 97.6 66 16 111/71 (84) 96 08/10/19 20:00 60 08/10/19 16:00 98.2 72 20 102/57 (72) 96 3/24/20 16:00 72 08/10/19 12:00 67 08/10/19 12:00 98.3 72 20 105/60 (75) 96 08/10/19 09:00 Room Air 08/10/19 08:00 100 08/10/19 08:00 98.2 83 20 102/58 (73) 100 08/10/19 04:00 75 08/10/19 04:00 99.1 78 20 92/51 (65) 93 08/10/19 00:00 78 08/10/19 00:00 98.2 86 20 98/58 (71) 97 08/09/19 21:00 Room Air 08/09/19 20:00 97.7 72 20 113/60 (77) 97 08/09/19 20:00 71 08/09/19 16:00 77 08/09/19 16:00 98.0 71 17 102/60 (74) 96 08/09/19 14:16 97.8 67 17 107/65 (79) 92 08/09/19 12:00 97.8 83 17 77/46 (56) 96 08/09/19 09:00 Room Air Intake and Output 08/10/19 08/11/19 19:00 07:00 # Voids 7 1 Labs Test 08/09/19 05:30 08/10/19 05:42 08/11/19 05:46 White Blood Count 4.2 K/UL (4.8-10.8) 4.7 K/UL (4.8-10.8) 4.2 K/UL (4.8-10.8) Red Blood Count 3.46 M/UL (4.70-6.10) 3.40 M/UL (4.70-6.10) 3.47 M/UL (4.70-6.10) Hemoglobin 11.6 G/DL (14.2-18.0) 11.3 G/DL (14.2-18.0) 11.6 G/DL (14.2-18.0) Hematocrit 32.1 % (42.0-52.0) 31.2 % (42.0-52.0) 32.0 % (42.0-52.0) Mean Corpuscular Volume 93 FL (80-99) 92 FL (80-99) 92 FL (80-99) Mean Corpuscular Hemoglobin 33.5 PG (27.0-31.0) 33.3 PG (27.0-31.0) 33.4 PG (27.0-31.0) Mean Corpuscular Hemoglobin Concent 36.1 G/DL (32.0-36.0) 36.3 G/DL (32.0-36.0) 36.2 G/DL (32.0-36.0) Red Cell Distribution Width 10.5 % (11.6-14.8) 10.2 % (11.6-14.8) 10.5 % (11.6-14.8) Platelet Count 90 K/UL (150-450) 114 K/UL (150-450) 127 K/UL (150-450) Mean Platelet Volume 6.9 FL (6.5-10.1) 7.5 FL (6.5-10.1) 6.4 FL (6.5-10.1) Neutrophils (%) (Auto) % (45.0-75.0) 72.0 % (45.0-75.0) 64.6 % (45.0-75.0) Lymphocytes (%) (Auto) % (20.0-45.0) 14.5 % (20.0-45.0) 17.7 % (20.0-45.0) Monocytes (%) (Auto) % (1.0-10.0) 8.7 % (1.0-10.0) 12.9 % (1.0-10.0) Eosinophils (%) (Auto) % (0.0-3.0) 3.4 % (0.0-3.0) 3.5 % (0.0-3.0) Basophils (%) (Auto) % (0.0-2.0) 1.4 % (0.0-2.0) 1.4 % (0.0-2.0) Differential Total Cells Counted 100 Neutrophils % (Manual) 73 % (45-75) Lymphocytes % (Manual) 16 % (20-45) Monocytes % (Manual) 6 % (1-10) Eosinophils % (Manual) 4 % (0-3) Basophils % (Manual) 1 % (0-2) Band Neutrophils 0 % (0-8) Platelet Estimate Decreased Platelet Morphology Normal Red Blood Cell Morphology Normal Sodium Level 134 MMOL/L (136-145) 133 MMOL/L (136-145) 133 MMOL/L (136-145) Potassium Level 4.7 MMOL/L (3.5-5.1) 4.5 MMOL/L (3.5-5.1) 4.2 MMOL/L (3.5-5.1) Chloride Level 101 MMOL/L (98-107) 102 MMOL/L (98-107) 102 MMOL/L (98-107) Carbon Dioxide Level 21 MMOL/L (21-32) 21 MMOL/L (21-32) 20 MMOL/L (21-32) Anion Gap 12 mmol/L (5-15) 10 mmol/L (5-15) 11 mmol/L (5-15) Blood Urea Nitrogen 33 mg/dL (7-18) 35 mg/dL (7-18) 35 mg/dL (7-18) Creatinine 3.0 MG/DL (0.55-1.30) 3.1 MG/DL (0.55-1.30) 2.7 MG/DL (0.55-1.30) Estimat Glomerular Filtration Rate 23.3 mL/min (>60) 22.4 mL/min (>60) 26.3 mL/min (>60) Glucose Level 90 MG/DL (74-106) 90 MG/DL (74-106) 99 MG/DL (74-106) Uric Acid 7.4 MG/DL (2.6-7.2) 8.0 MG/DL (2.6-7.2) 7.5 MG/DL (2.6-7.2) Calcium Level 8.8 MG/DL (8.5-10.1) 8.6 MG/DL (8.5-10.1) 8.7 MG/DL (8.5-10.1) Phosphorus Level 4.9 MG/DL (2.5-4.9) 4.5 MG/DL (2.5-4.9) 4.4 MG/DL (2.5-4.9) Total Bilirubin 0.7 MG/DL (0.2-1.0) 0.6 MG/DL (0.2-1.0) 0.5 MG/DL (0.2-1.0) Aspartate Amino Transf (AST/SGOT) 104 U/L (15-37) 77 U/L (15-37) 57 U/L (15-37) Alanine Aminotransferase (ALT/SGPT) 100 U/L (12-78) 82 U/L (12-78) 72 U/L (12-78) Alkaline Phosphatase 111 U/L (46-116) 109 U/L (46-116) 142 U/L (46-116) C-Reactive Protein, Quantitative 2.2 mg/dL (0.00-0.90) 1.7 mg/dL (0.00-0.90) Pro-B-Type Natriuretic Peptide 263 pg/mL (0-125) 282 pg/mL (0-125) Total Protein 7.8 G/DL (6.4-8.2) 7.9 G/DL (6.4-8.2) 7.9 G/DL (6.4-8.2) Albumin 2.7 G/DL (3.4-5.0) 2.7 G/DL (3.4-5.0) 2.7 G/DL (3.4-5.0) Globulin 5.1 g/dL 5.2 g/dL 5.2 g/dL Albumin/Globulin Ratio 0.5 (1.0-2.7) 0.5 (1.0-2.7) 0.5 (1.0-2.7) Magnesium Level 1.4 MG/DL (1.8-2.4) 2.2 MG/DL (1.8-2.4) Ammonia 70 umol/L (11-32) Rapid Plasma Reagin Non reactive (Non Reactive) Height (Feet): 5 Height (Inches): 10.00 Weight (Pounds): 172 Objective Physical Exam: Vitals: reviewed General: Nad, altered mental status HEENT: nc, at Neck: supple Chest: clear breath sounds bilaterally Cardiovascular: RRR, no s3, s4 Abdomen: soft, nontender, nd Extremities: no cce, normal range of motion Neuro: alert and oriented Arya Nelson MD Aug 11, 2019 08:05
[2019-08-11] MEDS: Docusate 100mg cap ORAL SCH ×3 (08:47→18:34)
[2019-08-11] MEDS: Thiamine 100mg tab ORAL SCH (08:47)
[2019-08-11] MEDS: Fluconazole 100mg tab ORAL SCH (08:47)
[2019-08-11] MEDS: Midodrine 10mg tab ORAL SCH ×3 (08:48→18:34)
--- NOTE | 2019-08-11 10:52 | Infectious Diseases Prog Note ---
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 Elevated transaminase & ammonia improving RECOMMENDATION: Patient has HIV since 2003 goes to [facility], noncompliant with medication on Dapsone, Zithromax, continue Fluconazole He doesn't understand the severity of his medical condition Continue HIV treatment with Tivicay & Descovy Case was D/W RN & pharmacy Will f/u HIV viral loud & CD4 Subjective ROS Limited/Unobtainable: No Constitutional: Reports: no symptoms HEENT: Reports: no symptoms Gastrointestinal/Abdominal: Reports: no symptoms Genitourinary: Reports: no symptoms Allergies: Coded Allergies: No Known Allergies (Unverified , 07/25/19) Objective Vital Signs Last 24 Hour Vital Signs Date Time Temp Pulse Resp B/P (MAP) Pulse Ox O2 Delivery O2 Flow Rate FiO2 08/11/19 09:00 Room Air 08/11/19 08:00 98.2 73 20 103/55 (71) 97 08/11/19 08:00 93 08/11/19 04:00 98.1 70 18 102/58 (73) 97 08/11/19 04:00 62 08/11/19 00:00 97.3 70 18 116/74 (88) 97 08/11/19 00:00 62 08/10/19 21:00 Room Air 08/10/19 20:00 97.6 66 16 111/71 (84) 96 08/10/19 20:00 60 08/10/19 16:00 98.2 72 20 102/57 (72) 96 08/10/19 16:00 72 08/10/19 12:00 67 08/10/19 12:00 98.3 72 20 105/60 (75) 96 Height (Feet): 5 Height (Inches): 10.00 Weight (Pounds): 172 General Appearance: no acute distress HEENT: mucous membranes moist Respiratory/Chest: lungs clear Cardiovascular: normal rate Abdomen: soft, non tender Extremities: no edema Neurologic/Psychiatric: alert, responsive Laboratory Tests Test 08/11/19 05:46 White Blood Count 4.2 K/UL (4.8-10.8) L Red Blood Count 3.47 M/UL (4.70-6.10) L Hemoglobin 11.6 G/DL (14.2-18.0) L Hematocrit 32.0 % (42.0-52.0) L Mean Corpuscular Volume 92 FL (80-99) Mean Corpuscular Hemoglobin 33.4 PG (27.0-31.0) H Mean Corpuscular Hemoglobin Concent 36.2 G/DL (32.0-36.0) H Red Cell Distribution Width 10.5 % (11.6-14.8) L Platelet Count 127 K/UL (150-450) L Mean Platelet Volume 6.4 FL (6.5-10.1) L Neutrophils (%) (Auto) 64.6 % (45.0-75.0) Lymphocytes (%) (Auto) 17.7 % (20.0-45.0) L Monocytes (%) (Auto) 12.9 % (1.0-10.0) H Eosinophils (%) (Auto) 3.5 % (0.0-3.0) H Basophils (%) (Auto) 1.4 % (0.0-2.0) Sodium Level 133 MMOL/L (136-145) L Potassium Level 4.2 MMOL/L (3.5-5.1) Chloride Level 102 MMOL/L (98-107) Carbon Dioxide Level 20 MMOL/L (21-32) L Anion Gap 11 mmol/L (5-15) Blood Urea Nitrogen 35 mg/dL (7-18) H Creatinine 2.7 MG/DL (0.55-1.30) H Estimat Glomerular Filtration Rate 26.3 mL/min (>60) Glucose Level 99 MG/DL (74-106) Uric Acid 7.5 MG/DL (2.6-7.2) H Calcium Level 8.7 MG/DL (8.5-10.1) Phosphorus Level 4.4 MG/DL (2.5-4.9) Magnesium Level 2.2 MG/DL (1.8-2.4) Total Bilirubin 0.5 MG/DL (0.2-1.0) Aspartate Amino Transf (AST/SGOT) 57 U/L (15-37) H Alanine Aminotransferase (ALT/SGPT) 72 U/L (12-78) Alkaline Phosphatase 142 U/L (46-116) H C-Reactive Protein, Quantitative 1.7 mg/dL (0.00-0.90) H Pro-B-Type Natriuretic Peptide 282 pg/mL (0-125) H Total Protein 7.9 G/DL (6.4-8.2) Albumin 2.7 G/DL (3.4-5.0) L Globulin 5.2 g/dL Albumin/Globulin Ratio 0.5 (1.0-2.7) L Current Medications Medications (Trade) Dose Ordered Sig/Gabrielle Route PRN Reason Start Time Stop Time Status Last Admin Dose Admin Acetaminophen (Tylenol) 650 mg Q6H PRN RECTAL fever 08/09/19 16:00 08/30/19 15:59 Azithromycin (Zithromax) 1,200 mg ONCE A WEEK ORAL 08/16/19 14:00 08/19/19 13:59 Dapsone (Dapsone) 100 mg DAILY ORAL 08/10/19 09:00 08/14/19 13:59 08/11/19 08:47 Docusate Sodium (Colace) 100 mg THREE TIMES A DAY ORAL 08/09/19 18:00 09/03/19 17:59 08/11/19 08:47 Fluconazole (Diflucan) 400 mg DAILY ORAL 08/10/19 12:00 08/17/19 11:59 08/11/19 08:47 Folic Acid (Folate) 1 mg DAILY ORAL 08/10/19 09:00 08/27/19 08:59 08/11/19 08:47 Lorazepam (Ativan) 2 mg Q6H PRN ORAL For Anxiety 08/09/19 16:00 08/15/19 15:59 Midodrine (Pro-Amatine) 10 mg TID ORAL 08/09/19 18:00 11/01/19 17:59 08/11/19 08:48 Pantoprazole (Protonix) 40 mg EVERY 12 HOURS ORAL 08/09/19 21:00 08/29/19 20:59 08/11/19 08:48 Patient Own Medication (Patient's Own Med) 1 ea DAILY ORAL 08/10/19 09:00 09/03/19 20:59 08/11/19 08:48 Patient Own Medication (Patient's Own Med) 1 ea DAILY ORAL 08/10/19 09:00 09/03/19 21:59 08/11/19 08:48 Thiamine HCl (Vitamin B1) 100 mg DAILY ORAL 08/10/19 09:00 08/27/19 19:59 08/11/19 08:47 Po Bryant MD Aug 11, 2019 10:51
--- NOTE | 2019-08-11 11:00 | NUR ---
CASE MANAGEMENT:REVIEW 08/11/19 SI: CRYPTOCOCCAL SEPSIS. HIV/AIDS ALCOHOL WITHDRAWAL W/SEIZURE 98.2 73 20 103/55 97% ON RA H/H-11.6/32.0 BUN+35 CR+2.7 IS: AZITHROMYCIN PO QWEEK DIFLUCAN PO QD DAPSONE PO QD FOLATE PO QD THIAMINE PO QD PROTONIX PO Q12 MIDODRINE PO TID HAART REGIMEN : TELEMETRY DCP: FROM HOME
--- NOTE | 2019-08-11 11:11 | NUR ---
DISCHARGE PLANNING PATIENT IS FROM HOME LEFT MESSAGE FOR DR BASS REGARDING DISCHARGE PLAN. AWAIT RESPONSE Addendum: 08/11/19 at 1120 by MARISABEL MONACO LVN [employer] WORKER PER DR BASS, PATIENT NOT READY FOR DISCHARGE SINCE HE IS STILL VERY CONFUSED
[2019-08-11 11:58] VITALS: BP 113/66
--- NOTE | 2019-08-11 13:41 | Cardiac Electrophysiology PN ---
Assessment/Plan Assessment/Plan 1. Sinus tachycardia due to seizure, alcohol withdrawal and crypt meningitis. EF 60%. EKG no acute ST-T wave abnormality. 2. Hypotension, despite Midodrine 10 tid. Resolved off Flomax and after IVF bolus 3. 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 Heavy alcohol use. On Thiamine and Folate 5. AIDS 6. Thrombocytopenia , resolved [address] Omar GASCA RN Subjective Subjective No CP or SOB. On iv Abx. On P2 BP better on Midodrine 10 tid. Objective Last 24 Hour Vital Signs Date Time Temp Pulse Resp B/P (MAP) Pulse Ox O2 Delivery O2 Flow Rate FiO2 08/11/19 11:58 97.9 61 20 113/66 (82) 98 08/11/19 09:00 Room Air 08/11/19 08:00 98.2 73 20 103/55 (71) 97 08/11/19 08:00 93 08/11/19 04:00 98.1 70 18 102/58 (73) 97 08/11/19 04:00 62 08/11/19 00:00 97.3 70 18 116/74 (88) 97 08/11/19 00:00 62 08/10/19 21:00 Room Air 08/10/19 20:00 97.6 66 16 111/71 (84) 96 08/10/19 20:00 60 08/10/19 16:00 98.2 72 20 102/57 (72) 96 08/10/19 16:00 72 Intake and Output 08/10/19 08/11/19 19:00 07:00 # Voids 7 1 Laboratory Tests Test 08/11/19 05:46 White Blood Count 4.2 K/UL (4.8-10.8) L Red Blood Count 3.47 M/UL (4.70-6.10) L Hemoglobin 11.6 G/DL (14.2-18.0) L Hematocrit 32.0 % (42.0-52.0) L Mean Corpuscular Volume 92 FL (80-99) Mean Corpuscular Hemoglobin 33.4 PG (27.0-31.0) H Mean Corpuscular Hemoglobin Concent 36.2 G/DL (32.0-36.0) H Red Cell Distribution Width 10.5 % (11.6-14.8) L Platelet Count 127 K/UL (150-450) L Mean Platelet Volume 6.4 FL (6.5-10.1) L Neutrophils (%) (Auto) 64.6 % (45.0-75.0) Lymphocytes (%) (Auto) 17.7 % (20.0-45.0) L Monocytes (%) (Auto) 12.9 % (1.0-10.0) H Eosinophils (%) (Auto) 3.5 % (0.0-3.0) H Basophils (%) (Auto) 1.4 % (0.0-2.0) Sodium Level 133 MMOL/L (136-145) L Potassium Level 4.2 MMOL/L (3.5-5.1) Chloride Level 102 MMOL/L (98-107) Carbon Dioxide Level 20 MMOL/L (21-32) L Anion Gap 11 mmol/L (5-15) Blood Urea Nitrogen 35 mg/dL (7-18) H Creatinine 2.7 MG/DL (0.55-1.30) H Estimat Glomerular Filtration Rate 26.3 mL/min (>60) Glucose Level 99 MG/DL (74-106) Uric Acid 7.5 MG/DL (2.6-7.2) H Calcium Level 8.7 MG/DL (8.5-10.1) Phosphorus Level 4.4 MG/DL (2.5-4.9) Magnesium Level 2.2 MG/DL (1.8-2.4) Total Bilirubin 0.5 MG/DL (0.2-1.0) Aspartate Amino Transf (AST/SGOT) 57 U/L (15-37) H Alanine Aminotransferase (ALT/SGPT) 72 U/L (12-78) Alkaline Phosphatase 142 U/L (46-116) H C-Reactive Protein, Quantitative 1.7 mg/dL (0.00-0.90) H Pro-B-Type Natriuretic Peptide 282 pg/mL (0-125) H Total Protein 7.9 G/DL (6.4-8.2) Albumin 2.7 G/DL (3.4-5.0) L Globulin 5.2 g/dL Albumin/Globulin Ratio 0.5 (1.0-2.7) L Objective HEAD AND NECK: No JVD. LUNGS: Clear. CARDIOVASCULAR: Nl S1 and S2 with no gallop. ABDOMEN: Soft. EXTREMITIES: 1+ pitting edema. Ric Mckeon MD Aug 11, 2019 13:41
--- NOTE | 2019-08-11 13:49 | Nephrology Progress Note ---
Assessment/Plan Problem List: (1) JULIAN (acute kidney injury) Assessment: Serum creatinine rising (2) Seizure (3) ALCOHOL DEPENDENCE WITH WITHDRAWAL, UNSPECIFIED (4) Tachycardia (5) Hypokalemia (6) Low CD4 cell count determined by flow cytometry Assessment Electrolyte imbalance Hypokalemia and hypomagnesemia Elevated creatinine to 1.4 on admission now corrected Seizure disorder Plan Serum creatinine gilberto to 3.1-most likely due to medications today is down to 2.7 Kidney ultrasound unremarkable Adjust midodrine dose for low blood pressure Intravenous magnesium sulfate as needed Avoid nephrotoxic's as possible discussed with FRANCY Kirkland at night Urine studies ordered Patient taking p.o. well Previously Following measures as needed IV magnesium IV potassium phosphate IV thiamine IV Protonix Continue management per other consultants Monitor electrolytes Per orders Subjective ROS Limited/Unobtainable: No Constitutional: Reports: malaise Objective Objective Last 24 Hour Vital Signs Date Time Temp Pulse Resp B/P (MAP) Pulse Ox O2 Delivery O2 Flow Rate FiO2 08/11/19 11:58 97.9 61 20 113/66 (82) 98 08/11/19 09:00 Room Air 08/11/19 08:00 98.2 73 20 103/55 (71) 97 08/11/19 08:00 93 08/11/19 04:00 98.1 70 18 102/58 (73) 97 08/11/19 04:00 62 08/11/19 00:00 97.3 70 18 116/74 (88) 97 08/11/19 00:00 62 08/10/19 21:00 Room Air 08/10/19 20:00 97.6 66 16 111/71 (84) 96 08/10/19 20:00 60 08/10/19 16:00 98.2 72 20 102/57 (72) 96 08/10/19 16:00 72 Intake and Output 08/10/19 08/11/19 19:00 07:00 # Voids 7 1 Current Medications Medications (Trade) Dose Ordered Sig/Gabrielle Route PRN Reason Start Time Stop Time Status Last Admin Dose Admin Acetaminophen (Tylenol) 650 mg Q6H PRN RECTAL fever 08/09/19 16:00 08/30/19 15:59 Azithromycin (Zithromax) 1,200 mg ONCE A WEEK ORAL 08/16/19 14:00 08/19/19 13:59 Dapsone (Dapsone) 100 mg DAILY ORAL 08/10/19 09:00 08/14/19 13:59 08/11/19 08:47 Docusate Sodium (Colace) 100 mg THREE TIMES A DAY ORAL 08/09/19 18:00 09/03/19 17:59 08/11/19 12:11 Fluconazole (Diflucan) 400 mg DAILY ORAL 08/10/19 12:00 08/17/19 11:59 08/11/19 08:47 Folic Acid (Folate) 1 mg DAILY ORAL 08/10/19 09:00 08/27/19 08:59 08/11/19 08:47 Lorazepam (Ativan) 2 mg Q6H PRN ORAL For Anxiety 08/09/19 16:00 08/15/19 15:59 Midodrine (Pro-Amatine) 10 mg TID ORAL 08/09/19 18:00 11/01/19 17:59 08/11/19 12:11 Pantoprazole (Protonix) 40 mg EVERY 12 HOURS ORAL 08/09/19 21:00 08/29/19 20:59 08/11/19 08:48 Patient Own Medication (Patient's Own Med) 1 ea DAILY ORAL 08/10/19 09:00 09/03/19 20:59 08/11/19 08:48 Patient Own Medication (Patient's Own Med) 1 ea DAILY ORAL 08/10/19 09:00 09/03/19 21:59 08/11/19 08:48 Thiamine HCl (Vitamin B1) 100 mg DAILY ORAL 08/10/19 09:00 08/27/19 19:59 08/11/19 08:47 Laboratory Tests 08/11/19 05:46: White Blood Count 4.2L, Red Blood Count 3.47L, Hemoglobin 11.6L, Hematocrit 32.0L, Mean Corpuscular Volume 92, Mean Corpuscular Hemoglobin 33.4H, Mean Corpuscular Hemoglobin Concent 36.2H, Red Cell Distribution Width 10.5L, Platelet Count 127L, Mean Platelet Volume 6.4L, Neutrophils (%) (Auto) 64.6, Lymphocytes (%) (Auto) 17.7L, Monocytes (%) (Auto) 12.9H, Eosinophils (%) (Auto ) 3.5H, Basophils (%) (Auto) 1.4, Sodium Level 133L, Potassium Level 4.2, Chloride Level 102, Carbon Dioxide Level 20L, Anion Gap 11, Blood Urea Nitrogen 35H, Creatinine 2.7H, Estimat Glomerular Filtration Rate 26.3, Glucose Level 99 , Uric Acid 7.5H, Calcium Level 8.7, Phosphorus Level 4.4, Magnesium Level 2.2, Total Bilirubin 0.5, Aspartate Amino Transf (AST/SGOT) 57H, Alanine Aminotransferase (ALT/SGPT) 72, Alkaline Phosphatase 142H, C-Reactive Protein, Quantitative 1.7H, Pro-B-Type Natriuretic Peptide 282H, Total Protein 7.9, Albumin 2.7L, Globulin 5.2, Albumin/Globulin Ratio 0.5L Height (Feet): 5 Height (Inches): 10.00 Weight (Pounds): 172 General Appearance: no apparent distress Cardiovascular: normal rate Respiratory/Chest: lungs clear Abdomen: soft, distended Objective No change Brian Alexandra MD Aug 11, 2019 13:49
--- NOTE | 2019-08-11 15:24 | NUR ---
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
[2019-08-11] MEDS ORDERED: LORazepam 1mg tab ORAL PRN (19:00)
[2019-08-11] MEDS ORDERED: Acetaminophen 650 MG SUPP RECTAL PRN (19:00)
--- NOTE | 2019-08-11 19:19 | NUR ---
HAND-OFF: Report given to IFTIKHAR TERRELL.
--- NOTE | 2019-08-11 19:35 | NUR ---
NURSE NOTES: Received patient awake, alert, verbal, comfortably resting in bed without complaints.
[2019-08-11 20:00] VITALS: BP 115/76
--- NOTE | 2019-08-11 23:00 | Progress Note ---
DATE: 08/11/2019 SUBJECTIVE: The patient is still confused. The patient has cryptococcus meningitis. The patient has a history of new-onset seizures, alcoholism, encephalopathy, elevated ammonia as well as transaminase. The patient has HIV and is noncompliant with his medications. Antibiotics per Dr. Po Bryant. The patient is getting fluconazole and flucytosine. The patient also has thrombocytopenia and status post hypertension. The blood pressure is improving. Sinus tachycardia due to seizure, alcohol withdrawal, and cryptococcus meningitis. EF is intact. We will monitor the patient very closely and safe for discharge at this point. Isa Blanchard M.D. DR: WALTER JOB#: [id number] CC:
--- NOTE | 2019-08-11 23:22 | General Progress Note ---
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 - pancytopenia - improving - elevated LFT - improving - h/o EtOH use x years, although stated he has not consumed for 1 mo - seizure - fever - Elevated creatinine - poor prognosis Recommendations - Antibiotics per ID - po as tolerated - thiamine - watch Cr and LFT - Renal and ID f/u Subjective Allergies: Coded Allergies: No Known Allergies (Unverified , 07/25/19) Subjective Seen this am awake d/w ID re labs and meds LFT lower today Objective Last 24 Hour Vital Signs Date Time Temp Pulse Resp B/P (MAP) Pulse Ox O2 Delivery O2 Flow Rate FiO2 08/11/19 20:56 Room Air 08/11/19 20:00 98.8 59 18 115/76 (89) 96 08/11/19 16:00 08/11/19 12:00 59 08/11/19 11:58 97.9 61 20 113/66 (82) 98 08/11/19 09:00 Room Air 08/11/19 08:00 98.2 73 20 103/55 (71) 97 08/11/19 08:00 93 08/11/19 04:00 98.1 70 18 102/58 (73) 97 08/11/19 04:00 62 08/11/19 00:00 97.3 70 18 116/74 (88) 97 08/11/19 00:00 62 Intake and Output 08/10/19 08/11/19 19:00 07:00 # Voids 7 1 Laboratory Tests 08/11/19 05:46: White Blood Count 4.2L, Red Blood Count 3.47L, Hemoglobin 11.6L, Hematocrit 32.0L, Mean Corpuscular Volume 92, Mean Corpuscular Hemoglobin 33.4H, Mean Corpuscular Hemoglobin Concent 36.2H, Red Cell Distribution Width 10.5L, Platelet Count 127L, Mean Platelet Volume 6.4L, Neutrophils (%) (Auto) 64.6, Lymphocytes (%) (Auto) 17.7L, Monocytes (%) (Auto) 12.9H, Eosinophils (%) (Auto ) 3.5H, Basophils (%) (Auto) 1.4, Sodium Level 133L, Potassium Level 4.2, Chloride Level 102, Carbon Dioxide Level 20L, Anion Gap 11, Blood Urea Nitrogen 35H, Creatinine 2.7H, Estimat Glomerular Filtration Rate 26.3, Glucose Level 99 , Uric Acid 7.5H, Calcium Level 8.7, Phosphorus Level 4.4, Magnesium Level 2.2, Total Bilirubin 0.5, Aspartate Amino Transf (AST/SGOT) 57H, Alanine Aminotransferase (ALT/SGPT) 72, Alkaline Phosphatase 142H, C-Reactive Protein, Quantitative 1.7H, Pro-B-Type Natriuretic Peptide 282H, Total Protein 7.9, Albumin 2.7L, Globulin 5.2, Albumin/Globulin Ratio 0.5L Height (Feet): 5 Height (Inches): 10.00 Weight (Pounds): 172 Objective WDWN NCAT supple CTA RR abd soft ND no edema Jai Ness MD Aug 11, 2019 23:22
[2019-08-11 23:46] VITALS: BP 122/71
[2019-08-12 04:23] VITALS: BP 113/70
[2019-08-12 06:17] LABS: BASOPHILS % (AUTO) 1.8 % (0.0-2.0); EOSINOPHILS % (AUTO) 4.1 % (0.0-3.0); HEMATOCRIT 32.1 % (42.0-52.0); HEMOGLOBIN 11.7 G/DL (14.2-18.0); LYMPHOCYTES % (AUTO) 16.6 % (20.0-45.0); MEAN CORPUSCULAR VOLUME 92 FL (80-99); MONOCYTES % (AUTO) 15.7 % (1.0-10.0); NEUTROPHILS % (AUTO) 61.8 % (45.0-75.0); PLATELET COUNT 119 K/UL (150-450); RED BLOOD COUNT 3.49 M/UL (4.70-6.10); RED CELL DISTRIBUTION WIDTH 10.3 % (11.6-14.8); WHITE BLOOD COUNT 3.7 K/UL (4.8-10.8)
--- NOTE | 2019-08-12 07:28 | NUR ---
HAND-OFF: Report given to Marianne Stewart RN.
[2019-08-12 08:00] VITALS: BP 95/53
--- NOTE | 2019-08-12 08:08 | NUR ---
NURSE NOTES: Patient is awake and alert and oriented,respirations unlabored.patient ate breakfast.call light within reach,bed alarm on.
[2019-08-12 08:55] LABS: ALANINE AMINOTRANSFERASE 59 U/L (12-78); ALBUMIN 2.9 G/DL (3.4-5.0); ALBUMIN/GLOBULIN RATIO 0.6 (1.0-2.7); ALKALINE PHOSPHATASE 114 U/L (46-116); ANION GAP 9 mmol/L (5-15); ASPARTATE AMINO TRANSFERASE 52 U/L (15-37); BILIRUBIN,TOTAL 0.6 MG/DL (0.2-1.0); BLOOD UREA NITROGEN 37 mg/dL (7-18); CALCIUM 8.9 MG/DL (8.5-10.1); CARBON DIOXIDE 23 MMOL/L (21-32); CHLORIDE 101 MMOL/L (98-107); CREATININE 2.2 MG/DL (0.55-1.30); POTASSIUM 4.4 MMOL/L (3.5-5.1); SODIUM 133 MMOL/L (136-145)
[2019-08-12] MEDS: Docusate 100mg cap ORAL SCH ×3 (09:06→18:27)
[2019-08-12] MEDS: Fluconazole 100mg tab ORAL SCH (09:07)
[2019-08-12] MEDS: TIVICAY 50 MG ORAL SCH (09:07)
[2019-08-12] MEDS: Thiamine 100mg tab ORAL SCH (09:08)
[2019-08-12] MEDS: DESCOVY ORAL SCH (09:08)
[2019-08-12] MEDS: Midodrine 10mg tab ORAL SCH ×3 (09:08→18:27)
[2019-08-12 12:00] VITALS: BP 110/69
--- NOTE | 2019-08-12 12:13 | NUR ---
CASE MANAGEMENT:REVIEW SI;CRYPTOCOCCAL SEPSIS. HIV/AIDS. ENCEPHALOPATHY. 98.8 59 18 95/53 95% ON RA NA 133 BUN 37 CR 2.2 AST 52 IS;DAPSONE PO QD DIFLUCAN PO QD MIDODRINE PO TID THIAMINE PO QD PROTONIX PO Q12 HRS MED SURG STATUS DCP;HOME
--- NOTE | 2019-08-12 12:18 | General Progress Note ---
Assessment/Plan Problem List: (1) Seizure disorder ICD Codes: G40.909 - Epilepsy, unspecified, not intractable, without status epilepticus SNOMED: 798091960 (2) Hypokalemia ICD Codes: E87.6 - Hypokalemia SNOMED: 96811277 (3) Seizure ICD Codes: R56.9 - Unspecified convulsions SNOMED: 96542011 (4) Tachycardia ICD Codes: R00.0 - Tachycardia, unspecified SNOMED: 4347204 (5) ALCOHOL DEPENDENCE WITH WITHDRAWAL, UNSPECIFIED ICD Codes: F10.239 - ALCOHOL DEPENDENCE WITH WITHDRAWAL, UNSPECIFIED Status: progressing Assessment/Plan: check lytes hiv immune compromised still confused encephalopathy seizure cryptococcal menigitis unsafe dc Subjective ROS Limited/Unobtainable: Yes Allergies: Coded Allergies: No Known Allergies (Unverified , 07/25/19) Objective Last 24 Hour Vital Signs Date Time Temp Pulse Resp B/P (MAP) Pulse Ox O2 Delivery O2 Flow Rate FiO2 08/12/19 08:00 97.9 70 18 95/53 (67) 97 08/12/19 04:23 98.2 65 18 113/70 (84) 95 08/11/19 23:46 98.4 64 18 122/71 (88) 96 08/11/19 20:56 Room Air 08/11/19 20:00 98.8 59 18 115/76 (89) 96 08/11/19 16:00 Intake and Output 08/11/19 08/12/19 19:00 07:00 Intake Total 360 ml 240 ml Balance 360 ml 240 ml Intake Oral 360 ml 240 ml # Voids 2 1 Laboratory Tests 08/12/19 05:25: White Blood Count 3.7L, Red Blood Count 3.49L, Hemoglobin 11.7L, Hematocrit 32.1L, Mean Corpuscular Volume 92, Mean Corpuscular Hemoglobin 33.4H, Mean Corpuscular Hemoglobin Concent 36.3H, Red Cell Distribution Width 10.3L, Platelet Count 119L, Mean Platelet Volume 6.1L, Neutrophils (%) (Auto) 61.8, Lymphocytes (%) (Auto) 16.6L, Monocytes (%) (Auto) 15.7H, Eosinophils (%) (Auto ) 4.1H, Basophils (%) (Auto) 1.8, Sodium Level 133L, Potassium Level 4.4, Chloride Level 101, Carbon Dioxide Level 23, Anion Gap 9, Blood Urea Nitrogen 37H, Creatinine 2.2H, Estimat Glomerular Filtration Rate 33.3, Glucose Level 92 , Calcium Level 8.9, Total Bilirubin 0.6, Aspartate Amino Transf (AST/SGOT) 52H , Alanine Aminotransferase (ALT/SGPT) 59, Alkaline Phosphatase 114, Total Protein 8.0, Albumin 2.9L, Globulin 5.1, Albumin/Globulin Ratio 0.6L Height (Feet): 5 Height (Inches): 10.00 Weight (Pounds): 172 General Appearance: lethargic, confused Isa Blanchard MD Aug 12, 2019 12:18
--- NOTE | 2019-08-12 12:19 | Hematology/Onc Progress Note ---
Assessment/Plan Assessment/Plan Assessment and Recs: # Pancytopenia - potential causes multifactorial, evaluate liver and viral etiologies to begin, in this case due to ETOH ABUSE/WITHDRAWAL, bone marrow myelosuppression, also may be due to meds, ampho --> Hep panel negative, HIV +++ --> US abd to evaluate for cirrhosis and hsm ordered --> SHOWS spenomegaly, enlarged spleen --> Peripheral smear ordered to evaluate for blasts /schistocytes --> none noted --> abx and other meds have been reviewed --> ok for ppx if plt >50k w/ either heparin or lovenox --> Transfuse if Plt < 20k and fever, or if Plt < 10k without fever --> plt trend 164-->122k-->86k-->52k-->69-->89-->119 --> wbc trend 5-->3-->2->2.2-->3-->3.7 --> abx: vanc/zosyn --> ampho/azithro--> ampho/flucty-->azithro/fluc # ETOH withdrawal, now improved --> r/o seizure --> ativan, librium, folate --> imaging reviewed --> smear noted --> rec cessation # Leukocytosis likely reactive --> currently in leukopenia, is likely due to hiv+ --> abx: azithro --> wbc 11-->3.2-->3.7-->4 # Seizure --> R/o seizure d/o onset -> meds reviewed --> as per neuro # JULIAN (acute kidney injury) --> per renal recs # HIV --> as per id, consider eval --> viral load is elevated # Tachycardia --> per Dr. Mckeon # AMS --> per psych The timing of this note does not necessarily reflect the time of the patient was seen. Greatly appreciate consultation. Subjective Constitutional: Denies: no symptoms, chills, fever, malaise, weakness, other HEENT: Denies: no symptoms, eye pain, blurred vision, tearing, double vision, ear pain, ear discharge, nose pain, nose congestion, throat pain, throat swelling, mouth pain, mouth swelling, other Cardiovascular: Denies: no symptoms, chest pain, edema, irregular heart rate, lightheadedness, palpitations, syncope, other Respiratory: Denies: no symptoms, cough, shortness of breath, SOB with excertion, SOB at rest, sputum, wheezing, other Gastrointestinal/Abdominal: Denies: no symptoms, abdomen distended, abdominal pain, black stools, tarry stools, blood in stool, constipated, diarrhea, difficulty swallowing, nausea, poor appetite, poor fluid intake, rectal bleeding , vomiting, other Genitourinary: Denies: no symptoms, burning, discharge, frequency, flank pain, hematuria, incontinence, pain, urgency, other Neurologic/Psychiatric: Denies: no symptoms, anxiety, depressed, emotional problems, headache, numbness, paresthesia, pre-existing deficit, seizure, tingling, tremors, weakness, other Endocrine: Denies: no symptoms, excessive sweating, flushing, intolerance to cold, intolerance to heat, increased hunger, increased thirst, increased urine, unexplained weight gain, unexplained weight loss, other Allergies: Coded Allergies: No Known Allergies (Unverified , 07/25/19) Subjective 07/27: no events, no bleeding, cbc pending, remains altered 07/28: no events, labs reviewed, viral studies noted, no bleeding 07/29: asleep, cbc pending, on vanc/zosym, room air 07/30 no major events noted, no bleeding, labs reviewed 07/31 no events, tolerating po, labs pending 08/02 no events, no bleeding, labs lower yesterday, no night sweats 08/03 no bleeding, labs noted, cbc to be reviewed, no major events 08/04 no events, pending labs, specifically bmp, labs noted 08/05 no bleeding episodes, no night sweats, meds have been reviewed 08/07 no acute events, labs reviewed, on room air, no bleeding 08/09 in bed, no events, labs reviewed, no new orders 08/10 no major changes, labs noted, no f/c, cbc reviewed 08/11 no events, no bleding, cbc has been reviewed, hgb 11, wbc 3.7 Objective Objective Current Medications Medications (Trade) Dose Ordered Sig/Gabrielle Route PRN Reason Start Time Stop Time Status Last Admin Dose Admin Acetaminophen (Tylenol) 650 mg Q6H PRN RECTAL fever 08/11/19 19:00 08/30/19 18:59 Azithromycin (Zithromax) 1,200 mg ONCE A WEEK ORAL 08/16/19 14:00 08/19/19 13:59 Dapsone (Dapsone) 100 mg DAILY ORAL 08/12/19 09:00 08/14/19 13:59 08/12/19 09:06 Docusate Sodium (Colace) 100 mg THREE TIMES A DAY ORAL 08/12/19 09:00 09/03/19 17:59 08/12/19 09:06 Fluconazole (Diflucan) 400 mg DAILY ORAL 08/12/19 09:00 08/17/19 11:59 08/12/19 09:07 Folic Acid (Folate) 1 mg DAILY ORAL 08/12/19 09:00 08/27/19 08:59 08/12/19 09:07 Lorazepam (Ativan) 2 mg Q6H PRN ORAL For Anxiety 08/11/19 19:00 08/15/19 18:59 Midodrine (Pro-Amatine) 10 mg TID ORAL 08/12/19 09:00 11/01/19 17:59 08/12/19 09:08 Pantoprazole (Protonix) 40 mg EVERY 12 HOURS ORAL 08/11/19 21:00 08/29/19 20:59 08/12/19 09:08 Patient Own Medication (Patient's Own Med) 1 ea DAILY ORAL 08/12/19 09:00 09/03/19 20:59 08/12/19 09:07 Patient Own Medication (Patient's Own Med) 1 ea DAILY ORAL 08/12/19 09:00 09/03/19 21:59 08/12/19 09:08 Thiamine HCl (Vitamin B1) 100 mg DAILY ORAL 08/12/19 09:00 08/27/19 19:59 08/12/19 09:08 Last 24 Hour Vital Signs Date Time Temp Pulse Resp B/P (MAP) Pulse Ox O2 Delivery O2 Flow Rate FiO2 08/12/19 08:00 97.9 70 18 95/53 (67) 97 08/12/19 04:23 98.2 65 18 113/70 (84) 95 08/11/19 23:46 98.4 64 18 122/71 (88) 96 08/11/19 20:56 Room Air 08/11/19 20:00 98.8 59 18 115/76 (89) 96 08/11/19 16:00 08/11/19 12:00 59 08/11/19 11:58 97.9 61 20 113/66 (82) 98 08/11/19 09:00 Room Air 08/11/19 08:00 98.2 73 20 103/55 (71) 97 08/11/19 08:00 93 08/11/19 04:00 98.1 70 18 102/58 (73) 97 08/11/19 04:00 62 08/11/19 00:00 97.3 70 18 116/74 (88) 97 08/11/19 00:00 62 08/10/19 21:00 Room Air 08/10/19 20:00 97.6 66 16 111/71 (84) 96 08/10/19 20:00 60 08/10/19 16:00 98.2 72 20 102/57 (72) 96 08/10/19 16:00 72 Intake and Output 08/11/19 08/12/19 19:00 07:00 Intake Total 360 ml 240 ml Balance 360 ml 240 ml Intake Oral 360 ml 240 ml # Voids 2 1 Labs Test 08/10/19 05:42 08/11/19 05:46 08/12/19 05:25 White Blood Count 4.7 K/UL (4.8-10.8) 4.2 K/UL (4.8-10.8) 3.7 K/UL (4.8-10.8) Red Blood Count 3.40 M/UL (4.70-6.10) 3.47 M/UL (4.70-6.10) 3.49 M/UL (4.70-6.10) Hemoglobin 11.3 G/DL (14.2-18.0) 11.6 G/DL (14.2-18.0) 11.7 G/DL (14.2-18.0) Hematocrit 31.2 % (42.0-52.0) 32.0 % (42.0-52.0) 32.1 % (42.0-52.0) Mean Corpuscular Volume 92 FL (80-99) 92 FL (80-99) 92 FL (80-99) Mean Corpuscular Hemoglobin 33.3 PG (27.0-31.0) 33.4 PG (27.0-31.0) 33.4 PG (27.0-31.0) Mean Corpuscular Hemoglobin Concent 36.3 G/DL (32.0-36.0) 36.2 G/DL (32.0-36.0) 36.3 G/DL (32.0-36.0) Red Cell Distribution Width 10.2 % (11.6-14.8) 10.5 % (11.6-14.8) 10.3 % (11.6-14.8) Platelet Count 114 K/UL (150-450) 127 K/UL (150-450) 119 K/UL (150-450) Mean Platelet Volume 7.5 FL (6.5-10.1) 6.4 FL (6.5-10.1) 6.1 FL (6.5-10.1) Neutrophils (%) (Auto) 72.0 % (45.0-75.0) 64.6 % (45.0-75.0) 61.8 % (45.0-75.0) Lymphocytes (%) (Auto) 14.5 % (20.0-45.0) 17.7 % (20.0-45.0) 16.6 % (20.0-45.0) Monocytes (%) (Auto) 8.7 % (1.0-10.0) 12.9 % (1.0-10.0) 15.7 % (1.0-10.0) Eosinophils (%) (Auto) 3.4 % (0.0-3.0) 3.5 % (0.0-3.0) 4.1 % (0.0-3.0) Basophils (%) (Auto) 1.4 % (0.0-2.0) 1.4 % (0.0-2.0) 1.8 % (0.0-2.0) Sodium Level 133 MMOL/L (136-145) 133 MMOL/L (136-145) 133 MMOL/L (136-145) Potassium Level 4.5 MMOL/L (3.5-5.1) 4.2 MMOL/L (3.5-5.1) 4.4 MMOL/L (3.5-5.1) Chloride Level 102 MMOL/L (98-107) 102 MMOL/L (98-107) 101 MMOL/L (98-107) Carbon Dioxide Level 21 MMOL/L (21-32) 20 MMOL/L (21-32) 23 MMOL/L (21-32) Anion Gap 10 mmol/L (5-15) 11 mmol/L (5-15) 9 mmol/L (5-15) Blood Urea Nitrogen 35 mg/dL (7-18) 35 mg/dL (7-18) 37 mg/dL (7-18) Creatinine 3.1 MG/DL (0.55-1.30) 2.7 MG/DL (0.55-1.30) 2.2 MG/DL (0.55-1.30) Estimat Glomerular Filtration Rate 22.4 mL/min (>60) 26.3 mL/min (>60) 33.3 mL/min (>60) Glucose Level 90 MG/DL (74-106) 99 MG/DL (74-106) 92 MG/DL (74-106) Uric Acid 8.0 MG/DL (2.6-7.2) 7.5 MG/DL (2.6-7.2) Calcium Level 8.6 MG/DL (8.5-10.1) 8.7 MG/DL (8.5-10.1) 8.9 MG/DL (8.5-10.1) Phosphorus Level 4.5 MG/DL (2.5-4.9) 4.4 MG/DL (2.5-4.9) Magnesium Level 1.4 MG/DL (1.8-2.4) 2.2 MG/DL (1.8-2.4) Total Bilirubin 0.6 MG/DL (0.2-1.0) 0.5 MG/DL (0.2-1.0) 0.6 MG/DL (0.2-1.0) Aspartate Amino Transf (AST/SGOT) 77 U/L (15-37) 57 U/L (15-37) 52 U/L (15-37) Alanine Aminotransferase (ALT/SGPT) 82 U/L (12-78) 72 U/L (12-78) 59 U/L (12-78) Alkaline Phosphatase 109 U/L (46-116) 142 U/L (46-116) 114 U/L (46-116) Ammonia 70 umol/L (11-32) Total Protein 7.9 G/DL (6.4-8.2) 7.9 G/DL (6.4-8.2) 8.0 G/DL (6.4-8.2) Albumin 2.7 G/DL (3.4-5.0) 2.7 G/DL (3.4-5.0) 2.9 G/DL (3.4-5.0) Globulin 5.2 g/dL 5.2 g/dL 5.1 g/dL Albumin/Globulin Ratio 0.5 (1.0-2.7) 0.5 (1.0-2.7) 0.6 (1.0-2.7) Rapid Plasma Reagin Non reactive (Non Reactive) C-Reactive Protein, Quantitative 1.7 mg/dL (0.00-0.90) Pro-B-Type Natriuretic Peptide 282 pg/mL (0-125) Height (Feet): 5 Height (Inches): 10.00 Weight (Pounds): 172 Objective Physical Exam: Vitals: reviewed General: Nad, altered mental status HEENT: nc, at Neck: supple Chest: clear breath sounds bilaterally Cardiovascular: RRR, no s3, s4 Abdomen: soft, nontender, nd Extremities: no cce, normal range of motion Neuro: alert and oriented Arya Nelson MD Aug 12, 2019 12:19
--- NOTE | 2019-08-12 12:24 | Cardiac Electrophysiology PN ---
Assessment/Plan Assessment/Plan 1. Sinus tachycardia due to seizure, alcohol withdrawal and crypt meningitis. EF 60%. EKG no acute ST-T wave abnormality. 2. Hypotension, on Midodrine 10 tid. Resolved off Flomax and after IVF bolus 3. 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 Heavy alcohol use. On Thiamine and Folate 5. AIDS 6. Thrombocytopenia , resolved [address] Omar GASCA RN Subjective Subjective No CP or SOB. On Abx for meningitis. BP better on Midodrine 10 tid. Objective Last 24 Hour Vital Signs Date Time Temp Pulse Resp B/P (MAP) Pulse Ox O2 Delivery O2 Flow Rate FiO2 08/12/19 08:00 97.9 70 18 95/53 (67) 97 08/12/19 04:23 98.2 65 18 113/70 (84) 95 08/11/19 23:46 98.4 64 18 122/71 (88) 96 08/11/19 20:56 Room Air 08/11/19 20:00 98.8 59 18 115/76 (89) 96 08/11/19 16:00 Intake and Output 08/11/19 08/12/19 19:00 07:00 Intake Total 360 ml 240 ml Balance 360 ml 240 ml Intake Oral 360 ml 240 ml # Voids 2 1 Laboratory Tests Test 08/12/19 05:25 White Blood Count 3.7 K/UL (4.8-10.8) L Red Blood Count 3.49 M/UL (4.70-6.10) L Hemoglobin 11.7 G/DL (14.2-18.0) L Hematocrit 32.1 % (42.0-52.0) L Mean Corpuscular Volume 92 FL (80-99) Mean Corpuscular Hemoglobin 33.4 PG (27.0-31.0) H Mean Corpuscular Hemoglobin Concent 36.3 G/DL (32.0-36.0) H Red Cell Distribution Width 10.3 % (11.6-14.8) L Platelet Count 119 K/UL (150-450) L Mean Platelet Volume 6.1 FL (6.5-10.1) L Neutrophils (%) (Auto) 61.8 % (45.0-75.0) Lymphocytes (%) (Auto) 16.6 % (20.0-45.0) L Monocytes (%) (Auto) 15.7 % (1.0-10.0) H Eosinophils (%) (Auto) 4.1 % (0.0-3.0) H Basophils (%) (Auto) 1.8 % (0.0-2.0) Sodium Level 133 MMOL/L (136-145) L Potassium Level 4.4 MMOL/L (3.5-5.1) Chloride Level 101 MMOL/L (98-107) Carbon Dioxide Level 23 MMOL/L (21-32) Anion Gap 9 mmol/L (5-15) Blood Urea Nitrogen 37 mg/dL (7-18) H Creatinine 2.2 MG/DL (0.55-1.30) H Estimat Glomerular Filtration Rate 33.3 mL/min (>60) Glucose Level 92 MG/DL (74-106) Calcium Level 8.9 MG/DL (8.5-10.1) Total Bilirubin 0.6 MG/DL (0.2-1.0) Aspartate Amino Transf (AST/SGOT) 52 U/L (15-37) H Alanine Aminotransferase (ALT/SGPT) 59 U/L (12-78) Alkaline Phosphatase 114 U/L (46-116) Total Protein 8.0 G/DL (6.4-8.2) Albumin 2.9 G/DL (3.4-5.0) L Globulin 5.1 g/dL Albumin/Globulin Ratio 0.6 (1.0-2.7) L Objective HEAD AND NECK: No JVD. LUNGS: Clear. CARDIOVASCULAR: Nl S1 and S2 with no gallop. ABDOMEN: Soft. EXTREMITIES: 1+ pitting edema. Ric Mckeon MD Aug 12, 2019 12:24
--- NOTE | 2019-08-12 12:48 | Infectious Diseases Prog Note ---
Assessment/Plan Assessment/Plan IMPRESSION: Cryptococcal sepsis HIV ,AIDS CD4=46,Viral rlsa=[id number] Cryptococcal meningitis New-onset seizure Alcohol withdrawal Acute renal failure,improving Encephalopathy. Elevated transaminase & ammonia improving RECOMMENDATION: Patient has HIV since 2003 goes to [facility], noncompliant with medication on Dapsone, Zithromax, continue Fluconazole He doesn't understand the severity of his medical condition Continue HIV treatment with Tivicay & Descovy Subjective ROS Limited/Unobtainable: Yes Constitutional: Reports: no symptoms Gastrointestinal/Abdominal: Reports: no symptoms Genitourinary: Reports: no symptoms Allergies: Coded Allergies: No Known Allergies (Unverified , 07/25/19) Objective Vital Signs Last 24 Hour Vital Signs Date Time Temp Pulse Resp B/P (MAP) Pulse Ox O2 Delivery O2 Flow Rate FiO2 08/12/19 08:00 97.9 70 18 95/53 (67) 97 08/12/19 04:23 98.2 65 18 113/70 (84) 95 08/11/19 23:46 98.4 64 18 122/71 (88) 96 08/11/19 20:56 Room Air 08/11/19 20:00 98.8 59 18 115/76 (89) 96 08/11/19 16:00 Height (Feet): 5 Height (Inches): 10.00 Weight (Pounds): 172 General Appearance: no acute distress HEENT: mucous membranes moist Respiratory/Chest: lungs clear Cardiovascular: normal rate Abdomen: soft, non tender Extremities: no edema Neurologic/Psychiatric: alert, responsive Laboratory Tests Test 08/12/19 05:25 White Blood Count 3.7 K/UL (4.8-10.8) L Red Blood Count 3.49 M/UL (4.70-6.10) L Hemoglobin 11.7 G/DL (14.2-18.0) L Hematocrit 32.1 % (42.0-52.0) L Mean Corpuscular Volume 92 FL (80-99) Mean Corpuscular Hemoglobin 33.4 PG (27.0-31.0) H Mean Corpuscular Hemoglobin Concent 36.3 G/DL (32.0-36.0) H Red Cell Distribution Width 10.3 % (11.6-14.8) L Platelet Count 119 K/UL (150-450) L Mean Platelet Volume 6.1 FL (6.5-10.1) L Neutrophils (%) (Auto) 61.8 % (45.0-75.0) Lymphocytes (%) (Auto) 16.6 % (20.0-45.0) L Monocytes (%) (Auto) 15.7 % (1.0-10.0) H Eosinophils (%) (Auto) 4.1 % (0.0-3.0) H Basophils (%) (Auto) 1.8 % (0.0-2.0) Sodium Level 133 MMOL/L (136-145) L Potassium Level 4.4 MMOL/L (3.5-5.1) Chloride Level 101 MMOL/L (98-107) Carbon Dioxide Level 23 MMOL/L (21-32) Anion Gap 9 mmol/L (5-15) Blood Urea Nitrogen 37 mg/dL (7-18) H Creatinine 2.2 MG/DL (0.55-1.30) H Estimat Glomerular Filtration Rate 33.3 mL/min (>60) Glucose Level 92 MG/DL (74-106) Calcium Level 8.9 MG/DL (8.5-10.1) Total Bilirubin 0.6 MG/DL (0.2-1.0) Aspartate Amino Transf (AST/SGOT) 52 U/L (15-37) H Alanine Aminotransferase (ALT/SGPT) 59 U/L (12-78) Alkaline Phosphatase 114 U/L (46-116) Total Protein 8.0 G/DL (6.4-8.2) Albumin 2.9 G/DL (3.4-5.0) L Globulin 5.1 g/dL Albumin/Globulin Ratio 0.6 (1.0-2.7) L Current Medications Medications (Trade) Dose Ordered Sig/Gabreille Route PRN Reason Start Time Stop Time Status Last Admin Dose Admin Acetaminophen (Tylenol) 650 mg Q6H PRN RECTAL fever 08/11/19 19:00 08/30/19 18:59 Azithromycin (Zithromax) 1,200 mg ONCE A WEEK ORAL 08/16/19 14:00 08/19/19 13:59 Dapsone (Dapsone) 100 mg DAILY ORAL 08/12/19 09:00 08/14/19 13:59 08/12/19 09:06 Docusate Sodium (Colace) 100 mg THREE TIMES A DAY ORAL 08/12/19 09:00 09/03/19 17:59 08/12/19 09:06 Fluconazole (Diflucan) 400 mg DAILY ORAL 08/12/19 09:00 08/17/19 11:59 08/12/19 09:07 Folic Acid (Folate) 1 mg DAILY ORAL 08/12/19 09:00 08/27/19 08:59 08/12/19 09:07 Lorazepam (Ativan) 2 mg Q6H PRN ORAL For Anxiety 08/11/19 19:00 08/15/19 18:59 Midodrine (Pro-Amatine) 10 mg TID ORAL 08/12/19 09:00 11/01/19 17:59 08/12/19 09:08 Pantoprazole (Protonix) 40 mg EVERY 12 HOURS ORAL 08/11/19 21:00 08/29/19 20:59 08/12/19 09:08 Patient Own Medication (Patient's Own Med) 1 ea DAILY ORAL 08/12/19 09:00 09/03/19 20:59 08/12/19 09:07 Patient Own Medication (Patient's Own Med) 1 ea DAILY ORAL 08/12/19 09:00 09/03/19 21:59 08/12/19 09:08 Thiamine HCl (Vitamin B1) 100 mg DAILY ORAL 08/12/19 09:00 08/27/19 19:59 08/12/19 09:08 Po Bryant MD Aug 12, 2019 12:48
--- NOTE | 2019-08-12 13:45 | Nephrology Progress Note ---
Assessment/Plan Problem List: (1) JULIAN (acute kidney injury) Assessment: Serum creatinine rising (2) Seizure (3) ALCOHOL DEPENDENCE WITH WITHDRAWAL, UNSPECIFIED (4) Tachycardia (5) Hypokalemia (6) Low CD4 cell count determined by flow cytometry Assessment Electrolyte imbalance Hypokalemia and hypomagnesemia Elevated creatinine to 1.4 on admission now corrected Seizure disorder Plan Serum creatinine now declining-creatinine is down to 2.2 today Kidney ultrasound unremarkable Adjust midodrine dose for low blood pressure Intravenous magnesium sulfate as needed Avoid nephrotoxic's as possible discussed with FRANCY Kirkland at night Urine studies ordered Patient taking p.o. well Previously Following measures as needed IV magnesium IV potassium phosphate IV thiamine IV Protonix Continue management per other consultants Monitor electrolytes Per orders Subjective ROS Limited/Unobtainable: No Constitutional: Reports: malaise, weakness Objective Objective Last 24 Hour Vital Signs Date Time Temp Pulse Resp B/P (MAP) Pulse Ox O2 Delivery O2 Flow Rate FiO2 08/12/19 12:00 98.0 18 110/69 (83) 97 08/12/19 08:00 97.9 70 18 95/53 (67) 97 08/12/19 04:23 98.2 65 18 113/70 (84) 95 08/11/19 23:46 98.4 64 18 122/71 (88) 96 08/11/19 20:56 Room Air 08/11/19 20:00 98.8 59 18 115/76 (89) 96 08/11/19 16:00 Intake and Output 08/11/19 08/12/19 19:00 07:00 Intake Total 360 ml 240 ml Balance 360 ml 240 ml Intake Oral 360 ml 240 ml # Voids 2 1 Laboratory Tests 08/12/19 05:25: White Blood Count 3.7L, Red Blood Count 3.49L, Hemoglobin 11.7L, Hematocrit 32.1L, Mean Corpuscular Volume 92, Mean Corpuscular Hemoglobin 33.4H, Mean Corpuscular Hemoglobin Concent 36.3H, Red Cell Distribution Width 10.3L, Platelet Count 119L, Mean Platelet Volume 6.1L, Neutrophils (%) (Auto) 61.8, Lymphocytes (%) (Auto) 16.6L, Monocytes (%) (Auto) 15.7H, Eosinophils (%) (Auto ) 4.1H, Basophils (%) (Auto) 1.8, Sodium Level 133L, Potassium Level 4.4, Chloride Level 101, Carbon Dioxide Level 23, Anion Gap 9, Blood Urea Nitrogen 37H, Creatinine 2.2H, Estimat Glomerular Filtration Rate 33.3, Glucose Level 92 , Calcium Level 8.9, Total Bilirubin 0.6, Aspartate Amino Transf (AST/SGOT) 52H , Alanine Aminotransferase (ALT/SGPT) 59, Alkaline Phosphatase 114, Total Protein 8.0, Albumin 2.9L, Globulin 5.1, Albumin/Globulin Ratio 0.6L Height (Feet): 5 Height (Inches): 10.00 Weight (Pounds): 172 General Appearance: no apparent distress Cardiovascular: normal rate Abdomen: soft Objective No change Brian Alexandra MD Aug 12, 2019 13:45
[2019-08-12 16:00] VITALS: BP 107/71
--- NOTE | 2019-08-12 18:25 | NUR ---
NURSE NOTES: Patient ate dinner bed alarm on,call light within reach.
--- NOTE | 2019-08-12 19:25 | NUR ---
HAND-OFF: Report given to Liseth TERRELL. Addendum: 08/12/19 at 2019 by ADRIANO ULND RN RN [place] nurse aware of fall risk.
--- NOTE | 2019-08-12 19:28 | NUR ---
NURSE NOTES: Patient asleep in bed, no SOB noted, no signs of pain. Call light in reach. Safety measures applied. Will continue plan of care.
[2019-08-12 20:00] VITALS: BP 112/74
--- NOTE | 2019-08-12 20:46 | General Progress Note ---
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 - pancytopenia - improving - elevated LFT - improving - h/o EtOH use x years, although stated he has not consumed for 1 mo - seizure - fever - Elevated creatinine - poor prognosis Recommendations - Antibiotics per ID - po as tolerated - thiamine - watch Cr and LFT - Renal and ID f/u Subjective Allergies: Coded Allergies: No Known Allergies (Unverified , 07/25/19) Subjective Seen this am awake d/w RN Objective Last 24 Hour Vital Signs Date Time Temp Pulse Resp B/P (MAP) Pulse Ox O2 Delivery O2 Flow Rate FiO2 08/12/19 16:00 98.3 61 18 107/71 (83) 97 08/12/19 12:00 98.0 65 18 110/69 (83) 97 08/12/19 09:00 Room Air 08/12/19 08:00 97.9 70 18 95/53 (67) 97 08/12/19 04:23 98.2 65 18 113/70 (84) 95 08/11/19 23:46 98.4 64 18 122/71 (88) 96 08/11/19 20:56 Room Air Intake and Output 08/11/19 08/12/19 19:00 07:00 Intake Total 360 ml 240 ml Balance 360 ml 240 ml Intake Oral 360 ml 240 ml # Voids 2 1 Laboratory Tests 08/12/19 05:25: White Blood Count 3.7L, Red Blood Count 3.49L, Hemoglobin 11.7L, Hematocrit 32.1L, Mean Corpuscular Volume 92, Mean Corpuscular Hemoglobin 33.4H, Mean Corpuscular Hemoglobin Concent 36.3H, Red Cell Distribution Width 10.3L, Platelet Count 119L, Mean Platelet Volume 6.1L, Neutrophils (%) (Auto) 61.8, Lymphocytes (%) (Auto) 16.6L, Monocytes (%) (Auto) 15.7H, Eosinophils (%) (Auto ) 4.1H, Basophils (%) (Auto) 1.8, Sodium Level 133L, Potassium Level 4.4, Chloride Level 101, Carbon Dioxide Level 23, Anion Gap 9, Blood Urea Nitrogen 37H, Creatinine 2.2H, Estimat Glomerular Filtration Rate 33.3, Glucose Level 92 , Calcium Level 8.9, Total Bilirubin 0.6, Aspartate Amino Transf (AST/SGOT) 52H , Alanine Aminotransferase (ALT/SGPT) 59, Alkaline Phosphatase 114, Total Protein 8.0, Albumin 2.9L, Globulin 5.1, Albumin/Globulin Ratio 0.6L Height (Feet): 5 Height (Inches): 10.00 Weight (Pounds): 172 Objective WDWN NCAT supple CTA RR abd soft ND no edema Jai Ness MD Aug 12, 2019 20:46
[2019-08-13] VITALS (7 sets, daily range): BP systolic 91–129; BP diastolic 57–70
--- NOTE | 2019-08-13 06:48 | Hematology/Onc Progress Note ---
Assessment/Plan Assessment/Plan Assessment and Recs: # Pancytopenia - potential causes multifactorial, evaluate liver and viral etiologies to begin, in this case due to ETOH ABUSE/WITHDRAWAL, bone marrow myelosuppression, also may be due to meds, ampho --> Hep panel negative, HIV +++ --> US abd to evaluate for cirrhosis and hsm ordered --> SHOWS spenomegaly, enlarged spleen --> Peripheral smear ordered to evaluate for blasts /schistocytes --> none noted --> abx and other meds have been reviewed --> ok for ppx if plt >50k w/ either heparin or lovenox --> Transfuse if Plt < 20k and fever, or if Plt < 10k without fever --> plt trend 164-->122k-->86k-->52k-->69-->89-->119 --> wbc trend 5-->3-->2->2.2-->3-->3.7 --> abx: vanc/zosyn --> ampho/azithro--> ampho/flucty-->azithro/fluc # ETOH withdrawal, now improved --> r/o seizure --> ativan, librium, folate --> imaging reviewed --> smear noted --> rec cessation # Leukocytosis likely reactive --> currently in leukopenia, is likely due to hiv+ --> abx: azithro --> wbc 11-->3.2-->3.7-->4 # Seizure --> R/o seizure d/o onset -> meds reviewed --> as per neuro # JULIAN (acute kidney injury) --> per renal recs --> on ivfs # HIV --> as per id, consider eval --> viral load is elevated # Tachycardia --> per Dr. Mckeon # AMS --> per psych The timing of this note does not necessarily reflect the time of the patient was seen. Greatly appreciate consultation. Subjective Constitutional: Denies: no symptoms, chills, fever, malaise, weakness, other HEENT: Denies: no symptoms, eye pain, blurred vision, tearing, double vision, ear pain, ear discharge, nose pain, nose congestion, throat pain, throat swelling, mouth pain, mouth swelling, other Cardiovascular: Denies: no symptoms, chest pain, edema, irregular heart rate, lightheadedness, palpitations, syncope, other Respiratory: Denies: no symptoms, cough, shortness of breath, SOB with excertion, SOB at rest, sputum, wheezing, other Gastrointestinal/Abdominal: Denies: no symptoms, abdomen distended, abdominal pain, black stools, tarry stools, blood in stool, constipated, diarrhea, difficulty swallowing, nausea, poor appetite, poor fluid intake, rectal bleeding , vomiting, other Genitourinary: Denies: no symptoms, burning, discharge, frequency, flank pain, hematuria, incontinence, pain, urgency, other Neurologic/Psychiatric: Denies: no symptoms, anxiety, depressed, emotional problems, headache, numbness, paresthesia, pre-existing deficit, seizure, tingling, tremors, weakness, other Hematologic/Lymphatic: Denies: no symptoms, anemia, easy bleeding, easy bruising, adenopathy, other Allergies: Coded Allergies: No Known Allergies (Unverified , 07/25/19) Subjective 07/27: no events, no bleeding, cbc pending, remains altered 07/28: no events, labs reviewed, viral studies noted, no bleeding 07/29: asleep, cbc pending, on vanc/zosym, room air 07/30 no major events noted, no bleeding, labs reviewed 07/31 no events, tolerating po, labs pending 08/02 no events, no bleeding, labs lower yesterday, no night sweats 08/03 no bleeding, labs noted, cbc to be reviewed, no major events 08/04 no events, pending labs, specifically bmp, labs noted 08/05 no bleeding episodes, no night sweats, meds have been reviewed 08/07 no acute events, labs reviewed, on room air, no bleeding 08/09 in bed, no events, labs reviewed, no new orders 08/10 no major changes, labs noted, no f/c, cbc reviewed 08/11 no events, no bleding, cbc has been reviewed, hgb 11, wbc 3.7 08/12 labs are pending from the am, cbc is ordered, no night sweats Objective Objective Current Medications Medications (Trade) Dose Ordered Sig/Gabrielle Route PRN Reason Start Time Stop Time Status Last Admin Dose Admin Acetaminophen (Tylenol) 650 mg Q6H PRN RECTAL fever 08/11/19 19:00 08/30/19 18:59 Azithromycin (Zithromax) 1,200 mg ONCE A WEEK ORAL 08/16/19 14:00 08/19/19 13:59 Dapsone (Dapsone) 100 mg DAILY ORAL 08/12/19 09:00 08/14/19 13:59 08/12/19 09:06 Docusate Sodium (Colace) 100 mg THREE TIMES A DAY ORAL 08/12/19 09:00 09/03/19 17:59 08/12/19 18:27 Fluconazole (Diflucan) 400 mg DAILY ORAL 08/12/19 09:00 08/17/19 11:59 08/12/19 09:07 Folic Acid (Folate) 1 mg DAILY ORAL 08/12/19 09:00 08/27/19 08:59 08/12/19 09:07 Lorazepam (Ativan) 2 mg Q6H PRN ORAL For Anxiety 08/11/19 19:00 08/15/19 18:59 Midodrine (Pro-Amatine) 10 mg TID ORAL 08/12/19 09:00 11/01/19 17:59 08/12/19 18:27 Pantoprazole (Protonix) 40 mg EVERY 12 HOURS ORAL 08/11/19 21:00 08/29/19 20:59 08/12/19 20:16 Patient Own Medication (Patient's Own Med) 1 ea DAILY ORAL 08/12/19 09:00 09/03/19 20:59 08/12/19 09:07 Patient Own Medication (Patient's Own Med) 1 ea DAILY ORAL 08/12/19 09:00 09/03/19 21:59 08/12/19 09:08 Thiamine HCl (Vitamin B1) 100 mg DAILY ORAL 08/12/19 09:00 08/27/19 19:59 08/12/19 09:08 Last 24 Hour Vital Signs Date Time Temp Pulse Resp B/P (MAP) Pulse Ox O2 Delivery O2 Flow Rate FiO2 08/13/19 04:00 98.5 71 18 99/58 (72) 95 08/13/19 00:00 98.6 60 18 118/70 (86) 94 08/12/19 20:50 Room Air 08/12/19 20:00 98.2 55 18 112/74 (87) 94 08/12/19 16:00 98.3 61 18 107/71 (83) 97 08/12/19 12:00 98.0 65 18 110/69 (83) 97 08/12/19 09:00 Room Air 08/12/19 08:00 97.9 70 18 95/53 (67) 97 08/12/19 04:23 98.2 65 18 113/70 (84) 95 08/11/19 23:46 98.4 64 18 122/71 (88) 96 08/11/19 20:56 Room Air 08/11/19 20:00 98.8 59 18 115/76 (89) 96 08/11/19 16:00 08/11/19 12:00 59 08/11/19 11:58 97.9 61 20 113/66 (82) 98 08/11/19 09:00 Room Air 08/11/19 08:00 98.2 73 20 103/55 (71) 97 08/11/19 08:00 93 Intake and Output 08/12/19 08/13/19 19:02 07:02 Intake Total 870 ml Balance 870 ml Intake Oral 870 ml # Voids 4 1 Labs Test 08/11/19 05:46 08/12/19 05:25 White Blood Count 4.2 K/UL (4.8-10.8) 3.7 K/UL (4.8-10.8) Red Blood Count 3.47 M/UL (4.70-6.10) 3.49 M/UL (4.70-6.10) Hemoglobin 11.6 G/DL (14.2-18.0) 11.7 G/DL (14.2-18.0) Hematocrit 32.0 % (42.0-52.0) 32.1 % (42.0-52.0) Mean Corpuscular Volume 92 FL (80-99) 92 FL (80-99) Mean Corpuscular Hemoglobin 33.4 PG (27.0-31.0) 33.4 PG (27.0-31.0) Mean Corpuscular Hemoglobin Concent 36.2 G/DL (32.0-36.0) 36.3 G/DL (32.0-36.0) Red Cell Distribution Width 10.5 % (11.6-14.8) 10.3 % (11.6-14.8) Platelet Count 127 K/UL (150-450) 119 K/UL (150-450) Mean Platelet Volume 6.4 FL (6.5-10.1) 6.1 FL (6.5-10.1) Neutrophils (%) (Auto) 64.6 % (45.0-75.0) 61.8 % (45.0-75.0) Lymphocytes (%) (Auto) 17.7 % (20.0-45.0) 16.6 % (20.0-45.0) Monocytes (%) (Auto) 12.9 % (1.0-10.0) 15.7 % (1.0-10.0) Eosinophils (%) (Auto) 3.5 % (0.0-3.0) 4.1 % (0.0-3.0) Basophils (%) (Auto) 1.4 % (0.0-2.0) 1.8 % (0.0-2.0) Sodium Level 133 MMOL/L (136-145) 133 MMOL/L (136-145) Potassium Level 4.2 MMOL/L (3.5-5.1) 4.4 MMOL/L (3.5-5.1) Chloride Level 102 MMOL/L (98-107) 101 MMOL/L (98-107) Carbon Dioxide Level 20 MMOL/L (21-32) 23 MMOL/L (21-32) Anion Gap 11 mmol/L (5-15) 9 mmol/L (5-15) Blood Urea Nitrogen 35 mg/dL (7-18) 37 mg/dL (7-18) Creatinine 2.7 MG/DL (0.55-1.30) 2.2 MG/DL (0.55-1.30) Estimat Glomerular Filtration Rate 26.3 mL/min (>60) 33.3 mL/min (>60) Glucose Level 99 MG/DL (74-106) 92 MG/DL (74-106) Uric Acid 7.5 MG/DL (2.6-7.2) Calcium Level 8.7 MG/DL (8.5-10.1) 8.9 MG/DL (8.5-10.1) Phosphorus Level 4.4 MG/DL (2.5-4.9) Magnesium Level 2.2 MG/DL (1.8-2.4) Total Bilirubin 0.5 MG/DL (0.2-1.0) 0.6 MG/DL (0.2-1.0) Aspartate Amino Transf (AST/SGOT) 57 U/L (15-37) 52 U/L (15-37) Alanine Aminotransferase (ALT/SGPT) 72 U/L (12-78) 59 U/L (12-78) Alkaline Phosphatase 142 U/L (46-116) 114 U/L (46-116) C-Reactive Protein, Quantitative 1.7 mg/dL (0.00-0.90) Pro-B-Type Natriuretic Peptide 282 pg/mL (0-125) Total Protein 7.9 G/DL (6.4-8.2) 8.0 G/DL (6.4-8.2) Albumin 2.7 G/DL (3.4-5.0) 2.9 G/DL (3.4-5.0) Globulin 5.2 g/dL 5.1 g/dL Albumin/Globulin Ratio 0.5 (1.0-2.7) 0.6 (1.0-2.7) Height (Feet): 5 Height (Inches): 10.00 Weight (Pounds): 172 Objective Physical Exam: Vitals: reviewed General: Nad, altered mental status HEENT: nc, at Neck: supple Chest: clear breath sounds bilaterally Cardiovascular: RRR, no s3, s4 Abdomen: soft, nontender, nd Extremities: no cce, normal range of motion Neuro: alert and oriented Arya Nelson MD Aug 13, 2019 06:48
--- NOTE | 2019-08-13 07:40 | NUR ---
HAND-OFF: Report given to Cindi.
--- NOTE | 2019-08-13 07:45 | NUR ---
NURSE NOTES: Patient is awake and alert and orientedx4, nicaraguan speaking. able to follow simple commands. siderails are padded for seizures precautions. siderails are upx3, bed is in the lowest position. call light is within reach. respirations unlabored. will cont to monitor.
[2019-08-13] MEDS: Docusate 100mg cap ORAL SCH ×3 (08:22→17:02)
[2019-08-13] MEDS: Midodrine 10mg tab ORAL SCH ×3 (08:22→17:02)
[2019-08-13] MEDS: TIVICAY 50 MG ORAL SCH (08:23)
[2019-08-13] MEDS: Thiamine 100mg tab ORAL SCH (08:23)
[2019-08-13] MEDS: Fluconazole 100mg tab ORAL SCH (08:23)
[2019-08-13] MEDS: DESCOVY ORAL SCH (08:23)
--- NOTE | 2019-08-13 10:41 | NUR ---
CASE MANAGEMENT:REVIEW SI;CRYPTOCOCCAL SEPSIS. HIV/AIDS. ENCEPHALOPATHY. 98.6 105 18 99/58 94% ON RA NO LABS AVAILABLE IS;DAPSONE PO QD DIFLUCAN PO QD MIDODRINE PO TID THIAMINE PO QD PROTONIX PO Q12 HRS MED SURG STATUS DCP;HOME
--- NOTE | 2019-08-13 11:43 | NUR ---
RD ASSESSMENT & RECOMMENDATIONS SEE CARE ACTIVITY FOR COMPLETE ASSESSMENT DAILY ESTIMATED NEEDS: Needs based on HIV, liver dysfunction/ 77kg 25-30 kcals/kg 2498-4959 total kcals 1-1.5 g protein/kg 77-115 g total protein 25-30 mL/kg 4059-2995 total fluid mLs NUTRITION DIAGNOSIS: * Increased kcal/prot needs R/T catabolic dx, infection as evidenced by HIV+, CD4 of 46, dx of crypto meningitis. * Altered nutrition related lab values R/T liver dysfunction, h/o ETOH abuse as evidenced by elev LFTs, trend down. CURRENT DIET:LOW FAT + RENAL PO DIET RECOMMENDATIONS: LOW NA/ texture as tolerated ADDITIONAL RECOMMENDATIONS: * Calibrated bedscale wt * Snacks BID in b/w meals as tolerated * Monitor lytes, replete as needed * Monitor renal fxn -> improving * Monitor PO tolerance, need to downgrade texture -> admitted w/ AMS dx, mental status improving
--- NOTE | 2019-08-13 11:44 | NUR ---
NURSE NOTES: patient is presenting with general tremors. Made Dr Sheriff know. awaiting for a response. siderails are padded for safety. HOB elevated. will cont to monitor
--- NOTE | 2019-08-13 12:37 | Infectious Diseases Prog Note ---
Assessment/Plan Assessment/Plan IMPRESSION: Cryptococcal sepsis HIV ,AIDS CD4=46,Viral pfgk=[id number] Cryptococcal meningitis New-onset seizure Alcohol withdrawal Acute renal failure,improving Encephalopathy. Elevated transaminase & ammonia improving RECOMMENDATION: Patient has HIV since 2003 goes to [facility], noncompliant with medication on Dapsone, Zithromax, continue Fluconazole He doesn't understand the severity of his medical condition Continue HIV treatment with Tivicay & Descovy Subjective ROS Limited/Unobtainable: Yes Allergies: Coded Allergies: No Known Allergies (Unverified , 07/25/19) Objective Vital Signs Last 24 Hour Vital Signs Date Time Temp Pulse Resp B/P (MAP) Pulse Ox O2 Delivery O2 Flow Rate FiO2 08/13/19 12:00 98.5 92 21 129/61 (83) 96 08/13/19 09:00 Room Air 08/13/19 08:00 97.1 102 18 102/67 (79) 98 08/13/19 04:00 98.5 71 18 99/58 (72) 95 08/13/19 00:00 98.6 60 18 118/70 (86) 94 08/12/19 20:50 Room Air 08/12/19 20:00 98.2 55 18 112/74 (87) 94 08/12/19 16:00 98.3 61 18 107/71 (83) 97 Height (Feet): 5 Height (Inches): 10.00 Weight (Pounds): 172 HEENT: mucous membranes moist Respiratory/Chest: lungs clear Cardiovascular: normal rate Abdomen: soft, non tender Extremities: no edema Neurologic/Psychiatric: other - sleeping Current Medications Medications (Trade) Dose Ordered Sig/Gabrielle Route PRN Reason Start Time Stop Time Status Last Admin Dose Admin Acetaminophen (Tylenol) 650 mg Q6H PRN RECTAL fever 08/11/19 19:00 08/30/19 18:59 Azithromycin (Zithromax) 1,200 mg ONCE A WEEK ORAL 08/16/19 14:00 08/19/19 13:59 Dapsone (Dapsone) 100 mg DAILY ORAL 08/12/19 09:00 08/14/19 13:59 08/13/19 08:23 Docusate Sodium (Colace) 100 mg THREE TIMES A DAY ORAL 08/12/19 09:00 09/03/19 17:59 08/13/19 08:22 Fluconazole (Diflucan) 400 mg DAILY ORAL 08/12/19 09:00 08/17/19 11:59 08/13/19 08:23 Folic Acid (Folate) 1 mg DAILY ORAL 08/12/19 09:00 08/27/19 08:59 08/13/19 08:23 Lorazepam (Ativan) 2 mg Q6H PRN ORAL For Anxiety 08/11/19 19:00 08/15/19 18:59 Midodrine (Pro-Amatine) 10 mg TID ORAL 08/12/19 09:00 11/01/19 17:59 08/13/19 08:22 Pantoprazole (Protonix) 40 mg EVERY 12 HOURS ORAL 08/11/19 21:00 08/29/19 20:59 08/13/19 08:23 Patient Own Medication (Patient's Own Med) 1 ea DAILY ORAL 08/12/19 09:00 09/03/19 20:59 08/13/19 08:23 Patient Own Medication (Patient's Own Med) 1 ea DAILY ORAL 08/12/19 09:00 09/03/19 21:59 08/13/19 08:23 Thiamine HCl (Vitamin B1) 100 mg DAILY ORAL 08/12/19 09:00 08/27/19 19:59 08/13/19 08:23 Po Bryant MD Aug 13, 2019 12:37
--- NOTE | 2019-08-13 15:03 | Nephrology Progress Note ---
Assessment/Plan Problem List: (1) JULIAN (acute kidney injury) Assessment: Serum creatinine rising (2) Seizure (3) ALCOHOL DEPENDENCE WITH WITHDRAWAL, UNSPECIFIED (4) Tachycardia (5) Hypokalemia (6) Low CD4 cell count determined by flow cytometry Assessment Electrolyte imbalance Hypokalemia and hypomagnesemia Elevated creatinine to 1.4 on admission now corrected Seizure disorder Plan No blood work for today Serum creatinine now declining-creatinine is down to 2.2 as of yesterday Kidney ultrasound unremarkable Adjust midodrine dose for low blood pressure Intravenous magnesium sulfate as needed Avoid nephrotoxic's as possible discussed with FRANCY Kirkland at night Urine studies ordered Patient taking p.o. well Previously Following measures as needed IV magnesium IV potassium phosphate IV thiamine IV Protonix Continue management per other consultants Monitor electrolytes Per orders Subjective ROS Limited/Unobtainable: No Constitutional: Reports: malaise Objective Objective Last 24 Hour Vital Signs Date Time Temp Pulse Resp B/P (MAP) Pulse Ox O2 Delivery O2 Flow Rate FiO2 08/13/19 12:00 98.5 92 21 129/61 (83) 96 08/13/19 09:00 Room Air 08/13/19 08:00 97.1 102 18 102/67 (79) 98 08/13/19 04:00 98.5 71 18 99/58 (72) 95 08/13/19 00:00 98.6 60 18 118/70 (86) 94 08/12/19 20:50 Room Air 08/12/19 20:00 98.2 55 18 112/74 (87) 94 08/12/19 16:00 98.3 61 18 107/71 (83) 97 Intake and Output 08/12/19 08/13/19 19:00 07:00 Intake Total 870 ml Balance 870 ml Intake Oral 870 ml # Voids 4 1 Height (Feet): 5 Height (Inches): 10.00 Weight (Pounds): 172 General Appearance: no apparent distress Objective No change Brian Alexandra MD Aug 13, 2019 15:03
--- NOTE | 2019-08-13 15:42 | Cardiac Electrophysiology PN ---
Assessment/Plan Assessment/Plan 1. Sinus tachycardia due to seizure, alcohol withdrawal and crypt meningitis. EF 60%. EKG no acute ST-T wave abnormality. 2. Hypotension, on Midodrine 10 tid. Resolved off Flomax and after IVF bolus 3. 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 Heavy alcohol use. On Thiamine and Folate 5. AIDS 6. Thrombocytopenia , resolved [address] Omar GASCA RN Subjective Subjective No CP or SOB. On Abx for meningitis. On Midodrine 10 tid. Objective Last 24 Hour Vital Signs Date Time Temp Pulse Resp B/P (MAP) Pulse Ox O2 Delivery O2 Flow Rate FiO2 08/13/19 12:00 98.5 92 21 129/61 (83) 96 08/13/19 09:00 Room Air 08/13/19 08:00 97.1 102 18 102/67 (79) 98 08/13/19 04:00 98.5 71 18 99/58 (72) 95 08/13/19 00:00 98.6 60 18 118/70 (86) 94 08/12/19 20:50 Room Air 08/12/19 20:00 98.2 55 18 112/74 (87) 94 08/12/19 16:00 98.3 61 18 107/71 (83) 97 Intake and Output 08/12/19 08/13/19 19:00 07:00 Intake Total 870 ml Balance 870 ml Intake Oral 870 ml # Voids 4 1 Objective HEAD AND NECK: No JVD. LUNGS: Clear. CARDIOVASCULAR: Nl S1 and S2 with no gallop. ABDOMEN: Soft. EXTREMITIES: 1+ pitting edema. Ric Mckeon MD Aug 13, 2019 15:42
--- NOTE | 2019-08-13 15:58 | NUR ---
NURSE NOTES: administered tylenol per rectal for fever of 100.6. no coughing and sob noted. denies of pain/discomfort noted. able to verbalize needs in mongolian. will cont to monitor.
--- NOTE | 2019-08-13 19:00 | General Progress Note ---
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 - pancytopenia - improving - elevated LFT - improving - h/o EtOH use x years, although stated he has not consumed for 1 mo - seizure - fever - Elevated creatinine - poor prognosis Recommendations - Antibiotics per ID - po as tolerated - thiamine - watch Cr and LFT - Renal and ID f/u Subjective Allergies: Coded Allergies: No Known Allergies (Unverified , 07/25/19) Subjective Seen this am awake d/w RN Objective Last 24 Hour Vital Signs Date Time Temp Pulse Resp B/P (MAP) Pulse Ox O2 Delivery O2 Flow Rate FiO2 08/13/19 16:01 98.9 08/13/19 16:00 100.6 88 20 109/70 (83) 98 08/13/19 12:00 98.5 92 21 129/61 (83) 96 08/13/19 09:00 Room Air 08/13/19 08:00 97.1 102 18 102/67 (79) 98 08/13/19 04:00 98.5 71 18 99/58 (72) 95 08/13/19 00:00 98.6 60 18 118/70 (86) 94 08/12/19 20:50 Room Air 08/12/19 20:00 98.2 55 18 112/74 (87) 94 Intake and Output 08/12/19 08/13/19 19:00 07:00 Intake Total 870 ml Balance 870 ml Intake Oral 870 ml # Voids 4 1 Height (Feet): 5 Height (Inches): 10.00 Weight (Pounds): 172 Objective WDWN NCAT supple CTA RR abd soft ND no edema Jai Ness MD Aug 13, 2019 19:00
--- NOTE | 2019-08-13 19:08 | NUR ---
HAND-OFF: Report given to Estefania.
--- NOTE | 2019-08-13 20:00 | NUR ---
NURSE NOTES: RECEIVED PATIENT LYING IN BED, AWAKE, ALERT/ORIENTED X3, CONFUSED AT TIMES, DENIES PAIN. NO SIGNS AND SYMPTOMS OF ACUTE CARDIO RESPIRATORY DISTRESS/SHORTNESS OF BREATH, DENIES CHEST PAIN, NO EDEMA NOTED. IV INTACT TO RIGHT FOREARM/GAUGE 22, NO REDNESS/SWELLING NOTED. NO COMPLAINTS OF GI DISCOMFORT, NO N/V/D. SIDE RAILS UP X2 FOR MOBILITY, BED IN LOWEST POSITION FOR SAFETY, ENCOURAGED PATIENT TO UTILIZE CALL LIGHT FOR ASSISTANCE, VERBALIZED UNDERSTANDING. DCP HOME. CONTINUE WITH CURRENT PLAN OF CARE. NAD.
--- NOTE | 2019-08-13 21:00 | NUR ---
NURSE NOTES: ASSISTED PATIENT WITH SHOWER, TOLERATED WELL, NO SEIZURE ACTIVITY NOTED. WILL CONTINUE TO MONITOR.
--- NOTE | 2019-08-13 21:51 | General Progress Note ---
Assessment/Plan Problem List: (1) Seizure disorder ICD Codes: G40.909 - Epilepsy, unspecified, not intractable, without status epilepticus SNOMED: 976981064 (2) Hypokalemia ICD Codes: E87.6 - Hypokalemia SNOMED: 14493866 (3) Seizure ICD Codes: R56.9 - Unspecified convulsions SNOMED: 20008667 (4) Tachycardia ICD Codes: R00.0 - Tachycardia, unspecified SNOMED: 2538491 (5) ALCOHOL DEPENDENCE WITH WITHDRAWAL, UNSPECIFIED ICD Codes: F10.239 - ALCOHOL DEPENDENCE WITH WITHDRAWAL, UNSPECIFIED Status: progressing Assessment/Plan: lyte abnormality reviewed chart and labs hiv immune compromised still confused encephalopathy seizure cryptococcal menigitis unsafe dc Subjective ROS Limited/Unobtainable: Yes Allergies: Coded Allergies: No Known Allergies (Unverified , 07/25/19) Objective Last 24 Hour Vital Signs Date Time Temp Pulse Resp B/P (MAP) Pulse Ox O2 Delivery O2 Flow Rate FiO2 08/13/19 16:01 98.9 08/13/19 16:00 100.6 88 20 109/70 (83) 98 08/13/19 12:00 98.5 92 21 129/61 (83) 96 08/13/19 09:00 Room Air 08/13/19 08:00 97.1 102 18 102/67 (79) 98 08/13/19 04:00 98.5 71 18 99/58 (72) 95 08/13/19 00:00 98.6 60 18 118/70 (86) 94 Intake and Output 08/12/19 08/13/19 19:00 07:00 Intake Total 870 ml Balance 870 ml Intake Oral 870 ml # Voids 4 1 Height (Feet): 5 Height (Inches): 10.00 Weight (Pounds): 172 Isa Blanchard MD Aug 13, 2019 21:51
[2019-08-14] VITALS: BP 142/78
[2019-08-14 04:00] VITALS: BP 140/74
--- NOTE | 2019-08-14 05:53 | NUR ---
NURSE NOTES: RESTED WELL, NO SIGNIFICANT CHANGE OF CONDITION NOTED THROUGHOUT THE NIGHT. SAFETY MAINTAINED. NAD.
--- NOTE | 2019-08-14 07:17 | NUR ---
HAND-OFF: Report given to BEN ARCOS.
[2019-08-14 08:00] VITALS: BP 91/50
[2019-08-14] MEDS: Docusate 100mg cap ORAL SCH ×3 (08:07→17:16)
[2019-08-14] MEDS: Fluconazole 100mg tab ORAL SCH (08:07)
[2019-08-14] MEDS: Thiamine 100mg tab ORAL SCH (08:07)
[2019-08-14] MEDS: Midodrine 10mg tab ORAL SCH ×3 (08:07→17:16)
[2019-08-14] MEDS: DESCOVY ORAL SCH (08:08)
[2019-08-14] MEDS: TIVICAY 50 MG ORAL SCH (08:08)
[2019-08-14 11:58] VITALS: BP 99/57
--- NOTE | 2019-08-14 12:26 | Nephrology Progress Note ---
Assessment/Plan Problem List: (1) JULIAN (acute kidney injury) Assessment: Serum creatinine rising (2) Seizure (3) ALCOHOL DEPENDENCE WITH WITHDRAWAL, UNSPECIFIED (4) Tachycardia (5) Hypokalemia (6) Low CD4 cell count determined by flow cytometry Assessment Electrolyte imbalance Hypokalemia and hypomagnesemia Elevated creatinine to 1.4 on admission now corrected Seizure disorder Plan No blood work for today, will check the renal parameters tomorrow Last serum creatinine is down to 2.2 as of August 11 Kidney ultrasound unremarkable Adjust midodrine dose for low blood pressure Intravenous magnesium sulfate as needed Avoid nephrotoxic's as possible discussed with FRANCY Kirkland at night Urine studies ordered Patient taking p.o. well Previously Following measures as needed IV magnesium IV potassium phosphate IV thiamine IV Protonix Continue management per other consultants Monitor electrolytes Per orders Subjective ROS Limited/Unobtainable: No Constitutional: Reports: malaise, weakness Objective Objective Last 24 Hour Vital Signs Date Time Temp Pulse Resp B/P (MAP) Pulse Ox O2 Delivery O2 Flow Rate FiO2 08/14/19 11:58 98.4 74 20 99/57 (71) 99 08/14/19 08:29 Room Air 08/14/19 08:00 98.7 78 20 91/50 (64) 99 08/14/19 04:00 98.0 84 18 140/74 (96) 98 08/14/19 00:00 98.0 100 20 142/78 (99) 99 08/13/19 21:00 Room Air 08/13/19 20:15 100/63 (75) 08/13/19 20:00 98.7 88 18 91/57 (68) 97 08/13/19 16:01 98.9 08/13/19 16:00 100.6 88 20 109/70 (83) 98 Intake and Output 08/13/19 08/14/19 19:00 07:00 Intake Total 600 ml 600 ml Balance 600 ml 600 ml Intake Oral 600 ml 600 ml # Voids 2 3 # Bowel Movements 1 No lab work today Height (Feet): 5 Height (Inches): 10.00 Weight (Pounds): 172 General Appearance: no apparent distress Objective No change Brian Alexandra MD Aug 14, 2019 12:26
--- NOTE | 2019-08-14 13:55 | Cardiac Electrophysiology PN ---
Assessment/Plan Assessment/Plan 1. Sinus tachycardia due to seizure, alcohol withdrawal and crypt meningitis. EF 60%. EKG no acute ST-T wave abnormality. 2. Hypotension, on Midodrine 10 tid. 3. 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 Heavy alcohol use. On Thiamine and Folate 5. AIDS 6. Thrombocytopenia , FU Dr. Nelson DW RN Subjective Subjective No events. On Abx for meningitis. On Midodrine 10 tid. Objective Last 24 Hour Vital Signs Date Time Temp Pulse Resp B/P (MAP) Pulse Ox O2 Delivery O2 Flow Rate FiO2 08/14/19 11:58 98.4 74 20 99/57 (71) 99 08/14/19 08:29 Room Air 08/14/19 08:00 98.7 78 20 91/50 (64) 99 08/14/19 04:00 98.0 84 18 140/74 (96) 98 08/14/19 00:00 98.0 100 20 142/78 (99) 99 08/13/19 21:00 Room Air 08/13/19 20:15 100/63 (75) 08/13/19 20:00 98.7 88 18 91/57 (68) 97 08/13/19 16:01 98.9 08/13/19 16:00 100.6 88 20 109/70 (83) 98 Intake and Output 08/13/19 08/14/19 19:00 07:00 Intake Total 600 ml 600 ml Balance 600 ml 600 ml Intake Oral 600 ml 600 ml # Voids 2 3 # Bowel Movements 1 Objective HEAD AND NECK: No JVD. LUNGS: Clear. CARDIOVASCULAR: Nl S1 and S2 with no gallop. ABDOMEN: Soft. EXTREMITIES: 1+ pitting edema. Ric Mckeon MD Aug 14, 2019 13:55
[2019-08-14 16:00] VITALS: BP 121/76
--- NOTE | 2019-08-14 18:32 | General Progress Note ---
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 - pancytopenia - improving - elevated LFT - improving - h/o EtOH use x years, although stated he has not consumed for 1 mo - seizure - fever - Elevated creatinine - poor prognosis Recommendations - Antibiotics per ID - po as tolerated - thiamine - watch Cr and LFT - Renal and ID f/u Subjective Allergies: Coded Allergies: No Known Allergies (Unverified , 07/25/19) Subjective Seen this am no events overnight Objective Last 24 Hour Vital Signs Date Time Temp Pulse Resp B/P (MAP) Pulse Ox O2 Delivery O2 Flow Rate FiO2 08/14/19 16:00 98.3 60 20 121/76 (91) 97 08/14/19 11:58 98.4 74 20 99/57 (71) 99 08/14/19 08:29 Room Air 08/14/19 08:00 98.7 78 20 91/50 (64) 99 08/14/19 04:00 98.0 84 18 140/74 (96) 98 08/14/19 00:00 98.0 100 20 142/78 (99) 99 08/13/19 21:00 Room Air 08/13/19 20:15 100/63 (75) 08/13/19 20:00 98.7 88 18 91/57 (68) 97 Intake and Output 08/13/19 08/14/19 19:00 07:00 Intake Total 600 ml 600 ml Balance 600 ml 600 ml Intake Oral 600 ml 600 ml # Voids 2 3 # Bowel Movements 1 Height (Feet): 5 Height (Inches): 10.00 Weight (Pounds): 172 Objective WDWN NCAT supple CTA RR abd soft ND no edema Jai Ness MD Aug 14, 2019 18:32
--- NOTE | 2019-08-14 19:13 | NUR ---
NURSE NOTES: Pt. received from BEN Puente. Pt. AAOx3, breathing is even and unlabored, no complaints of pain at this time; pt. in bed with side rails padded. IV site R forearm 22 g asymptomatic, intact, and patent; saline locked at this time. Bed is low and locked, side rails x2 up, and call light is in reach. Will continue plan of care.
--- NOTE | 2019-08-14 19:26 | NUR ---
HAND-OFF: Report given to Esther. Addendum: 08/14/19 at 1928 by SAGE MCCOLLUM LVN error
--- NOTE | 2019-08-14 19:28 | NUR ---
HAND-OFF: Report given to Obinna.
[2019-08-14 20:00] VITALS: BP 125/76
--- NOTE | 2019-08-14 22:30 | Progress Note ---
DATE: 08/14/2019 SUBJECTIVE: The patient is still confused. Status post cryptococcal meningitis. Hemodynamically stable. ASSESSMENT AND PLAN: 1. Cryptococcal meningitis. The patient has encephalopathy. 2. Past history of alcohol abuse. No seizures today and afebrile. I have reviewed the medications in the chart. Antibiotics per Dr. Po Bryant. The patient is not safe to be discharged at this point. Monitor the patient closely. Isa Blanchard M.D. DR: CELE JOB#: [id number] CC:
[2019-08-15] VITALS: BP 103/62
--- NOTE | 2019-08-15 01:35 | NUR ---
NURSE NOTES: Pt. complaint of stomach pain, BM x2 pt. claims liquid but unable to visually confirm. Pt. requested crackers and jello, tolerating PO well, now asleep. Will continue to monitor.
--- NOTE | 2019-08-15 02:50 | NUR ---
NURSE NOTES: Pt. x1 episode of moderate, loose stool, greenish-brown in color, with complaints of stomach pain. Pt. presenting with anxiety, offered medication to manage and pt. agreed to take. Will continue to monitor.
--- NOTE | 2019-08-15 03:47 | NUR ---
NURSE NOTES: Pt. sleeping, appears calm and comfortable, no apparent signs of pain or discomfort at this time. Will continue to monitor.
[2019-08-15 04:00] VITALS: BP 97/48
--- NOTE | 2019-08-15 05:33 | NUR ---
NURSE NOTES: Pt was attempting to ambulate to the bathroom, described feeling dizzy and was observed to sit down. Staff assisted the pt. back to bed, pt. assessed, did not complain of any pain, VS stable. Charge nurse aware, will continue to monitor. Addendum: 08/15/19 at 0543 by Obinna Belcher RN Nursing watch supervisor notified and aware.
[2019-08-15 07:23] LABS: ALANINE AMINOTRANSFERASE 34 U/L (12-78); ALBUMIN 2.9 G/DL (3.4-5.0); ALBUMIN/GLOBULIN RATIO 0.5 (1.0-2.7); ALKALINE PHOSPHATASE 116 U/L (46-116); ANION GAP 9 mmol/L (5-15); ASPARTATE AMINO TRANSFERASE 31 U/L (15-37); BILIRUBIN,TOTAL 0.6 MG/DL (0.2-1.0); BLOOD UREA NITROGEN 32 mg/dL (7-18); CALCIUM 8.7 MG/DL (8.5-10.1); CARBON DIOXIDE 23 MMOL/L (21-32); CHLORIDE 96 MMOL/L (98-107); CREATINE KINASE 27 U/L (26-308); CREATININE 1.9 MG/DL (0.55-1.30); PHOSPHORUS 4.3 MG/DL (2.5-4.9); POTASSIUM 4.1 MMOL/L (3.5-5.1); SODIUM 128 MMOL/L (136-145)
[2019-08-15 07:29] LABS: EOSINOPHILS % (AUTO) 1.6 % (0.0-3.0); HEMOGLOBIN 11.4 G/DL (14.2-18.0); LYMPHOCYTES % (AUTO) 13.4 % (20.0-45.0); MEAN CORPUSCULAR VOLUME 92 FL (80-99); MONOCYTES % (AUTO) 12.9 % (1.0-10.0); NEUTROPHILS % (AUTO) 71.1 % (45.0-75.0); PLATELET COUNT 117 K/UL (150-450); RED BLOOD COUNT 3.47 M/UL (4.70-6.10); RED CELL DISTRIBUTION WIDTH 10.9 % (11.6-14.8); WHITE BLOOD COUNT 8.3 K/UL (4.8-10.8)
--- NOTE | 2019-08-15 07:30 | NUR ---
HAND-OFF: Report given to NIDHI Puente.
--- NOTE | 2019-08-15 07:30 | NUR ---
NURSE NOTES: Patient is awake and alert and orientedx4, armenian speaking. able to follow simple commands. siderails are padded for seizures precautions. breathing even and unlabored. denies of pain/discomfort noted. siderails are upx3, bed is in the lowest position. call light is within reach. will cont to monitor.
[2019-08-15 08:00] VITALS: BP 102/63
[2019-08-15] MEDS: Fluconazole 100mg tab ORAL SCH (08:06)
[2019-08-15] MEDS: Docusate 100mg cap ORAL SCH ×3 (08:06→17:08)
[2019-08-15] MEDS: Thiamine 100mg tab ORAL SCH (08:06)
[2019-08-15] MEDS: Midodrine 10mg tab ORAL SCH ×3 (08:06→17:08)
[2019-08-15] MEDS: DESCOVY ORAL SCH (08:40)
[2019-08-15] MEDS: TIVICAY 50 MG ORAL SCH (08:40)
--- NOTE | 2019-08-15 09:02 | NUR ---
NURSE NOTES: Dr Alexandra made aware of the Mg 1.2 and order entered and carried out. will cont to monitor.
[2019-08-15] MEDS ORDERED: NaCl 3% 500ml 500 ML IV ONE (10:00)
--- NOTE | 2019-08-15 10:09 | Nephrology Progress Note ---
Assessment/Plan Problem List: (1) JULIAN (acute kidney injury) Assessment: Serum creatinine rising (2) Seizure (3) ALCOHOL DEPENDENCE WITH WITHDRAWAL, UNSPECIFIED (4) Tachycardia (5) Hypokalemia (6) Low CD4 cell count determined by flow cytometry Assessment Electrolyte imbalance Hypokalemia and hypomagnesemia Elevated creatinine to 1.4 on admission now corrected Seizure disorder Plan 3% saline 250 cc once Magnesium sulfate 4 g IV once serum creatinine is down to 1.9 Kidney ultrasound unremarkable Adjust midodrine dose for low blood pressure Intravenous magnesium sulfate as needed Avoid nephrotoxic's as possible discussed with FRANCY Kirkland at night Urine studies ordered Patient taking p.o. well Previously Following measures as needed IV magnesium IV potassium phosphate IV thiamine IV Protonix Continue management per other consultants Monitor electrolytes Per orders Subjective ROS Limited/Unobtainable: No Constitutional: Reports: malaise, weakness Objective Objective Last 24 Hour Vital Signs Date Time Temp Pulse Resp B/P (MAP) Pulse Ox O2 Delivery O2 Flow Rate FiO2 08/15/19 08:00 98.8 80 17 102/63 (76) 97 08/15/19 04:00 98.4 94 16 97/48 (64) 96 08/15/19 00:00 99.0 77 18 103/62 (76) 98 08/14/19 21:00 Room Air 08/14/19 20:00 98.2 62 19 125/76 (92) 95 08/14/19 16:00 98.3 60 20 121/76 (91) 97 08/14/19 11:58 98.4 74 20 99/57 (71) 99 Intake and Output 08/14/19 08/15/19 19:00 07:00 Intake Total 1500 ml 1240 ml Balance 1500 ml 1240 ml Intake Oral 1500 ml 1240 ml # Voids 3 3 # Bowel Movements 3 Laboratory Tests 08/15/19 06:35: White Blood Count 8.3, Red Blood Count 3.47L, Hemoglobin 11.4L, Hematocrit 32.0L , Mean Corpuscular Volume 92, Mean Corpuscular Hemoglobin 32.9H, Mean Corpuscular Hemoglobin Concent 35.7, Red Cell Distribution Width 10.9L, Platelet Count 117L, Mean Platelet Volume 6.2L, Neutrophils (%) (Auto) 71.1, Lymphocytes (%) (Auto) 13.4L, Monocytes (%) (Auto) 12.9H, Eosinophils (%) (Auto ) 1.6, Basophils (%) (Auto) 1.0, Sodium Level 128L, Potassium Level 4.1, Chloride Level 96L, Carbon Dioxide Level 23, Anion Gap 9, Blood Urea Nitrogen 32H, Creatinine 1.9H, Estimat Glomerular Filtration Rate 39.5, Glucose Level 87 , Uric Acid 6.9, Calcium Level 8.7, Phosphorus Level 4.3, Magnesium Level 1.2L, Total Bilirubin 0.6, Aspartate Amino Transf (AST/SGOT) 31, Alanine Aminotransferase (ALT/SGPT) 34, Alkaline Phosphatase 116, Total Creatine Kinase 27, C-Reactive Protein, Quantitative 3.4H, Pro-B-Type Natriuretic Peptide 459H, Total Protein 8.3H, Albumin 2.9L, Globulin 5.4, Albumin/Globulin Ratio 0.5L Height (Feet): 5 Height (Inches): 10.00 Weight (Pounds): 172 General Appearance: no apparent distress Objective No change Brian Alexandra MD Aug 15, 2019 10:09
--- NOTE | 2019-08-15 10:17 | Hematology/Onc Progress Note ---
Assessment/Plan Assessment/Plan Assessment and Recs: # Pancytopenia - potential causes multifactorial, evaluate liver and viral etiologies to begin, in this case due to ETOH ABUSE/WITHDRAWAL, bone marrow myelosuppression, also may be due to meds, ampho --> Hep panel negative, HIV +++ --> US abd to evaluate for cirrhosis and hsm ordered --> SHOWS spenomegaly, enlarged spleen --> Peripheral smear ordered to evaluate for blasts /schistocytes --> none noted --> abx and other meds have been reviewed --> ok for ppx if plt >50k w/ either heparin or lovenox --> Transfuse if Plt < 20k and fever, or if Plt < 10k without fever --> plt trend 164-->122k-->86k-->52k-->69-->89-->119-->117 --> wbc trend 5-->3-->2->2.2-->3-->3.7-->8.3 --> abx: vanc/zosyn --> ampho/azithro--> ampho/flucty-->azithro/fluc # ETOH withdrawal, now improved --> r/o seizure --> ativan, librium, folate --> imaging reviewed --> smear noted --> rec cessation # Leukocytosis likely reactive --> currently in leukopenia, is likely due to hiv+ --> abx: azithro --> wbc 11-->3.2-->3.7-->4-->8.3 # Seizure --> R/o seizure d/o onset -> meds reviewed --> as per neuro # JULIAN (acute kidney injury) --> per renal recs --> on ivfs # HIV --> as per id, consider eval --> viral load is elevated # Tachycardia --> per Dr. Mckeon # AMS --> per psych The timing of this note does not necessarily reflect the time of the patient was seen. Greatly appreciate consultation. Subjective Allergies: Coded Allergies: No Known Allergies (Unverified , 07/25/19) Subjective 07/27: no events, no bleeding, cbc pending, remains altered 07/28: no events, labs reviewed, viral studies noted, no bleeding 07/29: asleep, cbc pending, on vanc/zosym, room air 07/30 no major events noted, no bleeding, labs reviewed 07/31 no events, tolerating po, labs pending 08/02 no events, no bleeding, labs lower yesterday, no night sweats 08/03 no bleeding, labs noted, cbc to be reviewed, no major events 08/04 no events, pending labs, specifically bmp, labs noted 08/05 no bleeding episodes, no night sweats, meds have been reviewed 08/07 no acute events, labs reviewed, on room air, no bleeding 08/09 in bed, no events, labs reviewed, no new orders 08/10 no major changes, labs noted, no f/c, cbc reviewed 08/11 no events, no bleeding, cbc has been reviewed, hgb 11, wbc 3.7 08/12 labs are pending from the am, cbc is ordered, no night sweats 08/14 awake and alert, no acute events, labs reviewed, on normal saline Objective Objective Current Medications Medications (Trade) Dose Ordered Sig/Gabrielle Route PRN Reason Start Time Stop Time Status Last Admin Dose Admin Acetaminophen (Tylenol) 650 mg Q6H PRN RECTAL fever 08/11/19 19:00 08/30/19 18:59 08/13/19 15:31 Azithromycin (Zithromax) 1,200 mg ONCE A WEEK ORAL 08/16/19 14:00 08/19/19 13:59 Docusate Sodium (Colace) 100 mg THREE TIMES A DAY ORAL 08/12/19 09:00 09/03/19 17:59 08/15/19 08:06 Fluconazole (Diflucan) 400 mg DAILY ORAL 08/12/19 09:00 08/17/19 11:59 08/15/19 08:06 Folic Acid (Folate) 1 mg DAILY ORAL 08/12/19 09:00 08/27/19 08:59 08/15/19 08:06 Lorazepam (Ativan) 2 mg Q6H PRN ORAL For Anxiety 08/11/19 19:00 08/15/19 18:59 08/15/19 02:56 Magnesium Sulfate 100 ml @ 100 mls/hr Q1H IVPB 08/15/19 09:00 08/15/19 12:59 08/15/19 10:01 Midodrine (Pro-Amatine) 10 mg TID ORAL 08/12/19 09:00 11/01/19 17:59 08/15/19 08:06 Pantoprazole (Protonix) 40 mg EVERY 12 HOURS ORAL 08/11/19 21:00 08/29/19 20:59 08/15/19 08:06 Patient Own Medication (Patient's Own Med) 1 ea DAILY ORAL 08/12/19 09:00 09/03/19 20:59 08/15/19 08:40 Patient Own Medication (Patient's Own Med) 1 ea DAILY ORAL 08/12/19 09:00 09/03/19 21:59 08/15/19 08:40 Sodium Chloride 500 ml @ 30 mls/hr ONCE ONCE IV 08/15/19 10:00 08/16/19 02:39 Thiamine HCl (Vitamin B1) 100 mg DAILY ORAL 08/12/19 09:00 08/27/19 19:59 08/15/19 08:06 Last 24 Hour Vital Signs Date Time Temp Pulse Resp B/P (MAP) Pulse Ox O2 Delivery O2 Flow Rate FiO2 08/15/19 08:00 98.8 80 17 102/63 (76) 97 08/15/19 04:00 98.4 94 16 97/48 (64) 96 08/15/19 00:00 99.0 77 18 103/62 (76) 98 08/14/19 21:00 Room Air 08/14/19 20:00 98.2 62 19 125/76 (92) 95 08/14/19 16:00 98.3 60 20 121/76 (91) 97 08/14/19 11:58 98.4 74 20 99/57 (71) 99 08/14/19 08:29 Room Air 08/14/19 08:00 98.7 78 20 91/50 (64) 99 08/14/19 04:00 98.0 84 18 140/74 (96) 98 08/14/19 00:00 98.0 100 20 142/78 (99) 99 08/13/19 21:00 Room Air 08/13/19 20:15 100/63 (75) 08/13/19 20:00 98.7 88 18 91/57 (68) 97 08/13/19 16:01 98.9 08/13/19 16:00 100.6 88 20 109/70 (83) 98 08/13/19 12:00 98.5 92 21 129/61 (83) 96 Intake and Output 08/14/19 08/15/19 19:00 07:00 Intake Total 1500 ml 1240 ml Balance 1500 ml 1240 ml Intake Oral 1500 ml 1240 ml # Voids 3 3 # Bowel Movements 3 Labs Test 08/15/19 06:35 White Blood Count 8.3 K/UL (4.8-10.8) Red Blood Count 3.47 M/UL (4.70-6.10) Hemoglobin 11.4 G/DL (14.2-18.0) Hematocrit 32.0 % (42.0-52.0) Mean Corpuscular Volume 92 FL (80-99) Mean Corpuscular Hemoglobin 32.9 PG (27.0-31.0) Mean Corpuscular Hemoglobin Concent 35.7 G/DL (32.0-36.0) Red Cell Distribution Width 10.9 % (11.6-14.8) Platelet Count 117 K/UL (150-450) Mean Platelet Volume 6.2 FL (6.5-10.1) Neutrophils (%) (Auto) 71.1 % (45.0-75.0) Lymphocytes (%) (Auto) 13.4 % (20.0-45.0) Monocytes (%) (Auto) 12.9 % (1.0-10.0) Eosinophils (%) (Auto) 1.6 % (0.0-3.0) Basophils (%) (Auto) 1.0 % (0.0-2.0) Sodium Level 128 MMOL/L (136-145) Potassium Level 4.1 MMOL/L (3.5-5.1) Chloride Level 96 MMOL/L (98-107) Carbon Dioxide Level 23 MMOL/L (21-32) Anion Gap 9 mmol/L (5-15) Blood Urea Nitrogen 32 mg/dL (7-18) Creatinine 1.9 MG/DL (0.55-1.30) Estimat Glomerular Filtration Rate 39.5 mL/min (>60) Glucose Level 87 MG/DL (74-106) Uric Acid 6.9 MG/DL (2.6-7.2) Calcium Level 8.7 MG/DL (8.5-10.1) Phosphorus Level 4.3 MG/DL (2.5-4.9) Magnesium Level 1.2 MG/DL (1.8-2.4) Total Bilirubin 0.6 MG/DL (0.2-1.0) Aspartate Amino Transf (AST/SGOT) 31 U/L (15-37) Alanine Aminotransferase (ALT/SGPT) 34 U/L (12-78) Alkaline Phosphatase 116 U/L (46-116) Total Creatine Kinase 27 U/L (26-308) C-Reactive Protein, Quantitative 3.4 mg/dL (0.00-0.90) Pro-B-Type Natriuretic Peptide 459 pg/mL (0-125) Total Protein 8.3 G/DL (6.4-8.2) Albumin 2.9 G/DL (3.4-5.0) Globulin 5.4 g/dL Albumin/Globulin Ratio 0.5 (1.0-2.7) Height (Feet): 5 Height (Inches): 10.00 Weight (Pounds): 172 Objective Physical Exam: Vitals: reviewed General: Nad, altered mental status HEENT: nc, at Neck: supple Chest: clear breath sounds bilaterally Cardiovascular: RRR, no s3, s4 Abdomen: soft, nontender, nd Extremities: no cce, normal range of motion Neuro: alert and oriented Arya Nelson MD Aug 15, 2019 10:17
[2019-08-15 12:00] VITALS: BP 107/61
--- NOTE | 2019-08-15 15:11 | General Progress Note ---
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 - pancytopenia - improving - elevated LFT - resolved - h/o EtOH use x years, although stated he has not consumed for 1 mo - seizure - fever - Elevated creatinine - poor prognosis Recommendations - Antibiotics per ID - po as tolerated - thiamine - watch Cr and LFT - Renal and ID f/u Subjective Allergies: Coded Allergies: No Known Allergies (Unverified , 07/25/19) Subjective Seen this am no events overnight Cr improving LFT now normal Objective Last 24 Hour Vital Signs Date Time Temp Pulse Resp B/P (MAP) Pulse Ox O2 Delivery O2 Flow Rate FiO2 08/15/19 12:00 99.0 68 18 107/61 (76) 96 08/15/19 09:00 Room Air 08/15/19 08:00 98.8 80 17 102/63 (76) 97 08/15/19 04:00 98.4 94 16 97/48 (64) 96 08/15/19 00:00 99.0 77 18 103/62 (76) 98 08/14/19 21:00 Room Air 08/14/19 20:00 98.2 62 19 125/76 (92) 95 08/14/19 16:00 98.3 60 20 121/76 (91) 97 Intake and Output 08/14/19 08/15/19 19:00 07:00 Intake Total 1500 ml 1240 ml Balance 1500 ml 1240 ml Intake Oral 1500 ml 1240 ml # Voids 3 3 # Bowel Movements 3 Laboratory Tests 08/15/19 06:35: White Blood Count 8.3, Red Blood Count 3.47L, Hemoglobin 11.4L, Hematocrit 32.0L , Mean Corpuscular Volume 92, Mean Corpuscular Hemoglobin 32.9H, Mean Corpuscular Hemoglobin Concent 35.7, Red Cell Distribution Width 10.9L, Platelet Count 117L, Mean Platelet Volume 6.2L, Neutrophils (%) (Auto) 71.1, Lymphocytes (%) (Auto) 13.4L, Monocytes (%) (Auto) 12.9H, Eosinophils (%) (Auto ) 1.6, Basophils (%) (Auto) 1.0, Sodium Level 128L, Potassium Level 4.1, Chloride Level 96L, Carbon Dioxide Level 23, Anion Gap 9, Blood Urea Nitrogen 32H, Creatinine 1.9H, Estimat Glomerular Filtration Rate 39.5, Glucose Level 87 , Uric Acid 6.9, Calcium Level 8.7, Phosphorus Level 4.3, Magnesium Level 1.2L, Total Bilirubin 0.6, Aspartate Amino Transf (AST/SGOT) 31, Alanine Aminotransferase (ALT/SGPT) 34, Alkaline Phosphatase 116, Total Creatine Kinase 27, C-Reactive Protein, Quantitative 3.4H, Pro-B-Type Natriuretic Peptide 459H, Total Protein 8.3H, Albumin 2.9L, Globulin 5.4, Albumin/Globulin Ratio 0.5L Height (Feet): 5 Height (Inches): 10.00 Weight (Pounds): 172 Objective WDWN NCAT supple CTA RR abd soft ND no edema Jai Ness MD Aug 15, 2019 15:11
--- NOTE | 2019-08-15 15:31 | Cardiac Electrophysiology PN ---
Assessment/Plan Assessment/Plan 1. Sinus tachycardia due to seizure, alcohol withdrawal and crypt meningitis. EF 60%. EKG no acute ST-T wave abnormality. HR better. Now off tele 2. Hypotension, on Midodrine 10 tid. 3. 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 Heavy alcohol use. On Thiamine and Folate 5. AIDS 6. Thrombocytopenia , FU Dr. Omar GASCA RN Subjective Subjective No events. On Abx and Midodrine 10 tid. Objective Last 24 Hour Vital Signs Date Time Temp Pulse Resp B/P (MAP) Pulse Ox O2 Delivery O2 Flow Rate FiO2 08/15/19 12:00 99.0 68 18 107/61 (76) 96 08/15/19 09:00 Room Air 08/15/19 08:00 98.8 80 17 102/63 (76) 97 08/15/19 04:00 98.4 94 16 97/48 (64) 96 08/15/19 00:00 99.0 77 18 103/62 (76) 98 08/14/19 21:00 Room Air 08/14/19 20:00 98.2 62 19 125/76 (92) 95 08/14/19 16:00 98.3 60 20 121/76 (91) 97 Intake and Output 08/14/19 08/15/19 19:00 07:00 Intake Total 1500 ml 1240 ml Balance 1500 ml 1240 ml Intake Oral 1500 ml 1240 ml # Voids 3 3 # Bowel Movements 3 Laboratory Tests Test 08/15/19 06:35 White Blood Count 8.3 K/UL (4.8-10.8) Red Blood Count 3.47 M/UL (4.70-6.10) L Hemoglobin 11.4 G/DL (14.2-18.0) L Hematocrit 32.0 % (42.0-52.0) L Mean Corpuscular Volume 92 FL (80-99) Mean Corpuscular Hemoglobin 32.9 PG (27.0-31.0) H Mean Corpuscular Hemoglobin Concent 35.7 G/DL (32.0-36.0) Red Cell Distribution Width 10.9 % (11.6-14.8) L Platelet Count 117 K/UL (150-450) L Mean Platelet Volume 6.2 FL (6.5-10.1) L Neutrophils (%) (Auto) 71.1 % (45.0-75.0) Lymphocytes (%) (Auto) 13.4 % (20.0-45.0) L Monocytes (%) (Auto) 12.9 % (1.0-10.0) H Eosinophils (%) (Auto) 1.6 % (0.0-3.0) Basophils (%) (Auto) 1.0 % (0.0-2.0) Sodium Level 128 MMOL/L (136-145) L Potassium Level 4.1 MMOL/L (3.5-5.1) Chloride Level 96 MMOL/L (98-107) L Carbon Dioxide Level 23 MMOL/L (21-32) Anion Gap 9 mmol/L (5-15) Blood Urea Nitrogen 32 mg/dL (7-18) H Creatinine 1.9 MG/DL (0.55-1.30) H Estimat Glomerular Filtration Rate 39.5 mL/min (>60) Glucose Level 87 MG/DL (74-106) Uric Acid 6.9 MG/DL (2.6-7.2) Calcium Level 8.7 MG/DL (8.5-10.1) Phosphorus Level 4.3 MG/DL (2.5-4.9) Magnesium Level 1.2 MG/DL (1.8-2.4) L Total Bilirubin 0.6 MG/DL (0.2-1.0) Aspartate Amino Transf (AST/SGOT) 31 U/L (15-37) Alanine Aminotransferase (ALT/SGPT) 34 U/L (12-78) Alkaline Phosphatase 116 U/L (46-116) Total Creatine Kinase 27 U/L (26-308) C-Reactive Protein, Quantitative 3.4 mg/dL (0.00-0.90) H Pro-B-Type Natriuretic Peptide 459 pg/mL (0-125) H Total Protein 8.3 G/DL (6.4-8.2) H Albumin 2.9 G/DL (3.4-5.0) L Globulin 5.4 g/dL Albumin/Globulin Ratio 0.5 (1.0-2.7) L Objective HEAD AND NECK: No JVD. LUNGS: Clear. CARDIOVASCULAR: Nl S1 and S2 with no gallop. ABDOMEN: Soft. EXTREMITIES: 1+ pitting edema. Toluie,Ric MD Aug 15, 2019 15:31
--- NOTE | 2019-08-15 15:35 | Infectious Diseases Prog Note ---
Assessment/Plan Assessment/Plan IMPRESSION: Cryptococcal sepsis HIV ,AIDS CD4=46,Viral ooei=[id number] Cryptococcal meningitis New-onset seizure Alcohol withdrawal Acute renal failure,improving Encephalopathy. Elevated transaminase & ammonia improving RECOMMENDATION: Patient has HIV since [address] [facility], noncompliant with medication on Dapsone, Zithromax, continue Fluconazole He doesn't understand the severity of his medical condition Continue HIV treatment with Tivicay & Descovy Subjective ROS Limited/Unobtainable: Yes Allergies: Coded Allergies: No Known Allergies (Unverified , 07/25/19) Objective Vital Signs Last 24 Hour Vital Signs Date Time Temp Pulse Resp B/P (MAP) Pulse Ox O2 Delivery O2 Flow Rate FiO2 08/15/19 12:00 99.0 68 18 107/61 (76) 96 08/15/19 09:00 Room Air 08/15/19 08:00 98.8 80 17 102/63 (76) 97 08/15/19 04:00 98.4 94 16 97/48 (64) 96 08/15/19 00:00 99.0 77 18 103/62 (76) 98 08/14/19 21:00 Room Air 08/14/19 20:00 98.2 62 19 125/76 (92) 95 08/14/19 16:00 98.3 60 20 121/76 (91) 97 Height (Feet): 5 Height (Inches): 10.00 Weight (Pounds): 172 General Appearance: no acute distress HEENT: mucous membranes moist Respiratory/Chest: lungs clear Cardiovascular: normal rate Abdomen: soft, non tender Extremities: no edema Neurologic/Psychiatric: other - sleeping Laboratory Tests Test 08/15/19 06:35 White Blood Count 8.3 K/UL (4.8-10.8) Red Blood Count 3.47 M/UL (4.70-6.10) L Hemoglobin 11.4 G/DL (14.2-18.0) L Hematocrit 32.0 % (42.0-52.0) L Mean Corpuscular Volume 92 FL (80-99) Mean Corpuscular Hemoglobin 32.9 PG (27.0-31.0) H Mean Corpuscular Hemoglobin Concent 35.7 G/DL (32.0-36.0) Red Cell Distribution Width 10.9 % (11.6-14.8) L Platelet Count 117 K/UL (150-450) L Mean Platelet Volume 6.2 FL (6.5-10.1) L Neutrophils (%) (Auto) 71.1 % (45.0-75.0) Lymphocytes (%) (Auto) 13.4 % (20.0-45.0) L Monocytes (%) (Auto) 12.9 % (1.0-10.0) H Eosinophils (%) (Auto) 1.6 % (0.0-3.0) Basophils (%) (Auto) 1.0 % (0.0-2.0) Sodium Level 128 MMOL/L (136-145) L Potassium Level 4.1 MMOL/L (3.5-5.1) Chloride Level 96 MMOL/L (98-107) L Carbon Dioxide Level 23 MMOL/L (21-32) Anion Gap 9 mmol/L (5-15) Blood Urea Nitrogen 32 mg/dL (7-18) H Creatinine 1.9 MG/DL (0.55-1.30) H Estimat Glomerular Filtration Rate 39.5 mL/min (>60) Glucose Level 87 MG/DL (74-106) Uric Acid 6.9 MG/DL (2.6-7.2) Calcium Level 8.7 MG/DL (8.5-10.1) Phosphorus Level 4.3 MG/DL (2.5-4.9) Magnesium Level 1.2 MG/DL (1.8-2.4) L Total Bilirubin 0.6 MG/DL (0.2-1.0) Aspartate Amino Transf (AST/SGOT) 31 U/L (15-37) Alanine Aminotransferase (ALT/SGPT) 34 U/L (12-78) Alkaline Phosphatase 116 U/L (46-116) Total Creatine Kinase 27 U/L (26-308) C-Reactive Protein, Quantitative 3.4 mg/dL (0.00-0.90) H Pro-B-Type Natriuretic Peptide 459 pg/mL (0-125) H Total Protein 8.3 G/DL (6.4-8.2) H Albumin 2.9 G/DL (3.4-5.0) L Globulin 5.4 g/dL Albumin/Globulin Ratio 0.5 (1.0-2.7) L Current Medications Medications (Trade) Dose Ordered Sig/Gabrielle Route PRN Reason Start Time Stop Time Status Last Admin Dose Admin Acetaminophen (Tylenol) 650 mg Q6H PRN RECTAL fever 08/11/19 19:00 08/30/19 18:59 08/13/19 15:31 Azithromycin (Zithromax) 1,200 mg ONCE A WEEK ORAL 08/16/19 14:00 08/19/19 13:59 Docusate Sodium (Colace) 100 mg THREE TIMES A DAY ORAL 08/12/19 09:00 09/03/19 17:59 08/15/19 13:29 Fluconazole (Diflucan) 400 mg DAILY ORAL 08/12/19 09:00 08/17/19 11:59 08/15/19 08:06 Folic Acid (Folate) 1 mg DAILY ORAL 08/12/19 09:00 08/27/19 08:59 08/15/19 08:06 Lorazepam (Ativan) 2 mg Q6H PRN ORAL For Anxiety 08/11/19 19:00 08/15/19 18:59 08/15/19 02:56 Midodrine (Pro-Amatine) 10 mg TID ORAL 08/12/19 09:00 11/01/19 17:59 08/15/19 13:29 Pantoprazole (Protonix) 40 mg EVERY 12 HOURS ORAL 08/11/19 21:00 08/29/19 20:59 08/15/19 08:06 Patient Own Medication (Patient's Own Med) 1 ea DAILY ORAL 08/12/19 09:00 09/03/19 20:59 08/15/19 08:40 Patient Own Medication (Patient's Own Med) 1 ea DAILY ORAL 08/12/19 09:00 09/03/19 21:59 08/15/19 08:40 Sodium Chloride 500 ml @ 30 mls/hr ONCE ONCE IV 08/15/19 10:00 08/16/19 02:39 08/15/19 10:51 Thiamine HCl (Vitamin B1) 100 mg DAILY ORAL 08/12/19 09:00 08/27/19 19:59 08/15/19 08:06 Po Bryant MD Aug 15, 2019 15:35
[2019-08-15 16:00] VITALS: BP 112/70
--- NOTE | 2019-08-15 18:59 | NUR ---
HAND-OFF: Report given to Leilani.
--- NOTE | 2019-08-15 19:51 | NUR ---
NURSE NOTES: Received report from Cindi. ISAAC x 3, korean speaking. On room air. Side rails padded for SZ. IV site intact. Fall precaution maintained. No labored breathing. No acute distress noted. Bed locked, lowest position, call light within reach. Will continue to monitor.
[2019-08-15 20:00] VITALS: BP 110/69
--- NOTE | 2019-08-15 22:16 | General Progress Note ---
Assessment/Plan Problem List: (1) Seizure disorder ICD Codes: G40.909 - Epilepsy, unspecified, not intractable, without status epilepticus SNOMED: 964079013 (2) Hypokalemia ICD Codes: E87.6 - Hypokalemia SNOMED: 49130018 (3) Seizure ICD Codes: R56.9 - Unspecified convulsions SNOMED: 15612662 (4) Tachycardia ICD Codes: R00.0 - Tachycardia, unspecified SNOMED: 8109927 (5) ALCOHOL DEPENDENCE WITH WITHDRAWAL, UNSPECIFIED ICD Codes: F10.239 - ALCOHOL DEPENDENCE WITH WITHDRAWAL, UNSPECIFIED Status: progressing Assessment/Plan: cri azotemia hyponatremia no sz today etoh abuse hiv immune compromised still confused encephalopathy seizure cryptococcal menigitis unsafe dc Subjective ROS Limited/Unobtainable: Yes Allergies: Coded Allergies: No Known Allergies (Unverified , 07/25/19) Objective Last 24 Hour Vital Signs Date Time Temp Pulse Resp B/P (MAP) Pulse Ox O2 Delivery O2 Flow Rate FiO2 08/15/19 21:00 Room Air 08/15/19 20:00 98.2 60 20 110/69 (83) 95 08/15/19 16:00 97.9 67 18 112/70 (84) 98 08/15/19 12:00 99.0 68 18 107/61 (76) 96 08/15/19 09:00 Room Air 08/15/19 08:00 98.8 80 17 102/63 (76) 97 08/15/19 04:00 98.4 94 16 97/48 (64) 96 08/15/19 00:00 99.0 77 18 103/62 (76) 98 Intake and Output 08/14/19 08/15/19 19:00 07:00 Intake Total 1500 ml 1240 ml Balance 1500 ml 1240 ml Intake Oral 1500 ml 1240 ml # Voids 3 3 # Bowel Movements 3 Laboratory Tests 08/15/19 06:35: White Blood Count 8.3, Red Blood Count 3.47L, Hemoglobin 11.4L, Hematocrit 32.0L , Mean Corpuscular Volume 92, Mean Corpuscular Hemoglobin 32.9H, Mean Corpuscular Hemoglobin Concent 35.7, Red Cell Distribution Width 10.9L, Platelet Count 117L, Mean Platelet Volume 6.2L, Neutrophils (%) (Auto) 71.1, Lymphocytes (%) (Auto) 13.4L, Monocytes (%) (Auto) 12.9H, Eosinophils (%) (Auto ) 1.6, Basophils (%) (Auto) 1.0, Sodium Level 128L, Potassium Level 4.1, Chloride Level 96L, Carbon Dioxide Level 23, Anion Gap 9, Blood Urea Nitrogen 32H, Creatinine 1.9H, Estimat Glomerular Filtration Rate 39.5, Glucose Level 87 , Uric Acid 6.9, Calcium Level 8.7, Phosphorus Level 4.3, Magnesium Level 1.2L, Total Bilirubin 0.6, Aspartate Amino Transf (AST/SGOT) 31, Alanine Aminotransferase (ALT/SGPT) 34, Alkaline Phosphatase 116, Total Creatine Kinase 27, C-Reactive Protein, Quantitative 3.4H, Pro-B-Type Natriuretic Peptide 459H, Total Protein 8.3H, Albumin 2.9L, Globulin 5.4, Albumin/Globulin Ratio 0.5L Height (Feet): 5 Height (Inches): 10.00 Weight (Pounds): 172 General Appearance: confused Isa Blanchard MD Aug 15, 2019 22:16
[2019-08-16] VITALS: BP 120/63
[2019-08-16 04:00] VITALS: BP 118/70
--- NOTE | 2019-08-16 06:38 | Hematology/Onc Progress Note ---
Assessment/Plan Assessment/Plan Assessment and Recs: # Pancytopenia - potential causes multifactorial, evaluate liver and viral etiologies to begin, in this case due to ETOH ABUSE/WITHDRAWAL, bone marrow myelosuppression, also may be due to meds, ampho --> Hep panel negative, HIV +++ --> US abd to evaluate for cirrhosis and hsm ordered --> SHOWS spenomegaly, enlarged spleen --> Peripheral smear ordered to evaluate for blasts /schistocytes --> none noted --> abx and other meds have been reviewed --> ok for ppx if plt >50k w/ either heparin or lovenox --> Transfuse if Plt < 20k and fever, or if Plt < 10k without fever --> plt trend 164-->122k-->86k-->52k-->69-->89-->119-->117 --> wbc trend 5-->3-->2->2.2-->3-->3.7-->8.3 --> abx: vanc/zosyn --> ampho/azithro--> ampho/flucty-->azithro/fluc--> azith/ dapsone # Leukocytosis likely reactive --> currently in leukopenia, is likely due to hiv+ --> abx: azithro --> wbc 11-->3.2-->3.7-->4-->8.3 # ETOH withdrawal, now improved --> r/o seizure --> ativan, librium, folate --> imaging reviewed --> smear noted --> rec cessation --> gi aware # Seizure --> R/o seizure d/o onset -> meds reviewed --> as per neuro # JULIAN (acute kidney injury) --> per renal recs --> on ivfs # HIV --> as per id, consider eval --> viral load is elevated # Tachycardia --> per Dr. Mckeon # AMS --> per psych The timing of this note does not necessarily reflect the time of the patient was seen. Greatly appreciate consultation. Subjective Constitutional: Denies: no symptoms, chills, fever, malaise, weakness, other HEENT: Denies: no symptoms, eye pain, blurred vision, tearing, double vision, ear pain, ear discharge, nose pain, nose congestion, throat pain, throat swelling, mouth pain, mouth swelling, other Cardiovascular: Denies: no symptoms, chest pain, edema, irregular heart rate, lightheadedness, palpitations, syncope, other Gastrointestinal/Abdominal: Denies: no symptoms, abdomen distended, abdominal pain, black stools, tarry stools, blood in stool, constipated, diarrhea, difficulty swallowing, nausea, poor appetite, poor fluid intake, rectal bleeding , vomiting, other Neurologic/Psychiatric: Denies: no symptoms, anxiety, depressed, emotional problems, headache, numbness, paresthesia, pre-existing deficit, seizure, tingling, tremors, weakness, other Endocrine: Denies: no symptoms, excessive sweating, flushing, intolerance to cold, intolerance to heat, increased hunger, increased thirst, increased urine, unexplained weight gain, unexplained weight loss, other Allergies: Coded Allergies: No Known Allergies (Unverified , 07/25/19) Subjective 07/27: no events, no bleeding, cbc pending, remains altered 07/28: no events, labs reviewed, viral studies noted, no bleeding 07/29: asleep, cbc pending, on vanc/zosym, room air 07/30 no major events noted, no bleeding, labs reviewed 07/31 no events, tolerating po, labs pending 08/02 no events, no bleeding, labs lower yesterday, no night sweats 08/03 no bleeding, labs noted, cbc to be reviewed, no major events 08/04 no events, pending labs, specifically bmp, labs noted 08/05 no bleeding episodes, no night sweats, meds have been reviewed 08/07 no acute events, labs reviewed, on room air, no bleeding 08/09 in bed, no events, labs reviewed, no new orders 08/10 no major changes, labs noted, no f/c, cbc reviewed 08/11 no events, no bleeding, cbc has been reviewed, hgb 11, wbc 3.7 08/12 labs are pending from the am, cbc is ordered, no night sweats 08/14 awake and alert, no acute events, labs reviewed, on normal saline 08/15 no major events, no bleeding, hgb 11, fatigued Objective Objective Current Medications Medications (Trade) Dose Ordered Sig/Gabrielle Route PRN Reason Start Time Stop Time Status Last Admin Dose Admin Acetaminophen (Tylenol) 650 mg Q6H PRN RECTAL fever 08/11/19 19:00 08/30/19 18:59 08/13/19 15:31 Azithromycin (Zithromax) 1,200 mg ONCE A WEEK ORAL 08/16/19 14:00 08/19/19 13:59 Dapsone (Dapsone) 100 mg DAILY ORAL 08/16/19 09:00 08/23/19 08:59 Docusate Sodium (Colace) 100 mg THREE TIMES A DAY ORAL 08/12/19 09:00 09/03/19 17:59 08/15/19 17:08 Fluconazole (Diflucan) 400 mg DAILY ORAL 08/12/19 09:00 08/17/19 11:59 08/15/19 08:06 Folic Acid (Folate) 1 mg DAILY ORAL 08/12/19 09:00 08/27/19 08:59 08/15/19 08:06 Midodrine (Pro-Amatine) 10 mg TID ORAL 08/12/19 09:00 11/01/19 17:59 08/15/19 17:08 Pantoprazole (Protonix) 40 mg EVERY 12 HOURS ORAL 08/11/19 21:00 08/29/19 20:59 08/15/19 20:03 Patient Own Medication (Patient's Own Med) 1 ea DAILY ORAL 08/12/19 09:00 09/03/19 20:59 08/15/19 08:40 Patient Own Medication (Patient's Own Med) 1 ea DAILY ORAL 08/12/19 09:00 09/03/19 21:59 08/15/19 08:40 Thiamine HCl (Vitamin B1) 100 mg DAILY ORAL 08/12/19 09:00 08/27/19 19:59 08/15/19 08:06 Last 24 Hour Vital Signs Date Time Temp Pulse Resp B/P (MAP) Pulse Ox O2 Delivery O2 Flow Rate FiO2 08/16/19 04:00 98.5 70 18 118/70 (86) 97 08/16/19 00:00 97.8 65 20 120/63 (82) 96 08/15/19 21:00 Room Air 08/15/19 20:00 98.2 60 20 110/69 (83) 95 08/15/19 16:00 97.9 67 18 112/70 (84) 98 08/15/19 12:00 99.0 68 18 107/61 (76) 96 08/15/19 09:00 Room Air 08/15/19 08:00 98.8 80 17 102/63 (76) 97 08/15/19 04:00 98.4 94 16 97/48 (64) 96 08/15/19 00:00 99.0 77 18 103/62 (76) 98 08/14/19 21:00 Room Air 08/14/19 20:00 98.2 62 19 125/76 (92) 95 08/14/19 16:00 98.3 60 20 121/76 (91) 97 08/14/19 11:58 98.4 74 20 99/57 (71) 99 08/14/19 08:29 Room Air 08/14/19 08:00 98.7 78 20 91/50 (64) 99 Intake and Output 08/15/19 08/16/19 19:00 07:00 Intake Total 1380 ml Balance 1380 ml IV Total 580 ml Other 800 ml # Voids 4 Labs Test 08/15/19 06:35 White Blood Count 8.3 K/UL (4.8-10.8) Red Blood Count 3.47 M/UL (4.70-6.10) Hemoglobin 11.4 G/DL (14.2-18.0) Hematocrit 32.0 % (42.0-52.0) Mean Corpuscular Volume 92 FL (80-99) Mean Corpuscular Hemoglobin 32.9 PG (27.0-31.0) Mean Corpuscular Hemoglobin Concent 35.7 G/DL (32.0-36.0) Red Cell Distribution Width 10.9 % (11.6-14.8) Platelet Count 117 K/UL (150-450) Mean Platelet Volume 6.2 FL (6.5-10.1) Neutrophils (%) (Auto) 71.1 % (45.0-75.0) Lymphocytes (%) (Auto) 13.4 % (20.0-45.0) Monocytes (%) (Auto) 12.9 % (1.0-10.0) Eosinophils (%) (Auto) 1.6 % (0.0-3.0) Basophils (%) (Auto) 1.0 % (0.0-2.0) Sodium Level 128 MMOL/L (136-145) Potassium Level 4.1 MMOL/L (3.5-5.1) Chloride Level 96 MMOL/L (98-107) Carbon Dioxide Level 23 MMOL/L (21-32) Anion Gap 9 mmol/L (5-15) Blood Urea Nitrogen 32 mg/dL (7-18) Creatinine 1.9 MG/DL (0.55-1.30) Estimat Glomerular Filtration Rate 39.5 mL/min (>60) Glucose Level 87 MG/DL (74-106) Uric Acid 6.9 MG/DL (2.6-7.2) Calcium Level 8.7 MG/DL (8.5-10.1) Phosphorus Level 4.3 MG/DL (2.5-4.9) Magnesium Level 1.2 MG/DL (1.8-2.4) Total Bilirubin 0.6 MG/DL (0.2-1.0) Aspartate Amino Transf (AST/SGOT) 31 U/L (15-37) Alanine Aminotransferase (ALT/SGPT) 34 U/L (12-78) Alkaline Phosphatase 116 U/L (46-116) Total Creatine Kinase 27 U/L (26-308) C-Reactive Protein, Quantitative 3.4 mg/dL (0.00-0.90) Pro-B-Type Natriuretic Peptide 459 pg/mL (0-125) Total Protein 8.3 G/DL (6.4-8.2) Albumin 2.9 G/DL (3.4-5.0) Globulin 5.4 g/dL Albumin/Globulin Ratio 0.5 (1.0-2.7) Height (Feet): 5 Height (Inches): 10.00 Weight (Pounds): 172 Objective Physical Exam: Vitals: reviewed General: Nad, altered mental status HEENT: nc, at Neck: supple Chest: clear breath sounds bilaterally Cardiovascular: RRR, no s3, s4 Abdomen: soft, nontender, nd Extremities: no cce, normal range of motion Neuro: alert and oriented Arya Nelson MD Aug 16, 2019 06:38
--- NOTE | 2019-08-16 07:28 | NUR ---
HAND-OFF: Report given to NIDHI Arroyo.
--- NOTE | 2019-08-16 08:00 | NUR ---
NURSE NOTES: Received patient on bed, awake. IV site intact and patent. Bed in low and locked position, bed alarm on, call light in reach. No signs of respiratory distress or pain. No reports of seizures. Room board updated, will continue to monitor.
[2019-08-16 08:24] VITALS: BP 121/73
[2019-08-16] MEDS: DESCOVY ORAL SCH (09:11)
[2019-08-16] MEDS: TIVICAY 50 MG ORAL SCH (09:11)
[2019-08-16] MEDS: Docusate 100mg cap ORAL SCH ×2 (09:12→13:16)
[2019-08-16] MEDS: Thiamine 100mg tab ORAL SCH (09:12)
[2019-08-16] MEDS: Fluconazole 100mg tab ORAL SCH (09:12)
[2019-08-16] MEDS: Midodrine 10mg tab ORAL SCH ×2 (09:12→13:16)
--- NOTE | 2019-08-16 11:00 | Nephrology Progress Note ---
Assessment/Plan Problem List: (1) JULIAN (acute kidney injury) Assessment: Serum creatinine rising (2) Seizure (3) ALCOHOL DEPENDENCE WITH WITHDRAWAL, UNSPECIFIED (4) Tachycardia (5) Hypokalemia (6) Low CD4 cell count determined by flow cytometry Assessment Electrolyte imbalance Hypokalemia and hypomagnesemia Elevated creatinine to 1.4 on admission now corrected Seizure disorder Plan Check labs tomorrow serum creatinine is down to 1.9 Kidney ultrasound unremarkable Adjust midodrine dose for low blood pressure Intravenous magnesium sulfate as needed Avoid nephrotoxic's as possible discussed with FRANCY Kirkland at night Urine studies ordered Patient taking p.o. well Previously Following measures as needed IV magnesium IV potassium phosphate IV thiamine IV Protonix Continue management per other consultants Monitor electrolytes Per orders Subjective ROS Limited/Unobtainable: No Objective Objective Last 24 Hour Vital Signs Date Time Temp Pulse Resp B/P (MAP) Pulse Ox O2 Delivery O2 Flow Rate FiO2 08/16/19 08:24 98.7 72 18 121/73 (89) 98 08/16/19 04:00 98.5 70 18 118/70 (86) 97 08/16/19 00:00 97.8 65 20 120/63 (82) 96 08/15/19 21:00 Room Air 08/15/19 20:00 98.2 60 20 110/69 (83) 95 08/15/19 16:00 97.9 67 18 112/70 (84) 98 08/15/19 12:00 99.0 68 18 107/61 (76) 96 Intake and Output 08/15/19 08/16/19 19:00 07:00 Intake Total 1380 ml Balance 1380 ml IV Total 580 ml Other 800 ml # Voids 4 No blood work today Height (Feet): 5 Height (Inches): 10.00 Weight (Pounds): 172 General Appearance: no apparent distress Objective No change Brian Alexandra MD Aug 16, 2019 11:00
[2019-08-16 12:12] VITALS: BP 120/80
[2019-08-16] MEDS ORDERED: TIVICAY50 MG ORAL (12:47)
--- NOTE | 2019-08-16 12:47 | Infectious Diseases Prog Note ---
Assessment/Plan Assessment/Plan IMPRESSION: Cryptococcal sepsis HIV ,AIDS CD4=46,Viral gnah=[id number] Cryptococcal meningitis New-onset seizure Alcohol withdrawal Acute renal failure,improving Encephalopathy. Elevated transaminase & ammonia improving RECOMMENDATION: Patient has HIV since 2003 goes to [facility], noncompliant with medication on Dapsone, Zithromax, continue Fluconazole 400 mg daily X 5 weeks Received Amphotericin B liposomal X 8 days Agree with discharge F/U with [facility] of [place] [phone] Continue HIV treatment with Tivicay & Descovy Subjective ROS Limited/Unobtainable: No Constitutional: Reports: no symptoms Respiratory: Reports: no symptoms Gastrointestinal/Abdominal: Reports: no symptoms Genitourinary: Reports: no symptoms Allergies: Coded Allergies: No Known Allergies (Unverified , 07/25/19) Objective Vital Signs Last 24 Hour Vital Signs Date Time Temp Pulse Resp B/P (MAP) Pulse Ox O2 Delivery O2 Flow Rate FiO2 08/16/19 12:12 98.4 76 19 120/80 (93) 97 08/16/19 09:00 Room Air 08/16/19 08:24 98.7 72 18 121/73 (89) 98 08/16/19 04:00 98.5 70 18 118/70 (86) 97 08/16/19 00:00 97.8 65 20 120/63 (82) 96 08/15/19 21:00 Room Air 08/15/19 20:00 98.2 60 20 110/69 (83) 95 08/15/19 16:00 97.9 67 18 112/70 (84) 98 Height (Feet): 5 Height (Inches): 10.00 Weight (Pounds): 172 General Appearance: no acute distress HEENT: mucous membranes moist Respiratory/Chest: lungs clear Cardiovascular: normal rate Abdomen: soft, non tender Extremities: no edema Neurologic/Psychiatric: alert, oriented x 3, responsive Current Medications Medications (Trade) Dose Ordered Sig/Gabrielle Route PRN Reason Start Time Stop Time Status Last Admin Dose Admin Acetaminophen (Tylenol) 650 mg Q6H PRN RECTAL fever 08/11/19 19:00 08/30/19 18:59 08/13/19 15:31 Azithromycin (Zithromax) 1,200 mg ONCE A WEEK ORAL 08/16/19 14:00 08/19/19 13:59 Dapsone (Dapsone) 100 mg DAILY ORAL 08/16/19 09:00 08/23/19 08:59 08/16/19 09:11 Docusate Sodium (Colace) 100 mg THREE TIMES A DAY ORAL 08/12/19 09:00 09/03/19 17:59 08/16/19 09:12 Fluconazole (Diflucan) 400 mg DAILY ORAL 08/12/19 09:00 08/21/19 08:59 08/16/19 09:12 Folic Acid (Folate) 1 mg DAILY ORAL 08/12/19 09:00 08/27/19 08:59 08/16/19 09:11 Midodrine (Pro-Amatine) 10 mg TID ORAL 08/12/19 09:00 11/01/19 17:59 08/16/19 09:12 Pantoprazole (Protonix) 40 mg EVERY 12 HOURS ORAL 08/11/19 21:00 08/29/19 20:59 08/16/19 09:12 Patient Own Medication (Patient's Own Med) 1 ea DAILY ORAL 08/12/19 09:00 09/03/19 20:59 08/16/19 09:11 Patient Own Medication (Patient's Own Med) 1 ea DAILY ORAL 08/12/19 09:00 09/03/19 21:59 08/16/19 09:11 Thiamine HCl (Vitamin B1) 100 mg DAILY ORAL 08/12/19 09:00 08/27/19 19:59 08/16/19 09:12 Po Bryant MD Aug 16, 2019 12:47
[2019-08-16] MEDS ORDERED: FLUCONAZOLE200 MG ORAL (12:55)
--- NOTE | 2019-08-16 13:44 | Cardiac Electrophysiology PN ---
Assessment/Plan Assessment/Plan 1. Sinus tachycardia due to seizure, alcohol withdrawal and crypt meningitis. EF 60%. EKG no acute ST-T wave abnormality. HR better. Now off tele 2. Hypotension, on Midodrine 10 tid. 3. 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 Heavy alcohol use. On Thiamine and Folate 5. AIDS 6. Thrombocytopenia , FU Dr. Omar GASCA RN DC today pending Subjective Subjective On Abx and Midodrine 10 tid. DC planning today. Objective Last 24 Hour Vital Signs Date Time Temp Pulse Resp B/P (MAP) Pulse Ox O2 Delivery O2 Flow Rate FiO2 08/16/19 12:12 98.4 76 19 120/80 (93) 97 08/16/19 09:00 Room Air 08/16/19 08:24 98.7 72 18 121/73 (89) 98 08/16/19 04:00 98.5 70 18 118/70 (86) 97 08/16/19 00:00 97.8 65 20 120/63 (82) 96 08/15/19 21:00 Room Air 08/15/19 20:00 98.2 60 20 110/69 (83) 95 08/15/19 16:00 97.9 67 18 112/70 (84) 98 Intake and Output 08/15/19 08/16/19 19:00 07:00 Intake Total 1380 ml Balance 1380 ml IV Total 580 ml Other 800 ml # Voids 4 Objective HEAD AND NECK: No JVD. LUNGS: Clear. CARDIOVASCULAR: Nl S1 and S2 with no gallop. ABDOMEN: Soft. EXTREMITIES: 1+ pitting edema. Ric Mckeon MD Aug 16, 2019 13:44
[2019-08-16] MEDS ORDERED: Azithromycin 600mg Tab ORAL SCH ×2 (14:00)
--- NOTE | 2019-08-16 14:20 | NUR ---
NURSE NOTES: Patient discharged. IV removed and site covered. Personal belongings inventoried and sent with patient. Patient kept comfortable at all times and patient needs met. Patient instructed to continue home medications and antibiotics for 5 weeks and follow up with [facility] clinic this week. Patient departed with in personal vehicle.
--- NOTE | 2019-08-16 22:32 | General Progress Note ---
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 - pancytopenia - improving - elevated LFT - resolved - h/o EtOH use x years, although stated he has not consumed for 1 mo - seizure - fever - Elevated creatinine - poor prognosis Recommendations - Antibiotics per ID - po as tolerated - thiamine - watch Cr and LFT - Renal and ID f/u Subjective Allergies: Coded Allergies: No Known Allergies (Unverified , 07/25/19) Subjective Seen this am no events overnight Cr improving LFT now normal Objective Last 24 Hour Vital Signs Date Time Temp Pulse Resp B/P (MAP) Pulse Ox O2 Delivery O2 Flow Rate FiO2 08/16/19 12:12 98.4 76 19 120/80 (93) 97 08/16/19 09:00 Room Air 08/16/19 08:24 98.7 72 18 121/73 (89) 98 08/16/19 04:00 98.5 70 18 118/70 (86) 97 08/16/19 00:00 97.8 65 20 120/63 (82) 96 Intake and Output 08/15/19 08/16/19 19:00 07:00 Intake Total 1380 ml Balance 1380 ml IV Total 580 ml Other 800 ml # Voids 4 Height (Feet): 5 Height (Inches): 10.00 Weight (Pounds): 172 Objective WDWN NCAT supple CTA RR abd soft ND no edema Jai Ness MD Aug 16, 2019 22:32
--- NOTE | 2019-08-17 10:36 | Discharge Summary ---
Discharge Summary Discharge Summary _ DATE OF ADMISSION: 07/25/2019 DATE OF DISCHARGE: 08/16/2019 DISCHARGED BY: Dr. Blanchard REASON FOR ADMISSION: 39 years old male with past medical history of HIV, noncompliance with medication, presented for evaluation of seizure-like activity. Paramedics were called to the house by patient roommate , who found him behaving bizarrely with right arm twitching. Per video software engineer patient was confused , though was making good eye contact, was tracking and following commands. En route to the hospital he had generalized tonic-clonic seizure with persistent tremors in the right upper extremity. Patient received 5 mg of Versed , which aborted the seizure. Upon presentation to ED patient was somnolent and unable to provide any history. Laboratory work-up revealed no leukocytosis, stable hemoglobin , hematocrit and platelet count. Potassium 3.1. BUN 15, creatinine 1.4. Glucose 128. AST 82, ALT 81. Troponin negative . EKG revealed sinus tachycardia no acute ischemic changes. Albumin 3.1 . Urine toxicology screen was positive for benzodiazepine ; serum salicylate , Tylenol, and alcohol were negative . CT of the head revealed no mass-effect, edema or acute bleeding. Patient admitted for further management. 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 Bailey neurologist Dr. Razo ID specialist Dr. Po Bryant GI specialist Dr Ness utility bag assembler Dr. Alexandra soaker helper/oncologist Dr. Nelson psychiatrist Dr. Hickey pain specialist Dr. Wilson HOSPITAL COURSE: Patient admitted and started on IV hydration. Seizure precaution maintained. Patient started on Keppra. Librium was on board as needed. EEG showed normal awake, drowsy and stage II sleep EEG. Per neurologist, seizure was most likely alcohol withdrawal seizure. Patient was started on folate and thiamine. The next date patient was febrile. Patient started on empiric antibiotic as per ID specialist recommendation. HIV test was positive. Patient subsequently undergone lumbar puncture. Spinal fluid analysis revealed glucose 32, protein 61. WBC 13. Cocci antibody titer less than 1:2. Herpes 2 by DNA negative. Cerebrospinal fluid culture positive for cryptococcus neoformans. Antibiotic regimen provided as per ID specialist recommendation . Blood cultures initially were negative. Repeated blood culture revealed cryptococcus neoformans. CD4 count 46 . Patient started on dapsone and Zithromax. Patient apparently had HIV since 2003 . Patient admitted being noncompliant with HIV medications. Patient started on amphotericin B and fluconazole. Patient received amphotericin B for 8 days, which stopped due to pancytopenia and renal failure. Patient will need to continue with Fluconazole 400 mg daily for 5 weeks as per ID specialist recommendations and follow-up with the [facility]. Patient started on Descovy and Tivicay. Renal parameters and electrolytes were closely monitored. Electrolytes corrected as needed , and nephrotoxic's were avoided. Patient developed acute renal failure with the highest creatinine reading 3.0. Patient was on IV hydration. Avoid nephrotoxics as possible . Creatinine down to 1.9. Echocardiogram revealed preserved ejection fraction of 60% with no evidence of wall motion abnormality. Right ventricular systolic pressure is 10. Sinus tachycardia was likely due to seizure, alcohol withdrawal and cryptococcal meningitis. Heart rate improved , and patient was taken off monitored floor to regular floor. Patient noted to be hypotensive and started on midodrine. Hemodynamic status was closely monitored and remained stable. Patient noted to have elevated LFTs , likely due to alcohol use. LFT trended down to normal. Bowel regimen instituted . GI prophylaxis provided . Counts were closely monitored. Patient developed pancytopenia. Per soaker helper pancytopenia was likely multifactorial , and in this case was likely due to EtOH abuse/withdrawal and bone marrow myelosuppression ,and probably side effect of amphotericin. Hemoglobin hematocrit were closely monitored with goal to keep hemoglobin above 7, prior to discharge hemoglobin 11.4 hematocrit 22. Platelet count dropped down with the lowest reading 62, prior to discharge platelet count 117 . Leukopenia resolved as well. Pain management was addressed as per pain specialist recommendations. Patient clinically stabilized and was ready for discharge home. Reinforced compliance with medication regimen. 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 DISCHARGE INSTRUCTIONS: Patient was discharged home. Follow-up with [facility] in 1 week. Reinforced compliance with medication. I have been assigned to dictate discharge summary for this account. I was not involved in the patient's management. Kezia Grajeda NP Aug 17, 2019 10:36
== END 2019-08-16 14:20 | disposition home or self-care (01) | DRG 890 ==
LOC: EDBD 20:32 → EMR 20:40 → EDBEDREQSVC 21:37 → EDBEDREQ 21:37 → 2E 22:06 → EDBEDREQSVC 22:32 → EDBEDREQ 22:32 → 4E 07-31 22:10 → 2E 08-09 15:09 → 4E 08-11 15:12
PROC: B01BZZZ Fluoroscopy of Spinal Cord (ICD-10-PCS; principal; 2019-07-28)
PROC: 009U3ZX Drainage of Spinal Canal, Percutaneous Approach, Diagnostic (ICD-10-PCS; principal; 2019-07-28)
DX: A41.89 Other specified sepsis (principal); N17.9 Acute kidney failure, unspecified; F10.231 Alcohol dependence with withdrawal delirium; E87.6 Hypokalemia; B20 Human immunodeficiency virus [HIV] disease; B45.1 Cerebral cryptococcosis; Z91.14 Patient's other noncompliance with medication regimen; I95.9 Hypotension, unspecified; G93.40 Encephalopathy, unspecified; D69.6 Thrombocytopenia, unspecified; D61.818 Other pancytopenia; R00.0 Tachycardia, unspecified; E83.42 Hypomagnesemia; G40.509 Epileptic seizures related to external causes, not intractable, without status epilepticus
CPT/HCPCS: 36415; 70450; 71045; 74177; 76700; 76770; 80048; 80053; 80061; 80202; 80307; 81003; 82140; 82550; 82945; 82977; 83036; 83690; 83735; 83880; 83930; 84100; 84157; 84300; 84439; 84443; 84484; 84550; 85007; 85025; 85610; 86140; 86360; 86592; 86635; 86689; 86703; 86705; 86709; 86780; 86803; 87040; 87070; 87205; 87220; 87340; 87529; 87536; 89050; 89051; 93005; 93306; 93880; 95819; 96361; 96374; 96375; 96376; 99291; G0480; J0289; J7030